=== PATIENT | male | born 1965 | race Caucasian/White ===

== ENCOUNTER → 2017-04-03 14:13 | Outpatient (REF) | payer OTHER, SELFPAY ==
[2017-04-03 21:32] LABS: Amphetamine/Metha Screen,Urine Negative ng/mL (<1000); Barbiturates Screen,Urine Negative ng/mL (<200); Benzodiazepines Screen,Urine Positive ng/mL (200); Cannabinoid Screen,Urine Negative ng/mL (<50); Cocaine Screen,Urine Negative ng/g (<300); Methadone Screen,Urine Negative ng/mL (<300); Opiate Screen,Urine Negative ng/mL (<300); Phencyclidine Screen,Urine Negative ng/mL (<25)
== END ==
LOC: LAB 14:13
PROVIDERS: Visit Provider Emergency Medicine
DX: Z79.899 Other long term (current) drug therapy (principal)
CPT/HCPCS: 80305

== ENCOUNTER → 2017-06-29 14:54 | Outpatient (REF) | payer OTHER, SELFPAY ==
[2017-06-29 19:30] LABS: Amphetamine/Metha Screen,Urine Negative ng/mL (<1000); Barbiturates Screen,Urine Negative ng/mL (<200); Benzodiazepines Screen,Urine Positive ng/mL (200); Cannabinoid Screen,Urine Negative ng/mL (<50); Cocaine Screen,Urine Negative ng/g (<300); Methadone Screen,Urine Negative ng/mL (<300); Opiate Screen,Urine Negative ng/mL (<300); Phencyclidine Screen,Urine Negative ng/mL (<25)
== END ==
LOC: LAB 14:54
PROVIDERS: Visit Provider Emergency Medicine
DX: Z79.899 Other long term (current) drug therapy (principal)
CPT/HCPCS: 80305

== ENCOUNTER → 2017-09-19 13:38 | Outpatient (CLI) | payer OTHER, SELFPAY ==
[2017-09-19 19:20] LABS: Anion Gap 14.8 mEq/L (5-15); Blood Urea Nitrogen 17 mg/dL (7-18); Calcium 8.8 mg/dL (8.5-10.1); Carbon Dioxide 25 mmol/L (21.0-32.0); Chloride 100 mmol/L (98-107); Creatinine,Serum 1.16 mg/dL (0.70-1.30); Estimated Glomerular Filt Rate 66 ml/min (>60); GFR (African American) 80 ML/MIN (>60); Glucose 331 mg/dL (74-106); Potassium 4.8 mmoL/L (3.5-5.1); Sodium 135 mmol/L (136-145)
[2017-09-19 19:21] LABS: Hemoglobin A1C 8.9 % (0.0-7.0)
== END ==
PROVIDERS: Visit Provider Emergency Medicine
DX: E11.9 Type 2 diabetes mellitus without complications (principal); I20.8 Other forms of angina pectoris
CPT/HCPCS: 80048; 83036

== ENCOUNTER → 2017-09-20 10:39 | Outpatient (CLI) | payer OTHER, SELFPAY | PROVIDERS: Visit Provider Emergency Medicine | DX: E11.9 Type 2 diabetes mellitus without complications (principal) ==

== ENCOUNTER → 2017-09-25 07:13 | Outpatient (CLI) | payer OTHER, SELFPAY ==
--- NOTE | 2017-09-25 07:44 | CA_ITS ---
PROCEDURE: 2-D M-mode and color Doppler study INDICATIONS FOR THE TEST: Chest pain + COPD Heart Murmur Tobacco Smoking+ Palpitations Fatigue Syncope Edema Hypertension+Diabetes Mellitus+ Rheumatic Fever SOB+DUVALL Obesity Hyperlipidemia+ Family History HD Additional History STENT, ND PATIENT INFORMATION HEIGHT: 72 WEIGHT:213 GENDER: M B/P:118/78 2-D/M-MODE INTERPRETATION: 2-D MEASUREMENTS OBSERVED VALUES IN CMS Right Ventricular Dimension (RVDd) 2.5 Interventricular Septum (Thickness)(IVsd) 1.4 Left Ventricular Internal Dimensions(LVIDd) 3.4 Left Ventricular Posterior Wall (Thickness)(LVPWd) 1.5 Aortic Root 3.5 Aortic Cusp Separation 2.2 Left Atrial Dimensions (LAD) 3.1 2D 1. Left atrium is mildly enlarged, left ventricle is normal size, mild concentric left ventricular hypertrophy, visually estimated ejection fraction of 55% with no obvious regional wall motion abnormality. 2. The right atrium and right ventricle are normal size and contractility. 3. The aortic, mitral and tricuspid valve are grossly normal. 4. The pulmonic valve is poorly visualized. 5. No significant pericardial effusion noted. DOPPLER INTERROGATION: Doppler interrogation of the aortic, mitral and tricuspid valve reveals presence of mild mitral and tricuspid regurgitation, tricuspid regurgitation jet velocity is insufficient for calculation of the right ventricular systolic pressure, grade 1 diastolic dysfunction seen without tissue Doppler evidence of raised left atrial pressure. CONCLUSION: 1. Mildly enlarged left atrium, normal left ventricular size, mild concentric left ventricular hypertrophy, visually estimated ejection fraction of 55% with no obvious regional wall motion abnormality, grade 1 diastolic dysfunction seen without tissue Doppler evidence of raised left atrial pressure. 2. Mild mitral and tricuspid regurgitation 3. No significant pericardial effusion noted.
--- NOTE | 2017-09-25 09:42 | NM_ITS ---
CARDIOLITE SPECT MYOCARDIAL PERFUSION SCAN, REST AND STRESS: EXERCISE STRESS [facility] REVIEW QGS EF AND WALL MOTION EVALUATION: QPS - PERFUSION EVALUATION HISTORY: Chest pain, SOB, Fatigue, CAD, DM, Tobacco use DOSE: 10.98 mCi technetium 99m mibi intravenously at rest followed by 31.4 mCi technetium 99m mibi following the intravenous ministration of 0.4 mg of Lexiscan. Resting blood pressure is 116/71. Stress blood pressure 116/68. FINDINGS: Ejection fraction is calculated to be 70 Uniform myocardial activity at both stress and rest gated images calculated ejection fraction 70% wall motion. IMPRESSION: No scintigraphic evidence of Lexiscan-induced myocardial ischemia with normal ejection fraction normal wall motion
--- NOTE | 2017-09-25 09:54 | HMH.ITSHM ---
SIMVASTATIN LEXAPRO PLAVIX LISINOPRIL ZANAX NEXIUM METFORMIN INSULIN
[2017-09-25 13:55] LABS: Chol/HDL Ratio 5.4 (1-3.5); Cholesterol 234 mg/dL (140-200); HDL Cholesterol 43 mg/dL (27-67); LDL Cholesterol 157 mg/dL (0-130); Triglycerides 170 mg/dL (30-200); VLDL Cholesterol 34 mg/dL (0-40)
== END ==
PROVIDERS: Family Provider Emergency Medicine; PCP Emergency Medicine; Visit Provider Internal Medicine
DX: R07.9 Chest pain, unspecified (principal); R06.00 Dyspnea, unspecified; I25.10 Atherosclerotic heart disease of native coronary artery without angina pectoris; I11.9 Hypertensive heart disease without heart failure; E11.9 Type 2 diabetes mellitus without complications; F41.9 Anxiety disorder, unspecified; F32.9 Major depressive disorder, single episode, unspecified; F17.200 Nicotine dependence, unspecified, uncomplicated; Z95.5 Presence of coronary angioplasty implant and graft
CPT/HCPCS: 36415; 78452; 80061; 93017; 93306; A9502; J2785

== ENCOUNTER → 2017-11-27 11:30 | Outpatient (REF) | payer OTHER, SELFPAY ==
[2017-11-27 13:46] LABS: Amphetamine/Metha Screen,Urine Negative ng/mL (<1000); Barbiturates Screen,Urine Negative ng/mL (<200); Benzodiazepines Screen,Urine Positive ng/mL (<200); Cannabinoid Screen,Urine Positive ng/mL (<50); Cocaine Screen,Urine Negative ng/mL (<300); Methadone Screen,Urine Negative ng/mL (<300); Opiate Screen,Urine Negative ng/mL (<300); Phencyclidine Screen,Urine Negative ng/mL (<25)
== END ==
LOC: LAB 11:30
PROVIDERS: Visit Provider Emergency Medicine
DX: Z79.899 Other long term (current) drug therapy (principal)
CPT/HCPCS: 80305

== ENCOUNTER → 2018-01-15 08:12 | Outpatient (CLI) | payer OTHER, SELFPAY ==
--- NOTE | 2018-01-15 08:14 | XR_ITS ---
XR hip RT 2-3V w/pelvis HISTORY: Right hip pain ITS.REASON: back pain ORDERING PHYSICIAN: Kvng Quintana MD PATIENT AGE: 52 years COMPARISON: 02/19/2012 FINDINGS: There are mild osteoarthritic changes of the right hip with decrease in the joint space medially and osteophyte formation along the inferior aspect of the acetabulum. No fracture or dislocation. No lytic or blastic change. These findings are similar when compared to 02/19/2012. IMPRESSION: Mild osteoarthritis of the right hip
--- NOTE | 2018-01-15 08:14 | XR_ITS ---
XR hip LT 2-3V w/pelvis HISTORY: Left hip pain ITS.REASON: back pain ORDERING PHYSICIAN: Kvng Quintana MD PATIENT AGE: 52 years COMPARISON: None FINDINGS: Mild osteoarthritic changes are present involving the left hip with slight decrease in the joint space and minimal osteophyte formation along the inferior aspect of the femoral head. No fracture or dislocation. No lytic or blastic change. IMPRESSION: Mild osteoarthritis of left hip
== END ==
PROVIDERS: PCP Emergency Medicine; Visit Provider Emergency Medicine
DX: M54.5 Low back pain (principal)
CPT/HCPCS: 73502

== ENCOUNTER → 2018-02-05 20:02 | Outpatient (CLI) | payer OTHER, SELFPAY | PROVIDERS: PCP Emergency Medicine; Visit Provider Emergency Medicine | DX: G47.33 Obstructive sleep apnea (adult) (pediatric) (principal); I10 Essential (primary) hypertension; R41.3 Other amnesia | CPT/HCPCS: 95810 ==

== ENCOUNTER → 2018-03-01 19:13 | Outpatient (CLI) | payer OTHER, SELFPAY ==
[2018-03-01 21:44] LABS: Amphetamine/Metha Screen,Urine Negative ng/mL (<1000); Barbiturates Screen,Urine Negative ng/mL (<200); Benzodiazepines Screen,Urine Positive ng/mL (<200); Cannabinoid Screen,Urine Positive ng/mL (<50); Cocaine Screen,Urine Negative ng/mL (<300); Methadone Screen,Urine Negative ng/mL (<300); Opiate Screen,Urine Negative ng/mL (<300); Phencyclidine Screen,Urine Negative ng/mL (<25)
== END ==
PROVIDERS: Visit Provider Emergency Medicine
DX: Z79.899 Other long term (current) drug therapy (principal)
CPT/HCPCS: 80305

== ENCOUNTER → 2018-05-28 18:20 | Outpatient (CLI) | payer OTHER, SELFPAY ==
[2018-05-28 19:27] LABS: Basophils % 0.3 % (0.1-2.0); Eosinophils # 0.1 K/mm3 (0.0-0.4); Eosinophils % 1.6 % (0.1-12.0); Hematocrit 45.3 % (42.0-52.0); Hemoglobin 14.7 g/dL (14.1-18.0); Lymphocytes # 2.1 K/mm3 (0.7-4.5); Mean Corpuscular HGB Conc 32.5 g/dL (31.8-35.4); Mean Corpuscular Hemoglobin 29.7 pg (27.0-31.2); Mean Corpuscular Volume 91.3 fl (80-94); Mean Platelet Volume 7.6 fl (7.4-10.4); Monocytes # 0.4 K/mm3 (0.1-1.0); Monocytes % 4.2 % (1.7-9.3); Neutrophils # 5.7 K/mm3 (1.8-7.8); Neutrophils % 68.9 % (37.0-80.0); Platelet Count 324 K/mm3 (142-424); Red Blood Count 4.96 M/mm3 (4.60-6.20); Red Cell Distribution Width 13.9 % (11.5-17.5); White Blood Count 8.2 K/mm3 (4.8-10.8)
[2018-05-28 20:00] LABS: Alanine Aminotransferase 20 U/L (12-78); Albumin Level 3.6 gm/dL (3.4-5.0); Alkaline Phosphatase 73 U/L (46-116); Anion Gap 16.4 mEq/L (5-15); Aspartate Amino Transferase 14 U/L (15-37); Bilirubin,Total 0.4 mg/dL (0.2-1.0); Blood Urea Nitrogen 14 mg/dL (7-18); Calcium 9.2 mg/dL (8.5-10.1); Carbon Dioxide 26 mmol/L (21.0-32.0); Chloride 100 mmol/L (98-107); Chol/HDL Ratio 4.6 (1-3.5); Cholesterol 203 mg/dL (140-200); Creatinine,Serum 1.14 mg/dL (0.70-1.30); Estimated Glomerular Filt Rate 67 ml/min (>60); GFR (African American) 81 ML/MIN (>60); Globulin 3.7 gm/dl (1.3-3.2); Glucose 152 mg/dL (74-106); HDL Cholesterol 44 mg/dL (27-67); LDL Cholesterol 134 mg/dL (0-130); Potassium 4.4 mmoL/L (3.5-5.1); Sodium 138 mmol/L (136-145); T4 (Thyroxine) 6.7 ug/dl (4.7-13.3); Thyroid Stimulating Hormone 1.98 uIU/ml (0.358-3.740); Total Protein,Serum 7.3 gm/dL (6.4-8.2); Triglycerides 123 mg/dL (30-200); VLDL Cholesterol 25 mg/dL (0-40)
[2018-05-28 21:03] LABS: Hemoglobin A1C 8.3 % (0.0-7.0)
[2018-05-30 15:06] LABS: Vitamin D 25 Hydroxy 9.5 ng/mL (30.0-100.0)
== END ==
PROVIDERS: Visit Provider Emergency Medicine
DX: E11.9 Type 2 diabetes mellitus without complications (principal); Z79.4 Long term (current) use of insulin; Z79.84 Long term (current) use of oral hypoglycemic drugs; F31.9 Bipolar disorder, unspecified; K21.9 Gastro-esophageal reflux disease without esophagitis; E78.5 Hyperlipidemia, unspecified; F17.210 Nicotine dependence, cigarettes, uncomplicated
CPT/HCPCS: 80053; 80061; 82652; 83036; 84436; 84443; 85025

== ENCOUNTER → 2018-06-17 17:52 | Outpatient (CLI) | payer OTHER, SELFPAY ==
[2018-06-17 18:21] LABS: Amphetamine/Metha Screen,Urine Negative ng/mL (<1000); Barbiturates Screen,Urine Negative ng/mL (<200); Benzodiazepines Screen,Urine Positive ng/mL (<200); Cannabinoid Screen,Urine Positive ng/mL (<50); Cocaine Screen,Urine Negative ng/mL (<300); Methadone Screen,Urine Negative ng/mL (<300); Opiate Screen,Urine Negative ng/mL (<300); Phencyclidine Screen,Urine Negative ng/mL (<25)
== END ==
PROVIDERS: Visit Provider Emergency Medicine
DX: Z79.899 Other long term (current) drug therapy (principal)
CPT/HCPCS: 80305

== ENCOUNTER → 2018-06-21 11:05 | Outpatient (CLI) | payer OTHER, SELFPAY | PROVIDERS: Visit Provider Specialist | DX: G47.33 Obstructive sleep apnea (adult) (pediatric) (principal) | CPT/HCPCS: 94762 ==

== ENCOUNTER → 2018-09-12 14:54 | Outpatient (CLI) | payer OTHER, SELFPAY ==
[2018-09-12 15:32] LABS: Amphetamine/Metha Screen,Urine Negative ng/mL (<1000); Barbiturates Screen,Urine Negative ng/mL (<200); Benzodiazepines Screen,Urine Positive ng/mL (<200); Cannabinoid Screen,Urine Positive ng/mL (<50); Cocaine Screen,Urine Negative ng/mL (<300); Methadone Screen,Urine Negative ng/mL (<300); Opiate Screen,Urine Negative ng/mL (<300); Phencyclidine Screen,Urine Negative ng/mL (<25)
== END ==
PROVIDERS: Visit Provider Emergency Medicine
DX: Z79.899 Other long term (current) drug therapy (principal)
CPT/HCPCS: 80305

== ENCOUNTER → 2018-12-11 17:44 | Outpatient (CLI) | payer OTHER, SELFPAY ==
[2018-12-11 20:22] LABS: Amphetamine/Metha Screen,Urine Negative ng/mL (<1000); Barbiturates Screen,Urine Negative ng/mL (<200); Benzodiazepines Screen,Urine Negative ng/mL (<200); Cannabinoid Screen,Urine Negative ng/mL (<50); Cocaine Screen,Urine Negative ng/mL (<300); Methadone Screen,Urine Negative ng/mL (<300); Opiate Screen,Urine Negative ng/mL (<300); Phencyclidine Screen,Urine Negative ng/mL (<25)
[2018-12-16 08:30] LABS: Alprazolam Negative (Cutoff=100); Benzodiazepines Negative ng/mL (Cutoff=100); Clonazepam Negative (Cutoff=100); Flurazepam Negative (Cutoff=100); Lorazepam Negative (Cutoff=100); Midazolam Negative (Cutoff=100); Temazepam Negative (Cutoff=100); Triazolam Negative (Cutoff=100)
== END ==
PROVIDERS: Visit Provider Emergency Medicine
DX: Z79.899 Other long term (current) drug therapy (principal); F41.9 Anxiety disorder, unspecified
CPT/HCPCS: 80305; 80346

== ENCOUNTER → 2019-03-11 12:50 | Outpatient (CLI) | payer OTHER, SELFPAY ==
[2019-03-12 22:47] LABS: Amphetamine/Metha Screen,Urine Negative ng/mL (<1000); Barbiturates Screen,Urine Negative ng/mL (<200); Benzodiazepines Screen,Urine Negative ng/mL (<200); Cannabinoid Screen,Urine Negative ng/mL (<50); Cocaine Screen,Urine Negative ng/mL (<300); Methadone Screen,Urine Negative ng/mL (<300); Opiate Screen,Urine Negative ng/mL (<300); Phencyclidine Screen,Urine Negative ng/mL (<25)
[2019-03-22 16:35] LABS: Alprazolam Negative (Cutoff=100); Benzodiazepines Negative ng/mL (Cutoff=100); Clonazepam Negative (Cutoff=100); Flurazepam Negative (Cutoff=100); Lorazepam Negative (Cutoff=100); Midazolam Negative (Cutoff=100); Temazepam Negative (Cutoff=100); Triazolam Negative (Cutoff=100)
== END ==
PROVIDERS: Visit Provider Emergency Medicine
DX: Z79.899 Other long term (current) drug therapy (principal)
CPT/HCPCS: 80305; 80346

== ENCOUNTER → 2019-04-15 16:54 | Outpatient (CLI) | payer OTHER, SELFPAY ==
[2019-04-15 21:16] LABS: Amphetamine/Metha Screen,Urine Negative ng/ml (<1000)
[2019-04-15 21:17] LABS: Barbiturates Screen,Urine Negative ng/ml (<200)
[2019-04-15 21:18] LABS: Benzodiazepines Screen,Urine Positive ng/ml (<200); Cannabinoid Screen,Urine Positive ng/ml (<50)
[2019-04-15 21:19] LABS: Cocaine Screen,Urine Negative ng/ml (<300); Methadone Screen,Urine Negative ng/ml (<300)
[2019-04-15 21:20] LABS: Opiate Screen,Urine Negative ng/ml (<300)
[2019-04-15 21:21] LABS: Phencyclidine Screen,Urine Negative
== END ==
PROVIDERS: Visit Provider Emergency Medicine
DX: Z79.899 Other long term (current) drug therapy (principal)
CPT/HCPCS: 80305

== ENCOUNTER → 2019-08-01 17:25 | Outpatient (CLI) | payer OTHER, SELFPAY ==
[2019-08-01 18:00] LABS: Basophils # 0.1 K/mm3 (0-0.2); Basophils % 0.5 % (0.1-2.0); Eosinophils # 0.2 K/mm3 (0.0-0.4); Eosinophils % 2.2 % (0.1-12.0); Hematocrit 48.1 % (42.0-52.0); Lymphocytes # 2.5 K/mm3 (0.7-4.5); Lymphocytes % 24.9 % (10-50); Mean Corpuscular HGB Conc 33.3 g/dL (31.8-35.4); Mean Corpuscular Hemoglobin 30.3 pg (27.0-31.2); Mean Platelet Volume 7.9 fl (7.4-10.4); Monocytes # 0.5 K/mm3 (0.1-1.0); Neutrophils # 6.7 K/mm3 (1.8-7.8); Neutrophils % 67.4 % (37.0-80.0); Platelet Count 410 K/mm3 (142-424); Red Blood Count 5.28 M/mm3 (4.60-6.20); Red Cell Distribution Width 13.9 % (11.5-17.5)
[2019-08-01 18:33] LABS: Chloride 102 mmol/L (98-107); Potassium 4.8 mmoL/L (3.5-5.1); Sodium 137 mmol/L (136-145)
[2019-08-01 18:35] LABS: Blood Urea Nitrogen 12 mg/dl (9-20); Estimated Glomerular Filt Rate 78 ml/min (>60); GFR (African American) 94 ML/MIN (>60)
[2019-08-01 18:36] LABS: Alanine Aminotransferase 17 U/L (12-78); Albumin Level 4.4 g/dl (3.5-5.0); Albumin/Globulin Ratio 1.3 (1.1-1.8); Alkaline Phosphatase 110 U/L (38-126); Anion Gap 11.8 mEq/L (5-15); Aspartate Amino Transferase 26 U/L (17-59); Bilirubin,Total 0.8 mg/dl (0.2-1.3); Calcium 10.2 mg/dl (8.4-10.2); Carbon Dioxide 28 mmol/L (22.0-30.0); Cholesterol 218 mg/dl (140-200); Globulin 3.5 g/dL (1.3-3.2); Glucose 168 mg/dl (74-100); Total Protein,Serum 7.9 g/dl (6.3-8.2); Triglycerides 272 mg/dl (30-150); VLDL Cholesterol 54 mg/dL (0-40)
[2019-08-01 18:37] LABS: Chol/HDL Ratio 4.4 (1-3.5); HDL Cholesterol 50 mg/dl (40-60)
[2019-08-01 18:48] LABS: Direct LDL Cholesterol 140.38 mg/dL (100-129)
[2019-08-01 18:54] LABS: T4 (Thyroxine) 8.3 ug/dl (5.53-11.0)
[2019-08-01 19:08] LABS: Thyroid Stimulating Hormone 6.31 uIU/mL (0.465-4.68)
[2019-08-01 19:34] LABS: Hemoglobin A1C 9.4 % (4.0-6.0)
[2019-08-03 08:09] LABS: Creatinine, Urine 30.7 mg/dL (Not Estab.); Microalbumin, Urine <3.0 ug/mL (Not Estab.)
[2019-08-04 08:25] LABS: Vitamin D 25 Hydroxy 28.3 ng/mL (30.0-100.0)
== END ==
PROVIDERS: Visit Provider Nurse Practitioner Family
DX: E55.9 Vitamin D deficiency, unspecified (principal); E11.9 Type 2 diabetes mellitus without complications; Z79.4 Long term (current) use of insulin; Z79.899 Other long term (current) drug therapy
CPT/HCPCS: 80053; 80061; 82043; 82570; 82652; 83036; 84436; 84443; 85025

== ENCOUNTER → 2019-08-20 07:47 | Outpatient (CLI) | payer OTHER, SELFPAY ==
--- NOTE | 2019-08-20 07:47 | MR_ITS ---
PROCEDURE: MR LUMBAR SPINE WO CON CLINICAL INDICATION: back pain COMPARISON: No exams were available for comparison TECHNIQUE: Standard multiplanar multiecho sequences are performed without contrast. 3-D MIP and myelographic images are also rendered and reviewed FINDINGS: Degenerate narrowing and Modic changes at L5-S1 is noted. The other disc spaces and the bony structures are unremarkable. The spinal cord and conus medullaris is unremarkable. At the L1-2 disc space there is no significant spinal stenosis. At the L2-3 disc space there is no significant spinal stenosis. At the L3-4 disc space there is a broad-based disc protrusion and mild facet arthropathy producing minimal central canal stenosis. At the L4-5 disc space there is mild facet arthropathy and broad-based disc protrusion producing mild central canal and mild bilateral neural foraminal stenosis. At the L5-S1 disc space there is a broad-based disc osteophyte complex and moderate facet arthropathy producing mild left neural foraminal stenosis. The bilateral paralumbar structures are unremarkable. IMPRESSION: Mild multilevel spinal stenosis as above. Dictated by: Javy Moon 08/20/2019 09:34 Electronically signed by Javy Moon in [place] 08/20/2019 09:34
== END ==
PROVIDERS: PCP Emergency Medicine; Visit Provider Emergency Medicine
DX: M54.9 Dorsalgia, unspecified (principal)
CPT/HCPCS: 72148; 76376

== ENCOUNTER → 2019-09-02 06:58 | Outpatient (CLI) | payer OTHER, SELFPAY ==
--- NOTE | 2019-09-02 06:59 | CA_ITS ---
APPROVED REPORT EXAM: Comprehensive 2D, Doppler, and color-flow Echocardiogram Commercial Account Executive: Dorinda Ge RDCS Ht: 6 ft 0 in Wt: 211lbs BSA: 2.18 BP: 112/84 mmHg Indications: CP,SMOKER,HTN,HLP,CAD,DM,SOA 2D Dimensions LVOT 1.83 cm (M/F) 1.5-2.5 M-Mode Dimensions RVDd 2.46 cm (0.9-2.6) LVDd 4.66 cm (3.5-5.7) LVDs 3.88 cm (3.5-5.7) IVSd 0.99 cm (0.6-1.1) PWd 0.76 cm (0.6-1.1) EF (Teich) 35.10% FS 16.70% EDV (Teich) 100.30 mL ESV (Teich) 65.10 mL LV Diastology E/A Ratio 0.75 Mitral Valve MV A Velocity 69.00 (40-130 cm/s) Left Ventricle Left atrium is mildly enlarged, left ventricle is normal size, mild concentric left ventricular hypertrophy, visually estimated ejection fraction 55% with no regional wall motion abnormality, grade 1 diastolic dysfunction seen without tissue Doppler evidence of raise left atrial pressure. Right Ventricle Right atrium and right ventricular normal size and contractility. Aortic Valve Aortic valve is minimally thickened and fibrosed, there is no aortic stenosis or aortic insufficiency. Mitral Valve Mitral valve is grossly normal, there is mild mitral regurgitation. Tricuspid Valve Tricuspid valve is grossly normal, there is mild tricuspid regurgitation. Pulmonic Valve Pulmonic valve is poorly visualized. Great Vessels Aortic root is normal size. Pericardium No significant pericardial effusion noted. Conclusion 1. Mildly enlarged left atrium, normal left ventricular size, mild concentric left ventricular hypertrophy, visually estimated ejection fraction 55% with no regional wall motion abnormality, grade 1 diastolic dysfunction seen without tissue Doppler evidence of raise left atrial pressure. 2. Mild mitral and tricuspid regurgitation. 3. No significant pericardial effusion noted. Electronically signed by : Brown Klein, 09/02/2019 18:57:05
--- NOTE | 2019-09-02 06:59 | NM_ITS ---
APPROVED REPORT Exam: Nuclear Stress Test Indication: Chest pain, SOB, Fatigue, CAD, Hx of VT, DM, High cholesterol, Tobacco use, Family history Patient Location: Outpatient Stress Tech: Marielle Chavez HI Tech:Gema Oliveira, ARRT, RT (R)(N) Ht: 6 ft 0 in Wt: 211 lbs HR: 69 bpm BP: 120/67 mmHg BSA: 2.18 m2 History: Chest pain, SOB, Fatigue, CAD, Hx of VT, DM, High cholesterol, Tobacco use, Family history Procedure: Patient received a 0.4 mg of intravenous Lexiscan, resting heart rate 69 bpm, resting blood pressure 102/67 mmHg, with Lexiscan maximum heart rate achived was 99 bpm which is Less than 85 % of the maximum predicted heart rate and blood pressure was 104/67 mmHg. With Lexiscan, patient denied any complaint of chest pain. Electrocardiogram Resting electrocardiogram showed sinus rhythm nonspecific ST-T changes, with Lexiscan there is less than 1.[address] segment depression noted from the baseline EKG. The EKG portion of the Lexiscan Myoview is nondiagnostic. Cardiac Stress and Resting SPECT Images: Cardiac Stress and Resting SPECT images were obtained using technetium 99m Myoview 32.6 mCi stress and 10.96 mCi at rest. Gated SPECT for analysis of segmental wall motion and calculation of the ejection fraction also done. Cardiac stress and resting SPECT images show uniform myocardial activity without segmental perfusion abnormality, computer derived ejection fraction is over 65% with no regional wall motion abnormality, right ventricle is normal size and contractility. Conclusion: 1. The EKG portion of the Lexiscan Myoview is nondiagnostic. 2. No scintigraphic evidence of reversible ischemia seen, computer derived ejection fraction is over 65% with no regional wall motion abnormality, right ventricle is normal size and contractility. 3. Normal Lexiscan Myoview study. Electronically signed by : Brown Klein, 09/02/2019 19:39:44
--- NOTE | 2019-09-02 06:59 | CA_ITS ---
APPROVED REPORT Exam: Pharmacologic Technologist: Marielle Chavez Ht: 6 ft 0 in Wt: 211 lbs BSA: 2.18 m2 HR: 69 bpm BP: 102/67 mmHg Indications: Chest pain, Shortness of Breath Medical History Medications: Lisinopril,,,,, Omeprazole,,,,, Alprazolam,,,,, Aspirin,,,,, Metformin,,,,, Gabapentin,,,,, Vitamin D3,,,,, Atorvastatin,,,,, CloPIdogrel,,,,, Diclofenac,,,,, BisOPROLOL,,,,, Cyclobenzaprine,,,,, Stress Test Details Test: LEXISCAN HR Resting HR: 70 bpm Max Heart Rate (APMHR): 165 bpm Max HR Achieved: 91 bpm Target HR (85% APMHR): 140 bpm % of APMHR: 55 Recovery HR: 87 bpm BP Resting BP: 102.0/67.0 mmHg Max BP: 119.0/71.0 mmHg Recovery BP: 119.0/71.0 mmHg ECG Clinical Exercise duration: 04:00 min Highest Stage Achieved: Stress ECG Conclusion Resting ECG: Normal sinus rhythm Symptoms: Mild shortness of air, malaise. No chest pain. Arrhythmias/Ectopy: None ST-T Changes: NS T wave changes Conclusion: Unremarkable Lexiscan stress. Myoview images reported separately. Test Summary REST . . . . . . . Resting REST 03:02 . . 70 . 102/ 67 . . Stage 1 . . . . . . . Myoview Injected Stage 1 01:00 . . 80 . . . . Stage 2 01:00 . . 89 . 103/ 64 . . Stage 3 01:00 . . 90 . 104/ 67 . . Stage 4 01:00 . . 90 . 100/ 66 . Stop exercise at 04:00 RECOVERY 01:00 . . 85 . 109/ 65 . . RECOVERY 02:00 . . 88 . 109/ 65 . . RECOVERY 03:00 . . 87 . 116/ 75 . . RECOVERY 04:00 . . 86 . 119/ 71 . . RECOVERY 04:15 . . 84 . 119/ 71 . . Electronically signed by : Brown Klein, 09/02/2019 19:38:02
--- NOTE | 2019-09-02 07:30 | HMH.ITSHM ---
Current Home Medications as stated by this patient Lee Hwang or administrative representative. []COLOFIDRIL ATORVASTATIN BISOPROLOL GABAPENTIN LORAZEPAM PROPROANOL LEXAPRO INSULIN
== END ==
PROVIDERS: PCP Emergency Medicine; Visit Provider Urology
DX: R07.89 Other chest pain (principal); R06.00 Dyspnea, unspecified; E11.9 Type 2 diabetes mellitus without complications; I11.9 Hypertensive heart disease without heart failure; I25.10 Atherosclerotic heart disease of native coronary artery without angina pectoris; F17.200 Nicotine dependence, unspecified, uncomplicated; Z79.4 Long term (current) use of insulin
CPT/HCPCS: 78452; 93017; 93306; A9502; J2785

== ENCOUNTER 2019-09-25 09:54 | Emergency (ER) | payer OTHER, SELFPAY ==
[2019-09-25 09:57] VITALS: BP 156/90; PULSE 87; RESP 18; TEMP 36.8; O2SAT 95; BMI 28.5
--- NOTE | 2019-09-25 10:09 | ECG_ITS ---
APPROVED REPORT Exam: Resting ECG HR:83 bpm ECG Measurements Heart Rate 83 AXES DC 174 P 35 QRSd 86 QRS 18 QT 380 T 50 QTc 446 <Conclusion> Normal sinus rhythm Normal ECG Electronically signed by : Darius Hooker, 09/28/2019 21:19:47
--- NOTE | 2019-09-25 10:14 | PC.NURSE ---
IN ROOM AT THIS TIME.
--- NOTE | 2019-09-25 10:22 | PC.NURSE ---
ON THE PHONE WITH AT THIS TIME.
[2019-09-25 10:29] LABS: Basophils # 0.1 K/mm3 (0-0.2); Basophils % 0.6 % (0.1-2.0); Eosinophils # 0.1 K/mm3 (0.0-0.4); Eosinophils % 1.7 % (0.1-12.0); Hematocrit 43.6 % (42.0-52.0); Hemoglobin 14.7 g/dL (14.1-18.0); Lymphocytes # 2.4 K/mm3 (0.7-4.5); Lymphocytes % 29.4 % (10-50); Mean Corpuscular HGB Conc 33.6 g/dL (31.8-35.4); Mean Corpuscular Hemoglobin 30.6 pg (27.0-31.2); Mean Corpuscular Volume 90.9 fl (80-94); Mean Platelet Volume 7.3 fl (7.4-10.4); Monocytes # 0.5 K/mm3 (0.1-1.0); Monocytes % 5.9 % (1.7-9.3); Neutrophils # 5.2 K/mm3 (1.8-7.8); Neutrophils % 62.5 % (37.0-80.0); Platelet Count 300 K/mm3 (142-424); Red Cell Distribution Width 13.8 % (11.5-17.5); White Blood Count 8.3 K/mm3 (4.8-10.8)
[2019-09-25 10:30] VITALS: BP 134/88; PULSE 88; RESP 22; O2SAT 94
[2019-09-25 10:33] LABS: Chloride 96 mmol/L (98-107); Potassium 4.4 mmoL/L (3.5-5.1); Sodium 133 mmol/L (136-145)
[2019-09-25 10:36] LABS: Anion Gap 12.4 mEq/L (5-15); Blood Urea Nitrogen 15 mg/dl (9-20); Calcium 9.1 mg/dl (8.4-10.2); Carbon Dioxide 29 mmol/L (22.0-30.0); Creatinine Clearance Estimated 94 mL/min (50-200); Estimated Glomerular Filt Rate 63 ml/min (>60); GFR (African American) 76 ML/MIN (>60); Glucose 393 mg/dl (74-100)
--- NOTE | 2019-09-25 10:41 | HMH.EDGENADL ---
ED Disposition Clinical Impression: Acute anxiety, Benzodiazepine dependence, continuous, Medication management Disposition: Home, Self-Care Condition on Discharge: Good Instructions: DI for Anxiety -- Adult Additional Instructions: You have been evaluated for medication management. Your new prescription has been renewed. Please pick it up with at your pharmacy. Follow-up with your primary care doctor. Return to the emergency department if you have any new or worsening symptoms. Referrals: Kvng Quintana MD [Primary Care Provider] - Time of Disposition: 11:46 - Critical Care Critical Care Time: No Attestation: On 09/25/19, the high probability of a clinically significant, sudden or life threatening deterioration of the following system(s) required my full and direct attention, intervention and personal management. The time I documented below is in addition to time spent performing reported procedures but includes the following listed in this critical care notation. Medical Decision Making - Medical Records Medical records reviewed: Yes: I reviewed the patient's medical records. - Apollo Inquiry Pt receiving controlled substance: Yes Apollo was queried for this patient: Yes Reference #:: [id number] Risks and benefits of using a controlled substance: were discussed with pt by me Comment: last alprazolam script with 08/23/19 Vital Signs: 09/25/19 09:57 09/25/19 10:30 09/25/19 10:58 Temperature 98.2 F Temperature Source Oral Pulse Rate Pulse Rate [Left Radial] 87 88 77 Respiratory Rate 18 22 20 Blood Pressure Blood Pressure [Right Arm] 156/90 H 134/88 127/89 Blood Pressure Mean [Right Arm] 112 103 101 Blood Pressure Source Blood Pressure Source [Right Arm] Automatic Cuff Automatic Cuff Automatic Cuff Blood Pressure Position Blood Pressure Position [Right Arm] Sitting Supine Supine 02 Sat by Pulse Oximetry 95 94 L 95 Oxygen Delivery Method Room Air Room Air Room Air 09/25/19 11:30 09/25/19 12:02 Temperature 98.2 F Temperature Source Oral Pulse Rate 76 Pulse Rate [Left Radial] 76 Respiratory Rate 20 20 Blood Pressure 126/80 Blood Pressure [Right Arm] 126/80 Blood Pressure Mean [Right Arm] 95 Blood Pressure Source Automatic Cuff Blood Pressure Source [Right Arm] Automatic Cuff Blood Pressure Position Sitting Blood Pressure Position [Right Arm] Supine 02 Sat by Pulse Oximetry 96 Oxygen Delivery Method Room Air Room Air - Lab Data Lab Results 09/25/19 10:20: WBC 8.3, RBC 4.80, Hgb 14.7, Hct 43.6, MCV 90.9, MCH 30.6, MCHC 33.6, RDW 13.8, Plt Count 300, MPV 7.3 L, Neut % (Auto) 62.5, Lymph % (Auto) 29.4, Meeker % (Auto) 5.9, Eos % (Auto) 1.7, Baso % (Auto) 0.6, Neut # (Auto) 5.2, Lymph # (Auto) 2.4, Meeker # (Auto) 0.5, Eos # (Auto) 0.1, Baso # (Auto) 0.1 09/25/19 10:20: Sodium 133 L, Potassium 4.4, Chloride 96 L, Carbon Dioxide 29, Anion Gap 12.4, BUN 15, Creatinine 1.20, Estimated Creat Clear 94, Estimated GFR 63, Est GFR ( Amer) 76, Glucose 393 H, Calcium 9.1, TSH 3.24, Thyroxine (T4) 7.5 Result diagrams: 09/25/19 10:20 09/25/19 10:20 Orders (Tests/Meds): ED MEDICATIONS Discontinued Medications Generic Name Dose Route Start Last Admin Trade Name Freq PRN Reason Stop Dose Admin Alprazolam 0.5 mg 09/25/19 10:15 09/25/19 10:24 Xanax 0.5mg Tablet PO 09/25/19 10:16 0.5 mg ONCE ONE Administration - ECG Data Tracing #1 Sinus rhythm with ventricular rate of 83 bpm. QRS 86, QTc 446. No evidence of ischemia or arrhythmia Normal Sinus Rhythm: Yes Medical Decision Narrative: In summary this is a 53-year-old male with history of anxiety presenting to the emergency department with tremors. Patient is overall well-appearing on arrival. Not tachycardic. Does not appear to be in acute withdrawal. He also has a history of hyperthyroidism. Will obtain CBC, CMP, TSH. Patient given one-time dose of 0.5 mg alprazolam. Laboratory
[2019-09-25 10:54] LABS: T4 (Thyroxine) 7.5 ug/dl (5.53-11.0)
[2019-09-25 10:58] VITALS: BP 127/89; PULSE 77; RESP 20; O2SAT 95
[2019-09-25 11:08] LABS: Thyroid Stimulating Hormone 3.24 uIU/mL (0.465-4.68)
[2019-09-25 11:30] VITALS: BP 126/80; PULSE 76; RESP 20; O2SAT 96
--- NOTE | 2019-09-25 11:41 | PC.NURSE ---
PAGING AT THIS TIME.
--- NOTE | 2019-09-25 11:45 | PC.NURSE ---
ON THE PHONE WITH AT THIS TIME.
[2019-09-25 12:02] VITALS: BP 126/80; PULSE 76; RESP 20; TEMP 36.8; O2SAT 96
== END 2019-09-25 12:04 | disposition home or self-care (01) ==
PROVIDERS: Emergency Provider Emergency Medicine; PCP Emergency Medicine
DX: F41.8 Other specified anxiety disorders (principal); F13.20 Sedative, hypnotic or anxiolytic dependence, uncomplicated; E11.65 Type 2 diabetes mellitus with hyperglycemia; Z79.4 Long term (current) use of insulin; E03.9 Hypothyroidism, unspecified; I25.2 Old myocardial infarction; I10 Essential (primary) hypertension; I25.10 Atherosclerotic heart disease of native coronary artery without angina pectoris; E78.5 Hyperlipidemia, unspecified; F17.210 Nicotine dependence, cigarettes, uncomplicated; Z79.899 Other long term (current) drug therapy
CPT/HCPCS: 80048; 84436; 84443; 85025; 93005; 99283

== ENCOUNTER → 2019-09-29 13:14 | Outpatient (POV) | payer OTHER, SELFPAY ==
[2019-09-29 13:53] VITALS: BP 140/88; PULSE 78; RESP 18; TEMP 36.4; O2SAT 98; BMI 29.1
--- NOTE | 2019-10-06 09:09 | HMH.PMCON ---
Assessment and Plan (1) Piriformis syndrome of left side Status: Chronic Category: Medical Code(s): G57.02 - Lesion of sciatic nerve, left lower limb (2) Spinal stenosis of lumbar region Status: Chronic Category: Medical Code(s): M48.061 - Spinal stenosis, lumbar region without neurogenic claudication - Assessment and plan all Dx Assessment and Plan for all problems:: Patient is tried and failed epidural injections along with hip injections. We will schedule him for a piriformis injection to see if this is beneficial for him. I will follow-up with the patient after his injection reassess his symptoms at that time he has been instructed to call the office if he has any issues prior to his next appointment. Dr. Rodriguez has reviewed this note and agrees with this plan of care. This note was dictated using voice recognition software and may contain errors or omissions HPI - Data of Consult Consult date: 09/29/19 Requesting Physician: Ashely Machuca APRN Primary Care Provider: Kvng Quintana MD - Consult Narrative Reason for consult: Back and left hip pain. History of present illness: Mr. Hwang is a 53 year old male who presents today for consultation in regards to his left hip pain. Patient has had multiple left hip injections by his orthopedic surgeon. Patient is currently on blood thinner. Patient rates her pain a 7 out of 10 today. Mostly in his low back and left hip. Patient is extremely tender over his left piriformis. Any kind of bending pulling stooping increases pain. Patient states heat ice and rest decreases pain. Patient has had this pain for several years. He is tried and failed epidural injections. Physical therapy made his pain worse. Patient currently on gabapentin from his primary care physician. CC: Ashely Machuca APRN [facility] History I have reviewed the patient's past medical history: Yes Medical History: Reports:: Anxiety, Coronary Artery Disease, Depression, Diabetes Mellitus Type 2, Gastroesophageal Reflux Disease(GERD), Hyperlipidemia, Hypertension, Myocardial Infarction Denies:: Cancer, Diabetes Mellitus Type 1, Internal Pacemaker, Lung Disease, MRSA, Seizures *Have you ever received a pneumonia vaccine?: Yes *Have you received a flu vaccine this season?: Yes Other Medical History: Reports: Arthritis, Thyroid Disease. Denies: Blood Transfusion Reaction Other Surgeries: Yes: Cardiac Catheterization, Colonoscopy, Coronary Stent. No: Pacemaker Amputation: No Fractures: No - *Social History Smoking Status: Current every day smoker Tobacco Type: cigarettes # Packs/Day (cigarettes): 1 #Yrs smoked (if former smoker): 20 Alcohol Intake: never Substance Use Type: marijuana Last Used Substance: days (ago) *Occupational Status:: other Housing: house Household Members: other *Travel in the last 8 weeks: None - Psychiatric History Pschychiatric History:: Reports:: Anxiety, Depression Family Hx:: Unable to obtain Review of Systems - Review of Systems ROS General: no recent weight change, no fever, no sleep disturbances Respiratory: no cough, no shortness of air, no recurring pulmonary infections Cardiovascular/Peripheral Vascular: No chest pain, No palpitations, no edema, no shortness of breath. Gastrointestinal: no new onset incontinence, normal bowel movements reported Genitourinary: no new onset incontinence Musculoskeletal: Left hip pain the left piriformis pain Psychiatric: normal mood/ affect Neurological: [denies new onset weakness in extremities], [denies new onset balance issues] Meds Home Medications Medication Instructions Recorded Confirmed Type aspirin 81 mg tablet,delayed 81 mg PO DAILY 10/23/18 09/25/19 History release bisoprolol fumarate 5 mg tablet 5 mg PO DAILY #90 tab 05/16/19 09/25/19 Rx gabapentin 800 mg tablet 800 mg PO TID #90 tab 08/11/19 09/25/19 Rx cyclobenzaprine 10 mg tablet 10 mg PO TID PRN tab 08/25/19 09/25/19 History
== END ==
PROVIDERS: PCP Emergency Medicine; Visit Provider Clinical Nurse Specialist Family Health
DX: G57.02 Lesion of sciatic nerve, left lower limb (principal); M48.061 Spinal stenosis, lumbar region without neurogenic claudication
CPT/HCPCS: 99202

== ENCOUNTER 2019-10-13 13:38 | Day surgery (SDC) | payer OTHER, SELFPAY ==
[2019-10-13 13:49] VITALS: BP 138/75; PULSE 96; RESP 18; TEMP 36.4; O2SAT 93; BMI 28.7
[2019-10-13 14:08] LABS: POC Glucose,Bedside 261 (70-110)
[2019-10-13 14:11] VITALS: BP 142/74; PULSE 74; RESP 18
[2019-10-13 14:14] VITALS: BP 142/77; PULSE 93; RESP 18; O2SAT 98
--- NOTE | 2019-10-13 14:14 | HMH.PMPROC ---
- Procedure Date: 10/13/19 Time: 14:14 Anesthesiologist:: Ashely Machuca APRN Complications:: None Pre-procedure Diagnosis:: Myofascial pain syndrome, piriformis syndrome left side Post-procedure Diagnosis:: Same Indications for Procedure:: Mr. Hwang is a 53 year old male who presents today for left piriformis injection. Patient has had multiple left hip injections by his orthopedic surgeon. Patient is currently on blood thinner. Patient rates her pain a 7 out of 10 today. Mostly in his low back and left hip. Patient is extremely tender over his left piriformis. Any kind of bending pulling stooping increases pain. Patient states heat ice and rest decreases pain. Patient has had this pain for several years. He has tried and failed epidural injections. Physical therapy made his pain worse. Patient currently on gabapentin from his primary care physician. Physical Exam General: Alert and oriented x3, no acute distress, pleasant and cooperative, [on room air] Lungs: Resps E/U, Symmetrical chest expansion, Eyes: PERRL Musculoskeletal: Flexion and extension of lumbar spine somewhat guarded secondary to pain, deep tendon reflexes normal, strength in upper and lower extremities [5/5], lightly antalgic gait noted Neurological: speech clear, director counseling bureau equal, no gross sensory deficits Procedure Details:: Procedure: Informed consent was obtained and the risk and benefits of the procedure were explained to the patient. Patient was taken to the procedure room. Left buttock and piriformis region was prepped using ChloraPrep as a cleansing solution. Trigger points were palpated and marked. Each of these trigger points were injected with 3 mL's of bupivacaine 0.25 and Depo-Medrol 10 mg. A total of 80 milligrams of Depo-Medrol was used for 3 trigger points. Bandages were placed over the injection sites. Patient tolerated the procedure well with no complications. Plan and Disposition:: Follow-up with the patient several weeks reassess his symptoms at that time he has been instructed to call the office if he has any issues prior to his next appointment. Dr. Rodriguez has reviewed this note and agrees with this plan of care. This note was dictated using voice recognition software and may contain errors or omissions
[2019-10-13 14:33] VITALS: BP 125/79; PULSE 89; RESP 16; O2SAT 93
== END 2019-10-13 14:34 | disposition home or self-care (01) ==
LOC: SC.PAINP 13:39
PROVIDERS: PCP Emergency Medicine; Visit Provider Clinical Nurse Specialist Family Health
DX: M79.18 Myalgia, other site (principal); G57.02 Lesion of sciatic nerve, left lower limb; Z72.0 Tobacco use; I11.9 Hypertensive heart disease without heart failure; E78.5 Hyperlipidemia, unspecified; E03.9 Hypothyroidism, unspecified; Z95.5 Presence of coronary angioplasty implant and graft; Z79.82 Long term (current) use of aspirin; Z79.899 Other long term (current) drug therapy; Z79.4 Long term (current) use of insulin
CPT/HCPCS: 20552; 82962; J1040

== ENCOUNTER → 2019-11-27 13:04 | Outpatient (POV) | payer OTHER, SELFPAY ==
[2019-11-27 13:19] VITALS: BP 122/62; PULSE 74; RESP 18; O2SAT 98; BMI 29.2
--- NOTE | 2019-11-27 13:28 | HMH.PAINSOAP ---
[facility] Pain Management SOAP Note Subjective:: Patient is a 54-year-old white male who presents today for follow-up after left piriformis injection. Patient is complaining of low back pain that is worse with leaning forward. He also says that sitting causes him to have severe pain. Patient says standing and walking does improve the pain somewhat. 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 He thinks this has contributed to much of his pain in his low back area. 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 He does rate his pain a 5 out of 10 today. Patient says that he did not get much relief from the piriformis injection. He says that he continues have the low back pain as well as left leg pain. Has tried physical therapy in the past along with a continued home stretching program. He is on Plavix that is prescribed per Dr. Stewart. He does try using ice and heat therapies. Patient is unable to take anti-inflammatories due to his anticoagulation therapy. Review of Systems General: No recent weight changes, no fever, no sleep disturbances Respiratory: No cough, no shortness of air, no recurring pulmonary infections Cardiovascular/peripheral vascular: No chest pain, no palpitations, no edema, no shortness of breath Gastrointestinal: No new onset incontinence, normal bowel movements reported Genitourinary: No new onset incontinence Musculoskeletal: Low back pain worse with bending forward Psychiatric: Normal mood/affect Neurological: [Denies weakness in extremities], [denies balance issues] Objective:: Physical exam General: Alert and oriented x3, no acute distress, pleasant and cooperative, [on room air] Lungs: Respirations even and unlabored, symmetrical chest expansion Eyes: PERRL Musculoskeletal: Flexion and extension of lumbar spine somewhat guarded secondary to pain, deep tendon reflexes normal, strength in upper and lower extremities [5/5], [abnormal gait noted] Neurological: Speech clear, air duct mechanic equal, no gross sensory deficit Assessment:: 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 Patient does have worsening pain when leaning forward or turning side to side. He is on Plavix therapy. This is prescribed by Dr. Stewart. He has been able to hold the medication in the past. We will seek approval to hold his anticoagulation therapy for the injection. Patient does have report of facet arthropathy to his MRI lumbar spine. We will see the patient back in the clinic after his injection to reassess his symptoms. The patient has been instructed to contact the clinic if he has any concerns before his next appointment. The patient and I specifically discussed risk factors for COVID19. These risks include, but are not limited to age greater than 60, heart or lung disease, diabetes, immunosuppression, and travel. We also discussed NSAIDs may worsen COVID19 infection or symptoms. Patient should not use NSAIDs to treat COVID19 signs or symptoms. Patient was also informed that any type of corticosteroid of any form (oral or injection) will decrease the patient's immune system response and may increase the likelihood of COVID19 infection and symptoms[address] Dr. Rodriguez has reviewed this note and agrees with this plan of care. This note was dictated using voice recognition software and make contain errors or omissions. [facility] History I have reviewed the patient's past medical history: Yes Medical History: Reports:: Anxiety, Coronary Artery Disease, Depression, Diabetes Mellitus Type 2, Gastroesophageal Reflux Disease(GERD), Hyperlipidemia, Hypertension, Myocardial Infarction Denies:: Cancer, Diabetes Mellitus Type 1, Internal Pacemaker, Lung Disease, MRSA, Seizures *Have
== END ==
PROVIDERS: PCP Physician Assistant; Visit Provider Clinical Nurse Specialist Family Health
DX: M51.36 Other intervertebral disc degeneration, lumbar region (principal); M12.88 Other specific arthropathies, not elsewhere classified, other specified site
CPT/HCPCS: 99212

== ENCOUNTER 2019-12-26 13:28 | Day surgery (SDC) | payer OTHER, SELFPAY ==
[2019-12-26 13:39] VITALS: BP 137/71; PULSE 84; RESP 18; TEMP 36.4; O2SAT 98; BMI 28.6
[2019-12-26 13:57] LABS: POC Glucose,Bedside 395 (70-110)
[2019-12-26 14:05] VITALS: BP 122/74; PULSE 85; RESP 18
[2019-12-26 14:06] VITALS: BP 128/78; PULSE 85; RESP 18; O2SAT 98
--- NOTE | 2019-12-26 14:08 | HMH.PMPROC ---
- Procedure Date: 12/26/19 Time: 14:08 Anesthesiologist:: Paresh Rodriguez MD Complications:: None Pre-procedure Diagnosis:: Degenerative disease of lumbar spine with lumbar spondylosis and lumbar facet arthropathy Post-procedure Diagnosis:: Same Indications for Procedure:: This patient is a pleasant 54-year-old white male who we are treating for low back pain with lumbar spondylosis and lumbar facet arthropathy. He does have some increasing pain in his lower lumbar spine tender over the facet joints of L4-5 and L5-S1. Most of his pain is in the low back area. We will do bilateral lumbar medial branch block/facet joint injections of L4-5 and L5-S1 today. He has been off of his Plavix for 7 days. Procedure Details:: Lumbar medial branch block Informed consent was obtained and the risks and benefits of the procedure was explained to the patient. The back was prepped using ChloraPrep. The skin and subcutaneous tissues were anesthetized using lidocaine. I placed 22-gauge spinal needles into the facet joint/medial branches of L4-L5 and L5-S1 bilaterally. Needle placement was confirmed with dye. After this we injected 3 mL bupivacaine 0.25% and Depo-Medrol 20 mg into each facet joint/medial branch of L4-L5 and L5-S1 bilaterally. We used a total of 80 mg Depo-Medrol for both levels bilaterally. The patient tolerated the procedure well with no complications. Plan and Disposition:: We will follow-up with him in 2 weeks. Will reevaluate symptoms at that time. Successful we will plan on RF ablation to these facet joint/medial branches of L4-5 and L5-S1 bilaterally.
[2019-12-26 14:18] VITALS: BP 147/85; PULSE 78; RESP 20; O2SAT 98
== END 2019-12-26 14:19 | disposition home or self-care (01) ==
LOC: SC.PAINP 13:30
PROVIDERS: PCP Emergency Medicine; Visit Provider Anesthesiology
DX: M51.36 Other intervertebral disc degeneration, lumbar region (principal); M12.88 Other specific arthropathies, not elsewhere classified, other specified site; M47.816 Spondylosis without myelopathy or radiculopathy, lumbar region; E11.9 Type 2 diabetes mellitus without complications; I10 Essential (primary) hypertension; F32.9 Major depressive disorder, single episode, unspecified; Z83.3 Family history of diabetes mellitus; Z82.49 Family history of ischemic heart disease and other diseases of the circulatory system; Z79.82 Long term (current) use of aspirin; Z79.899 Other long term (current) drug therapy
CPT/HCPCS: 64493; 64494; 82962; Q9966

== ENCOUNTER → 2020-04-06 14:02 | Outpatient (CLI) | payer OTHER, SELFPAY ==
[2020-04-06 14:21] LABS: Alanine Aminotransferase 17 U/L (12-78); Albumin Level 3.9 g/dl (3.5-5.0); Albumin/Globulin Ratio 1.2 (1.1-1.8); Alkaline Phosphatase 105 U/L (38-126); Anion Gap 11.3 mEq/L (5-15); Aspartate Amino Transferase 23 U/L (17-59); Bilirubin,Total 0.4 mg/dl (0.2-1.3); Blood Urea Nitrogen 10 mg/dl (9-20); Calcium 9.7 mg/dl (8.4-10.2); Carbon Dioxide 28 mmol/L (22.0-30.0); Chloride 101 mmol/L (98-107); Chol/HDL Ratio 4.6 (1-3.5); Cholesterol 221 mg/dl (140-200); Estimated Glomerular Filt Rate 77 ml/min (>60); GFR (African American) 94 ML/MIN (>60); Globulin 3.3 g/dL (1.3-3.2); Glucose 139 mg/dl (74-100); HDL Cholesterol 48 mg/dl (40-60); Potassium 4.3 mmoL/L (3.5-5.1); Sodium 136 mmol/L (136-145); Total Protein,Serum 7.2 g/dl (6.3-8.2); Triglycerides 330 mg/dl (30-150); VLDL Cholesterol 66 mg/dL (0-40)
[2020-04-06 14:27] LABS: Basophils # 0.1 K/mm3 (0-0.2); Basophils % 0.6 % (0.1-2.0); Eosinophils # 0.2 K/mm3 (0.0-0.4); Eosinophils % 1.9 % (0.1-12.0); Hematocrit 43.6 % (42.0-52.0); Hemoglobin 14.2 g/dL (14.1-18.0); Lymphocytes # 2.8 K/mm3 (0.7-4.5); Lymphocytes % 31.4 % (10-50); Mean Corpuscular HGB Conc 32.4 g/dL (31.8-35.4); Mean Corpuscular Hemoglobin 29.1 pg (27.0-31.2); Mean Corpuscular Volume 89.7 fl (80-94); Mean Platelet Volume 7.4 fl (7.4-10.4); Monocytes # 0.6 K/mm3 (0.1-1.0); Monocytes % 6.5 % (1.7-9.3); Neutrophils # 5.2 K/mm3 (1.8-7.8); Neutrophils % 59.5 % (37.0-80.0); Platelet Count 374 K/mm3 (142-424); Red Blood Count 4.87 M/mm3 (4.60-6.20); White Blood Count 8.7 K/mm3 (4.8-10.8)
[2020-04-06 14:32] LABS: Direct LDL Cholesterol 130.32 mg/dL (100-129)
[2020-04-06 14:36] LABS: Free T4 (Free Thyroxine) 1.26 ng/dl (0.78-2.19)
[2020-04-06 14:53] LABS: Prostate Specific Ag Screen 0.5 ng/ml (0.0-4.0); Thyroid Stimulating Hormone 6.14 uIU/mL (0.465-4.68)
[2020-04-06 16:01] LABS: Hemoglobin A1C 8.4 % (4.0-6.0)
== END ==
PROVIDERS: Visit Provider Emergency Medicine
DX: E11.9 Type 2 diabetes mellitus without complications (principal); Z79.4 Long term (current) use of insulin; Z79.899 Other long term (current) drug therapy; Z12.5 Encounter for screening for malignant neoplasm of prostate
CPT/HCPCS: 80053; 80061; 83036; 84439; 84443; 85025; G0103

== ENCOUNTER → 2020-05-04 14:00 | Outpatient (CLI) | payer OTHER, SELFPAY ==
[2020-05-06 14:28] LABS: Creatinine,Urine Random 140 mg/dL (Not Estab.); Microalbumin < 6.000 mg/L (0-16.7)
== END ==
PROVIDERS: Visit Provider Emergency Medicine
DX: E11.9 Type 2 diabetes mellitus without complications (principal); Z79.4 Long term (current) use of insulin
CPT/HCPCS: 82043; 82570

== ENCOUNTER 2020-05-11 08:38 | Day surgery (SDC) | payer MEDICARE, OTHER, SELFPAY ==
[2020-05-11] VITALS (15 sets, daily range): BP systolic 103–141; BP diastolic 65–92; PULSE 60–71; RESP 12–20; TEMP 36.9; O2SAT 90–100; BMI 31.1
--- NOTE | 2020-05-11 07:07 | IR_ITS ---
APPROVED REPORT Patient Location: [facility] Guide: COURTNEY Ram RT (R) PROCEDURES Left heart catheterization Left ventriculogram Selective coronary angiogram Drug-eluting stent deployment to the first obtuse marginal artery off a large dominant circumflex artery INDICATION Angina pectoris accelerated class IV, Coronary artery disease, Informed consent was obtained prior to the procedure. COMPLICATIONS None Estimated Blood Loss: less than 10ml TECHNIQUE One percent lidocaine used to anesthetize the right anterior aspect of the wrist. The right radial artery was accessed via the Seldinger technique. A 6 Romanian sheath was placed in the right radial artery. 2.5 mg of verapamil, 800 mcg of nitroglycerin, 1mg Lidocaine and 5000 U Heparin were given through the arterial sheath. The trap catheter was also used to perform left heart catheterization, left ventriculogram and selective coronary angiogram. At the end the diagnostic procedure therapeutic heparin was administered giving a therapeutic ACT and and I Ryann left guide catheter was placed in the left main artery. A Choice PT extra-support wire was placed into the circumflex artery and a 2.25 x 22 mm resolute Yoan stent was deployed at 20 alida reducing the critical stenosis to 0%. ELMER-3 flow was present before and after the procedure. After achieving excellent angiographic results the apparatus was removed the sheath was removed and hemostasis was achieved using TR banding patient was transferred to the postop holding area in stable condition ANGIOGRAPHIC RESULTS The left main artery Normal The left anterior descending artery Has proximal 10 to 20% atheromatous plaque with a mid vessel 30 to 40% stenosis followed by a myocardial bridge compressing 30% with systole. The distal LAD is small caliber and has mild atheromatous 10% stenosis. The first diagonal artery has an ostial 40 to 50% stenosis and is 2.0 mm in diameter. A stent in the midportion of the first diagonal artery is widely patent with minimal in-stent restenosis and excellent proximal distal transitioning The circumflex artery Is a large dominant vessel which has proximal 10 to 20% stenosis and a focal 80 to 90% stenosis and a large proximal first obtuse marginal artery. The second obtuse marginal artery has stents throughout the proximal and mid segment which are widely patent with minimal in-stent restenosis and excellent proximal distal transitioning The right coronary artery Is a codominant vessel and has proximal 10 to 20% stenosis of mid vessel 40 to 50% stenosis distal 30% stenosis in the posterior descending artery. A small to moderate posterior lateral branch has mid vessel 70% stenosis but is less than 2 mm in diameter The BOURGEOIS ventriculogram reveals Preserved ejection fraction estimated at 50% with plus for mitral regurgitation The left ventricular end-diastolic pressure 30 mmHg IMPRESSION Coronary disease as described above Successful stenting of a large first obtuse marginal artery severe disease reduced to 0% with 1 drug-eluting stent Persistent disease as described which at this time is best managed medically Severe mitral regurgitation by LV gram Moderate to severely elevated LVEDP PLAN 1. Dual antiplatelet therapy 2. Echocardiogram this admission to evaluate the severity of the mitral regurgitation. By angiography mitral regurgitation appears severe. This could be ischemic MR which may improve following stenting of the circumflex artery 3. Standard therapy for ischemic heart disease 4. LDL less than 55 5. Cardiac rehabilitation 6. Avoidance of tobacco products Electronically signed by : Ronny Stewart, 05/11/2020 10:20:22
[2020-05-11 09:16] LABS: Basophils % 0.5 % (0.1-2.0); Eosinophils # 0.2 K/mm3 (0.0-0.4); Eosinophils % 1.9 % (0.1-12.0); Hematocrit 42.8 % (42.0-52.0); Hemoglobin 13.9 g/dL (14.1-18.0); Lymphocytes # 2.6 K/mm3 (0.7-4.5); Lymphocytes % 28.4 % (10-50); Mean Corpuscular HGB Conc 32.4 g/dL (31.8-35.4); Mean Corpuscular Hemoglobin 29.4 pg (27.0-31.2); Mean Corpuscular Volume 90.7 fl (80-94); Mean Platelet Volume 7.2 fl (7.4-10.4); Monocytes # 0.5 K/mm3 (0.1-1.0); Monocytes % 5.9 % (1.7-9.3); Neutrophils # 5.7 K/mm3 (1.8-7.8); Neutrophils % 63.3 % (37.0-80.0); Platelet Count 349 K/mm3 (142-424); Red Blood Count 4.72 M/mm3 (4.60-6.20); Red Cell Distribution Width 14.4 % (11.5-17.5)
[2020-05-11 09:18] LABS: Chloride 104 mmol/L (98-107); Potassium 3.9 mmoL/L (3.5-5.1); Sodium 138 mmol/L (136-145)
[2020-05-11 09:20] LABS: Blood Urea Nitrogen 13 mg/dl (9-20); Creatinine Clearance Estimated 122 mL/min (50-200); Estimated Glomerular Filt Rate 77 ml/min (>60); GFR (African American) 94 ML/MIN (>60)
[2020-05-11 09:21] LABS: Anion Gap 10.9 mEq/L (5-15); Calcium 8.9 mg/dl (8.4-10.2); Carbon Dioxide 27 mmol/L (22.0-30.0); Glucose 193 mg/dl (74-100)
[2020-05-11 09:42] LABS: Coronavirus 19 IgG Antibody Negative (Negative); Coronavirus 19 IgM Antibody Negative (Negative)
--- NOTE | 2020-05-11 10:46 | CA_ITS ---
APPROVED REPORT EXAM: Comprehensive 2D, Doppler, and color-flow Echocardiogram Dielectric Machine Operator: Mansi Dumont RVT Ht: 6 ft 0 in Wt: 229lbs BSA: 2.26 BP: 120/80 mmHg Indications: SEVERE MR ? ON CATH,CAD,GERD,SMOKER,HTN,DM 2D Dimensions LVOT 1.84 cm (M/F) 1.5-2.5 LA Volume 30.60 mL LA Volume Index 13.60 mL/m2 (M/F) 16-34 M-Mode Dimensions RVDd 1.97 cm (0.9-2.6) LA Diam 3.29 cm (1.9-4.0) LVDd 5.40 cm (3.5-5.7) Ao Diam 2.54 cm (2.0-3.7) LVDs 3.99 cm (3.5-5.7) IVSd 0.60 cm (0.6-1.1) PWd 0.97 cm (0.6-1.1) EF (Teich) 50.70% FS 26.10% EDV (Teich) 141.30 mL ESV (Teich) 69.60 mL LV Diastology E Decel Time 157.00 (160-240 msec) E/A Ratio 1.3 MED E' 5.00 (< 7 cm/sec) E'/MED E' Ratio 15.36 (>14) LAT E' 7.60 (<10 cm/sec) E/LAT E' Ratio 10.11 (>14) Mitral Valve MV E Max Monico. 77.00 (40-130 cm/s) MV A Velocity 61.00 (40-130 cm/s) E/A Ratio 1.25 MV Decel. Time 157.00 (160-240 ms) MV PHT 46.00 ms Pulmonary Valve PV Peak Velocity 71.00 (50-150 cm/s) Tricuspid Valve TR P. Velocity 238.00 cm/s RAP Estimate 10.00 mmHg RVSP 32.70 mmHg Left Ventricle Left atrium is mildly enlarged, left ventricle is normal size, mild concentric left ventricular hypertrophy, visually estimated ejection fraction 50% with no obvious regional wall motion abnormality, endocardial surfaces are poorly visualized, diastolic parameters are inconclusive. Right Ventricle Right atrium and right ventricle are normal size and contractility. Aortic Valve Aortic valve is minimally thickened and fibrosed, there is no aortic stenosis or aortic insufficiency. Mitral Valve Mitral valve leaflets are minimally thickened, there is mild mitral regurgitation. Tricuspid Valve Tricuspid grossly normal, there is mild tricuspid regurgitation, tricuspid regurgitation jet velocity is inadequate for calculation of the right ventricular systolic pressure. Pulmonic Valve Pulmonic valve is poorly visualized. Great Vessels Aortic root is normal size. Pericardium No significant pericardial effusion noted. Conclusion 1. Mildly enlarged left atrium, normal left ventricular size, mild concentric left ventricular hypertrophy, visually estimated ejection fraction 50% with no regional wall motion abnormality, diastolic parameters are inconclusive. 2. Mild mitral and tricuspid regurgitation. 3. No significant pericardial effusion noted. Electronically signed by : Brown Klein, 05/11/2020 22:18:24
--- NOTE | 2020-05-11 11:57 | HMH.PHACLD ---
Lee Hwang has received discharge medication counseling on the following medications: CONTINUED MEDICATIONS: PLAVIX, ASPIRIN, ATORVASTATIN, BISOPROLOL PATIENT WILL NOT BE STARTED ON CASA OR ARB DUE TO LOW BLOOD PRESSURE.
[2020-05-11 15:01] LABS: CATHL Activated Clotting Time 398 SEC (74-125)
== END 2020-05-11 14:06 | disposition home or self-care (01) ==
PROVIDERS: PCP Emergency Medicine; Visit Provider Internal Medicine
DX: I25.118 Atherosclerotic heart disease of native coronary artery with other forms of angina pectoris (principal); E11.9 Type 2 diabetes mellitus without complications; I11.9 Hypertensive heart disease without heart failure; R06.09 Other forms of dyspnea; Z95.5 Presence of coronary angioplasty implant and graft; Z79.4 Long term (current) use of insulin; Z79.899 Other long term (current) drug therapy; Z72.0 Tobacco use
CPT/HCPCS: 80048; 85025; 85347; 86328; 92928; 93306; 93458; 99152; C1725; C1769; C1876; C9600; J1644; Q9967

== ENCOUNTER → 2020-05-18 14:02 | Outpatient (CLI) | payer MEDICARE, OTHER, SELFPAY ==
[2020-05-18 14:29] LABS: Basophils % 0.3 % (0.1-2.0); Eosinophils # 0.2 K/mm3 (0.0-0.4); Hematocrit 42.3 % (42.0-52.0); Hemoglobin 14.1 g/dL (14.1-18.0); Lymphocytes # 2.3 K/mm3 (0.7-4.5); Lymphocytes % 28.6 % (10-50); Mean Corpuscular HGB Conc 33.3 g/dL (31.8-35.4); Mean Corpuscular Hemoglobin 29.5 pg (27.0-31.2); Mean Corpuscular Volume 88.6 fl (80-94); Mean Platelet Volume 7.4 fl (7.4-10.4); Monocytes # 0.6 K/mm3 (0.1-1.0); Monocytes % 6.7 % (1.7-9.3); Neutrophils # 5.1 K/mm3 (1.8-7.8); Neutrophils % 62.4 % (37.0-80.0); Platelet Count 315 K/mm3 (142-424); Red Blood Count 4.77 M/mm3 (4.60-6.20); Red Cell Distribution Width 14.1 % (11.5-17.5); White Blood Count 8.2 K/mm3 (4.8-10.8)
[2020-05-18 14:48] LABS: Chloride 106 mmol/L (98-107)
[2020-05-18 14:49] LABS: Potassium 4.8 mmoL/L (3.5-5.1); Sodium 137 mmol/L (136-145)
[2020-05-18 14:52] LABS: Anion Gap 11.8 mEq/L (5-15); Blood Urea Nitrogen 16 mg/dl (9-20); Calcium 9.1 mg/dl (8.4-10.2); Carbon Dioxide 24 mmol/L (22.0-30.0); Estimated Glomerular Filt Rate 77 ml/min (>60); GFR (African American) 94 ML/MIN (>60); Glucose 175 mg/dl (74-100)
[2020-05-18 15:13] LABS: Coronavirus 19 IgG Antibody Positive (Negative); Coronavirus 19 IgM Antibody Negative (Negative)
== END ==
PROVIDERS: Visit Provider Urology
DX: R06.09 Other forms of dyspnea (principal); I20.8 Other forms of angina pectoris; I11.9 Hypertensive heart disease without heart failure; E11.9 Type 2 diabetes mellitus without complications; F17.200 Nicotine dependence, unspecified, uncomplicated; Z95.5 Presence of coronary angioplasty implant and graft; Z79.4 Long term (current) use of insulin
CPT/HCPCS: 36415; 80048; 85025; 86328

== ENCOUNTER 2020-06-08 19:47 | Inpatient (IN) | payer MEDICARE, OTHER, SELFPAY ==
[2020-06-08 19:55] VITALS: BP 151/77; PULSE 95; RESP 16; TEMP 37.1; O2SAT 95; BMI 30.9
[2020-06-08 20:18] LABS: Adenovirus,PCR Not Detected (NotDetected); Bordetella Pertussis Not Detected (NotDetected); Chlamydophila Pneumoniae, PCR Not Detected (NotDetected); Coronavirus 19, PCR Not Detected (NotDetected); Coronavirus 229E Not Detected (NotDetected); Coronavirus NL63 Not Detected (NotDetected); Coronavirus OC43 Not Detected (NotDetected); Coronovirus HKU1,PCR Not Detected (NotDetected); Human Metapneumovirus Not Detected (NotDetected); Influenza A, PCR Not Detected (NotDetected); Influenza AH1, 2009 Not Detected (NotDetected); Influenza AH1, PCR Not Detected (NotDetected); Influenza AH3,PCR Not Detected (NotDetected); Influenza B, PCR Not Detected (NotDetected); Mycoplasma Pneumoniae, PCR Not Detected (NotDetected); Parainfluenza 1, PCR Not Detected (NotDetected); Parainfluenza 2, PCR Not Detected (NotDetected); Parainfluenza 3, PCR Not Detected (NotDetected); Parainfluenza 4, PCR Not Detected (NotDetected); Respiratory Syncytial Virus Not Detected (NotDetected); Rhinovirus/Enterovirus Not Detected (NotDetected)
--- NOTE | 2020-06-08 20:19 | HMH.EDGENADL ---
ED Disposition Clinical Impression: Diabetic foot infection, Foot abscess Disposition: Admitted as Observation Condition on Discharge: Fair Referrals: Kvng Quintana MD [Primary Care Provider] - - Critical Care Critical Care Time: No Attestation: On 06/08/20, the high probability of a clinically significant, sudden or life threatening deterioration of the following system(s) required my full and direct attention, intervention and personal management. The time I documented below is in addition to time spent performing reported procedures but includes the following listed in this critical care notation. Medical Decision Making - Apollo Inquiry Pt receiving controlled substance: No Vital Signs: 06/08/20 19:55 Temperature 98.8 F Temperature Source Oral Pulse Rate [Right Brachial] 95 H Respiratory Rate 16 Blood Pressure [Right Arm] 151/77 H Blood Pressure Mean [Right Arm] 101 Blood Pressure Source [Right Arm] Automatic Cuff Blood Pressure Position [Right Arm] Sitting 02 Sat by Pulse Oximetry 95 Oxygen Delivery Method Room Air - Lab Data Lab Results 06/08/20 20:00: WBC 11.7 H, RBC 4.73, Hgb 13.7 L, Hct 42.5, MCV 89.8, MCH 29.0, MCHC 32.3, RDW 14.6, Plt Count 290, MPV 7.2 L, Neut % (Auto) 81.1 H, Lymph % (Auto) 11.9, [place] % (Auto) 5.5, Eos % (Auto) 1.0, Baso % (Auto) 0.5, Neut # (Auto) 9.5 H, Lymph # (Auto) 1.4, [place] # (Auto) 0.6, Eos # (Auto) 0.1, Baso # (Auto) 0.1 06/08/20 20:00: Sodium 133 L, Potassium 4.6, Chloride 99, Carbon Dioxide 26, Anion Gap 12.6, BUN 15, Creatinine 1.20, Estimated Creat Clear 101, Estimated GFR 63, Est GFR ( Amer) 76, Glucose 360 H, Calcium 9.5, Total Bilirubin 1.4 H, Direct Bilirubin 0.0, Conjugated Bilirubin 0.0, Indirect Bilirubin 1.4 H, Unconjugated Bilirubin 1.4 H, AST 24, ALT 18, Alkaline Phosphatase 115, Total Protein 7.7, Albumin 4.2 06/08/20 20:00: Lactate 1.6 06/08/20 20:00: ESR 96 H 06/08/20 20:00: C-Reactive Protein 90.8 H Result diagrams: 06/08/20 20:00 06/08/20 20:00 Orders (Tests/Meds): ED MEDICATIONS Generic Name Dose Route Start Last Admin Trade Name Juanq PRN Reason Stop Dose Admin Piperacillin Sod/Tazobactam 100 mls @ 200 mls/hr 06/08/20 20:30 06/08/20 21:23 Sod 4.5 gm/ Sodium Chloride IV 06/22/20 20:29 200 mls/hr Q8H FARNAZ Administration Protocol Miscellaneous 1 each 06/08/20 20:30 Vancomycin Consult Request * 07/08/20 20:29 CONSULT PHARMACY [facility] ORDERS Category Date Time Status Foot XR right minimum 3 views [XR foot RT min 3V] Stat Exams 06/08/20 20:25 Taken Full Resp Panel w/COVID ([facility]) Routine Lab 06/08/20 20:01 Received Blood Culture Stat Micro 06/08/20 20:00 Received Wound Culture and Gram Stain Stat Micro 06/08/20 20:03 Ordered - Radiology Data #1 Image(s): Foot/Toes Image Reviewed: Yes I reviewed the patient's radiology image soft tissue swelling/air over 5th MT head, no signs of osteomyelitis - Physician Consults Physician Consulted: Tonia Time: 22:04 Reason -: Admission Comment/Response: Agrees to admit the patient to the hospital. We discussed the patient's clinical information, including history, exam, laboratory and radiology results and ED course. Per hospital procedure, I will write temporary bridge inpatient orders on the patient. Specific orders requested by the admitting physician: States Dr. Vargas is out of town, consult Ortho. Continue antibiotics. General Adult HPI - General Chief complaint: Skin/Abscess/Foreign Body Stated complaint: Right foot red and swollen,has diabetes Time Seen by Provider: 06/08/20 20:19 Mode of Arrival: Family Vehicle Limitations: No Limitations Description of Symptoms (Recalled from ER Triage Doc. by RN): pt reports drainage to right foot, lateral side callus that was originally formed from a toothpick incident back a year or so ago. pt states he noticed the drainage on his sock tday, and then noticed his foot was red and swollen in that same
[2020-06-08 20:23] LABS: Basophils # 0.1 K/mm3 (0-0.2); Basophils % 0.5 % (0.1-2.0); Eosinophils # 0.1 K/mm3 (0.0-0.4); Hematocrit 42.5 % (42.0-52.0); Hemoglobin 13.7 g/dL (14.1-18.0); Lymphocytes # 1.4 K/mm3 (0.7-4.5); Lymphocytes % 11.9 % (10-50); Mean Corpuscular HGB Conc 32.3 g/dL (31.8-35.4); Mean Corpuscular Volume 89.8 fl (80-94); Mean Platelet Volume 7.2 fl (7.4-10.4); Monocytes # 0.6 K/mm3 (0.1-1.0); Monocytes % 5.5 % (1.7-9.3); Neutrophils # 9.5 K/mm3 (1.8-7.8); Neutrophils % 81.1 % (37.0-80.0); Platelet Count 290 K/mm3 (142-424); Red Blood Count 4.73 M/mm3 (4.60-6.20); Red Cell Distribution Width 14.6 % (11.5-17.5); White Blood Count 11.7 K/mm3 (4.8-10.8)
[2020-06-08 20:25] LABS: Chloride 99 mmol/L (98-107); Potassium 4.6 mmoL/L (3.5-5.1); Sodium 133 mmol/L (136-145)
--- NOTE | 2020-06-08 20:25 | XR_ITS ---
PROCEDURE: XR FOOT RT MIN 3V CLINICAL INDICATION: infection over 5th MT head Pain and swelling COMPARISON: No exams were available for comparison FINDINGS: No fracture or dislocation. No lytic or blastic change. There is normal mineralization. The joint spaces are well-preserved. No significant degenerative/arthritic changes. No erosive changes evident. Other findings:There is soft tissue swelling along the lateral aspect of the 5th metatarsophalangeal junction. There is a small focal area of gas in this region which could be due to gas-forming infection, open wound, or recent incision and drainage. No evidence of underlying bony destruction that would indicate osteomyelitis IMPRESSION: There is soft tissue swelling along the lateral aspect of the 5th metatarsophalangeal junction. There is a small focal area of gas in this region which could be due to gas-forming infection, open wound, or recent incision and drainage. No evidence of underlying bony destruction that would indicate osteomyelitis Dictated by: Be Sosa MD 06/09/2020 06:03 Be Sosa MD in [place] 06/09/2020 06:03
[2020-06-08 20:28] LABS: Alanine Aminotransferase 18 U/L (12-78); Albumin Level 4.2 g/dl (3.5-5.0); Alkaline Phosphatase 115 U/L (38-126); Anion Gap 12.6 mEq/L (5-15); Aspartate Amino Transferase 24 U/L (17-59); Bilirubin,Indirect 1.4 mg/dL (0.0-0.9); Bilirubin,Total 1.4 mg/dl (0.2-1.3); Bilirubin,Unconjugated 1.4 mg/dL (0.0-1.1); Blood Urea Nitrogen 15 mg/dl (9-20); Calcium 9.5 mg/dl (8.4-10.2); Carbon Dioxide 26 mmol/L (22.0-30.0); Creatinine Clearance Estimated 101 mL/min (50-200); Estimated Glomerular Filt Rate 63 ml/min (>60); GFR (African American) 76 ML/MIN (>60); Glucose 360 mg/dl (74-100); Lactic Acid 1.6 mmol/L (0.7-2.1); Total Protein,Serum 7.7 g/dl (6.3-8.2)
[2020-06-08 20:41] LABS: C-Reactive Protein 90.8 mg/L (0-4)
[2020-06-08 21:37] LABS: Erythrocyte Sedimentation Rate 96 mm/hr (0-20)
--- NOTE | 2020-06-08 21:50 | PC.NURSE ---
call out to dr. campos at this time
--- NOTE | 2020-06-08 22:01 | PC.NURSE ---
This RN spoke with Nahid,Pharmacist for Vanc IV dosing. He states loading dose of 2gn IV once then 1.5gm IV Q12H
[2020-06-08 23:50] VITALS: BP 125/82; PULSE 66; RESP 18; TEMP 37; O2SAT 99
--- NOTE | 2020-06-09 | MR_ITS ---
PROCEDURE: MR FOOT RT WO/W CON CLINICAL INDICATION: INFECTION 5TH MT Pain and swelling metatarsal COMPARISON: CR XR FOOT RT MIN 3V from 06/08/2020 TECHNIQUE: Routine multiplanar multi echo sequences are performed without and with gadolinium enhancement. FINDINGS: Marker is placed along the head the 5th metatarsal laterally to denote the area of clinical concern. There is soft tissue swelling at this region with mild enhancement of the subcutaneous soft tissues. No abnormal bone marrow signal intensity. No localized fluid collection that would indicate an abscess. No ligamentous abnormalities. There is focal increased T2 signal involving the deep and distal surface of the Achilles tendon suggesting a partial tear. There is a small area of increased T2 signal involving the lateral aspect of the talar dome measuring 6 mm as well as the lateral aspect of the medial malleolus measuring 5 mm suspicious for small areas of osteochondrosis dissecans. Small some chondral cyst involves the posterior distal aspect of the lateral malleolus at 4 mm.. IMPRESSION: 1. No evidence of osteomyelitis. 2. Cellulitis suspected at the lateral and distal aspect of the 5th metatarsal. No evidence of abscess. 3. 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
--- NOTE | 2020-06-09 | US_ITS ---
APPROVED REPORT Passenger Car Conductor: Swathi Dias RCS, RVS Indications CAD Risk Factors Hypertension Hyperlipidemia Cardiac Disease Diabetes Current Smoker Pressures/Indices Right Indices Left Indices Brachial 124.00 mmHg Brachial 125.00 mmHg Low Thigh 133.00 mmHg 1.06 Low Thigh 134.00 mmHg 1.07 Calf 136.00 mmHg 1.09 Calf 141.00 mmHg 1.13 Ankle(PT) 157.00 mmHg 1.26 Ankle(PT) 155.00 mmHg 1.24 Ankle(DP) 151.00 mmHg 1.21 Ankle(DP) 145.00 mmHg 1.16 Digit 175.00 mmHg 1.40 Digit 153.00 mmHg 1.22 Findings RT DULCE=1.26 LT DULCE=1.24 RT TPI=1.4 LT TPI=1.22 Conclusion RT DULCE=1.26 LT DULCE=1.24 RT TPI=1.4 LT TPI=1.22 No evidence significant arterial disease throughout the right and left lower extremities as evidenced by normal resting PVR waveforms and normal resting indices. Electronically signed by : Be Sosa MD 06/09/2020 17:35:16
[2020-06-09 00:03] VITALS: BP 148/86; PULSE 80; RESP 17; TEMP 36.9; O2SAT 98; BMI 29.4
--- NOTE | 2020-06-09 00:03 | PC.NURSE ---
patient up to floor via wheelchair.
[2020-06-09 02:48] VITALS: O2SAT 98
[2020-06-09 04:00] VITALS: BP 115/62; PULSE 77; RESP 16; TEMP 36.9; O2SAT 96
[2020-06-09 05:04] VITALS: BMI 29.5
[2020-06-09 05:44] LABS: POC Glucose,Bedside 84 (70-110)
--- NOTE | 2020-06-09 07:26 | HMH.PHAVTE ---
[facility] Pharmacy VTE Monitoring - Patient Demographics Admission date: 06/09/20 Report Date: 06/09/20 Time: 07:26 Allergies/Adverse Reactions: Patient Allergies No Known Allergies Allergy (Verified 05/18/20 14:40) Height: 1.83 m Weight: 98.883 kg Patient Problems: Current Active Problems Diabetic foot infection (Acute) Foot abscess (Acute) - VTE Risk Labs: VTE Related Lab Results Hgb 13.7 g/dL (14.1-18.0) L 06/08/20 20:00 Hct 42.5 % (42.0-52.0) 06/08/20 20:00 Plt Count 290 K/mm3 (142-424) 06/08/20 20:00 BUN 15 mg/dl (9-20) 06/08/20 20:00 Creatinine 1.20 mg/dl (0.66-1.25) 06/08/20 20:00 Estimated Creat Clear 101 mL/min (50-200) 06/08/20 20:00 VTE Score: 3 VTE Risk Level: Moderate Risk - Prophylaxis VTE Prophylaxis Ordered?: Yes Types of VTE Prophylaxis: TEDS Knee High Location of Applied Device: Bilateral Lower Extremeties
--- NOTE | 2020-06-09 07:50 | HMH.PHAINT ---
MEDICATION RECONCILIATION COMPLETED USING EXTERNAL FILL HISTORY AND PHYSICIAN OFFICE NOTE
[2020-06-09 08:00] VITALS: BP 124/69; PULSE 78; RESP 16; TEMP 37; O2SAT 96
--- NOTE | 2020-06-09 08:37 | HMH.PHACONS ---
- Pharmacy Consult Date: 06/09/20 Time: 08:38 Referring provider: DR. LEBLANC Reason for Consult:: VANCOMYCIN DOSING Allergies and ADEs:: Allergies Allergy/AdvReac Type Severity Reaction Status Date / Time No Known Allergies Allergy Verified 05/18/20 14:40 Home Medications:: Home Medications Medication Instructions Recorded Confirmed Type aspirin 81 mg tablet,delayed 81 mg PO DAILY 10/23/18 06/09/20 History release Cholecalciferol (Vitamin D3) 1,000 unit PO DAILY 09/25/19 06/09/20 History [Vitamin D3 1,000 Unit Cap] bisoprolol fumarate 5 mg tablet 5 mg PO DAILY #90 tab 02/06/20 06/08/20 Rx clopidogrel 75 mg tablet 75 mg PO DAILY #90 tab 02/06/20 06/08/20 Rx insulin human U-100 NPH-regulr 59 unit SQ BID #4 vial 04/14/20 06/08/20 Rx 70-30 mix 100 unit/mL subcutaneous susp alprazolam 0.5 mg tablet 0.5 mg PO QID #120 tab 05/04/20 06/08/20 Rx gabapentin 800 mg tablet 800 mg PO TID #90 tab 05/04/20 06/08/20 Rx Levothyroxine Sodium 50 mcg PO DAILY 05/11/20 06/08/20 History [Levothyroxine] Pantoprazole Sodium 40 mg PO DAILY 05/11/20 06/08/20 History Atorvastatin Calcium [Lipitor 40mg 40 mg PO HS 06/09/20 06/09/20 History Tab] Cyclobenzaprine HCl 10 mg PO TID PRN 06/09/20 06/09/20 History [Cyclobenzaprine 10mg Tab*] Ergocalciferol (Vitamin D2) 1 cap PO WEEKLY 06/09/20 06/09/20 History [Vitamin D2] Height: 1.83 m Weight: 98.883 kg Laboratory Results:: Laboratory Results - last 24 hr 06/08/20 20:00: WBC 11.7 H, RBC 4.73, Hgb 13.7 L, Hct 42.5, MCV 89.8, MCH 29.0, MCHC 32.3, RDW 14.6, Plt Count 290, MPV 7.2 L, Neut % (Auto) 81.1 H, Lymph % (Auto) 11.9, [place] % (Auto) 5.5, Eos % (Auto) 1.0, Baso % (Auto) 0.5, Neut # (Auto) 9.5 H, Lymph # (Auto) 1.4, [place] # (Auto) 0.6, Eos # (Auto) 0.1, Baso # (Auto) 0.1 06/08/20 20:00: Sodium 133 L, Potassium 4.6, Chloride 99, Carbon Dioxide 26, Anion Gap 12.6, BUN 15, Creatinine 1.20, Estimated Creat Clear 101, Estimated GFR 63, Est GFR ( Amer) 76, Glucose 360 H, Calcium 9.5, Total Bilirubin 1.4 H, Direct Bilirubin 0.0, Conjugated Bilirubin 0.0, Indirect Bilirubin 1.4 H, Unconjugated Bilirubin 1.4 H, AST 24, ALT 18, Alkaline Phosphatase 115, Total Protein 7.7, Albumin 4.2 06/08/20 20:00: Lactate 1.6 06/08/20 20:00: ESR 96 H 06/08/20 20:00: C-Reactive Protein 90.8 H 06/08/20 20:01: Chlamy pneumoniae PCR Not detected, Adenovirus (PCR) Not detected, B. pertussis DNA (PCR) Not detected, Coronavirus OC43 (PCR) Not detected, Coronavirus HKU1 (PCR) Not detected, Coronavirus 229E (PCR) Not detected, SARS-CoV-2 (PCR) Not detected, Coronavirus NL63 (PCR) Not detected, Human Metapneumovir PCR Not detected, Influenza A (H1) PCR Not detected, Influ A (H1N1/09) PCR Not detected, Influenza A (H3) PCR Not detected, Influenza Type A (PCR) Not detected, Influenza Type B (PCR) Not detected, M. pneumoniae (PCR) Not detected, Parainfluenza 1 (PCR) Not detected, Parainfluenza 2 (PCR) Not detected, Parainfluenza 3 (PCR) Not detected, Parainfluenza 4 (PCR) Not detected, RSV (PCR) Not detected, Entero/Rhino (PCR) Not detected 06/09/20 05:36: POC Glucose 84 Medical History: Reports:: Anxiety, Congenital Heart Disease, Coronary Artery Disease, Depression, Diabetes Mellitus Type 1, Gastroesophageal Reflux Disease(GERD), Hyperlipidemia, Hypertension, Myocardial Infarction Denies:: Cancer, Diabetes Mellitus Type 2, Internal Pacemaker, Lung Disease, MRSA, Seizures Assessment and Plan - Assessment and plan all Dx Assessment and Plan for all problems:: BASED ON PATIENT FACTORS, RECOMMEND VANCOMYCIN 2 GM IV Q18H. PHARMACY WILL MONITOR DAILY AND ADJUST APPROPRIATE.
[2020-06-09 10:24] LABS: Basophils % 0.4 % (0.1-2.0); Eosinophils # 0.3 K/mm3 (0.0-0.4); Eosinophils % 3.3 % (0.1-12.0); Hematocrit 37.6 % (42.0-52.0); Lymphocytes % 25.3 % (10-50); Mean Corpuscular HGB Conc 32.2 g/dL (31.8-35.4); Mean Corpuscular Hemoglobin 28.4 pg (27.0-31.2); Mean Corpuscular Volume 88.2 fl (80-94); Mean Platelet Volume 7.4 fl (7.4-10.4); Monocytes # 0.5 K/mm3 (0.1-1.0); Monocytes % 6.4 % (1.7-9.3); Neutrophils # 5.1 K/mm3 (1.8-7.8); Neutrophils % 64.8 % (37.0-80.0); Platelet Count 252 K/mm3 (142-424); Red Blood Count 4.26 M/mm3 (4.60-6.20); Red Cell Distribution Width 14.6 % (11.5-17.5); White Blood Count 7.8 K/mm3 (4.8-10.8)
[2020-06-09 10:40] LABS: Chloride 105 mmol/L (98-107); Potassium 3.9 mmoL/L (3.5-5.1); Sodium 137 mmol/L (136-145)
[2020-06-09 10:43] LABS: Anion Gap 10.9 mEq/L (5-15); Blood Urea Nitrogen 15 mg/dl (9-20); Calcium 8.9 mg/dl (8.4-10.2); Carbon Dioxide 25 mmol/L (22.0-30.0); Creatinine Clearance Estimated 105 mL/min (50-200); Estimated Glomerular Filt Rate 69 ml/min (>60); GFR (African American) 84 ML/MIN (>60); Glucose 114 mg/dl (74-100)
[2020-06-09 11:09] LABS: Hemoglobin 12.1 g/dL (14.1-18.0)
[2020-06-09 11:33] LABS: POC Glucose,Bedside 129 (70-110)
--- NOTE | 2020-06-09 13:08 | HMH.ORTHOCON ---
*Admission Date: 06/09/20 *Reason for consult:: Diabetic foot infection, right *History of present illness: 54-year-old male patient admitted to hospital overnight from the emergency room for management of right foot infection. He reports the problem started about a month ago after stepping on a toothpick. He says he was able to get the toothpick out, but has had an ulcer/eschar there since. He states that he continued to have some swelling around this area which has gotten worse about 3 days ago. He says it has become more painful, swollen with redness and some discharge about 3 days ago. He denies systemic symptoms like fever/chills/body aches. He reports having had some problems with the foot about a year ago and says he was seen by upper shaper. He is a diabetic and last A1c was 7.2. He reports having diabetic peripheral neuropathy with decreased sensation in both feet at baseline. He is also a chronic smoker. I was consulted today for management of his right foot infection as Dr. Vargas is out of town. [facility] History I have reviewed the patient's past medical history: Yes Medical History: Reports:: Anxiety, Congenital Heart Disease, Coronary Artery Disease, Depression, Diabetes Mellitus Type 1, Gastroesophageal Reflux Disease(GERD), Hyperlipidemia, Hypertension, Myocardial Infarction Denies:: Cancer, Diabetes Mellitus Type 2, Internal Pacemaker, Lung Disease, MRSA, Seizures *Have you ever received a pneumonia vaccine?: No *Have you received a flu vaccine this season?: No Other Medical History: Reports: Arthritis, Hypothyroidism, Thyroid Disease. Denies: Blood Transfusion Reaction Other Surgeries: Yes: Cardiac Catheterization, Colonoscopy, Coronary Stent. No: Pacemaker Amputation: No Fractures: No - *Social History Last grade of school completed: GED Smoking Status: Current every day smoker Tobacco Type: cigarettes # Packs/Day (cigarettes): 25 #Yrs smoked (if former smoker): 20 Alcohol Intake: current Alcohol Intake Frequency:: holidays/special occasions only Substance Use Type: marijuana *Occupational Status:: disabled Housing: house Household Members: none *Travel in the last 8 weeks: None - Psychiatric History Pschychiatric History:: Reports:: Anxiety, Depression Family Hx:: Other, Diabetes, Cancer, Heart Attack Review of Systems - Review of Systems Review of systems:: pertinent systems reviewed and negative unless documented below - Constitutional Denies body ache(s), Denies chills, Denies fever(s) - Eyes Denies change in vision, Denies double vision - ENT Denies abnormal hearing - *Cardiovascular Denies chest pain, Denies shortness of breath - *Respiratory Denies chest congestion, Denies cough - *Gastrointestinal Denies abdominal pain, Denies change in bowel habits - *Musculoskeletal Reports abnormal walking - Integumentary/Breasts Reports non-healing lesions, Reports skin ulcer - *Neurologic Reports abnormal walking - Endocrine Denies cold intolerance, Denies heat intolerance - Hematologic/Lymphatic Denies easy bleeding, Denies easy bruising Meds Home Medications Medication Instructions Recorded Confirmed Type aspirin 81 mg tablet,delayed 81 mg PO DAILY 10/23/18 06/09/20 History release Cholecalciferol (Vitamin D3) 1,000 unit PO DAILY 09/25/19 06/09/20 History [Vitamin D3 1,000 Unit Cap] bisoprolol fumarate 5 mg tablet 5 mg PO DAILY #90 tab 02/06/20 06/08/20 Rx clopidogrel 75 mg tablet 75 mg PO DAILY #90 tab 02/06/20 06/08/20 Rx insulin human U-100 NPH-regulr 59 unit SQ BID #4 vial 04/14/20 06/08/20 Rx 70-30 mix 100 unit/mL subcutaneous susp alprazolam 0.5 mg tablet 0.5 mg PO QID #120 tab 05/04/20 06/08/20 Rx gabapentin 800 mg tablet 800 mg PO TID #90 tab 05/04/20 06/08/20 Rx Levothyroxine Sodium 50 mcg PO DAILY 05/11/20 06/08/20 History [Levothyroxine] Pantoprazole Sodium 40 mg PO DAILY 05/11/20 06/08/20 History Atorvastatin Calcium [Lipitor 40mg 40 mg PO HS 06/09/20 04
[2020-06-09 13:35] VITALS: BMI 29.5
[2020-06-09 16:00] VITALS: BP 130/80; PULSE 78; TEMP 36.7; O2SAT 92
--- NOTE | 2020-06-09 16:44 | HMH.HP ---
*Admission Date: 06/09/20 *Chief complaint: Pain R Foot *History of present illness: 54-year-old male patient presented to [facility] emergency room with reports of not healing ulcer to right lateral foot. He reports stepping on a toothpick approximately 1 month ago and removed object. He states the last 3 days, the area is more swollen and more painful. He also reports the redness in his foot was spreading up to his ankle. He denies fever/chills/body aches. He also reports stepping on another toothpick in roughly the same area a year ago and after removing it reports area stayed a little swollen and not really painful until stepping on second toothpick last month. Reports he is a diabetic and last A1c was 7.2, he states he does take all medication per instruction, but has not been keeping up with his PCP appointment. Discussed importance of keeping up with appointments and diabetic regimen The emergency room white blood cell count was 11.7, Chemistries unremarkable, CRP was 90.8 and elevated, blood glucose was also elevated at 360 Wound culture and blood cultures x2 obtained Orthopedics consulted as Dr. Vargas is out of town 06/08/20 R Foot XR: FINDINGS: No fracture or dislocation. No lytic or blastic change. There is normal mineralization. The joint spaces are well-preserved. No significant degenerative/arthritic changes. No erosive changes evident. Other findings:There is soft tissue swelling along the lateral aspect of the 5th metatarsophalangeal junction. There is a small focal area of gas in this region which could be due to gas-forming infection, open wound, or recent incision and drainage. No evidence of underlying bony destruction that would indicate osteomyelitis IMPRESSION: There is soft tissue swelling along the lateral aspect of the 5th metatarsophalangeal junction. There is a small focal area of gas in this region which could be due to gas-forming infection, open wound, or recent incision and drainage. No evidence of underlying bony destruction that would indicate osteomyelitis Dictated by: Ian, 54-year-old male patient sitting up in bed resting quietly with eyes closed, he awakens to verbal stimuli. Denies any shortness of breath or chest pain during night. Reports pain is at a tolerable level. Awaiting Ortho recommendations [facility] History I have reviewed the patient's past medical history: Yes Medical History: Reports:: Anxiety, Congenital Heart Disease, Coronary Artery Disease, Depression, Diabetes Mellitus Type 1, Gastroesophageal Reflux Disease(GERD), Hyperlipidemia, Hypertension, Myocardial Infarction Denies:: Cancer, Diabetes Mellitus Type 2, Internal Pacemaker, Lung Disease, MRSA, Seizures *Have you ever received a pneumonia vaccine?: No *Have you received a flu vaccine this season?: No Other Medical History: Reports: Arthritis, Hypothyroidism, Thyroid Disease. Denies: Blood Transfusion Reaction Other Surgeries: Yes: Cardiac Catheterization, Colonoscopy, Coronary Stent. No: Pacemaker Amputation: No Fractures: No - *Social History Last grade of school completed: GED Smoking Status: Current every day smoker Tobacco Type: cigarettes # Packs/Day (cigarettes): 25 #Yrs smoked (if former smoker): 20 Alcohol Intake: current Alcohol Intake Frequency:: holidays/special occasions only Substance Use Type: marijuana *Occupational Status:: disabled Housing: house Household Members: none *Travel in the last 8 weeks: None - Psychiatric History Pschychiatric History:: Reports:: Anxiety, Depression Family Hx:: Other, Diabetes, Cancer, Heart Attack Review of Systems - Review of Systems Review of systems:: pertinent systems reviewed and negative unless documented below - Constitutional Denies body ache(s), Denies fever(s) - Eyes Denies blurry vision, Denies double vision - ENT Denies bleeding gums, Denies dizziness, Denies facial pain - *Cardiovascular
[2020-06-09 18:24] LABS: POC Glucose,Bedside 370 (70-110)
--- NOTE | 2020-06-09 18:31 | PC.NURSE ---
PT IS RESTING IN BED. NO COMPLAINTS OF DISCOMFORT. ULCER TO THE LEFT FOOT WITH ODOROUS DRAINAGE NOTED. REDNESS AND SWELLING NOTED. PALPABLE PULSES. ALERT AND ORIENTED X4. PT STATES THE REDNESS AND SWELLING TO THE RLE JUST STARTED A COUPLE OF DAYS AGO BUT THE ULCER HAS BEEN THERE FOR A FEW WEEKS. PT HAS BEEN ABLE TO AMBULATE BUT STATES HE WALKS ON THE HEEL OF THE RT FOOT. ORDERED FOR PT TO HAVE A MRI WITH AND WITHOUT CONTRAST AND AN ULTRASOUND OF BLE. DR FIGUEROA STATED PT COULD EAT TODAY BUT MIGHT POSSIBLY HAVE A PROCEDURE TOMORROW. LUNG SOUNDS CLEAR. ABDOMEN SOFT/NON TENDER WITH ACTIVE BOWEL SOUNDS. EATING AND DRINKING WELL. VSS. WILL CONTINUE TO MONITOR.
[2020-06-09 20:00] VITALS: BP 116/73; PULSE 74; RESP 16; TEMP 36.8; O2SAT 97
[2020-06-09 21:28] LABS: POC Glucose,Bedside 370 (70-110)
[2020-06-10] VITALS (21 sets, daily range): BP systolic 112–163; BP diastolic 71–96; PULSE 65–78; RESP 12–20; TEMP 36.6–43; O2SAT 90–96; BMI 29.7
--- NOTE | 2020-06-10 05:22 | PC.NURSE ---
pt has had no acute changes. iv patent and infusing per order. no pain reported. slept most of shift. will prepare patient for possible surgery today. vss. call light in reach. will continue to monitor
[2020-06-10 06:32] LABS: POC Glucose,Bedside 324 (70-110)
[2020-06-10 06:49] LABS: Basophils % 0.4 % (0.1-2.0); Eosinophils # 0.2 K/mm3 (0.0-0.4); Eosinophils % 3.1 % (0.1-12.0); Hematocrit 38.8 % (42.0-52.0); Hemoglobin 12.6 g/dL (14.1-18.0); Lymphocytes # 1.8 K/mm3 (0.7-4.5); Lymphocytes % 23.5 % (10-50); Mean Corpuscular HGB Conc 32.5 g/dL (31.8-35.4); Mean Corpuscular Hemoglobin 29.5 pg (27.0-31.2); Mean Corpuscular Volume 90.7 fl (80-94); Mean Platelet Volume 7.3 fl (7.4-10.4); Monocytes # 0.5 K/mm3 (0.1-1.0); Monocytes % 6.5 % (1.7-9.3); Neutrophils % 66.5 % (37.0-80.0); Platelet Count 285 K/mm3 (142-424); Red Blood Count 4.27 M/mm3 (4.60-6.20); Red Cell Distribution Width 14.5 % (11.5-17.5); White Blood Count 7.6 K/mm3 (4.8-10.8)
[2020-06-10 07:00] LABS: Chloride 102 mmol/L (98-107); Potassium 4.8 mmoL/L (3.5-5.1); Sodium 134 mmol/L (136-145)
[2020-06-10 07:03] LABS: Blood Urea Nitrogen 17 mg/dl (9-20); Creatinine Clearance Estimated 105 mL/min (50-200); Estimated Glomerular Filt Rate 69 ml/min (>60); GFR (African American) 84 ML/MIN (>60)
[2020-06-10 07:04] LABS: Anion Gap 14.8 mEq/L (5-15); Calcium 8.9 mg/dl (8.4-10.2); Carbon Dioxide 22 mmol/L (22.0-30.0); Glucose 338 mg/dl (74-100)
--- NOTE | 2020-06-10 09:37 | HMH.ACPN2 ---
Internal Medicine - PN: Subj *Date: 06/10/20 *Time: 09:37 Interval history: pt states he is doing well, plans are to go to or today. xrays discussed with pt Exam Vital signs and Labs for Last 24 Hours: Temp Pulse Resp BP Pulse Ox 98.6 F 67 18 123/73 92 L 06/10/20 07:30 06/10/20 07:30 06/10/20 07:30 06/10/20 07:30 06/10/20 07:30 Laboratory Results - last 24 hr 06/09/20 10:16: WBC 7.8 D, RBC 4.26 L, Hgb 12.1 L D, Hct 37.6 L, MCV 88.2, MCH 28.4, MCHC 32.2, RDW 14.6, Plt Count 252, MPV 7.4, Neut % (Auto) 64.8, Lymph % (Auto) 25.3, [place] % (Auto) 6.4, Eos % (Auto) 3.3, Baso % (Auto) 0.4, Neut # (Auto) 5.1, Lymph # (Auto) 2.0, [place] # (Auto) 0.5, Eos # (Auto) 0.3, Baso # (Auto) 0.0 06/09/20 10:16: Sodium 137, Potassium 3.9, Chloride 105, Carbon Dioxide 25, Anion Gap 10.9, BUN 15, Creatinine 1.10, Estimated Creat Clear 105, Estimated GFR 69, Est GFR ( Amer) 84, Glucose 114 H D, Calcium 8.9 06/09/20 11:26: POC Glucose 129 H 06/09/20 17:59: POC Glucose 370 H* 06/09/20 20:49: POC Glucose 370 H* 06/10/20 05:56: POC Glucose 324 H* 06/10/20 06:10: WBC 7.6, RBC 4.27 L, Hgb 12.6 L, Hct 38.8 L, MCV 90.7, MCH 29.5, MCHC 32.5, RDW 14.5, Plt Count 285, MPV 7.3 L, Neut % (Auto) 66.5, Lymph % (Auto) 23.5, [place] % (Auto) 6.5, Eos % (Auto) 3.1, Baso % (Auto) 0.4, Neut # (Auto) 5.0, Lymph # (Auto) 1.8, [place] # (Auto) 0.5, Eos # (Auto) 0.2, Baso # (Auto) 0.0 06/10/20 06:10: Sodium 134 L, Potassium 4.8 D, Chloride 102, Carbon Dioxide 22, Anion Gap 14.8, BUN 17, Creatinine 1.10, Estimated Creat Clear 105, Estimated GFR 69, Est GFR ( Amer) 84, Glucose 338 H D, Calcium 8.9 I & O for Last 24 hours: Intake & Output 06/07/20 06/08/20 06/09/20 06/10/20 11:59 11:59 11:59 11:59 Intake Total 100 / 100 2068 / 2068 Output Total 800 / 800 1150 / 1150 Balance -700 / -700 918 / 918 Weight 218 lb 219 lb 4 oz Microbiology Reports for the Last 24 Hours: Microbiology 06/08/20 10:10 Foot,Right - Wound Gram Stain - Final 06/08/20 10:10 Foot,Right - Wound Wound Culture - Preliminary - Constitutional no acute distress - *Routine HEENT Exam Head: Present: normocephalic Eye: Present: PERRL ENT: Present: mucous membranes moist - *Routine Neck Exam Present: supple. Absent: lymphadenopathy - *Routine Respiratory Exam Present: CTA bilaterally - *Routine Cardiovascular Exam Present: RRR - *Routine Abdominal Exam Present: soft, normoactive bowel sounds. Absent: tenderness - *Routine Extremities Exam Absent: cyanosis, clubbing, edema Comments: rt proximal phalanx great toe two quarter size areas that touch, one hard and the other is spongy - *Routine Skin Exam Present: warm, wounds. Absent: rash Comments: 2 areas rt proximal phalanx great toe spongy and purple - *Routine Neurological Exam Present: alert, oriented X3 - Routine Psychiatric Exam Present: normal affect Assessment and Plan (1) Diabetic foot infection Status: Acute Category: Medical Code(s): E11.628 - Type 2 diabetes mellitus with other skin complications; L08.9 - Local infection of the skin and subcutaneous tissue, unspecified - Assessment and plan all Dx Assessment and Plan for all problems:: rounded with dr taylor all orders per dr taylor surgery today
--- NOTE | 2020-06-10 09:46 | HMH.ANESCL ---
[facility] Anesthesia Checklist - Patient Identification Patient Identification: Arm Band - Structural Data Admitted From: Home Planned Operative Procedure/s: I&D Right Foot Consent for Planned Operative Procedure(s) Verified: Yes Verified Documents: Surgical Consent, History and Physical - NPO Status Verified Time NPO: 00:00 - Additional verifications Anesthesia Reactions: No Hx Blood Transfusions: No Blood Transfusion Reaction: No - Airway Assessment C-Spine Mobility Assessed: Yes (mp2) TMJ Mobility Assessed: Yes Dentition: Poor Dentition - Neurological Assessment Level of Consciousness: Awake, Alert - Anesthesia Plan Anesthesia Risk discussed: Yes Anesthesia Plan: Verified ASA Class: III Anesthesia Type: General [facility] History I have reviewed the patient's past medical history: Yes Medical History: Reports:: Anxiety, Congenital Heart Disease, Coronary Artery Disease, Depression, Diabetes Mellitus Type 1, Gastroesophageal Reflux Disease(GERD), Hyperlipidemia, Hypertension, Myocardial Infarction Denies:: Cancer, Diabetes Mellitus Type 2, Internal Pacemaker, Lung Disease, MRSA, Seizures *Have you ever received a pneumonia vaccine?: No *Have you received a flu vaccine this season?: No Other Medical History: Reports: Arthritis, Hypothyroidism, Thyroid Disease. Denies: Blood Transfusion Reaction Anesthesia experience/problems:: nac Other Surgeries: Yes: Cardiac Catheterization, Colonoscopy, Coronary Stent. No: Pacemaker Amputation: No Fractures: No - *Social History Last grade of school completed: GED Smoking Status: Current every day smoker Tobacco Type: cigarettes # Packs/Day (cigarettes): 25 #Yrs smoked (if former smoker): 20 Alcohol Intake: current Alcohol Intake Frequency:: holidays/special occasions only Substance Use Type: marijuana *Occupational Status:: disabled Housing: house Household Members: none *Travel in the last 8 weeks: None - Psychiatric History Pschychiatric History:: Reports:: Anxiety, Depression Family Hx:: Other, Diabetes, Cancer, Heart Attack
[2020-06-10 09:52] LABS: POC Glucose,Bedside 237 (70-110)
--- NOTE | 2020-06-10 11:38 | HMH.ANESI ---
[facility] Anesthesia Record Part I Intake, IV Amount: 1,500 Estimated blood loss (mL): 0 Urine output (mL): 0 Blood Pressure: 118/71 SaO2: 95 Pulse Rate: 67 Respiratory Rate: 12 Temperature: 97.8 F Patient is:: Awake, Stable Stable to PACU at:: 11:30
--- NOTE | 2020-06-10 12:06 | PC.NURSE ---
Pt arrived back from surgery.
[2020-06-10 12:24] LABS: POC Glucose,Bedside 238 (70-110)
--- NOTE | 2020-06-10 12:41 | HMH.OPNOTE ---
Date of procedure: 06/10/20 Pre-op Diagnosis:: 1. Abscess, right foot 2. Diabetic infection, right foot Post-op Diagnosis:: Same Procedure performed:: Incision and drainage/debridement right foot Surgeon:: Dougie Gonzalez MD Auto Design Checker(s):: Sanjuanita Sosa DIESEL POWER MECHANIC:: Armando Eason Anesthesia: LMA Estimated blood loss (mL): 2 Clinical Note:: Patient is a 54-year-old nondiabetic with foot problem for over a month. He reports injuring it about a month ago when he stepped on a toothpick. He says he had a callosity over the fifth metatarsophalangeal joint for a long time. This has worsened over the last week or so with increased swelling, redness, pain and some discharge. Patient was admitted to hospital and started on IV antibiotics. On examination of the foot, he has a large callus with central necrosis over the plantar lateral aspect of the fifth MTP joint. Small underlying abscess noted with the discharge. There is also cellulitis extending over the dorsum of the foot. MRI scan did not reveal any involvement of deeper tissue or evidence of osteomyelitis. ABIs were normal bilaterally. Patient is type II diabetic on insulin and is also a chronic smoker. No history of any previous foot ulcers, surgery or nonhealing wounds. Operative findings:: Large callus over the plantar lateral aspect of the fifth MTP joint of the right foot with a small underlying abscess. There is central necrosis of the skin over the callus. The abscess was extending into the subcutaneous tissue with small area of necrotic subcutaneous tissue. No involvement of deeper tissue, muscles, tendons or bone noted. After excising the necrotic skin and underlying tissue, a fairly healthy raw area of about 3 mm x 3 mm is present. Sterile nonadherent dressings were applied over this for healing by secondary intention. Operative note:: On the day of the procedure the patient was met on the floor and I again discussed the diagnosis, natural history and management options in detail including both nonsurgical and surgical. Following admission to hospital, he was started on IV antibiotics. MRI scan of the right foot did not show any evidence of osteomyelitis or involvement of deeper structures. ABIs of bilateral lower extremities were within normal limits. The procedure of incision and drainage under anesthesia was discussed with the patient. The complications discussed including but not limited to- infection, bleeding, injury to nerves, blood vessels, tendons, failure to eradicate the infection, incomplete recovery, persistent pain, CRPS, DVT/PE, likely need for further surgery and anesthetic complications including stroke, heart attack and even . Patient wished to proceed with the surgical intervention. All the questions were answered and he verbalized a good understanding. The limb was appropriately marked. Consent form was reviewed and signed. Patient was brought to the operating room and placed supine on the operating table. The right lower extremity was placed over a foam cushion. All the bony prominences were appropriately padded. A general anesthesia was administered by the talent development coordinator. A well-padded tourniquet cuff was placed over the right thigh. However, the tourniquet was not inflated during the procedure. The right lower extremity was prepped and draped in usual sterile fashion. A preprocedure timeout was performed as per protocol. The skin incision was made directly over the swelling on the plantar volar aspect of the foot at the level of the fifth MTP joint, with drainage of ever pus. About 2 mL of pus was drained. Aerobic and anaerobic culture swabs were obtained. After taking the swabs, overlying necrotic skin and callosity were excised. This left a superficial abscess cavity with small area of subcutaneous necrotic tissue. The slough and unhealthy tissue were excised and a sample of tissue was sent for microbiology. No involvement of the deeper tissue was noted. The
[2020-06-10 13:00] LABS: Vancomycin,Trough 11.2 ug/mL (5.0-10.0)
[2020-06-10 16:34] LABS: POC Glucose,Bedside 316 (70-110)
--- NOTE | 2020-06-10 18:59 | PC.NURSE ---
PT IS RESTING IN BED. ALL POST OP VSS. DRESSING TO THE RT FOOT C/D/I. RT FOOT ELEVATED WITH PILLOWS. DESMOND NOTED TO LLE. STATED HE WOULD LIKE TO FOLLOW UP WITH PT ON SUNDAY FOR DRESSING CHANGE AND THEN HE WOULD LIKE FOR SOME HOME HEALTH TO BE ARRANGED FOR DRESSING CHANGES 2-3 TIMES A WEEK. LUNG SOUNDS CLEAR. ABDOMEN SOFT/NON TENDER WITH ACTIVE BOWEL SOUNDS. EATING AND DRINKING WELL. REPORT HAND OFF TO JOE MCELROY RN
[2020-06-10 20:32] LABS: POC Glucose,Bedside 297 (70-110)
[2020-06-11] VITALS (7 sets, daily range): BP systolic 127–169; BP diastolic 75–92; PULSE 66–81; RESP 16–18; TEMP 36–36.8; O2SAT 93–98; BMI 30.2
--- NOTE | 2020-06-11 04:54 | PC.NURSE ---
Addendum entered by Belinda Maradiaga RN 06/11/20 04:56: dressing in place to right foot, C/D/I Original Note: pt is AxOx4, has rested well t/o shift, no complaints of SOA or chest pain, has complained of pain in right foot one time and was treated per APR, ambulated to independently for a BM, has had 1250 of urine out so far this shift, lungs CTA and remains on room air
[2020-06-11 06:02] LABS: POC Glucose,Bedside 440 (70-110)
[2020-06-11 07:20] LABS: Basophils % 0.3 % (0.1-2.0); Eosinophils # 0.1 K/mm3 (0.0-0.4); Eosinophils % 0.9 % (0.1-12.0); Hematocrit 37.9 % (42.0-52.0); Hemoglobin 12.2 g/dL (14.1-18.0); Lymphocytes # 1.9 K/mm3 (0.7-4.5); Lymphocytes % 19.3 % (10-50); Mean Corpuscular HGB Conc 32.1 g/dL (31.8-35.4); Mean Corpuscular Volume 90.3 fl (80-94); Mean Platelet Volume 7.3 fl (7.4-10.4); Monocytes # 0.4 K/mm3 (0.1-1.0); Monocytes % 3.7 % (1.7-9.3); Neutrophils # 7.6 K/mm3 (1.8-7.8); Neutrophils % 75.8 % (37.0-80.0); Platelet Count 295 K/mm3 (142-424); Red Cell Distribution Width 14.4 % (11.5-17.5)
[2020-06-11 07:30] LABS: Chloride 100 mmol/L (98-107); Potassium 3.9 mmoL/L (3.5-5.1); Sodium 130 mmol/L (136-145)
[2020-06-11 07:33] LABS: Anion Gap 15.9 mEq/L (5-15); Blood Urea Nitrogen 19 mg/dl (9-20); Carbon Dioxide 18 mmol/L (22.0-30.0); Creatinine Clearance Estimated 107 mL/min (50-200); Estimated Glomerular Filt Rate 69 ml/min (>60); GFR (African American) 84 ML/MIN (>60)
[2020-06-11 07:34] LABS: Calcium 8.6 mg/dl (8.4-10.2)
[2020-06-11 07:43] LABS: Glucose 415 mg/dl (74-100)
[2020-06-11 11:30] LABS: POC Glucose,Bedside 382 (70-110)
--- NOTE | 2020-06-11 13:42 | HMH.ANESII ---
[facility] Anesthesia Record Part II Discharge Time: 11:59 Destination: Medical Surgical Department PACU nurse assessment reviewed?: Yes Patient Condition:: Good Anesthesia Complications:: None Swallowing reflex intact?: Yes Cyanosis?: No Blood Pressure: 131/79 Pulse Rate: 66 Temperature: 97.8 F Mental Status: Alert & Oriented Pain level:: 0 Nausea and/or vomitting:: None Intake, IV Amount: 0
[2020-06-11 16:58] LABS: POC Glucose,Bedside 364 (70-110)
--- NOTE | 2020-06-11 16:59 | DIET.NUTRFU ---
PO intakes 100%, BG high- avg. 310. Pt with no nutritional complaints/concerns. He has been provided diet education for DM/carb consistent diet.
--- NOTE | 2020-06-11 17:12 | HMH.ACPN2 ---
Internal Medicine - PN: Subj *Date: 06/11/20 *Time: 08:15 Interval history: pt laying in bed states he is feeling good Exam Vital signs and Labs for Last 24 Hours: Temp Pulse Resp BP Pulse Ox 97.8 F 66 17 131/79 93 L 06/11/20 13:43 06/11/20 13:43 06/11/20 12:00 06/11/20 13:43 06/11/20 12:00 Laboratory Results - last 24 hr 06/10/20 20:14: POC Glucose 297 H 06/11/20 05:44: POC Glucose 440 H* 06/11/20 06:50: WBC 10.0 D, RBC 4.20 L, Hgb 12.2 L, Hct 37.9 L, MCV 90.3, MCH 29.0, MCHC 32.1, RDW 14.4, Plt Count 295, MPV 7.3 L, Neut % (Auto) 75.8, Lymph % (Auto) 19.3, [place] % (Auto) 3.7, Eos % (Auto) 0.9, Baso % (Auto) 0.3, Neut # (Auto) 7.6, Lymph # (Auto) 1.9, [place] # (Auto) 0.4, Eos # (Auto) 0.1, Baso # (Auto) 0.0 06/11/20 06:50: Sodium 130 L, Potassium 3.9, Chloride 100, Carbon Dioxide 18 L, Anion Gap 15.9 H, BUN 19, Creatinine 1.10, Estimated Creat Clear 107, Estimated GFR 69, Est GFR ( Amer) 84, Glucose 415 H*, Calcium 8.6 06/11/20 11:16: POC Glucose 382 H* 06/11/20 16:01: POC Glucose 364 H* I & O for Last 24 hours: Intake & Output 06/09/20 06/10/20 06/11/20 06/12/20 11:59 11:59 11:59 11:59 Intake Total 100 / 100 4178 / 4178 2187 / 2187 240 / 240 Output Total 800 / 800 1150 / 1150 3230 / 3230 Balance -700 / -700 3028 / 3028 -1043 / -1043 240 / 240 Weight 218 lb 219 lb 4 oz 223 lb 1 oz Microbiology Reports for the Last 24 Hours: Microbiology 06/10/20 10:56 Foot,Right - Abscess Gram Stain - Final 06/08/20 10:10 Foot,Right - Wound Gram Stain - Final 06/08/20 10:10 Foot,Right - Wound Wound Culture - Preliminary Gram Negative Rods 06/08/20 20:00 Blood Blood Culture - Preliminary NO GROWTH AFTER 48 HOURS 06/08/20 20:00 Blood Blood Culture - Preliminary NO GROWTH AFTER 48 HOURS - Constitutional no acute distress - *Routine HEENT Exam Head: Present: normocephalic Eye: Present: PERRL ENT: Present: mucous membranes moist - *Routine Neck Exam Present: supple. Absent: lymphadenopathy - *Routine Respiratory Exam Present: CTA bilaterally - *Routine Cardiovascular Exam Present: RRR - *Routine Abdominal Exam Present: soft, normoactive bowel sounds. Absent: tenderness - *Routine Extremities Exam Present: normal capillary refill. Absent: cyanosis, clubbing, edema Comments: dressing to rt foot - *Routine Skin Exam Present: warm, wounds. Absent: rash Comments: dressing to rt foot - *Routine Neurological Exam Present: alert, oriented X3 - Routine Psychiatric Exam Present: normal affect Assessment and Plan (1) Diabetic foot infection Status: Acute Category: Medical Code(s): E11.628 - Type 2 diabetes mellitus with other skin complications; L08.9 - Local infection of the skin and subcutaneous tissue, unspecified (2) Foot abscess Status: Acute Category: Medical Code(s): L02.619 - Cutaneous abscess of unspecified foot (3) Diabetes Status: Chronic Qualifiers: Diabetes mellitus type: type 2 Diabetes mellitus ocean transportation intermediary insulin use: without ocean transportation intermediary use Diabetes mellitus complication status: without complication Qualified Code(s): E11.9 - Type 2 diabetes mellitus without complications Category: Medical Code(s): E11.9 - Type 2 diabetes mellitus without complications (4) Depressive disorder Status: Acute Category: Medical Code(s): F32.9 - Major depressive disorder, single episode, unspecified (5) Tobacco dependence syndrome Status: Chronic Category: Medical Code(s): F17.200 - Nicotine dependence, unspecified, uncomplicated (6) Hypertensive heart disease without heart failure Status: Chronic Category: Medical Code(s): I11.9 - Hypertensive heart disease without heart failure - Assessment and plan all Dx Assessment and Plan for all problems:: rounded with dr taylor all orders per dr taylor wait c&S
--- NOTE | 2020-06-11 17:46 | PC.NURSE ---
Pt has been pleasant and cooperative this shift. A&O X4. No complaints of pain. Pt is on room air with sats. >90%. Lungs CTA. No edema noted. Skin is C/D/I. RLE surgical dressing is C/D/I. Pt uses the urinal to void clear, yellow urine without issue. No BM this shift. Pt ambulates to/from the bathroom and throughout the room with stand-by assistance. FSBS results have been 382 and 364. 20 G peripheral IV in the RT forearm is patent and infusing NS @ 50 ML/HR. VSS. Call light within reach. Will continue to monitor.
[2020-06-11 20:58] LABS: POC Glucose,Bedside 328 (70-110)
--- NOTE | 2020-06-11 23:28 | P.PN_ITS ---
Subjective Date: 06/11/20 Time: 22:30 Principal diagnosis: Abscess right foot Interval history: Patient is status post I&D/debridement for abscess right foot, post op day #1. Patient is lying down in the bed and says he is doing well and reports no problems. Patient has minimal pain and says it's well-controlled with medication. No history of any nausea or vomiting. No history of any cough, chest pain, shortness of breath or palpitations. Patient says he is eating and drinking well. He says he is mobilizing well with heel walking on the right side. PN: Obj Ex Vital signs: Temp Pulse Resp BP Pulse Ox 96.8 F L 73 16 133/75 93 L 06/11/20 19:58 06/11/20 19:58 06/11/20 19:58 06/11/20 19:58 06/11/20 19:58 Narrative: Laboratory Results - last 24 hr 06/11/20 05:44: POC Glucose 440 H* 06/11/20 06:50: WBC 10.0 D, RBC 4.20 L, Hgb 12.2 L, Hct 37.9 L, MCV 90.3, MCH 29.0, MCHC 32.1, RDW 14.4, Plt Count 295, MPV 7.3 L, Neut % (Auto) 75.8, Lymph % (Auto) 19.3, [place] % (Auto) 3.7, Eos % (Auto) 0.9, Baso % (Auto) 0.3, Neut # (Auto) 7.6, Lymph # (Auto) 1.9, [place] # (Auto) 0.4, Eos # (Auto) 0.1, Baso # (Auto) 0.0 06/11/20 06:50: Sodium 130 L, Potassium 3.9, Chloride 100, Carbon Dioxide 18 L, Anion Gap 15.9 H, BUN 19, Creatinine 1.10, Estimated Creat Clear 107, Estimated GFR 69, Est GFR ( Amer) 84, Glucose 415 H*, Calcium 8.6 06/11/20 11:16: POC Glucose 382 H* 06/11/20 16:01: POC Glucose 364 H* 06/11/20 20:29: POC Glucose 328 H* Microbiology 06/10/20 10:56 Foot,Right - Abscess Gram Stain - Final 06/08/20 10:10 Foot,Right - Wound Gram Stain - Final 06/08/20 10:10 Foot,Right - Wound Wound Culture - Preliminary Gram Negative Rods 06/08/20 20:00 Blood Blood Culture - Preliminary NO GROWTH AFTER 48 HOURS 06/08/20 20:00 Blood Blood Culture - Preliminary NO GROWTH AFTER 48 HOURS Exam General appearance: alert, active, awake, no acute distress Cardiovascular: regular rate & rhythm, normal peripheral pulses Respiratory: No respiratory distress noted, speaks in full sentences ABD: soft and non tender Neuro: alert, awake, oriented x 3 On examination of the right foot, the dressings are clean, dry and intact. No soakage or strikethrough noted. Toes are warm, pink and well perfused. Capillary refill is brisk. Decreased sensation at baseline secondary to peripheral neuropathy. He has good range of active toe movements. Progress Note: A&P (1) Diabetic foot infection Status: Acute (2) Foot abscess Status: Acute (3) Diabetes Status: Chronic (4) Depressive disorder Status: Acute (5) Tobacco dependence syndrome Status: Chronic (6) Hypertensive heart disease without heart failure Status: Chronic Assessment and Plan for All Diagnoses:: I have reviewed the clinical findings and progress with the patient. Patient is doing well and reports no problems. Patient is mobilizing well weightbearing on the heel on the right side. Continue IV antibiotics as ordered and change as needed depending on the microbiology results. From an orthopedic standpoint, patient can be discharged as appropriate. Follow-up in my office in 4 days? time for dressing changes/wound inspection. Please feel free to call our office at [phone] for any orthopaedic questions. Continue medical management as per Dr. Fraser.
[2020-06-12 04:00] VITALS: BP 156/93; PULSE 73; RESP 17; TEMP 36.6; O2SAT 96
--- NOTE | 2020-06-12 04:27 | PC.NURSE ---
pt is AxOx4, has been able to ambulate to and from independently without issue, no complaints of pain this shift, no complaints of SOA or chest pain, remains on room air, dressing to R foot C/D/I
[2020-06-12 05:10] VITALS: BMI 29.4
[2020-06-12 06:28] LABS: POC Glucose,Bedside 456 (70-110)
[2020-06-12 06:52] LABS: Basophils # 0.1 K/mm3 (0-0.2); Basophils % 0.5 % (0.1-2.0); Eosinophils # 0.2 K/mm3 (0.0-0.4); Eosinophils % 1.9 % (0.1-12.0); Hematocrit 39.6 % (42.0-52.0); Hemoglobin 12.7 g/dL (14.1-18.0); Lymphocytes # 2.3 K/mm3 (0.7-4.5); Lymphocytes % 26.7 % (10-50); Mean Corpuscular Hemoglobin 28.8 pg (27.0-31.2); Mean Corpuscular Volume 90.2 fl (80-94); Mean Platelet Volume 7.6 fl (7.4-10.4); Monocytes # 0.4 K/mm3 (0.1-1.0); Monocytes % 4.5 % (1.7-9.3); Neutrophils # 5.7 K/mm3 (1.8-7.8); Neutrophils % 66.4 % (37.0-80.0); Platelet Count 288 K/mm3 (142-424); Red Blood Count 4.39 M/mm3 (4.60-6.20); Red Cell Distribution Width 14.2 % (11.5-17.5); White Blood Count 8.5 K/mm3 (4.8-10.8)
[2020-06-12 06:58] LABS: Chloride 98 mmol/L (98-107)
[2020-06-12 06:59] LABS: Potassium 4.5 mmoL/L (3.5-5.1); Sodium 130 mmol/L (136-145)
[2020-06-12 07:01] LABS: Blood Urea Nitrogen 20 mg/dl (9-20); Creatinine Clearance Estimated 105 mL/min (50-200); Estimated Glomerular Filt Rate 69 ml/min (>60); GFR (African American) 84 ML/MIN (>60)
[2020-06-12 07:02] LABS: Anion Gap 14.5 mEq/L (5-15); Calcium 8.7 mg/dl (8.4-10.2); Carbon Dioxide 22 mmol/L (22.0-30.0)
[2020-06-12 07:09] LABS: Glucose 435 mg/dl (74-100)
[2020-06-12 07:51] VITALS: PULSE 86; RESP 16; O2SAT 96
[2020-06-12 08:00] VITALS: BP 111/70; PULSE 86; RESP 16; TEMP 36.6; O2SAT 96
[2020-06-12 12:19] LABS: POC Glucose,Bedside 361 (70-110)
--- NOTE | 2020-06-12 13:36 | HMH.DCSUM ---
General - General Admission date:: 06/09/20 Discharge date: 06/12/20 HPI HPI: 54-year-old male patient presented to [facility] emergency room with reports of not healing ulcer to right lateral foot. He reports stepping on a toothpick approximately 1 month ago and removed object. He states the last 3 days, the area is more swollen and more painful. He also reports the redness in his foot was spreading up to his ankle. He denies fever/chills/body aches. He also reports stepping on another toothpick in roughly the same area a year ago and after removing it reports area stayed a little swollen and not really painful until stepping on second toothpick last month. Reports he is a diabetic and last A1c was 7.2, he states he does take all medication per instruction, but has not been keeping up with his PCP appointment. Discussed importance of keeping up with appointments and diabetic regimen The emergency room white blood cell count was 11.7, Chemistries unremarkable, CRP was 90.8 and elevated, blood glucose was also elevated at 360 Wound culture and blood cultures x2 obtained Orthopedics consulted as Dr. Vargas is out of town 06/08/20 R Foot XR: FINDINGS: No fracture or dislocation. No lytic or blastic change. There is normal mineralization. The joint spaces are well-preserved. No significant degenerative/arthritic changes. No erosive changes evident. Other findings:There is soft tissue swelling along the lateral aspect of the 5th metatarsophalangeal junction. There is a small focal area of gas in this region which could be due to gas-forming infection, open wound, or recent incision and drainage. No evidence of underlying bony destruction that would indicate osteomyelitis IMPRESSION: There is soft tissue swelling along the lateral aspect of the 5th metatarsophalangeal junction. There is a small focal area of gas in this region which could be due to gas-forming infection, open wound, or recent incision and drainage. No evidence of underlying bony destruction that would indicate osteomyelitis Dictated by: Ian, 54-year-old male patient sitting up in bed resting quietly with eyes closed, he awakens to verbal stimuli. Denies any shortness of breath or chest pain during night. Reports pain is at a tolerable level. Awaiting Ortho recommendations Hospital Course Hospital Course: Laboratory Tests 06/08/20 06/08/20 06/08/20 20:00 20:00 20:00 WBC 11.7 H RBC 4.73 Hgb 13.7 L Hct 42.5 MCV 89.8 MCH 29.0 MCHC 32.3 RDW 14.6 Plt Count 290 MPV 7.2 L Neut % (Auto) 81.1 H Lymph % (Auto) 11.9 [place] % (Auto) 5.5 Eos % (Auto) 1.0 Baso % (Auto) 0.5 Neut # (Auto) 9.5 H Lymph # (Auto) 1.4 Luce # (Auto) 0.6 Eos # (Auto) 0.1 Baso # (Auto) 0.1 ESR Sodium 133 L Potassium 4.6 Chloride 99 Carbon Dioxide 26 Anion Gap 12.6 BUN 15 Creatinine 1.20 Estimated Creat Clear 101 Estimated GFR 63 Est GFR ( Amer) 76 Glucose 360 H POC Glucose Lactate 1.6 Calcium 9.5 Total Bilirubin 1.4 H Direct Bilirubin 0.0 Conjugated Bilirubin 0.0 Indirect Bilirubin 1.4 H Unconjugated Bilirubin 1.4 H AST 24 ALT 18 Alkaline Phosphatase 115 C-Reactive Protein Total Protein 7.7 Albumin 4.2 Vancomycin Trough Chlamy pneumoniae PCR Adenovirus (PCR) B. pertussis DNA (PCR) Coronavirus OC43 (PCR) Coronavirus HKU1 (PCR) Coronavirus 229E (PCR) SARS-CoV-2 (PCR) Coronavirus NL63 (PCR) Human Metapneumovir PCR Influenza A (H1) PCR Influ A (H1N1/09) PCR Influenza A (H3) PCR Influenza Type A (PCR) Influenza Type B (PCR) M. pneumoniae (PCR) Parainfluenza 1 (PCR) Parainfluenza 2 (PCR) Parainfluenza 3 (PCR) Parainfluenza 4 (PCR) RSV (PCR) Entero/Rhino (PCR) 06/08/20 06/08/20 06/08/20
== END 2020-06-12 14:56 | disposition home or self-care (01) | DRG 623 ==
LOC: ER 22:05 → 2ND 06-09 12:14
PROVIDERS: Nurse Practitioner Family; Orthopaedic Surgery; Admitting Provider Family Medicine; Emergency Provider Emergency Medicine; PCP Emergency Medicine; Visit Provider Family Medicine
PROC: 0JBQ0ZZ Excision of Right Foot Subcutaneous Tissue and Fascia, Open Approach (ICD-10-PCS; principal; 2020-06-10 10:00)
DX: E10.628 Type 1 diabetes mellitus with other skin complications (principal); L02.611 Cutaneous abscess of right foot; L03.115 Cellulitis of right lower limb; E10.52 Type 1 diabetes mellitus with diabetic peripheral angiopathy with gangrene; I96 Gangrene, not elsewhere classified; F17.210 Nicotine dependence, cigarettes, uncomplicated; Z79.82 Long term (current) use of aspirin; Z79.4 Long term (current) use of insulin; E03.9 Hypothyroidism, unspecified; F41.9 Anxiety disorder, unspecified; I25.10 Atherosclerotic heart disease of native coronary artery without angina pectoris; E10.42 Type 1 diabetes mellitus with diabetic polyneuropathy; K21.9 Gastro-esophageal reflux disease without esophagitis; E78.5 Hyperlipidemia, unspecified; I10 Essential (primary) hypertension; I25.2 Old myocardial infarction; Z95.9 Presence of cardiac and vascular implant and graft, unspecified; M19.90 Unspecified osteoarthritis, unspecified site; E10.621 Type 1 diabetes mellitus with foot ulcer
CPT/HCPCS: 11042; 10060; 36415; 73630; 73720; 80048; 80076; 80202; 82962; 83605; 85025; 85651; 86140; 87040; 87070; 87075; 87077; 87186; 87205; 87581; 87633; 87798; 93923; 96365; 96367; 99284; A9576; J2405; J2543; J3370

== ENCOUNTER → 2020-07-27 13:47 | Outpatient (CLI) | payer MEDICARE, OTHER, SELFPAY ==
[2020-07-27 14:01] LABS: Alanine Aminotransferase 13 U/L (12-78); Albumin Level 4.2 g/dl (3.5-5.0); Albumin/Globulin Ratio 1.3 (1.1-1.8); Alkaline Phosphatase 115 U/L (38-126); Aspartate Amino Transferase 20 U/L (17-59); Bilirubin,Total 0.8 mg/dl (0.2-1.3); Blood Urea Nitrogen 18 mg/dl (9-20); Calcium 9.6 mg/dl (8.4-10.2); Carbon Dioxide 27 mmol/L (22.0-30.0); Chloride 105 mmol/L (98-107); Chol/HDL Ratio 5.2 (1-3.5); Cholesterol 236 mg/dl (140-200); Estimated Glomerular Filt Rate 63 ml/min (>60); GFR (African American) 76 ML/MIN (>60); Globulin 3.3 g/dL (1.3-3.2); Glucose 187 mg/dl (74-100); HDL Cholesterol 45 mg/dl (40-60); Sodium 136 mmol/L (136-145); Total Protein,Serum 7.5 g/dl (6.3-8.2); Triglycerides 243 mg/dl (30-150); VLDL Cholesterol 49 mg/dL (0-40)
[2020-07-27 14:12] LABS: Basophils % 0.5 % (0.1-2.0); Direct LDL Cholesterol 133.16 mg/dL (100-129); Eosinophils # 0.1 K/mm3 (0.0-0.4); Eosinophils % 1.5 % (0.1-12.0); Hematocrit 44.4 % (42.0-52.0); Hemoglobin 14.5 g/dL (14.1-18.0); Lymphocytes # 2.8 K/mm3 (0.7-4.5); Lymphocytes % 34.7 % (10-50); Mean Corpuscular HGB Conc 32.7 g/dL (31.8-35.4); Mean Corpuscular Hemoglobin 29.6 pg (27.0-31.2); Mean Corpuscular Volume 90.6 fl (80-94); Mean Platelet Volume 7.8 fl (7.4-10.4); Monocytes # 0.5 K/mm3 (0.1-1.0); Monocytes % 6.1 % (1.7-9.3); Neutrophils # 4.5 K/mm3 (1.8-7.8); Neutrophils % 57.3 % (37.0-80.0); Platelet Count 343 K/mm3 (142-424); Red Cell Distribution Width 14.7 % (11.5-17.5); White Blood Count 7.9 K/mm3 (4.8-10.8)
[2020-07-27 14:19] LABS: 25-OH Vitamin D, Total 23.7 ng/mL (30-100); T4 (Thyroxine) 8.2 ug/dl (5.53-11.0)
[2020-07-27 14:32] LABS: Thyroid Stimulating Hormone 3.64 uIU/mL (0.465-4.68)
[2020-07-27 14:37] LABS: Amphetamine/Metha Screen,Urine Negative ng/ml (<1000)
[2020-07-27 14:38] LABS: Barbiturates Screen,Urine Negative ng/ml (<200)
[2020-07-27 14:41] LABS: Cannabinoid Screen,Urine Positive ng/ml (<50); Cocaine Screen,Urine Negative ng/ml (<300)
[2020-07-27 14:43] LABS: Opiate Screen,Urine Negative ng/ml (<300)
[2020-07-27 14:44] LABS: Phencyclidine Screen,Urine Negative ng/ml (<25)
[2020-07-27 14:49] LABS: Methadone Screen,Urine Negative ng/ml (<300)
[2020-07-27 16:36] LABS: Hemoglobin A1C 7.5 % (4.0-6.0)
[2020-07-27 16:39] LABS: Benzodiazepines Screen,Urine Positive ng/ml (<200)
== END ==
PROVIDERS: Visit Provider Emergency Medicine
DX: I25.10 Atherosclerotic heart disease of native coronary artery without angina pectoris (principal); I11.9 Hypertensive heart disease without heart failure; M54.9 Dorsalgia, unspecified; E11.9 Type 2 diabetes mellitus without complications; E66.3 Overweight; E55.9 Vitamin D deficiency, unspecified; F17.200 Nicotine dependence, unspecified, uncomplicated; Z79.4 Long term (current) use of insulin; Z68.30 Body mass index [BMI] 30.0-30.9, adult; Z79.899 Other long term (current) drug therapy
CPT/HCPCS: 80053; 80061; 80305; 82306; 83036; 84436; 84443; 85025

== ENCOUNTER → 2020-09-06 08:19 | Outpatient (POV) | payer MEDICARE, OTHER, SELFPAY ==
[2020-09-06 08:27] VITALS: BP 143/87; PULSE 86; RESP 18; O2SAT 95; BMI 30.6
--- NOTE | 2020-09-06 08:42 | HMH.PAINSOAP ---
[facility] Pain Management SOAP Note Subjective:: Patient is a 54-year-old white male who presents today for follow-up. Patient was last seen in the clinic for facet injections at L4-L5 L5-S1 bilaterally. He is treated for degenerative disc disease lumbar spine with lumbar spondylosis and lumbar facet arthropathy. This was his #1 medial branch block injection. Patient says that he got 5 to 6 weeks of relief after his injections. Patient is complaining of pain that is in his low back area worse with leaning forward. Patient says upon standing his pain is a 4 out of 10, however, as he leans forward his pain is an 8 or 9 out of 10. Patient says when he bends forward to tie his shoes, his pain is a 10 out of 10. He says after the injection, his pain went down to a 4 out of 10. He got excellent relief with the injections. He says he got up to 70 to 80% relief until 6 weeks out. He has tried and failed conservative therapies of physical therapy for more than 6 weeks along with continued home stretching. He is unable to take anti-inflammatories due to Plavix therapy that is prescribed by Dr. Quintana. Patient is here today to discuss repeat injective therapy and discuss possible RFA if he does get relief with the second round of injections. Review of Systems General: No recent weight changes, no fever, no sleep disturbances Respiratory: No cough, no shortness of air, no recurring pulmonary infections Cardiovascular/peripheral vascular: No chest pain, no palpitations, no edema, no shortness of breath Gastrointestinal: No new onset incontinence, normal bowel movements reported Genitourinary: No new onset incontinence Musculoskeletal: Low back pain worse with leaning forward Psychiatric: Normal mood/affect Neurological: [Denies weakness in extremities], [denies balance issues] Objective:: Physical exam General: Alert and oriented x3, no acute distress, pleasant and cooperative, [on room air] Lungs: Respirations even and unlabored, symmetrical chest expansion Eyes: PERRL Musculoskeletal: Flexion and extension of lumbar spine somewhat guarded secondary to pain, deep tendon reflexes normal, strength in upper and lower extremities [5/5], [abnormal gait noted], positive Kemps test Neurological: Speech clear, bull rider equal, no gross sensory deficit Assessment:: Degenerative disc disease lumbar spine with lumbar spondylosis and lumbar facet arthropathy Plan:: We will schedule the patient for diagnostic #2 medial branch block at L4-L5 L5-S1 bilaterally. The patient is on Plavix therapy. This is prescribed by Dr. Quintana and he does understand he will need to hold his anticoagulation therapy prior to the injection. Patient got between 70 to 80% relief with his his last round of medial branch block/facet joint injections for 5 to 6 weeks. He has tried and failed conservative therapies of physical therapy for more than 6 weeks along with continued home stretching. He is unable to take anti-inflammatories due to Plavix therapy. He and I did discuss today if he does get relief with his #2 medial branch block/facet joint injections, we will plan for an RFA L4-L5 L5-S1 bilaterally. He is in agreement. We will see him back after his injections to reevaluate his symptoms. Patient is diabetic. He has been advised his blood glucose levels will likely increase short-term after the injections. He does understand this and will modify his medications accordingly. Risks and benefits of the procedure have been explained to the patient. Patient would like to proceed with the procedure. Possible side effects of corticosteroids have been discussed with the patient. Patient has been instructed to contact the clinic with any concerns before the next appointment. Dr. Rodriguez has reviewed this note and agrees with this plan of care. This note was dictated using voice recognition software and make contain errors or omissions. [facility] History I have reviewed the patient's past medical history:
== END ==
PROVIDERS: PCP Emergency Medicine; Visit Provider Clinical Nurse Specialist Family Health
DX: M51.36 Other intervertebral disc degeneration, lumbar region (principal); M47.816 Spondylosis without myelopathy or radiculopathy, lumbar region; M54.06 Panniculitis affecting regions of neck and back, lumbar region
CPT/HCPCS: 99212; G0463

== ENCOUNTER → 2020-09-21 18:20 | Outpatient (CLI) | payer MEDICARE, OTHER, SELFPAY ==
[2020-09-21 19:12] LABS: Amphetamine/Metha Screen,Urine Negative ng/ml (<1000)
[2020-09-21 19:13] LABS: Barbiturates Screen,Urine Negative ng/ml (<200)
[2020-09-21 19:15] LABS: Benzodiazepines Screen,Urine Positive ng/ml (<200); Cannabinoid Screen,Urine Negative ng/ml (<50)
[2020-09-21 19:16] LABS: Cocaine Screen,Urine Negative ng/ml (<300)
[2020-09-21 19:17] LABS: Methadone Screen,Urine Negative ng/ml (<300)
[2020-09-21 19:18] LABS: Phencyclidine Screen,Urine Negative ng/ml (<25)
[2020-09-21 19:24] LABS: Opiate Screen,Urine Negative ng/ml (<300)
== END ==
PROVIDERS: Visit Provider Emergency Medicine
DX: Z79.899 Other long term (current) drug therapy (principal)
CPT/HCPCS: 80305

== ENCOUNTER 2020-09-24 13:35 | Day surgery (SDC) | payer MEDICARE, OTHER, SELFPAY ==
[2020-09-24 13:36] VITALS: BP 158/91; PULSE 86; RESP 18; TEMP 36.4; O2SAT 98; BMI 30.4
[2020-09-24 13:59] VITALS: BP 136/84; PULSE 87; RESP 18; O2SAT 96
[2020-09-24 14:01] VITALS: BP 130/78; PULSE 83; RESP 18; O2SAT 95
--- NOTE | 2020-09-24 14:16 | HMH.PMPROC ---
- Procedure Date: 09/24/20 Time: 14:16 Anesthesiologist:: Laurel Cooper MD Complications:: None Pre-procedure Diagnosis:: Degenerative disc disease of the lumbar spine, lumbar facet arthropathy, lumbar spondylosis Post-procedure Diagnosis:: Same Indications for Procedure:: This patient is a very pleasant 54-year-old white male who presents today with chronic low back pain to the above diagnosis. He has trialed and failed conservative treatment including oral pain medication and home stretching program for greater than 6 weeks. He has previously undergone lumbar medial branch block/facet joint injections in the past and notes about 70 to 80% pain relief for about 5 to 6 weeks after undergoing these injections. The plan for today is for the patient to undergo diagnostic lumbar facet joint/medial branch block injections WITHOUT steroids #2 at L4-L5 and L5-S1 bilaterally. Procedure Details:: Informed consent was obtained and the risks and benefits of the procedure was explained to the patient. The back was prepped using ChloraPrep. The skin and subcutaneous tissues were anesthetized using lidocaine. I placed 22-gauge spinal needles into the facet joint/medial branches of L4-L5 and L5-S1 bilaterally. Needle placement was confirmed with dye. After this we injected 5 mL bupivacaine 0.25% into each facet joint/medial branch of L4-L5 and L5-S1 bilaterally. The patient tolerated the procedure well with no complications. Plan and Disposition:: Follow-up with this patient in 2 weeks. Will reevaluate pain symptoms at that time. I discussed with the patient that we will be evaluating percentage of pain relief over duration with these injections especially since we did not use steroid with these injections today.
[2020-09-24 14:17] VITALS: BP 124/77; PULSE 81; RESP 20; O2SAT 98
== END 2020-09-24 14:18 | disposition home or self-care (01) ==
LOC: SC.PAINP 13:35
PROVIDERS: PCP Emergency Medicine; Visit Provider Anesthesiology Pain Medicine
DX: M51.36 Other intervertebral disc degeneration, lumbar region (principal); M47.816 Spondylosis without myelopathy or radiculopathy, lumbar region; M54.06 Panniculitis affecting regions of neck and back, lumbar region; E07.9 Disorder of thyroid, unspecified; I25.2 Old myocardial infarction; I11.0 Hypertensive heart disease with heart failure; E78.5 Hyperlipidemia, unspecified; I50.9 Heart failure, unspecified; K21.9 Gastro-esophageal reflux disease without esophagitis; E11.9 Type 2 diabetes mellitus without complications; M19.90 Unspecified osteoarthritis, unspecified site; F32.9 Major depressive disorder, single episode, unspecified
CPT/HCPCS: 64493; 64494; Q9966

== ENCOUNTER 2020-10-01 14:51 | Emergency (ER) | payer MEDICARE, OTHER, SELFPAY ==
[2020-10-01 14:52] VITALS: BP 150/106; PULSE 81; RESP 16; TEMP 37.1; O2SAT 98; BMI 30.6
--- NOTE | 2020-10-01 16:02 | HMH.EDGENADL ---
ED Disposition Clinical Impression: Back pain of lumbosacral region with sciatica Disposition: Home, Self-Care Condition on Discharge: Fair Instructions: DI for Chronic Pain -- Adult, DI for Acute Pain -- Adult Additional Instructions: Follow-up appointment with your doctor as scheduled on Sunday. Return to the emergency department if you worsen or develop a fever. Prescriptions: Ketorolac Tromethamine [Toradol 10mg tablet] 10 mg PO Q6HP PRN #12 tab MDD 40mg/day PRN Reason: Pain Transmission Status: Received by [facility] #[id number] Referrals: Kvng Quintana MD [Primary Care Provider] - - Critical Care Critical Care Time: No Attestation: On 10/01/20, the high probability of a clinically significant, sudden or life threatening deterioration of the following system(s) required my full and direct attention, intervention and personal management. The time I documented below is in addition to time spent performing reported procedures but includes the following listed in this critical care notation. Medical Decision Making - Medical Records Medical records reviewed: Yes: I reviewed the patient's medical records. - [facility] Inquiry Pt receiving controlled substance: No Vital Signs: 10/01/20 14:52 10/01/20 17:41 Temperature 98.7 F 98 F Temperature Source Oral Oral Pulse Rate 78 Pulse Rate [Left Radial] 81 Respiratory Rate 16 16 Blood Pressure 123/78 Blood Pressure [Left Arm] 150/106 H Blood Pressure Mean [Left Arm] 120 Blood Pressure Source [Left Arm] Automatic Cuff Blood Pressure Position Sitting Blood Pressure Position [Left Arm] Sitting 02 Sat by Pulse Oximetry 98 Oxygen Delivery Method Room Air Room Air - Lab Data Lab Results 10/01/20 16:23: WBC 9.3, RBC 5.22, Hgb 15.4, Hct 45.9, MCV 87.8, MCH 29.5, MCHC 33.6, RDW 15.1, Plt Count 333, MPV 7.4, Neut % (Auto) 74.5, Lymph % (Auto) 20.1, Price % (Auto) 4.2, Eos % (Auto) 0.8, Baso % (Auto) 0.4, Neut # (Auto) 6.9, Lymph # (Auto) 1.9, Price # (Auto) 0.4, Eos # (Auto) 0.1, Baso # (Auto) 0.0, ESR 12 Result diagrams: 10/01/20 16:23 Orders (Tests/Meds): ED MEDICATIONS Discontinued Medications Generic Name Dose Route Start Last Admin Trade Name Erich PRN Reason Stop Dose Admin Ketorolac Tromethamine 60 mg 10/01/20 16:04 10/01/20 16:21 Ketorolac 60mg/2ml Vial IM 10/01/20 16:05 60 mg ONCE ONE Administration General Adult HPI - General Chief complaint: PAIN Stated complaint: back pain, no accident Time Seen by Provider: 10/01/20 16:02 Mode of Arrival: Ambulatory Limitations: No Limitations Description of Symptoms (Recalled from ER Triage Doc. by RN): pt c/o lower back pain. Pt reports he was seen by dr. leach office last sunday for injections for pain. Pt reports pain has been worse since having injections last week. - History of Present Illness HPI narrative: Presents to the emergency department complaining of worsening low back pain after having received routine injections last Sunday. He denies fever or chills. Onset (ago): day(s) - Related Data Home Medications Medication Instructions Recorded Confirmed aspirin 81 mg tablet,delayed 81 mg PO DAILY 10/23/18 09/24/20 release Levothyroxine Sodium 50 mcg PO DAILY 05/11/20 09/24/20 [Levothyroxine] Cyclobenzaprine HCl 10 mg PO TID PRN 06/09/20 09/24/20 [Cyclobenzaprine 10mg Tab*] atorvastatin 40 mg tablet 80 mg PO HS tab 08/17/20 09/24/20 pantoprazole 40 mg tablet,delayed 40 mg PO DAILY tab 08/17/20 09/24/20 release Insulin NPH Hum/Reg Insulin Hm 59 unit SQ BID 09/24/20 09/24/20 [Humulin 70/30 U-100 Insulin] Previous Rx's Medication Instructions Recorded bisoprolol fumarate 5 mg tablet 5 mg PO DAILY #90 tab 02/06/20 clopidogrel 75 mg tablet 75 mg PO DAILY #90 tab 02/06/20 alprazolam 0.5 mg tablet 0.5 mg PO QID #120 tab 09/21/20 cholecalciferol (vitamin D3) 25 1,000 unit PO DAILY #90 cap 09/21/20 mcg (1,000 unit) capsule e
[2020-10-01 16:27] LABS: Basophils % 0.4 % (0.1-2.0); Eosinophils # 0.1 K/mm3 (0.0-0.4); Eosinophils % 0.8 % (0.1-12.0); Hematocrit 45.9 % (42.0-52.0); Hemoglobin 15.4 g/dL (14.1-18.0); Lymphocytes # 1.9 K/mm3 (0.7-4.5); Lymphocytes % 20.1 % (10-50); Mean Corpuscular HGB Conc 33.6 g/dL (31.8-35.4); Mean Corpuscular Hemoglobin 29.5 pg (27.0-31.2); Mean Corpuscular Volume 87.8 fl (80-94); Mean Platelet Volume 7.4 fl (7.4-10.4); Monocytes # 0.4 K/mm3 (0.1-1.0); Monocytes % 4.2 % (1.7-9.3); Neutrophils # 6.9 K/mm3 (1.8-7.8); Neutrophils % 74.5 % (37.0-80.0); Platelet Count 333 K/mm3 (142-424); Red Blood Count 5.22 M/mm3 (4.60-6.20); Red Cell Distribution Width 15.1 % (11.5-17.5); White Blood Count 9.3 K/mm3 (4.8-10.8)
[2020-10-01 17:09] LABS: Erythrocyte Sedimentation Rate 12 mm/hr (0-20)
[2020-10-01 17:41] VITALS: BP 123/78; PULSE 78; RESP 16; TEMP 36.6; O2SAT 98
== END 2020-10-01 17:43 | disposition home or self-care (01) ==
PROVIDERS: Emergency Provider Emergency Medicine; PCP Emergency Medicine
DX: M54.40 Lumbago with sciatica, unspecified side (principal); Z87.891 Personal history of nicotine dependence
CPT/HCPCS: 85025; 85651; 96372; 99282

== ENCOUNTER → 2020-10-04 08:15 | Outpatient (POV) | payer MEDICARE, OTHER, SELFPAY ==
[2020-10-04 08:21] VITALS: BP 136/80; PULSE 71; RESP 18; TEMP 35.9; O2SAT 97; BMI 30.6
--- NOTE | 2020-10-04 08:35 | HMH.PAINSOAP ---
[facility] Pain Management SOAP Note Subjective:: Patient is a pleasant 54-year-old white male who presents today for follow-up after medial branch block/facet joint injections at L4-L5 L5-S1 bilaterally. This is the patient's #2 medial branch block/facet joint injection. Patient, unfortunately, had to go to the emergency room approximately 1 week after his injections. Patient says that he got between 70 to 80% relief for about 5 to 6 weeks with his initial medial branch block/facet joint injection. Patient did not receive any corticosteroids and his last injection. He says that he did have numbness immediately after the injection at about 80% relief, however, when the numbness wore off his pain returned and was worse than before the injections. He says that, as a result, he had to go to the emergency room. He was given Toradol injection x2. This did not give him much relief. He is here today with 9 out of 10 pain. He has been using a heating pad. He does take gabapentin as well for pain. He takes Xanax as needed. He says that he has tried home exercising with no relief. He is on Plavix therapy and is unable to take anti-inflammatories. He has had physical therapy in the past. Patient says that because he got relief during the initial numbness stage, and he would like to proceed with the RFA to these areas. Review of Systems General: No recent weight changes, no fever, no sleep disturbances Respiratory: No cough, no shortness of air, no recurring pulmonary infections Cardiovascular/peripheral vascular: No chest pain, no palpitations, no edema, no shortness of breath Gastrointestinal: No new onset incontinence, normal bowel movements reported Genitourinary: No new onset incontinence Musculoskeletal: Low back pain worse with bending forward Psychiatric: [Normal mood/affect] Neurological: [Denies weakness in extremities], [denies balance issues] Objective:: Physical exam General: Alert and oriented x3, no acute distress, pleasant and cooperative, [on room air] Lungs: Respirations even and unlabored, symmetrical chest expansion Eyes: PERRL Musculoskeletal: Flexion and extension of [] lumbar [spine] somewhat guarded secondary to pain, strength in upper and lower extremities [5/5], [antalgic gait noted], positive Kemps test Neurological: Speech clear, [architectural draftsman equal], no gross sensory deficit Assessment:: Degenerative disc disease lumbar spine with lumbar facet arthropathy and lumbar spondylosis Plan:: Patient got about 80% relief for a few hours after his last medial branch block/facet joint injection #2. These injections were diagnostic to determine if the patient was a candidate for RFA. His insurance did not approve the patient to have the injections with corticosteroids. He did have pain following the injection and did have to go to the emergency room. Patient got 70 to 80% relief with his initial injection for about 5 to 6 weeks. We will order the patient tramadol 50 mg 1 tablet p.o. 3 times daily for 1 week. We will also order him compounding cream to apply topically to his lumbar spine. Due to significant relief with his initial injection and 80% relief for 2 hours following the second injection, we will schedule him for an RFA. His medial branch block/facet joint injections were performed at L4-L5 L5-S1 bilaterally. We will start with the right side at L4-L5 L5-S1. He is on Plavix. He understands he will need to hold his anticoagulation prior to the injection. He will continue with home stretching. He is unable to take antiinflammatories due to anticoagulation therapy. We will follow-up with him after his injection for reevaluation of symptoms. Possible side effects of corticosteroids have been discussed with the patient. Risks and benefits of the procedure have been explained to the patient. Patient would like to proceed with the procedure. Patient has been instructed to contact the clinic with any concerns bef
== END ==
PROVIDERS: PCP Emergency Medicine; Visit Provider Clinical Nurse Specialist Family Health
DX: M51.36 Other intervertebral disc degeneration, lumbar region (principal); M54.06 Panniculitis affecting regions of neck and back, lumbar region; M47.816 Spondylosis without myelopathy or radiculopathy, lumbar region
CPT/HCPCS: 99212; G0463

== ENCOUNTER 2020-10-15 14:10 | Day surgery (SDC) | payer MEDICARE, OTHER, SELFPAY ==
[2020-10-15 14:22] VITALS: BP 138/70; PULSE 81; RESP 18; TEMP 36.3; O2SAT 97; BMI 30.2
[2020-10-15 15:05] VITALS: BP 101/66; PULSE 84; RESP 18; O2SAT 94
[2020-10-15 15:06] VITALS: BP 98/74; PULSE 83; RESP 18; O2SAT 94
--- NOTE | 2020-10-15 15:16 | HMH.PMPROC ---
- Procedure Date: 10/15/20 Time: 15:16 Anesthesiologist:: Paresh Rodriguez MD Complications:: None Pre-procedure Diagnosis:: Degenerative disc disease of lumbar spine with lumbar spondylosis and lumbar facet arthropathy Post-procedure Diagnosis:: Same Indications for Procedure:: This patient is a pleasant 55-year-old white male who we have been treating for low back pain with lumbar spondylosis and lumbar facet arthropathy. He is done very well with previous medial branch blocks with 80% relief in his pain symptoms for several days. He presents today for radiofrequency ablation to the facet joints of L4-L5 and L5-S1. We will start with the right side today followed by left side and a few weeks. He has been off of his Plavix for 7 days. Procedure Details:: Lumbar RFA informed consent was obtained and the risk and benefits of the procedure was explained to the patient. Patient was placed prone on the procedure table. The patient was prepped and draped in sterile fashion. C-arm fluoroscopy was used to view the lumbar spine. The skin and subcutaneous tissues were anesthetized using lidocaine. I placed 20-gauge RF needles into the facet joints of L4-L5 and L5-S1 levels on the right side. We underwent sensory stimulation. There is good sensory stimulation at 0.8 V. We underwent motor stimulation. There is no motor stimulation at 2 V. We then anesthetized these levels with lidocaine and Depo-Medrol. I used a total of 40 mg Depo-Medrol for both levels. I then burned both levels of facet joint/medial branches on the right side, each one, for 4 minutes at 80 ?C. Patient tolerated the procedure well with no complication. Plan and Disposition:: We will follow-up with them will reevaluate his symptoms at that time we will plan on RF ablation to the facet joints of L4-5 L5-S1 left side.
[2020-10-15 15:30] VITALS: BP 105/75; PULSE 81; RESP 20; O2SAT 97
== END 2020-10-15 15:30 | disposition home or self-care (01) ==
LOC: SC.PAINP 14:10
PROVIDERS: PCP Emergency Medicine; Visit Provider Anesthesiology
DX: M51.36 Other intervertebral disc degeneration, lumbar region (principal); M47.816 Spondylosis without myelopathy or radiculopathy, lumbar region; M54.06 Panniculitis affecting regions of neck and back, lumbar region; I25.2 Old myocardial infarction; I73.9 Peripheral vascular disease, unspecified; Z95.1 Presence of aortocoronary bypass graft; E78.5 Hyperlipidemia, unspecified; I10 Essential (primary) hypertension; K21.9 Gastro-esophageal reflux disease without esophagitis; E11.9 Type 2 diabetes mellitus without complications; E07.9 Disorder of thyroid, unspecified; F41.9 Anxiety disorder, unspecified; F32.9 Major depressive disorder, single episode, unspecified
CPT/HCPCS: 64635; 64636; J1040

== ENCOUNTER 2020-11-05 10:33 | Day surgery (SDC) | payer MEDICARE, OTHER, SELFPAY ==
[2020-11-05 10:55] VITALS: BP 140/81; PULSE 84; RESP 18; TEMP 36.9; O2SAT 97; BMI 30.2
[2020-11-05 11:19] VITALS: BP 129/81; PULSE 82; RESP 18; O2SAT 95
[2020-11-05 11:30] VITALS: BP 133/91; PULSE 80; RESP 18; O2SAT 94
--- NOTE | 2020-11-05 11:32 | HMH.PMPROC ---
- Procedure Date: 11/05/20 Time: 11:32 Anesthesiologist:: Paresh Rodriguez MD Complications:: None Pre-procedure Diagnosis:: Degenerative disc disease of lumbar spine with lumbar spondylosis and lumbar facet arthropathy. Post-procedure Diagnosis:: Same Indications for Procedure:: Patient is a pleasant 55-year-old white male who we have been treating for low back pain with lumbar spondylosis and lumbar facet arthropathy. He did very well with previous medial branch blocks and RFA of the facet joints of L4-5 and L5-S1 on the right side. He has been off of his Plavix for 7 days he presents for RF of the facet joint/medial branches of L4-5 and L5-S1 left side today. Procedure Details:: Lumbar RFA informed consent was obtained and the risk and benefits of the procedure was explained to the patient. Patient was placed prone on the procedure table. The patient was prepped and draped in sterile fashion. C-arm fluoroscopy was used to view the lumbar spine. The skin and subcutaneous tissues were anesthetized using lidocaine. I placed 20-gauge RF needles into the facet joints of L4-5 and L5-S1 levels on the left side. We underwent sensory stimulation. There is good sensory stimulation at 0.8 V. We underwent motor stimulation. There is no motor stimulation at 2 V. We then anesthetized these levels with lidocaine. I then burned both levels of 4 5 and L5-S1 facet joint/medial branches on the left side for 4 minutes at 80 ?C.Patient tolerated the procedure well with no complication. Plan and Disposition:: We will follow-up with him in 2 weeks. Will reevaluate his symptoms at that time.
[2020-11-05 11:43] VITALS: BP 131/68; PULSE 78; RESP 18; O2SAT 97
== END 2020-11-05 11:45 | disposition home or self-care (01) ==
LOC: SC.PAINP 10:34
PROVIDERS: PCP Emergency Medicine; Visit Provider Anesthesiology
DX: M51.36 Other intervertebral disc degeneration, lumbar region (principal); M47.816 Spondylosis without myelopathy or radiculopathy, lumbar region; M54.06 Panniculitis affecting regions of neck and back, lumbar region; I25.2 Old myocardial infarction; I25.10 Atherosclerotic heart disease of native coronary artery without angina pectoris; I73.9 Peripheral vascular disease, unspecified; E78.5 Hyperlipidemia, unspecified; I10 Essential (primary) hypertension; K21.9 Gastro-esophageal reflux disease without esophagitis; E11.9 Type 2 diabetes mellitus without complications; E03.9 Hypothyroidism, unspecified; M19.90 Unspecified osteoarthritis, unspecified site
CPT/HCPCS: 64635; 64636

== ENCOUNTER → 2020-11-23 09:55 | Outpatient (POV) | payer MEDICARE, OTHER, SELFPAY ==
[2020-11-23 10:09] VITALS: BP 129/77; PULSE 74; RESP 18; O2SAT 96; BMI 30.6
--- NOTE | 2020-11-23 10:30 | HMH.PAINSOAP ---
[facility] Pain Management SOAP Note Subjective:: Patient is a pleasant 55-year-old white male who presents today for follow-up. He has been treated for degenerative disc disease lumbar spine with lumbar spondylosis and lumbar facet arthropathy. Patient says that he did undergo the RFA and did not get as much relief as he had hoped. His pain is still a 4 out of 10. He is still having significant pain upon rising from a sitting position as well as when bending forward. He is diabetic. He reports to have only gotten a few days of relief with an epidural lumbar injection in the past as well as the RFA. Sitting, the patient's pain is a 4 out of 10, standing or bending forward or extension at waist causes the patient's pain to be a 7 or an 8 out of 10. He does have pain in bilateral lower extremities with numbness and tingling. Injective therapy has not given the patient any significant relief and has increased his blood glucose levels. He has tried no conservative therapies of physical therapy in the past along with home stretching. He is currently taking Flomax 0.5 mg 1 tablet p.o. 4 times daily and gabapentin 800 mg 1 tablet p.o. 4 times daily prescribed by Dr. Quintana. Patient says he understands he is not a candidate for oral opioids due to his Xanax prescription and his gabapentin. Review of Systems General: No recent weight changes, no fever, no sleep disturbances Respiratory: No cough, no shortness of air, no recurring pulmonary infections Cardiovascular/peripheral vascular: No chest pain, no palpitations, no edema, no shortness of breath Gastrointestinal: No new onset incontinence, normal bowel movements reported Genitourinary: No new onset incontinence Musculoskeletal: Low back pain worse with bending forward and extension at waist, bilateral leg pain with numbness and tingling Psychiatric: [Normal mood/affect] Neurological: [Denies weakness in extremities], [denies balance issues] Objective:: Physical exam General: Alert and oriented x3, no acute distress, pleasant and cooperative, [on room air] Lungs: Respirations even and unlabored, symmetrical chest expansion Eyes: PERRL Musculoskeletal: Flexion and extension of lumbar [spine] somewhat guarded secondary to pain, strength in upper and lower extremities [5/5], [antalgic gait noted] Neurological: Speech clear, [certified optician equal], no gross sensory deficit Assessment:: Degenerative disc disease lumbar spine with lumbar radiculopathy symptoms, lumbar spondylosis with lumbar facet arthropathy Plan:: Patient has tried injective therapy of lumbar epidural steroid injections in medial branch blocks/facet joint injections and RFA. He has not gotten significant relief. He has tried physical therapy for greater than 6 weeks and continues with home stretching. He is unable to take anti-inflammatories due to anticoagulation therapy. He is on Plavix. After further discussion, the patient is interested and possible spinal cord stimulation trial. He is not interested in neurosurgical referral. Given the patient's symptoms, he would likely benefit from spinal cord stimulation. We will schedule him for psychological evaluation to determine if he is an appropriate candidate. We will see the patient back afterwards for reevaluation of symptoms. He has been instructed to contact the clinic if he has any concerns for his next appointment. He was given educational information today regarding the procedure. Patient has been instructed to contact the clinic with any concerns before the next appointment. Dr. Rodriguez has reviewed this note and agrees with this plan of care. This note was dictated using voice recognition software and make contain errors or omissions. [facility] History I have reviewed the patient's past medical history: Yes Medical History: Reports:: Anxiety, Congenital Heart Disease, Coronary Artery Disease, Depression, Diabetes Mellitus Type 2, Gastroesophageal Reflux Disease(GERD), Hy
== END ==
PROVIDERS: PCP Emergency Medicine; Visit Provider Clinical Nurse Specialist Family Health
DX: M51.16 Intervertebral disc disorders with radiculopathy, lumbar region (principal); M54.06 Panniculitis affecting regions of neck and back, lumbar region; M47.816 Spondylosis without myelopathy or radiculopathy, lumbar region
CPT/HCPCS: 99212; G0463

== ENCOUNTER → 2020-12-14 19:32 | Outpatient (CLI) | payer MEDICARE, OTHER, SELFPAY ==
[2020-12-14 20:39] LABS: Amphetamine/Metha Screen,Urine Negative ng/ml (<1000)
[2020-12-14 20:40] LABS: Barbiturates Screen,Urine Negative ng/ml (<200); Benzodiazepines Screen,Urine Positive ng/ml (<200)
[2020-12-14 20:41] LABS: Cannabinoid Screen,Urine Negative ng/ml (<50)
[2020-12-14 20:42] LABS: Cocaine Screen,Urine Negative ng/ml (<300); Methadone Screen,Urine Negative ng/ml (<300)
[2020-12-14 20:43] LABS: Opiate Screen,Urine Negative ng/ml (<300); Phencyclidine Screen,Urine Negative ng/ml (<25)
== END ==
PROVIDERS: Visit Provider Emergency Medicine
DX: Z79.899 Other long term (current) drug therapy (principal); Z09 Encounter for follow-up examination after completed treatment for conditions other than malignant neoplasm
CPT/HCPCS: 80305

== ENCOUNTER → 2021-01-29 16:33 | Outpatient (CLI) | payer MEDICARE, OTHER, SELFPAY | PROVIDERS: PCP Emergency Medicine; Visit Provider Nurse Practitioner Family | DX: Z20.822 Contact with and (suspected) exposure to COVID-19 (principal) | CPT/HCPCS: C9803; U0003; U0005 ==

== ENCOUNTER → 2021-02-15 13:53 | Outpatient (CLI) | payer MEDICARE, OTHER, SELFPAY ==
[2021-02-15 15:04] LABS: Basophils % 0.5 % (0.1-2.0); Eosinophils # 0.1 K/mm3 (0.0-0.4); Eosinophils % 0.9 % (0.1-12.0); Hematocrit 45.7 % (42.0-52.0); Hemoglobin 15.2 g/dL (14.1-18.0); Lymphocytes # 1.8 K/mm3 (0.7-4.5); Lymphocytes % 20.6 % (10-50); Mean Corpuscular HGB Conc 33.3 g/dL (31.8-35.4); Mean Corpuscular Hemoglobin 30.2 pg (27.0-31.2); Mean Corpuscular Volume 90.7 fl (80-94); Mean Platelet Volume 7.2 fl (7.4-10.4); Monocytes # 0.4 K/mm3 (0.1-1.0); Monocytes % 4.6 % (1.7-9.3); Neutrophils # 6.4 K/mm3 (1.8-7.8); Neutrophils % 73.3 % (37.0-80.0); Platelet Count 311 K/mm3 (142-424); Red Blood Count 5.04 M/mm3 (4.60-6.20); Red Cell Distribution Width 13.8 % (11.5-17.5); White Blood Count 8.7 K/mm3 (4.8-10.8)
[2021-02-15 15:33] LABS: Blood Urea Nitrogen 17 mg/dl (9-20); Calcium 9.9 mg/dl (8.4-10.2); Carbon Dioxide 26 mmol/L (22.0-30.0); Chloride 100 mmol/L (98-107); Estimated Glomerular Filt Rate 87 ml/min (>60); GFR (African American) 105 ML/MIN (>60); Glucose 351 mg/dl (74-100); Sodium 133 mmol/L (136-145)
== END ==
PROVIDERS: Visit Provider Urology
DX: E78.5 Hyperlipidemia, unspecified (principal); I11.9 Hypertensive heart disease without heart failure; I20.9 Angina pectoris, unspecified; R06.09 Other forms of dyspnea; Z95.5 Presence of coronary angioplasty implant and graft; Z01.812 Encounter for preprocedural laboratory examination; Z11.52 Encounter for screening for COVID-19
CPT/HCPCS: 36415; 80048; 85025; C9803; U0003; U0005

== ENCOUNTER 2021-02-22 08:16 | Day surgery (SDC) | payer MEDICARE, OTHER, SELFPAY ==
[2021-02-22] VITALS (13 sets, daily range): BP systolic 93–137; BP diastolic 56–90; PULSE 60–70; RESP 16–20; TEMP 36.6; O2SAT 91–97; BMI 30.4
--- NOTE | 2021-02-22 07:00 | IR_ITS ---
APPROVED REPORT [facility] Docent: COURTNEY Espinoza RT (R) PROCEDURES Left heart catheterization Left ventriculogram Selective coronary angiogram Drug-eluting stent deployment to the proximal mid dominant right coronary Informed consent was obtained prior to the procedure. COMPLICATIONS None Estimated Blood Loss: Less than 10 mls TECHNIQUE One percent lidocaine used to anesthetize the right anterior aspect of the wrist. The right radial artery was accessed via the Seldinger technique. A 6 Indian sheath was placed in the right radial artery. 2.5 mg of verapamil, 800 mcg of nitroglycerin, 1mg Lidocaine and 5000 U Heparin were given through the arterial sheath. The Poppa catheter was also used to perform left heart catheterization, left ventriculogram and selective coronary angiogram. At the end of the procedure therapeutic heparin was administered giving a therapeutic ACT and the guide catheter was placed in the right coronary artery followed by a Choice PT extra-support wire. A 3.5 x 38 mm resolute Iota stent was deployed at 20 alida reducing the severe stenosis to 0%. ELMER-3 flow was present before and after the procedure. At the end of the procedure the apparatus was removed the sheath was removed and hemostasis was achieved using TR banding patient was transferred to the postop putting her stable condition ANGIOGRAPHIC RESULTS The left main artery Normal The left anterior descending artery Has proximal 10 to 20% stenosis with a mid vessel 30% concentric stenosis followed by diffuse mid vessel and distal 40% stenoses throughout its entire course. A moderate sized first diagonal artery has ostial proximal 50% stenosis followed by a mid vessel stent which is widely patent with minimal in-stent restenosis excellent proximal distal transitioning The circumflex artery Is a nondominant yet still large vessel with a proximal 30% stenosis followed by a stent in the first obtuse marginal artery which is widely patent with minimal in-stent restenosis and excellent proximal distal transitioning. The second larger obtuse marginal artery has a proximal concentric 40% stenosis followed by a stent which is widely patent The right coronary artery Is a dominant vessel with proximal 30% stenosis in a mid vessel concentric 70% stenosis. Distally the posterior lateral branch has 30% stenoses while the posterior lateral branch has proximal and mid vessel 60 to 70% stenoses in a 1.5 mm caliber vessel The BOURGEOIS ventriculogram reveals Normal 60% The left ventricular end-diastolic pressure 20 mmHg IMPRESSION Coronary artery disease as described above Successful stenting of the proximal to mid dominant right coronary severe disease reduced to 0% with 1 drug-eluting stent with persistent moderate to severe disease in a small caliber posterior lateral branch Normal ejection fraction Mildly elevated LVEDP PLAN 1. Dual antiplatelet therapy 2. Maximize antianginal medications 3. Treatment of diastolic dysfunction 4. Aggressive risk factor modification 5. LDL less than 55 6. Cardiac rehabilitation Electronically signed by : Ronny Stewart MD 02/22/2021 10:40:29
[2021-02-22 10:57] LABS: CATHL Activated Clotting Time 397 SEC (74-125)
--- NOTE | 2021-02-22 14:07 | HMH.PHACLD ---
Lee Hwang has received discharge medication counseling on the following medications: ASPIRIN PLAVIX ATORVASTATIN BISOPROLOL PATIENT DOES NOT NEED CASA/ARB RIGHT NOW PER DR. BULLARD. PATIENT HAD NO QUESTIONS AT THIS TIME. -CHELSEA BROOKS, [place]
== END 2021-02-22 14:54 | disposition home or self-care (01) ==
LOC: CATHLAB 08:18
PROVIDERS: PCP Emergency Medicine; Visit Provider Internal Medicine
DX: E78.5 Hyperlipidemia, unspecified (principal); I11.9 Hypertensive heart disease without heart failure; R06.09 Other forms of dyspnea; Z95.5 Presence of coronary angioplasty implant and graft; I25.118 Atherosclerotic heart disease of native coronary artery with other forms of angina pectoris; E11.9 Type 2 diabetes mellitus without complications; Z79.4 Long term (current) use of insulin
CPT/HCPCS: 85347; 92928; 93458; 99152; C1725; C1760; C1769; C1876; C9600; J1644; Q9967

== ENCOUNTER 2021-03-03 09:51 | Outpatient (RCR) | payer MEDICARE, OTHER, SELFPAY | END 2021-05-24 14:32 | disposition home or self-care (01) | LOC: PT 09:51 | PROVIDERS: Visit Provider Internal Medicine | DX: I25.10 Atherosclerotic heart disease of native coronary artery without angina pectoris (principal); Z95.5 Presence of coronary angioplasty implant and graft | CPT/HCPCS: 93798 ==

== ENCOUNTER → 2021-03-07 13:47 | Outpatient (CLI) | payer MEDICARE, OTHER, SELFPAY | PROVIDERS: PCP Emergency Medicine; Visit Provider Nurse Practitioner | DX: Z20.822 Contact with and (suspected) exposure to COVID-19 (principal) | CPT/HCPCS: C9803; U0003; U0005 ==

== ENCOUNTER → 2021-03-29 14:48 | Outpatient (CLI) | payer MEDICARE, OTHER, SELFPAY ==
[2021-03-29 16:15] LABS: Alanine Aminotransferase 18 U/L (12-78); Aspartate Amino Transferase 24 U/L (17-59); Bilirubin,Unconjugated 0.7 mg/dL (0.0-1.1)
[2021-03-29 16:16] LABS: Albumin Level 4.2 g/dl (3.5-5.0); Alkaline Phosphatase 123 U/L (38-126); Bilirubin,Direct 0.3 mg/dl (0.0-0.4); Bilirubin,Indirect 0.7 mg/dL (0.0-0.9); Cholesterol 174 mg/dl (140-200); HDL Cholesterol 44 mg/dl (40-60); Total Protein,Serum 7.1 g/dl (6.3-8.2); Triglycerides 136 mg/dl (30-150); VLDL Cholesterol 27 mg/dL (0-40)
[2021-03-29 16:27] LABS: Direct LDL Cholesterol 107.55 mg/dL (100-129)
== END ==
PROVIDERS: PCP Emergency Medicine; Visit Provider Physician Assistant
DX: I11.9 Hypertensive heart disease without heart failure (principal); E11.9 Type 2 diabetes mellitus without complications; Z79.4 Long term (current) use of insulin
CPT/HCPCS: 36415; 80061; 80076

== ENCOUNTER → 2021-04-26 14:19 | Outpatient (CLI) | payer MEDICARE, OTHER, SELFPAY ==
[2021-04-26 17:56] LABS: Prostate Specific Ag Screen 1.8 ng/ml (0.0-4.0)
== END ==
PROVIDERS: Visit Provider Urology
DX: Z12.5 Encounter for screening for malignant neoplasm of prostate (principal)
CPT/HCPCS: 36415; G0103

== ENCOUNTER → 2021-06-10 08:27 | Outpatient (CLI) | payer MEDICARE, OTHER, SELFPAY ==
[2021-06-10 18:49] LABS: Amphetamine/Metha Screen,Urine Negative ng/ml (<1000)
[2021-06-10 18:50] LABS: Barbiturates Screen,Urine Negative ng/ml (<200); Benzodiazepines Screen,Urine Positive ng/ml (<200)
[2021-06-10 18:51] LABS: Cannabinoid Screen,Urine Positive ng/ml (<50)
[2021-06-10 18:52] LABS: Cocaine Screen,Urine Negative ng/ml (<300); Methadone Screen,Urine Negative ng/ml (<300)
[2021-06-10 18:53] LABS: Opiate Screen,Urine Negative ng/ml (<300)
[2021-06-10 18:54] LABS: Phencyclidine Screen,Urine Negative ng/ml (<25)
== END ==
PROVIDERS: Visit Provider Emergency Medicine
DX: Z79.899 Other long term (current) drug therapy (principal)
CPT/HCPCS: 80305

== ENCOUNTER → 2021-09-06 10:52 | Outpatient (CLI) | payer MEDICARE, OTHER, SELFPAY ==
--- NOTE | 2021-09-06 10:56 | XR_ITS ---
FINAL REPORT CLINICAL HISTORY: callus, pain FINDINGS: RIGHT FOOT Three views of the right foot demonstrate no acute fracture or dislocation. The visualized joint spaces are normally aligned. There is a minimal plantar spur. The soft tissues are unremarkable. IMPRESSION: No acute bony abnormality. Reviewed, Interpreted and Dictated by Hunter Frost MD Transcribed by Maria Karimi Authenticated and [facility]
[2021-09-06 11:57] LABS: Basophils # 0.2 K/mm3 (0-0.2); Basophils % 2.6 % (0.1-2.0); Eosinophils # 0.1 K/mm3 (0.0-0.4); Eosinophils % 1.3 % (0.1-12.0); Hematocrit 45.6 % (42.0-52.0); Hemoglobin 14.5 g/dL (14.1-18.0); Lymphocytes # 2.1 K/mm3 (0.7-4.5); Lymphocytes % 28.6 % (10-50); Mean Corpuscular HGB Conc 31.7 g/dL (31.8-35.4); Mean Corpuscular Hemoglobin 29.7 pg (27.0-31.2); Mean Corpuscular Volume 93.6 fl (80-94); Monocytes # 0.5 K/mm3 (0.1-1.0); Monocytes % 6.4 % (1.7-9.3); Neutrophils # 4.5 K/mm3 (1.8-7.8); Neutrophils % 61.1 % (37.0-80.0); Platelet Count 372 K/mm3 (142-424); Red Blood Count 4.87 M/mm3 (4.60-6.20); Red Cell Distribution Width 15.2 % (11.5-17.5); White Blood Count 7.3 K/mm3 (4.8-10.8)
[2021-09-06 12:18] LABS: Chloride 98 mmol/L (98-107); Potassium 4.8 mmoL/L (3.5-5.1); Sodium 133 mmol/L (136-145)
[2021-09-06 12:21] LABS: Alanine Aminotransferase 28 U/L (12-78); Albumin Level 4.1 g/dl (3.5-5.0); Albumin/Globulin Ratio 1.3 (1.1-1.8); Alkaline Phosphatase 221 U/L (38-126); Aspartate Amino Transferase 83 U/L (17-59); Bilirubin,Total 1.6 mg/dl (0.2-1.3); Blood Urea Nitrogen 19 mg/dl (9-20); Calcium 9.2 mg/dl (8.4-10.2); Estimated Glomerular Filt Rate 57 ml/min (>60); GFR (African American) 69 ML/MIN (>60); Globulin 3.1 g/dL (1.3-3.2); Total Protein,Serum 7.2 g/dl (6.3-8.2)
[2021-09-06 12:26] LABS: Erythrocyte Sedimentation Rate 28 mm/hr (0-20)
[2021-09-06 12:27] LABS: C-Reactive Protein 13.8 mg/L (0-4)
[2021-09-06 12:40] LABS: Hemoglobin A1C 7.1 % (4.0-6.0)
[2021-09-06 13:47] LABS: Glucose 435 mg/dl (74-100)
[2021-09-06 15:19] LABS: Anion Gap 14.8 mEq/L (5-15); Carbon Dioxide 25 mmol/L (22.0-30.0)
== END ==
PROVIDERS: PCP Emergency Medicine; Visit Provider Nurse Practitioner Family
DX: Z51.89 Encounter for other specified aftercare (principal); E11.40 Type 2 diabetes mellitus with diabetic neuropathy, unspecified; Z79.4 Long term (current) use of insulin; M79.671 Pain in right foot
CPT/HCPCS: 36415; 73630; 80053; 83036; 85025; 85651; 86140

== ENCOUNTER → 2021-09-12 13:12 | Outpatient (CLI) | payer MEDICARE, OTHER, SELFPAY ==
--- NOTE | 2021-09-12 13:28 | US_ITS ---
FINAL REPORT CLINICAL HISTORY: decreased pulses, HTN, smoker, DM, HLD, CAD, MS. wound on right foot. FINDINGS: ANKLE-BRACHIAL PRESSURE INDICES Pressure indices are as follows: RIGHT LOWER EXTREMITY: Ankle-brachial pressure index: 1.1 Comments: Normal LEFT LOWER EXTREMITY: Ankle-brachial pressure index: 1.0 Comments: Normal CONCLUSION: No evidence of significant obstructive peripheral vascular disease of the lower extremities Reviewed, Interpreted and Dictated by Juan M Gilliam III, MD Transcribed by Maria Karimi Authenticated and [facility]
== END ==
PROVIDERS: PCP Emergency Medicine; Visit Provider Podiatrist
DX: E11.628 Type 2 diabetes mellitus with other skin complications (principal); G62.9 Polyneuropathy, unspecified; L08.9 Local infection of the skin and subcutaneous tissue, unspecified; R09.89 Other specified symptoms and signs involving the circulatory and respiratory systems; Z79.4 Long term (current) use of insulin; L02.611 Cutaneous abscess of right foot
CPT/HCPCS: 93923

== ENCOUNTER 2021-09-21 10:00 | Outpatient (RCR) | payer MEDICARE, OTHER, SELFPAY ==
--- NOTE | 2021-09-08 14:34 | HMH.PTOPWND ---
Rehab Outpt Wound Evaluation Rehab OP Wound Evaluation Start: 09/08/21 14:24 Freq: Status: Active Protocol: Document 09/08/21 14:24 PWCHELSEA (Rec: 09/08/21 14:33 PWCHELSEA [id number]) Electronically Signed By Yunior Eid, ARPIT 09/08/21 14:24 Subjective/History History History This is the initial Physical Therapy wound clinic initial evaluation for Lee Hwang. Pt is a 55 y/o male referres to wound care for non-healing diabetic foot ulcer on R plantar surface. Pt reprots wound has only been there for a couple of weeks . Pt reports DPM recently debrided callus over wound with minimal infection being expelled. Pt now reports to wound care for continued care of DFU Subjective Subjective Pt reports he has diabetic neuropathy R>L Wound is Plantar 5th met head Wound Eval Wound Right Distal Dorsal Foot Wound Type Diabetic Foot Ulcer Is This a Chronic Wound Yes Wound Length (cm) 0.6 Wound Width (cm) 0.6 Wound Bed Appearance Beefy Red Percentage Granulated (%) 100 Surrounding Tissue Temperature Warm Drainage Description None Drainage Amount None Primary Dressing Biosynthetic Dressing Comment purocol silver Wound Secondary Dressing Type Absorbant Pad Comment polymem dot Wound Debridement Method Sharps,Forceps Wound Debridement Amount of Tissue Minimal Removed Wound Debridement Result Healthy Tissue Revealed Wound Problems/Impairments Impairments Problems/Impairmments Wound Care Needs Prognosis Rehab Potential Fair Clinical Impression Consistent with Diagnosis Yes Short Term Goals Number of Weeks 4 Decrease Wound Area Yes: 25% Patient to be Ind w/ Home Wound Care/ Yes Dressing Changes Shelter Goals Number of Weeks 8 Decrease Wound Area Yes: 75% Outpatient Therapy Plan of Care Treatment Plan May Include Group Therapy for Medicare Yes Eval/Re-Eval Yes Frequency Times per week 2 Duration Number of Weeks 8 Addendums This patient is a candidate for social No or vocational rehab?
== END 2021-09-21 10:05 | disposition home or self-care (01) ==
LOC: PT 10:00
PROVIDERS: PCP Emergency Medicine; Visit Provider Podiatrist
DX: E11.621 Type 2 diabetes mellitus with foot ulcer (principal); L97.519 Non-pressure chronic ulcer of other part of right foot with unspecified severity
CPT/HCPCS: 97162; 97597

== ENCOUNTER → 2021-09-23 13:55 | Outpatient (CLI) | payer MEDICARE, OTHER, SELFPAY ==
[2021-09-23 15:03] LABS: Basophils # 0.1 K/mm3 (0-0.2); Basophils % 1.3 % (0.1-2.0); Eosinophils # 0.1 K/mm3 (0.0-0.4); Eosinophils % 1.4 % (0.1-12.0); Hematocrit 43.1 % (42.0-52.0); Hemoglobin 13.8 g/dL (14.1-18.0); Lymphocytes # 2.6 K/mm3 (0.7-4.5); Lymphocytes % 30.2 % (10-50); Mean Corpuscular Hemoglobin 29.3 pg (27.0-31.2); Mean Corpuscular Volume 91.8 fl (80-94); Mean Platelet Volume 7.3 fl (7.4-10.4); Monocytes # 0.5 K/mm3 (0.1-1.0); Monocytes % 6.2 % (1.7-9.3); Neutrophils # 5.3 K/mm3 (1.8-7.8); Neutrophils % 60.8 % (37.0-80.0); Platelet Count 417 K/mm3 (142-424); Red Blood Count 4.69 M/mm3 (4.60-6.20); Red Cell Distribution Width 15.4 % (11.5-17.5); White Blood Count 8.7 K/mm3 (4.8-10.8)
[2021-09-23 15:21] LABS: Alanine Aminotransferase 20 U/L (12-78); Albumin Level 3.8 g/dl (3.5-5.0); Albumin/Globulin Ratio 1.4 (1.1-1.8); Alkaline Phosphatase 112 U/L (38-126); Anion Gap 10.9 mEq/L (5-15); Aspartate Amino Transferase 26 U/L (17-59); Bilirubin,Total 0.2 mg/dl (0.2-1.3); Blood Urea Nitrogen 18 mg/dl (9-20); Calcium 9.4 mg/dl (8.4-10.2); Carbon Dioxide 24 mmol/L (22.0-30.0); Chloride 106 mmol/L (98-107); Estimated Glomerular Filt Rate 62 ml/min (>60); GFR (African American) 76 ML/MIN (>60); Globulin 2.8 g/dL (1.3-3.2); Glucose 186 mg/dl (74-100); Potassium 4.9 mmoL/L (3.5-5.1); Sodium 136 mmol/L (136-145); Total Protein,Serum 6.6 g/dl (6.3-8.2)
[2021-09-23 16:38] LABS: Erythrocyte Sedimentation Rate 22 mm/hr (0-20)
== END ==
PROVIDERS: PCP Emergency Medicine; Visit Provider Podiatrist
DX: E11.40 Type 2 diabetes mellitus with diabetic neuropathy, unspecified (principal); Z79.4 Long term (current) use of insulin; Z51.89 Encounter for other specified aftercare
CPT/HCPCS: 36415; 80053; 85025; 85651; 86140

== ENCOUNTER → 2022-01-30 14:00 | Outpatient (CLI) | payer MEDICARE, OTHER, SELFPAY ==
[2022-01-30 19:10] LABS: Creatinine,Urine Random 113 mg/dL (Not Estab.); Microalbumin < 6.000 mg/L (0-16.7)
[2022-01-30 19:11] LABS: Amphetamine/Metha Screen,Urine Negative ng/ml (<1000); Benzodiazepines Screen,Urine Positive ng/ml (<200)
[2022-01-30 19:12] LABS: Barbiturates Screen,Urine Negative ng/ml (<200)
[2022-01-30 19:13] LABS: Cannabinoid Screen,Urine Negative ng/ml (<50); Cocaine Screen,Urine Negative ng/ml (<300)
[2022-01-30 19:14] LABS: Methadone Screen,Urine Negative ng/ml (<300); Opiate Screen,Urine Negative ng/ml (<300)
[2022-01-30 19:15] LABS: Phencyclidine Screen,Urine Negative ng/ml (<25)
== END ==
PROVIDERS: PCP Emergency Medicine; Visit Provider Emergency Medicine
DX: Z79.899 Other long term (current) drug therapy (principal); E11.9 Type 2 diabetes mellitus without complications; Z79.4 Long term (current) use of insulin
CPT/HCPCS: 80305; 82043; 82570

== ENCOUNTER → 2022-01-31 11:07 | Outpatient (CLI) | payer MEDICARE, OTHER, SELFPAY ==
--- NOTE | 2022-01-31 12:29 | HMH.ITSHM ---
Current Home Medications as stated by this patient Lee Hwang or customer care representative. []TRAZODONE PANTOPRAZOLE NITRO LISINOPRIL LEVOTHYROXINE INSULIN GABAPENTIN VITAMIN D2 CLOPIDOGREL VITAMIN D3 BREXPIPRAZOLE BISOPROLOL ATORVASTATIN ASA ALPRAZOLAM
[2022-01-31 15:31] LABS: Alanine Aminotransferase 18 U/L (12-78); Albumin Level 3.9 g/dl (3.5-5.0); Alkaline Phosphatase 147 U/L (38-126); Aspartate Amino Transferase 20 U/L (17-59); Bilirubin,Direct 0.1 mg/dl (0.0-0.4); Bilirubin,Indirect 0.7 mg/dL (0.0-0.9); Bilirubin,Total 0.8 mg/dl (0.2-1.3); Bilirubin,Unconjugated 0.7 mg/dL (0.0-1.1); Chol/HDL Ratio 3.5 (1-3.5); Cholesterol 191 mg/dl (140-200); HDL Cholesterol 54 mg/dl (40-60); Total Protein,Serum 6.7 g/dl (6.3-8.2); Triglycerides 113 mg/dl (30-150); VLDL Cholesterol 23 mg/dL (0-40)
[2022-01-31 15:42] LABS: Direct LDL Cholesterol 109.89 mg/dL (100-129)
== END ==
PROVIDERS: PCP Emergency Medicine; Referring Provider Internal Medicine; Visit Provider Nurse Practitioner Family
DX: E78.2 Mixed hyperlipidemia (principal); I25.10 Atherosclerotic heart disease of native coronary artery without angina pectoris; R06.02 Shortness of breath
CPT/HCPCS: 36415; 78452; 80061; 80076; 93017; 93306; A9502; J2785

== ENCOUNTER 2022-04-12 22:48 | Emergency (ER) | payer MEDICARE, OTHER, SELFPAY ==
[2022-04-12 23:02] VITALS: BP 193/103; PULSE 102; RESP 18; O2SAT 99
[2022-04-12 23:03] VITALS: BP 193/103; PULSE 102; RESP 18; TEMP 37.2; O2SAT 99; BMI 30.5
[2022-04-12 23:09] VITALS: BP 188/106; PULSE 100; RESP 20; O2SAT 98
[2022-04-12 23:30] VITALS: BP 195/114; PULSE 106; O2SAT 97
--- NOTE | 2022-04-12 23:35 | PC.NURSE ---
ER speaking with pt at this time
--- NOTE | 2022-04-12 23:48 | HMH.EDNVD ---
Discharge Plan Disposition Patient Disposition: Home, Self-Care Prescriptions Prescriptions: New ondansetron HCl 4 mg Tablet 4 mg PO Q8H PRN (Reason: Nausea) Qty: 20 0RF No Action nitroglycerin 0.4 mg tablet, sublingual 0.4 mg SUBLINGUAL Q5-15M PRN (Reason: chest pain) Qty: 25 5RF Rx Instructions: do not exceed 3 doses per episode Repatha SureClick 140 mg/mL pen injector 140 mg SQ Q2W Qty: 2 5RF aspirin [Aspir-81] 81 mg tablet,delayed release (DR/EC) 81 mg PO DAILY cholecalciferol (vitamin D3) 25 mcg (1,000 unit) capsule 1,000 unit PO DAILY Qty: 90 0RF ergocalciferol (vitamin D2) 1,250 mcg (50,000 unit) capsule 1,250 mcg PO WEEKLY Qty: 12 0RF alprazolam 0.5 mg tablet 0.5 mg PO QID Qty: 120 2RF gabapentin 800 mg tablet 800 mg PO QID Qty: 120 2RF Rexulti 2 mg tablet 2 mg PO DAILY Qty: 30 1RF trazodone 100 mg tablet 100 mg PO .COMPLEX PRN (Reason: sleep) Qty: 60 1RF Rx Instructions: 100 mg PO take 1-2 tablets at bedtime PRN; Humulin 70/30 U-100 Insulin 100 unit/mL (70-30) suspension See Rx Instructions .ROUTE .COMPLEX Qty: 40 0RF Dose Instruction: ADMINISTER 59 UNITS UNDER THE SKIN TWICE DAILY FOR DIABETES MELLITUS Rx Instructions: ADMINISTER 59 UNITS UNDER THE SKIN TWICE DAILY FOR DIABETES MELLITUS pantoprazole 40 mg tablet,delayed release (DR/EC) 40 mg PO DAILY Qty: 90 3RF levothyroxine 50 mcg tablet See Rx Instructions .ROUTE .COMPLEX Qty: 90 3RF Dose Instruction: TAKE 1 TABLET BY MOUTH DAILY FOR THYROID Rx Instructions: TAKE 1 TABLET BY MOUTH DAILY FOR THYROID atorvastatin 80 mg tablet See Rx Instructions .ROUTE .COMPLEX Qty: 90 0RF Dose Instruction: TAKE 1 TABLET BY MOUTH DAILY FOR CHOLESTEROL Rx Instructions: TAKE 1 TABLET BY MOUTH DAILY FOR CHOLESTEROL clopidogrel 75 mg tablet 75 mg PO DAILY Qty: 90 3RF (DME) insulin syringe-needle U-100 [BD Insulin Syringe Ultra-Fine] 1 mL 30 gauge x 1/2 syringe See Rx Instructions .Route Qty: 100 2RF Rx Instructions: Use twice daily (DME) blood-glucose meter Kit See Rx Instructions .ROUTE .MEDSUPPLY Qty: 1 0RF Rx Instructions: 2 times a day,also needs test strips and lancets to go with it lisinopril 5 mg tablet 5 mg PO DAILY Qty: 30 2RF (DME) pen needle, diabetic 1 EACH needle See Rx Instructions .Route DIRECTED Rx Instructions: As directed Referrals Follow up/Referrals: Kvng Quintana MD [Primary Care Provider] - See instructions Clinical Impressions Clinical Impression: Acute viral syndrome Instructions Patient Instructions: DI for Diarrhea and Traveler's Diarrhea -- Adult, DI for Diarrhea and Traveler's Diarrhea -- Child, DI for Nausea -- Adult, DI for Nausea -- Child Discharge ED Provider: Mariano (ED)Kvng Nausea/Vomiting/Diarrhea HPI General Chief complaint: Nausea/Vomiting/Diarrhea Stated complaint: Abd pain Time Seen by Provider: 04/12/22 23:48 Mode of Arrival: Ambulatory Source of Information: Patient and Medical Record Limitations: No Limitations Description of Symptoms (Recalled from ER Triage Doc. by RN): Pt states that he woke up this afternoon at 1300 with nausea. Denies any fever, vomiting or diarrhea, denies abdominal pain or any body aches. States that his only symptom is nausea. History of Present Illness HPI Narrative: pt with nausea and presented to ed - no other c/o MD complaint: nausea Onset (ago): hour(s) Associated Abdominal Pain: No Associated symptoms: denies other symptoms Related Data Home Medications Medication Instructions Recorded Confirmed aspirin 81 mg tablet,delayed 81 mg PO DAILY heart health 10/23/18 04/12/22 release (Aspir-) pen needle, diabetic 31 gauge x 02/22/21 04/12/22/16 Previous Rx's Medication Instructions Recorded nitroglycerin 0.4 mg sublingual 0.4 mg sublingual Q5-15M PRN chest 06/28/21 tablet p
--- NOTE | 2022-04-12 23:56 | PC.NURSE ---
FSBS 140. reported to PT advised the zofran helped his nausea
[2022-04-13] LABS: POC Glucose,Bedside 140 (70-110)
[2022-04-13 00:01] VITALS: BP 195/110; PULSE 99; RESP 18; TEMP 36.6; O2SAT 98
== END 2022-04-13 00:08 | disposition home or self-care (01) ==
PROVIDERS: Emergency Provider Emergency Medicine; PCP Emergency Medicine
DX: B34.9 Viral infection, unspecified (principal); F31.81 Bipolar II disorder; E11.9 Type 2 diabetes mellitus without complications
CPT/HCPCS: 82962; 99283; 99284

== ENCOUNTER 2022-04-21 08:39 | Day surgery (SDC) | payer MEDICARE, OTHER, SELFPAY ==
[2022-04-21 08:55] VITALS: BP 175/86; PULSE 82; RESP 18; TEMP 36.6; O2SAT 988; BMI 30.5
[2022-04-21 09:06] LABS: POC Glucose,Bedside 252 (70-110)
[2022-04-21 09:15] VITALS: O2SAT 98
--- NOTE | 2022-04-21 09:23 | P.PN_ITS ---
[facility] Disclaimer: The information contained in this section may have been updated after the patient was seen, as this information can be updated by other users. Medical History Atypical angina Bipolar II disorder Diabetes Fatigue Insomnia Pre-op evaluation SOB (shortness of breath) on exertion Surgical History History of heart artery stent Family History Other Family history of cancer Family history of diabetes mellitus type II Social History Smoking Status: Current some day smoker tobacco type: cigarettes packs per day: 1 second hand exposure: No alcohol intake: current substance use type: marijuana current occupational status: disabled Travel in the last 8 weeks: None household members: none housing: house marital status: single number of children: 0 education level: high school service: Yes current occupational exposures/hazards: No caffeine: Yes special nicanor needs: No agree to transfusion: No do you feel safe at home: Yes victim of physical abuse: No victim of emotional abuse: No victim of sexual abuse: No would you like helpful sources: No [facility] Anesthesia Checklist Patient Identification Patient Identification: Arm Band Structural Data Admitted From: Home Planned Operative Procedure/s: colonoscopy Consent for Planned Operative Procedure(s) Verified: Yes Verified Documents: Surgical Consent and History and Physical NPO Status Verified Time NPO: 00:00 Additional verifications Anesthesia Reactions: No Hx Blood Transfusions: No Blood Transfusion Reaction: No Airway Assessment C-Spine Mobility Assessed: Yes TMJ Mobility Assessed: Yes Dentition: Good Dentition Neurological Assessment Level of Consciousness: Awake and Alert Anesthesia Plan Anesthesia Risk discussed: Yes Anesthesia Plan: Verified ASA Class: II Anesthesia Type: MAC
--- NOTE | 2022-04-21 09:44 | P.PCN_ITS ---
Procedure: Date: 04/21/22 Patient Date of :: 1965 Procedure Performed:: Colonoscopy with polypectomy using snare Indications:: Patient is a 56-year-old male with history of coronary artery disease with nu merous stents placed on dual antiplatelet therapy. He states that he has been having stents placed since he was 40 years old. He also has history of tobacco dependence, anxiety, depression, diabetes, reported bipolar. He had undergone colonoscopy with Dr. Farah for rectal bleeding and had polyps removed in 2012 at which time he had 3 tubular adenomas removed. I did colonoscopy in December 2017. Performing Provider:: Juan M Dewitt MD Referring Provider:: Coltno Quintana Sedation:: MAC sedation Procedure:: Patient history was obtained and appropriate physical examination was performed. Patient's medications and allergies were reviewed. Informed consent was obtained after explaining the benefits, alternatives, and risks of the procedure including, but not limited to, bleeding, perforation, missed lesions, and adverse reaction to anesthesia medications. Patient was transported to endoscopy procedure room. Patient was connected to monitoring devices. Throughout the procedure the patient's blood pressure, pulse, and oxygen saturations were monitored continuously. Patient identification and planned procedure were verified by the staff. Patient was positioned in lateral decubitus position. Digital anorectal exam was performed. Variable stiffness Olympus colonoscope was inserted and advanced under direct visualization to the cecum. Adequacy of the colonic preparation was noted. The colonoscope was then slowly withdrawn while carefully examining the color, texture, anatomy, and integrity of the mucosoa circumferentially. Within the rectum retroflexion was performed. Colonoscope was then withdrawn. Findings:: Colonic preparation was extremely poor with poor visualization. Colon was unable to be cleared with high-volume irrigation and suctioning. There were a few small polyps in the rectosigmoid, larger of which were removed with cold snare. There were no obvious obstructing masses or polyps. Impression: Poor prep Rectosigmoid polyps Recommendations:: Repeat colonoscopy with multi day maximum prep Complications:: None immediate Estimated blood obtained (mL): 1
[2022-04-21 09:45] VITALS: BP 96/67; PULSE 76; RESP 18; TEMP 36.4; O2SAT 94
[2022-04-21 09:55] VITALS: BP 94/67; PULSE 72; RESP 18; O2SAT 98
[2022-04-21 10:05] VITALS: BP 118/66; PULSE 77; RESP 18; O2SAT 98
[2022-04-21 10:15] VITALS: BP 127/82; PULSE 79; RESP 18; O2SAT 98
== END 2022-04-21 10:20 | disposition home or self-care (01) ==
PROVIDERS: PCP Emergency Medicine; Visit Provider Surgery
PROC: 0DJD8ZZ Inspection of Lower Intestinal Tract, Via Natural or Artificial Opening Endoscopic (ICD-10-PCS; principal; 2022-04-21 09:30)
DX: Z12.11 Encounter for screening for malignant neoplasm of colon (principal); Z86.010 Personal history of colon polyps; Z91.199 Patient's noncompliance with other medical treatment and regimen due to unspecified reason; K63.5 Polyp of colon; E11.9 Type 2 diabetes mellitus without complications; F17.210 Nicotine dependence, cigarettes, uncomplicated; Z79.899 Other long term (current) drug therapy
CPT/HCPCS: 45385; 82962

== ENCOUNTER → 2022-07-26 15:15 | Outpatient (CLI) | payer MEDICARE, SELFPAY ==
[2022-07-26 20:07] LABS: Barbiturates Screen,Urine Negative ng/ml (<200)
[2022-07-26 20:08] LABS: Amphetamine/Metha Screen,Urine Negative ng/ml (<1000)
[2022-07-26 20:09] LABS: Benzodiazepines Screen,Urine Positive ng/ml (<200); Cannabinoid Screen,Urine Positive ng/ml (<50)
[2022-07-26 20:10] LABS: Cocaine Screen,Urine Negative ng/ml (<300)
[2022-07-26 20:11] LABS: Methadone Screen,Urine Negative ng/ml (<300); Opiate Screen,Urine Negative ng/ml (<300)
[2022-07-26 20:12] LABS: Phencyclidine Screen,Urine Negative ng/ml (<25)
== END ==
PROVIDERS: PCP Emergency Medicine; Visit Provider Emergency Medicine
DX: Z79.899 Other long term (current) drug therapy (principal)
CPT/HCPCS: 80305

== ENCOUNTER → 2022-08-15 09:29 | Outpatient (CLI) | payer MEDICARE, SELFPAY ==
[2022-08-15 10:17] LABS: Basophils % 0.5 % (0.1-2.0); Eosinophils # 0.1 K/mm3 (0.0-0.4); Hematocrit 45.5 % (42.0-52.0); Hemoglobin 14.5 g/dL (14.1-18.0); Lymphocytes # 1.8 K/mm3 (0.7-4.5); Lymphocytes % 27.9 % (10-50); Mean Corpuscular HGB Conc 31.8 g/dL (31.8-35.4); Mean Corpuscular Hemoglobin 29.6 pg (27.0-31.2); Mean Corpuscular Volume 92.8 fl (80-94); Mean Platelet Volume 7.7 fl (7.4-10.4); Monocytes # 0.4 K/mm3 (0.1-1.0); Monocytes % 5.9 % (1.7-9.3); Neutrophils # 4.1 K/mm3 (1.8-7.8); Neutrophils % 63.7 % (37.0-80.0); Platelet Count 293 K/mm3 (142-424); White Blood Count 6.4 K/mm3 (4.8-10.8)
[2022-08-15 10:33] LABS: Alanine Aminotransferase 18 U/L (12-78); Albumin Level 3.7 g/dl (3.5-5.0); Alkaline Phosphatase 105 U/L (38-126); Aspartate Amino Transferase 26 U/L (17-59); Bilirubin,Indirect 0.3 mg/dL (0.0-0.9); Bilirubin,Total 0.3 mg/dl (0.2-1.3); Bilirubin,Unconjugated 0.5 mg/dL (0.0-1.1); Blood Urea Nitrogen 15 mg/dl (9-20); Calcium 9.4 mg/dl (8.4-10.2); Carbon Dioxide 30 mmol/L (22.0-30.0); Chloride 104 mmol/L (98-107); Cholesterol 116 mg/dl (140-200); Estimated Glomerular Filt Rate 69 ml/min (>60); GFR (African American) 83 ML/MIN (>60); Glucose 189 mg/dl (74-100); HDL Cholesterol 57 mg/dl (40-60); Magnesium 1.9 mg/dl (1.6-2.3); Sodium 142 mmol/L (136-145); Total Protein,Serum 6.5 g/dl (6.3-8.2); Triglycerides 217 mg/dl (30-150); VLDL Cholesterol 43 mg/dL (0-40)
[2022-08-15 10:50] LABS: Free T4 (Free Thyroxine) 1.11 ng/dl (0.78-2.19)
[2022-08-15 11:04] LABS: Thyroid Stimulating Hormone 2.71 uIU/mL (0.465-4.68)
== END ==
PROVIDERS: PCP Emergency Medicine; Visit Provider Nurse Practitioner Family
DX: E11.9 Type 2 diabetes mellitus without complications (principal); F17.200 Nicotine dependence, unspecified, uncomplicated; I11.9 Hypertensive heart disease without heart failure; R06.00 Dyspnea, unspecified; R06.02 Shortness of breath; R53.83 Other fatigue; Z95.5 Presence of coronary angioplasty implant and graft; I20.8 Other forms of angina pectoris; Z79.4 Long term (current) use of insulin
CPT/HCPCS: 36415; 80048; 80061; 80076; 83735; 84439; 84443; 85025

== ENCOUNTER → 2022-12-18 06:32 | Outpatient (CLI) | payer MEDICARE, SELFPAY ==
[2022-12-18 20:06] LABS: Amphetamine/Metha Screen,Urine Negative ng/ml (<1000)
[2022-12-18 20:07] LABS: Barbiturates Screen,Urine Negative ng/ml (<200)
[2022-12-18 20:09] LABS: Benzodiazepines Screen,Urine Positive ng/ml (<200)
[2022-12-18 20:10] LABS: Cocaine Screen,Urine Negative ng/ml (<300); Methadone Screen,Urine Negative ng/ml (<300)
[2022-12-18 20:11] LABS: Opiate Screen,Urine Negative ng/ml (<300)
[2022-12-18 20:12] LABS: Phencyclidine Screen,Urine Negative ng/ml (<25)
[2022-12-18 20:14] LABS: Cannabinoid Screen,Urine Positive ng/ml (<50)
== END ==
PROVIDERS: PCP Emergency Medicine; Visit Provider Emergency Medicine
DX: Z79.899 Other long term (current) drug therapy (principal)
CPT/HCPCS: 80305

== ENCOUNTER → 2023-01-10 14:13 | Outpatient (CLI) | payer MEDICARE, SELFPAY ==
[2023-01-10 14:37] LABS: Basophils % 0.4 % (0.1-2.0); Eosinophils # 0.1 K/mm3 (0.0-0.4); Eosinophils % 1.4 % (0.1-12.0); Hematocrit 41.3 % (42.0-52.0); Hemoglobin 14.3 g/dL (14.1-18.0); Lymphocytes # 1.6 K/mm3 (0.7-4.5); Lymphocytes % 24.4 % (10-50); Mean Corpuscular HGB Conc 34.5 g/dL (31.8-35.4); Mean Corpuscular Hemoglobin 32.9 pg (27.0-31.2); Mean Corpuscular Volume 95.5 fl (80-94); Mean Platelet Volume 7.9 fl (7.4-10.4); Monocytes # 0.3 K/mm3 (0.1-1.0); Monocytes % 4.6 % (1.7-9.3); Neutrophils # 4.6 K/mm3 (1.8-7.8); Neutrophils % 69.3 % (37.0-80.0); Platelet Count 251 K/mm3 (142-424); Red Blood Count 4.33 M/mm3 (4.60-6.20); Red Cell Distribution Width 15.7 % (11.5-17.5); White Blood Count 6.6 K/mm3 (4.8-10.8)
[2023-01-10 14:56] LABS: Chloride 107 mmol/L (98-107); Sodium 139 mmol/L (136-145)
[2023-01-10 14:59] LABS: Alanine Aminotransferase 24 U/L (12-78); Albumin Level 3.9 g/dl (3.5-5.0); Alkaline Phosphatase 85 U/L (38-126); Aspartate Amino Transferase 32 U/L (17-59); Bilirubin,Direct 0.3 mg/dl (0.0-0.4); Bilirubin,Indirect 0.2 mg/dL (0.0-0.9); Bilirubin,Total 0.5 mg/dl (0.2-1.3); Bilirubin,Unconjugated 0.2 mg/dL (0.0-1.1); Blood Urea Nitrogen 20 mg/dl (9-20); Carbon Dioxide 28 mmol/L (22.0-30.0); Cholesterol 127 mg/dl (140-200); Estimated Glomerular Filt Rate 69 ml/min (>60); GFR (African American) 83 ML/MIN (>60); Total Protein,Serum 6.7 g/dl (6.3-8.2); Triglycerides 88 mg/dl (30-150); VLDL Cholesterol 18 mg/dL (0-40)
[2023-01-10 15:00] LABS: Calcium 8.6 mg/dl (8.4-10.2); Glucose 257 mg/dl (74-100); HDL Cholesterol 65 mg/dl (40-60)
[2023-01-10 15:10] LABS: Direct LDL Cholesterol 53.22 mg/dL (100-129)
[2023-01-10 15:18] LABS: Free T4 (Free Thyroxine) 1.03 ng/dl (0.78-2.19)
[2023-01-10 15:31] LABS: Thyroid Stimulating Hormone 1.05 uIU/mL (0.465-4.68)
== END ==
PROVIDERS: PCP Emergency Medicine; Visit Provider Nurse Practitioner
DX: E11.9 Type 2 diabetes mellitus without complications (principal); E78.5 Hyperlipidemia, unspecified; I11.9 Hypertensive heart disease without heart failure; I25.119 Atherosclerotic heart disease of native coronary artery with unspecified angina pectoris; Z86.73 Personal history of transient ischemic attack (TIA), and cerebral infarction without residual deficits; R06.00 Dyspnea, unspecified; R53.83 Other fatigue; Z95.5 Presence of coronary angioplasty implant and graft; F17.200 Nicotine dependence, unspecified, uncomplicated; Z79.84 Long term (current) use of oral hypoglycemic drugs
CPT/HCPCS: 36415; 80048; 80061; 80076; 84439; 84443; 85025

== ENCOUNTER → 2023-01-30 06:21 | Outpatient (CLI) | payer MEDICARE, SELFPAY ==
--- NOTE | 2023-01-30 06:22 | CA_ITS ---
APPROVED REPORT EXAM: Comprehensive 2D, Doppler, and color-flow Echocardiogram Field Sales Manager: Sarah Zimmerman CRT Ht: 6 ft 0 in Wt: 238lbs BSA: 2.29 BP: 155/96 mmHg Indications: Chest Pain, Shortness of Breath, CAD, smoker 2D Dimensions Left Atrium 3.66 cm LVEF (Nice's) 46.10 % LVOT 1.93 cm (M/F) 1.5-2.5 LV Volume 96.30 mL LA Volume 30.10 mL LA Volume Index 13.10 mL/m2 (M/F) 16-34 EF AP4 43.70 % EF AP2 47.5 % EF BP 46.1 % GL Strain -13.2 % M-Mode Dimensions RVDd 2.50 cm (0.9-2.6) LVDd 5.01 cm (3.5-5.7) Ao Diam 4.00 cm (2.0-3.7) LVDs 3.43 cm (3.5-5.7) IVSd 1.54 cm (0.6-1.1) PWd 0.57 cm (0.6-1.1) EF (Teich) 59.20% FS 31.50% EDV (Teich) 118.80 mL TAPSE 1.36 (<1.7) ESV (Teich) 48.50 mL LV Diastology E Decel Time 161 (160-240 msec) E/A Ratio 0.76 MED E' 4.3 (>= 7 cm/sec) MED A' 7.60 cm/s E'/MED E' Ratio 10.74 (<= 14) LAT E' 6.2 (>= 10 cm/sec) LAT A' 8.10 cm/s E/LAT E' Ratio 7.45 (<= 14) Aortic Valve AoV Peak Monico. 84.0 (50-130 cm/s) AO Peak GR. 2.80 mmHg Mitral Valve MV E Max Monico. 46.0 (40-130 cm/s) MV A Velocity 60.0 (40-130 cm/s) E/A Ratio 0.76 MV Decel. Time 161 (160-240 ms) Tricuspid Valve TR P. Velocity 172.00 cm/s RAP Estimate 10.00 mmHg RVSP 21.90 mmHg Left Ventricle The left ventricle is normal size. The left ventricular systolic function is normal. The left ventricular ejection fraction is within the normal range. There is increased LV wall thickness. There is normal LV segmental wall motion. The left ventricular diastolic function is normal. LVEF is 60%. Right Ventricle The right ventricle is normal size. The right ventricular systolic function is normal. There is increased RV wall thickness. Atria The left atrium size is normal. The right atrium size is normal. The interatrial septum is not well-visualized. Aortic Valve The aortic valve is normal in structure. The aortic valve is trileaflet. There is no aortic valvular stenosis. No aortic regurgitation is present. Mitral Valve The mitral valve is normal in structure. No evidence of mitral valve stenosis. There is no mitral valve regurgitation noted. Tricuspid Valve The tricuspid valve leaflets are thin and pliable. Trace tricuspid regurgitation. There is insufficient TR jet to estimate RVSP. Pulmonic Valve The pulmonary valve is normal in structure. Trace pulmonic regurgitation. Great Vessels The aortic root is normal in size. The ascending aorta is not well-visualized. IVC is normal in size and collapses >50% with inspiration. Pericardium There is no pericardial effusion. Other Information Study Quality: Fair Conclusion Normal biventricular systolic function. No significant valvular stenosis or regurgitation. Electronically signed by : Inna Cain MD 02/02/2023 23:37:28
--- NOTE | 2023-01-30 06:25 | NM_ITS ---
APPROVED REPORT Exam: Nuclear Stress Test Indication: chest pain..soa..syncope Patient Location: Outpatient Stress Tech: Marielle Chavez NM Tech:COURTNEY Vieira RT (R)(N)(M) Ht: 6 ft 0 in Wt: 236 lbs HR: 72 bpm BP: 136/85 mmHg BSA: 2.29 m2 Rhythm: NSR TID: 1.14 History: chest pain..soa..syncope Procedure: Patient received 0.4 mg of intravenous Lexiscan, resting heart rate 72 bpm, resting blood pressure 136/85 mmHg, with Lexiscan maximum heart rate achieved was 85 bpm which is 85 % of the maximum predicted heart rate and blood pressure was 123/71 mmHg. With Lexiscan, patient denied any complaint of chest pain. Cardiac Stress and Resting SPECT Images: Cardiac Stress and Resting SPECT images were obtained using technetium 99m Myoview 31.5 mCi stress and 10.94 mCi at rest. Raw images demonstrate diaphragmatic overlap with the cardiac borders. This may affect the diagnostic interpretation of the study findings. Resting and stress imaging in supine and prone positions demonstrate medium sized, moderate, reversible perfusion defect in the basal to mid inferior LV wall. While this is no longer visualized in prone stress imaging, this may still reflect a true perfusion defect considering its reversible nature and associated hypokinesis Gated imaging demonstrates low normal LV systolic function. There is mild hypokinesis of the basal inferior LV wall. LVEF is calculated at 51%. Conclusion: Medium sized, moderate, reversible perfusion defect in the basal to mid inferior LV wall. While this is no longer visualized in prone stress imaging, this may still reflect a true perfusion defect considering its reversible nature and associated hypokinesis. Gated imaging demonstrates low normal LV systolic function. There is mild hypokinesis of the basal inferior LV wall. LVEF is calculated at 51%. Electronically signed by : Inna Cain MD 01/31/2023 13:44:52
--- NOTE | 2023-01-30 10:08 | CA_ITS ---
APPROVED REPORT Exam: Pharmacologic Technologist: Marielle Chavez Ht: 6 ft 0 in Wt: 236 lbs BSA: 2.29 m2 HR: 72 bpm BP: 136/85 mmHg Rhythm: NSR Indications: Chest pain, Shortness of Breath Medical History Medications: Lisinopril,,,,, Alprazolam,,,,, Levothyroxine,,,,, Aspirin,,,,, Metoprolol,,,,, Gabapentin,,,,, Pantoprazole,,,,, Atorvastatin,,,,, CloPIdogrel,,,,, Nitroglycerin,,,,, Ranolazine,,,,, Evolocumab,,,,, Stress Test Details Test: LEXISCAN HR Resting HR: 72 bpm Max Heart Rate (APMHR): 161 bpm Max HR Achieved: 86 bpm Target HR (85% APMHR): 137 bpm % of APMHR: 53 Recovery HR: 80 bpm BP Resting BP: 136.0/85.0 mmHg Max BP: 137.0/87.0 mmHg Recovery BP: 135.0/83.0 mmHg ECG Resting ECG: Sinus rhythm Stress ECG: No ST changes Arrhythmia: None Clinical Exercise duration: 04:00 min Highest Stage Achieved: Exercise capacity: 1.0 METs Stress ECG Conclusion Symptoms: Nausea, Chest pain, Dyspnea Arrhythmias/Ectopy: None ST-T Changes: No significant ST changes Conclusion: Unremarkable Lexiscan ECG stress test. Myoview images are reported separately. Test Summary REST . . . . . . . Resting REST 25:55 . . 72 . 136/ 85 . . Stage 1 . . . . . . . Myoview Injected Stage 1 01:00 . . 78 . . . . Stage 2 01:00 . . 86 . . . . Stage 3 . . . . . . . Chest pain Stage 3 01:00 . . 81 . 123/ 71 . . Stage 4 01:00 . . 66 . 136/ 78 . Stop exercise at 04:00 RECOVERY 01:00 . . 83 . 127/ 85 . . RECOVERY 02:00 . . 80 . 135/ 83 . . RECOVERY 03:00 . . 79 . 137/ 83 . . RECOVERY 03:07 . . 78 . 137/ 83 . . Electronically signed by : Inna Cain MD 01/31/2023 13:27:11
== END ==
LOC: RAD 06:22
PROVIDERS: PCP Emergency Medicine; Visit Provider Nurse Practitioner
DX: E11.9 Type 2 diabetes mellitus without complications (principal); E78.5 Hyperlipidemia, unspecified; F17.200 Nicotine dependence, unspecified, uncomplicated; I11.9 Hypertensive heart disease without heart failure; R07.89 Other chest pain; R53.83 Other fatigue; Z95.5 Presence of coronary angioplasty implant and graft; R06.09 Other forms of dyspnea; I20.89 Other forms of angina pectoris; Z79.4 Long term (current) use of insulin
CPT/HCPCS: 78452; 93017; 93018; 93306; A9502; J2785

== ENCOUNTER 2023-02-16 07:21 | Day surgery (SDC) | payer MEDICARE, SELFPAY ==
[2023-02-16] VITALS (12 sets, daily range): BP systolic 107–151; BP diastolic 64–99; PULSE 68–83; RESP 16–20; O2SAT 95–98; BMI 32.1
--- NOTE | 2023-02-16 07:13 | IR_ITS ---
APPROVED REPORT Patient Location: Outpatient PROCEDURES Left heart catheterization Left ventriculogram Selective coronary angiogram Drug-eluting stent deployment in the proximal and mid circumflex artery Drug-eluting stent deployment to the first obtuse marginal artery Drug-eluting stent deployment to the proximal right coronary INDICATION Coronary artery disease, Abnormal Myoview, Angina pectoris Informed consent was obtained prior to the procedure. COMPLICATIONS NONE Estimated Blood Loss: LESS THAN 10 ML TECHNIQUE One percent lidocaine used to anesthetize the right anterior aspect of the wrist. The right radial artery was accessed via the Seldinger technique. A 6 Sami sheath was placed in the right radial artery. 2.5 mg of Verapamil, 800 mcg of nitroglycerin, 1mg Lidocaine and 5000 U Heparin were given through the arterial sheath. The papa catheter was also used to perform left heart catheterization, left ventriculogram and selective coronary angiogram. At the end the diagnostic angiogram therapeutic heparin was administered giving a therapeutic ACT and the guide catheter was placed in the left main artery followed by a Choice PT extra-support wire being placed on the circumflex artery. A 3.5 x 26 mm Yoan frontier stent was placed in the proximal to mid circumflex artery and deployed at 20 alida reducing the stenosis to 0%. There was jailing of the first obtuse marginal artery therefore an additional Choice PT extra-support wire was placed into the first obtuse marginal artery. A 2.5 mm balloon was used to open the struts going into the obtuse marginal artery. A 2.5 x 12 mm Yoan frontier stent was placed in the ostial proximal first obtuse marginal artery and deployed at 20 alida reducing the stenosis. A fresh 3.5 mm balloon was then deployed adjacent to the first obtuse marginal artery and the circumflex artery and deployed at 20 alida to push the obtuse marginal artery struts out of the [place] circumflex artery. An additional 3.5 x 8 mm Yoan frontier stent was then placed proximal to the first 3.5 mm stent and deployed at 22 alida to further reduce the stenosis. The balloon was advanced and deployed at 22 alida in the mid portion of the circumflex artery both proximal and distal to the origin of the obtuse marginal artery. ELMER-3 flow was present before and after the procedure. Following this the apparatus was removed and the guide catheter was placed in the right coronary followed by advancing a Choice PT extra-support wire. A 3.5mm x 12 mm Yoan frontier stent was deployed at 22 alida reducing the stenosis to 0%. ELMER-3 flow was present before and after the procedure. At the end of the procedure the apparatus was removed the sheath was removed and hemostasis was achieved using TR banding patient was transferred to the postop holding area in stable condition ANGIOGRAPHIC RESULTS The left main artery Normal The left anterior descending artery Has proximal 30% stenosis with mid vessel 30% stenoses followed by distal 60 and 70% stenoses in a portion of the LAD where the vessel is just barely 2 mm in diameter. Large first diagonal artery has proximal and mid vessel 30 to 40% diffuse stenoses The circumflex artery Is a codominant vessel and has proximal eccentric 40 to 50% stenosis with 70% stenosis distal to the first obtuse marginal artery. The first obtuse marginal artery had an 80% ostial stenosis following stenting of the circumflex artery. The first obtuse marginal artery is a large vessel and bifurcates. The superior branch of the first obtuse marginal artery is large and widely patent while the inferior branch has an ostial and proximal 50% stenosis and is 2.25 mm in diameter. Distal to the first obtuse marginal artery the second obtuse marginal artery is a large-caliber vessel and widely patent following stenting The right coronary artery Is dominant and has a proximal 40% stenosis with a concentric 70 to 80% stenosis representing in-stent restenosis. There are additional 40% mid vessel and distal stenoses which extend into the posterior descending artery The BOURGEOIS ventriculogram reveals Was not performed The left ventricular end-diastolic pressure Not measured IMPRESSION Severe disease in the circumflex artery and first obtuse marginal artery Successful stenting of the proximal to mid circumflex artery severe disease reduced to 0% with 2 contiguous drug-eluting stents Successful stenting of the first obtuse marginal artery severe disease reduced to 0% with 1 drug-eluting stent which bifurcated off the circumflex artery stents Severe disease in the proximal codominant right coronary artery Successful stenting of the proximal right coronary severe disease reduced to 0% with 1 drug-eluting stent Persistent moderate to severe disease in the mid to distal LAD as described above all involving small caliber vessel PLAN 1. Dual antiplatelet therapy 2. Cardiac rehabilitation 3. Avoidance of tobacco products 4. Risk factor modification 5. LDL less than 55 to be achieved with high intensity statin 6. Recommend medical management for the LAD at this point. Although this vessel could be stented I think medical management would be far advantageous Electronically signed by : Ronny Stewart MD 02/16/2023 12:22:02
[2023-02-16 07:53] LABS: Basophils % 0.5 % (0.1-2.0); Eosinophils # 0.1 K/mm3 (0.0-0.4); Eosinophils % 2.1 % (0.1-12.0); Hematocrit 44.1 % (42.0-52.0); Hemoglobin 14.8 g/dL (14.1-18.0); Lymphocytes # 2.1 K/mm3 (0.7-4.5); Lymphocytes % 30.8 % (10-50); Mean Corpuscular HGB Conc 33.6 g/dL (31.8-35.4); Mean Corpuscular Hemoglobin 32.6 pg (27.0-31.2); Mean Corpuscular Volume 96.8 fl (80-94); Mean Platelet Volume 7.8 fl (7.4-10.4); Monocytes # 0.4 K/mm3 (0.1-1.0); Monocytes % 6.1 % (1.7-9.3); Neutrophils # 4.1 K/mm3 (1.8-7.8); Neutrophils % 60.4 % (37.0-80.0); Platelet Count 275 K/mm3 (142-424); Red Blood Count 4.55 M/mm3 (4.60-6.20); Red Cell Distribution Width 15.7 % (11.5-17.5); White Blood Count 6.7 K/mm3 (4.8-10.8)
[2023-02-16 08:10] LABS: Blood Urea Nitrogen 19 mg/dl (9-20); Calcium 8.6 mg/dl (8.4-10.2); Carbon Dioxide 25 mmol/L (22.0-30.0); Creatinine Clearance Estimated 110 mL/min (50-200); Estimated Glomerular Filt Rate 69 ml/min (>60); GFR (African American) 83 ML/MIN (>60); Glucose 116 mg/dl (74-100)
[2023-02-16] MEDS: diphenhydrAMINE 50MG/ML VIAL 50 MG IV (09:11)
[2023-02-16] MEDS: LIDOCAINE 1% 10ML MDV 20 ML IJ (09:44)
[2023-02-16] MEDS: VERAPAMIL 2.5MG/ML 2ML VIAL 2.5 MG IV (09:44)
[2023-02-16] MEDS: HEPARIN 1,000 UNITS/500ML NS (CATH LAB) 3000 UNIT IV (09:44)
[2023-02-16] MEDS: HEPARIN 1,000 UNITS/ML 10ML VIAL (CATH LAB) 10000 UNIT IV ×2 (09:44→10:17)
[2023-02-16] MEDS: NITROGLYCERIN 800MCG/8ML SYR (CATH LAB) 800 MCG IA (09:44)
[2023-02-16] MEDS: 0.9 % SODIUM CHLORIDE 500 ML 25 ML IV (09:45)
[2023-02-16] MEDS: FENTANYL 100MCG/2ML VIAL 50 MCG IV (10:18)
[2023-02-16] MEDS: MIDAZOLAM HCL 1MG/1ML 5ML VIAL 1 MG IV (10:18)
[2023-02-16 11:19] LABS: Chloride 108 mmol/L (98-107); Sodium 140 mmol/L (136-145)
[2023-02-16 11:20] LABS: Anion Gap 11.9 mEq/L (5-15); Potassium 4.9 mmoL/L (3.5-5.1)
[2023-02-16] MEDS: IOPAMIDOL-370 (76%);100ML BOTTLE 125 ML IV (13:00)
[2023-02-16 14:55] LABS: CATHL Activated Clotting Time > 400 SEC (74-125)
== END 2023-02-16 14:04 | disposition home or self-care (01) ==
PROVIDERS: PCP Nurse Practitioner Family; Visit Provider Internal Medicine
DX: I25.118 Atherosclerotic heart disease of native coronary artery with other forms of angina pectoris (principal); R94.39 Abnormal result of other cardiovascular function study; E11.9 Type 2 diabetes mellitus without complications; Z79.4 Long term (current) use of insulin; Z79.899 Other long term (current) drug therapy; R06.09 Other forms of dyspnea; Z95.5 Presence of coronary angioplasty implant and graft; F17.210 Nicotine dependence, cigarettes, uncomplicated; I11.9 Hypertensive heart disease without heart failure; E78.5 Hyperlipidemia, unspecified
CPT/HCPCS: 80048; 85025; 85347; 92928; 92929; 93458; 99152; 99153; C1725; C1769; C1876; C9600; C9601; J1644; Q9967

== ENCOUNTER 2023-03-16 18:19 | Outpatient (CLI) | payer MEDICARE, SELFPAY ==
[2023-03-16 20:23] LABS: Amphetamine/Metha Screen,Urine Negative ng/ml (<1000)
[2023-03-16 20:25] LABS: Barbiturates Screen,Urine Negative ng/ml (<200); Benzodiazepines Screen,Urine Positive ng/ml (<200)
[2023-03-16 20:26] LABS: Cannabinoid Screen,Urine Negative ng/ml (<50); Cocaine Screen,Urine Negative ng/ml (<300)
[2023-03-16 20:27] LABS: Methadone Screen,Urine Negative ng/ml (<300)
[2023-03-16 20:28] LABS: Opiate Screen,Urine Negative ng/ml (<300); Phencyclidine Screen,Urine Negative ng/ml (<25)
[2023-03-21 11:39] LABS: Alprazolam Positive (.); Benzodiazepines Positive ng/mL (Cutoff=100); Clonazepam Negative (Cutoff=100); Flurazepam Negative (Cutoff=100); Gabapentin,Urine >800.0 ug/mL (.); Lorazepam Negative (Cutoff=100); Midazolam Negative (Cutoff=100); Temazepam Negative (Cutoff=100); Triazolam Negative (Cutoff=100)
== END 2023-03-16 23:59 ==
LOC: LAB.DROPOF 18:20
PROVIDERS: PCP Nurse Practitioner Family; Visit Provider Nurse Practitioner Family
DX: Z79.899 Other long term (current) drug therapy (principal)
CPT/HCPCS: 80307; 80346

== ENCOUNTER 2023-05-02 13:39 | Outpatient (CLI) | payer MEDICARE, SELFPAY ==
--- NOTE | 2023-05-02 13:54 | XR_ITS ---
FINAL REPORT CLINICAL HISTORY: Diabetic foot Ulcer right foot pain COMPARISON: 09/06/2021 FINDINGS: Right foot Three views were obtained. There is no acute fracture or dislocation. Mild degenerative changes are present. There are calcaneal spurs. No definite bony erosion is identified. IMPRESSION: No definite bony erosion. If indicated, MRI is more sensitive to evaluate for possibility of osteomyelitis. Reviewed, Interpreted and Dictated by Juan M Gilliam III, MD Transcribed by Priyanka Pardo Authenticated and [facility]
== END 2023-05-02 23:59 ==
LOC: RAD 13:40
PROVIDERS: PCP Nurse Practitioner Family; Visit Provider Nurse Practitioner
DX: E08.621 Diabetes mellitus due to underlying condition with foot ulcer (principal); L97.502 Non-pressure chronic ulcer of other part of unspecified foot with fat layer exposed; M79.671 Pain in right foot
CPT/HCPCS: 73630

== ENCOUNTER 2023-05-22 09:34 | Outpatient (CLI) | payer MEDICARE, SELFPAY ==
--- NOTE | 2023-05-22 09:38 | XR_ITS ---
FINAL REPORT CLINICAL HISTORY: Pain after fall x 1 week ago COMPARISON: None FINDINGS: SACRUM COCCYX 3 views demonstrate no acute fracture or dislocation. The sacral arches are intact. The sacroiliac joints are unremarkable. No soft tissue abnormality is seen. IMPRESSION: No acute process. Reviewed, Interpreted and Dictated by Hunter Frost MD Transcribed by Lauren Carlson Authenticated and [facility]
[2023-05-22 13:47] LABS: Creatinine,Urine Random 74 mg/dL (Not Estab.)
[2023-05-22 13:52] LABS: Microalbumin/Creatinine Ratio 8.9
== END 2023-05-22 23:59 ==
LOC: RAD 09:36
PROVIDERS: PCP Nurse Practitioner Family; Visit Provider Nurse Practitioner Family
DX: M53.3 Sacrococcygeal disorders, not elsewhere classified (principal); E11.9 Type 2 diabetes mellitus without complications; Z79.4 Long term (current) use of insulin
CPT/HCPCS: 72220; 82043; 82570

== ENCOUNTER 2023-06-13 10:48 | Observation (INO) | payer MEDICARE, SELFPAY ==
[2023-06-13] VITALS (11 sets, daily range): BP systolic 100–156; BP diastolic 56–93; PULSE 67–94; RESP 16–22; TEMP 36.4–36.7; O2SAT 94–98; BMI 33.3; BMI 32.1
--- NOTE | 2023-06-13 11:15 | CT_ITS ---
FINAL REPORT TECHNIQUE: multiple axial CT images were performed from the foramen magnum to the vertex without enhancement This study was performed with techniques to keep radiation doses as low as reasonably achievable (ALARA). Individualized dose reduction techniques using automated exposure control or adjustment of mA and/or kV according to the patient's size were employed. CLINICAL HISTORY: balance disturbance, frequent falls FINDINGS: The ventricles are enlarged. There is diffuse atrophy. There is no evidence of hemorrhage. No masses are identified. No extra-axial fluid is seen. The sinuses are normal. IMPRESSION: Atrophy without acute intracranial process. Reviewed, Interpreted and Dictated by Hunter Frost MD Transcribed by Priyanka Pardo Authenticated and . [facility]
--- NOTE | 2023-06-13 11:15 | CT_ITS ---
FINAL REPORT TECHNIQUE: Pre-and postcontrast images of the abdomen and pelvis were performed by computed tomography. Extensive 3-D reconstruction images were performed. A CTA was performed. This study was performed with techniques to keep radiation doses as low as reasonably achievable (ALARA). Individualized dose reduction techniques using automated exposure control or adjustment of mA and/or kV according to the patient''s size were employed. CLINICAL HISTORY: intractable nausea/vomiting, BRBPR FINDINGS: ABDOMEN: There is mild bibasilar atelectasis. The liver parenchyma is homogeneous. The gallbladder is present. There are calcified granulomas in the spleen. The pancreas and adrenals are unremarkable. There is an exophytic cyst arising from the posterior aspect of the right kidney measuring 2.4 cm. Cyst demonstrates a mean attenuation value of 34 Hounsfield units, probably a complex benign cyst. The urinary bladder is moderately distended. CTA: The abdominal aorta is proper caliber. The SMA, celiac axis, and DIANE are patent. There is no significant stenosis or calcification. The renal arteries are patent bilaterally. The iliacs are widely patent. IMPRESSION: No evidence of renal vascular hypertension or significant renal artery stenosis. Probable complex benign cyst. Follow-up CT could confirm. Reviewed, Interpreted and Dictated by Hunter Frost MD Transcribed by Priyanka Pardo Authenticated and [facility]
--- NOTE | 2023-06-13 11:15 | CT_ITS ---
FINAL REPORT TECHNIQUE: Axial images were obtained of the cervical spine by computed tomography. Coronal and sagittal reconstruction process performed. This study was performed with techniques to keep radiation doses as low as reasonably achievable (ALARA). Individualized dose reduction techniques using automated exposure control or adjustment of mA and/or kV according to the patient''s size were employed. CLINICAL HISTORY: balance disturbance, frequent falls FINDINGS: There are postoperative changes from prior interbody fusion of C5-6 and C6-7. There is prominent anterior osteophyte formation at C6-7, C7-T1, and T1-2. No acute fracture is identified. C2-3: No significant disc bulge or protrusion. C3-4: No significant disc bulge or protrusion. C4-5: No significant disc bulge or protrusion. C5-6: Mild endplate hypertrophy is present. The neural foramina are adequately patent. C6-7: Mild endplate hypertrophy is present. The neural foramina are adequately patent. C7-T1: Endplate hypertrophy is present eccentric to the left with moderate left neural foraminal narrowing. IMPRESSION: Hypertrophic changes of degenerative disc disease, most evident at C7-T1. Reviewed, Interpreted and Dictated by Hunter Frost MD Transcribed by Priyanka Pardo Authenticated and [facility]
--- NOTE | 2023-06-13 11:15 | CT_ITS ---
FINAL REPORT TECHNIQUE: Thin section axial CT with and without IV contrast supplemented with multiplanar 3-D reconstruction of the head. This study was performed with techniques to keep radiation doses as low as reasonably achievable, (ALARA)individualized dose reduction techniques using automated exposure control or adjustment of mA and/or kV according to the patient's size were employed. NASCET technique utilized for stenosis evaluation. CLINICAL HISTORY: balance disturbance, frequent falls FINDINGS: The cranial circulation is unremarkable. There is no significant stenosis, aneurysm or occlusion. IMPRESSION: No significant stenosis, aneurysm, or occlusion. Reviewed, Interpreted and Dictated by Hunter Frost MD Transcribed by Priyanka Pardo Authenticated and [facility]
--- NOTE | 2023-06-13 11:15 | CT_ITS ---
FINAL REPORT TECHNIQUE: NASCET technique utilized for stenosis evaluation. CLINICAL HISTORY: balance disturbance, frequent falls FINDINGS: RIGHT CAROTID: No significant stenosis is seen of the cervical common or internal carotid artery. LEFT CAROTID: No significant stenosis seen of the cervical common or internal carotid artery. VERTEBRALS: The vertebral arteries are symmetric and patent. No significant stenosis is present. IMPRESSION: No significant arterial abnormality. Reviewed, Interpreted and Dictated by Hunter Frost MD Transcribed by Priyanka Pardo Authenticated and [facility]
[2023-06-13] MEDS: ONDANSETRON 4MG/2ML VIAL 4 MG IV ×2 (11:19→19:51)
[2023-06-13] MEDS: LACTATED RINGERS 1000ML 1,000 ML 999 ML IV ×2 (11:19→13:17)
--- NOTE | 2023-06-13 11:22 | HMH.EDGENADL ---
Discharge Plan Disposition Patient Disposition: Admitted Clinical Impressions Clinical Impression: HELENA (acute kidney injury), General weakness Discharge ED Provider: Holli Poe General Adult HPI General Chief complaint: Dizziness Stated complaint: vomiting, blood in stool, dizziness Time Seen by Provider: 06/13/23 10:55 Mode of Arrival: Ambulatory Source of Information: Patient Limitations: No Limitations Description of Symptoms (Recalled from ER Triage Doc. by RN): Patient complaint of dizziness, vomiting, stumbling and blood in his stool x 1 week. History of Present Illness HPI narrative: This patient is a 57-year-old male with a history of hypertension, hyperlipidemia, hypertensive heart disease, CAD status post stenting, diabetes, KRISTIN, bipolar disorder, and anxiety presenting to the emergency department for evaluation with concern for dizziness, stumbling, frequent falls, nausea, vomiting, and blood in stools. Patient reports that he has had the dizziness, gait abnormality, and frequent falls for several weeks now. He cannot further characterize his dizziness, and states that it does not feel truly like lightheadedness but also does not feel like vertigo. The vomiting and diarrhea started today, with bright red blood per rectum. He does note that he has a history of hemorrhoids. He states that his emesis is nonbloody and nonbilious. No melena. He denies any fevers, chills, visual disturbance, numbness, tingling, unilateral weakness, chest pain, shortness of breath, significant abdominal pain, or other concerns. He reports compliance with his home medications. Related Data Home Medications Medication Instructions Recorded Confirmed aspirin 81 mg tablet,delayed 81 mg PO DAILY 10/23/18 06/13/23 release (Aspir-) atorvastatin 80 mg tablet 80 mg PO DAILY 06/13/23 06/13/23 brexpiprazole 2 mg tablet (Rexulti) 2 mg PO DAILY 06/13/23 06/13/23 clopidogrel 75 mg tablet 75 mg PO DAILY 06/13/23 06/13/23 gabapentin 800 mg tablet 800 mg PO TID 06/13/23 06/13/23 insulin human U-100 NPH-regulr 59 unit SQ BID 06/13/23 06/13/23 70-30 mix 100 unit/mL subcutaneous susp (Humulin 70/30 U-100 Insulin) levothyroxine 50 mcg tablet 50 mcg PO DAILY 06/13/23 06/13/23 pantoprazole 40 mg tablet,delayed 40 mg PO DAILY 06/13/23 06/13/23 release ranolazine 500 mg tablet,extended 500 mg PO Q12 06/13/23 06/13/23 release,12 hr Previous Rx's Medication Instructions Recorded nitroglycerin 0.4 mg sublingual 0.4 mg sublingual Q5-15M PRN chest 06/28/21 tablet pain #25 tabs alprazolam 1 mg tablet (Xanax) 1 mg PO TID #60 tabs 05/22/23 hydrochlorothiazide 25 mg tablet 25 mg PO DAILY #90 tabs 06/06/23 losartan 50 mg tablet 50 mg PO BID 90 days #180 tabs 06/06/23 metoprolol succinate 100 mg 100 mg PO BID 90 days #180 tabs 06/06/23 tablet,extended release 24 hr Allergies Allergy/AdvReac Type Severity Reaction Status Date / Time No Known Allergies Allergy Verified 06/06/23 13:16 [facility] Disclaimer: The information contained in this section may have been updated after the patient was seen, as this information can be updated by other users. Medical History Hypertension KRISTIN (obstructive sleep apnea) Dyspnea Typical angina Hypertension Fatigue SOB (shortness of breath) on exertion Insomnia Bipolar II disorder HLD (hyperlipidemia) Atypical angina Pre-op evaluation Diabetes Tobacco dependence syndrome Coronary arteriosclerosis Surgical History History of heart artery stent Stented coronary artery Family History Other Family history of cancer Family history of diabetes mellitus type II Social History (Updated 06/13/23 @ 14:35 by Candis Modi RN) Smoking Status: Current every day smoker tobacco type: cigarettes packs per day: 1 second hand exposure: No alcohol intake: current substance use type: marijuana current occupational status: disabled Travel in the last 8 weeks: None household members: none housing: house marital status: single number of children: 0 education level: high school service: Yes current occupational exposures/hazards: No caffeine: Yes special nicanor needs: No agree to transfusion: No do you feel safe at home: Yes victim of physical abuse: No victim of emotional abuse: No victim of sexual abuse: No would you like helpful sources: No ROS Obtained: Yes All systems reviewed & no additional complaints except as documented Physical Exam General General appearance: alert, in no apparent distress and obese Head Head exam: atraumatic and normocephalic Eye Eye exam: Present normal appearance, PERRL and EOMI ENT ENT exam: Present normal exam, normal oropharynx, mucous membranes moist and normal external ear exam Neck Neck exam: Present normal inspection, full ROM and trachea midline; Absent tenderness Chest Chest inspection: Present normal inspection and symmetric chest wall rise; Absent tenderness Respiratory Respiratory exam: Present normal lung sounds bilaterally; Absent respiratory distress, wheezes, stridor or accessory muscle use Cardiovascular Cardiovascular exam: Present regular rate and normal rhythm Abdominal Exam Abdominal exam: Present soft; Absent distention, tenderness or guarding Extremities Exam Extremities exam: Present normal inspection, full ROM and normal capillary refill; Absent tenderness or edema Back Exam Back exam: Present normal inspection and full ROM; Absent tenderness Neurological Exam Neurological exam: Present alert, oriented X3, CN II-XII intact and normal gait; Absent motor sensory deficit Psychiatric Psychiatric exam: Present normal affect and normal mood Skin Skin exam: Present warm and dry Medical Decision Making Medical Records Medical records reviewed: Yes I reviewed the patient's medical records. [facility] Inquiry Pt receiving controlled substance: No Vital Signs: 06/13/23 10:49 06/13/23 11:22 06/13/23 11:30 Temperature 97.9 F Temperature Source Oral Pulse Rate 84 86 Pulse Rate [Radial] 67 Respiratory Rate 16 Blood Pressure 100/56 L 115/64 Blood Pressure [Right Arm] 103/63 L Blood Pressure Mean [Right Arm] 76 Blood Pressure Source Blood Pressure Source [Right Arm] Automatic Cuff Blood Pressure Position Blood Pressure Position [Right Arm] Sitting 02 Sat by Pulse Oximetry 97 96 94 L Oxygen Delivery Method Room Air 06/13/23 12:31 06/13/23 13:03 06/13/23 13:31 Temperature Temperature Source Pulse Rate 87 85 89 Pulse Rate [Radial] Respiratory Rate Blood Pressure 133/91 H 118/80 156/93 H Blood Pressure [Right Arm] Blood Pressure Mean [Right Arm] Blood Pressure Source Blood Pressure Source [Right Arm] Blood Pressure Position Blood Pressure Position [Right Arm] 02 Sat by Pulse Oximetry 98 97 95 Oxygen Delivery Method Room Air Room Air 06/13/23 14:19 Temperature 98.1 F Temperature Source Oral Pulse Rate 89 Pulse Rate [Radial] Respiratory Rate 16 Blood Pressure 156/93 H Blood Pressure [Right Arm] Blood Pressure Mean [Right Arm] Blood Pressure Source Automatic Cuff Blood Pressure Source [Right Arm] Blood Pressure Position Sitting Blood Pressure Position [Right Arm] 02 Sat by Pulse Oximetry Oxygen Delivery Method Room Air Lab Data Lab results reviewed: Yes I reviewed the patient's lab results. Lab Results 06/13/23 11:05: WBC 9.5, RBC 4.79, Hgb 15.6, Hct 48.2, MCV 100.5 H, MCH 32.6 H, MCHC 32.4, RDW 16.7, Plt Count 414, MPV 7.3 L, Neut % (Auto) 72.5, Lymph % (Auto) 20.8, [place] % (Auto) 5.7, Eos % (Auto) 0.2, Baso % (Auto) 0.7, Neut # (Auto) 6.9, Lymph # (Auto) 2.0, [place] # (Auto) 0.6, Eos # (Auto) 0.0, Baso # (Auto) 0.1, PT 11.2, INR 1.04, APTT 27.4, Sodium 132 L, Potassium 3.7, Chloride 98, Carbon Dioxide 20 L, Anion Gap 17.7 H, BUN 33 H, Creatinine 1.80 H, Estimated Creat Clear 70, Estimated GFR 39 L, Est GFR ( Amer) 47 L, Glucose 155 H, Lactate 4.8 H, Calcium 8.2 L, Total Bilirubin 1.0, AST 69 H, ALT 37, Alkaline Phosphatase 140 H, Troponin I < 0.01, Total Protein 7.0, Albumin 3.8, Globulin 3.2, Albumin/Globulin Ratio 1.2, Lipase 13 L, TSH 2.69, Thyroxine (T4) 5.8 06/13/23 11:25: SARS-CoV-2 (PCR) Not detected, Influenza A Untype (PCR) Not detected, Influenza Type B (PCR) Not detected 06/13/23 12:47: Urine Color Yellow, Urine Appearance Clear, Urine pH 6.0, Ur Specific [place] <= 1.005, Urine Protein Negative, Urine Glucose (UA) Trace, Urine Ketones Negative, Urine Blood Negative, Urine Nitrate Negative, Urine Bilirubin Negative, Urine Urobilinogen 0.2, Ur Leukocyte Esterase Negative, Urine RBC None, Urine WBC Occasional, Ur Squamous Epith Cells Occasional, Urine Bacteria Trace, Hyaline Casts Occasional 06/13/23 11:05 06/13/23 11:05 Orders (Tests/Meds): ED MEDICATIONS Generic Name Dose Route Start Last Admin Trade Name Erich PRN Reason Stop Dose Admin Acetaminophen 650 mg 06/13/23 14:17 Acetaminophen 325mg Tab PO 07/13/23 14:16 Q4HP PRN Fever or Mild Pain (1-3) Heparin Sodium (Porcine) 5,000 unit 06/13/23 15:00 Heparin Sodium 5,000 Unit/Ml Vial SQ 07/13/23 14:59 Q8H FARNAZ Morphine Sulfate 2 mg 06/13/23 14:17 Morphine 2mg/Ml Syringe IV 07/13/23 14:16 Q2HP PRN Severe Pain (7-10) Ondansetron HCl 4 mg 06/13/23 14:17 Ondansetron 4mg/2ml Vial IV 07/13/23 14:16 Q8HP PRN Nausea Sodium Chloride 10 ml 06/13/23 11:04 Sodium Chloride 0.9% 10ml Flush Syringe IV 07/13/23 11:03 NEEDED PRN Maintain IV Site Discontinued Medications Generic Name Dose Route Start Last Admin Trade Name Erich PRN Reason Stop Dose Admin Lactated Ringer's 1,000 mls @ 999 mls/hr 06/13/23 11:15 06/13/23 11:19 Lactated Ringer's 1000 Ml Bag IV 06/13/23 12:15 999 mls/hr .Q1H1M ONE Administration Lactated Ringer's 1,000 mls @ 999 mls/hr 06/13/23 12:08 06/13/23 13:17 Lactated Ringer's 1000 Ml Bag IV 06/13/23 13:08 999 mls/hr .Q1H1M ONE Administration Iopamidol 200 ml 06/13/23 12:13 06/13/23 12:14 Iopamidol-370 (76%);100ml Bottle IV 06/13/23 12:14 200 ml ONCE ONE Administration Ondansetron HCl 4 mg 06/13/23 11:15 06/13/23 11:19 Ondansetron 4mg/2ml Vial IV 06/13/23 11:16 4 mg ONCE ONE Administration Sodium Chloride 50 ml 06/13/23 12:13 06/13/23 12:13 0.9 % Sodium Chloride 50 Ml Vial IV 06/13/23 12:14 50 ml ONCE ONE Administration Sodium Chloride 10 ml 06/13/23 12:13 06/13/23 12:14 Sodium Chloride 0.9% 10ml Syr (Rad Only) IV 06/13/23 12:14 10 ml ONCE ONE Administration ORDERS Category Date Time Status CT angio abdomen pelvis Stat Cat Scan 06/13/23 11:[address] angio head Stat Cat Scan 06/13/23 11:[address] angio neck Stat Cat Scan 06/13/23 11:[address] cervical spine wo con Stat Cat Scan 06/13/23 11:[address] head/brain wo con Stat Cat Scan 06/13/23 11:15 Taken Activated Partial Thrombo Time Stat Lab 06/13/23 11:05 Completed Basic Metabolic Panel AMLAB Lab 06/14/23 06:00 Ordered Basic Metabolic Panel AMLAB Lab 06/15/23 06:00 Ordered Basic Metabolic Panel AMLAB Lab 06/16/23 06:00 Ordered Complete Blood Count Auto Diff AMLAB Lab 06/14/23 06:00 Ordered Complete Blood Count Auto Diff AMLAB Lab 06/15/23 06:00 Ordered Complete Blood Count Auto Diff AMLAB Lab 06/16/23 06:00 Ordered Complete Blood Count Auto Diff Stat Lab 06/13/23 11:05 Completed Comprehensive Metabolic Panel Stat Lab 06/13/23 11:05 Completed Lactic Acid Stat Lab 06/13/23 11:05 Completed Lipase Stat Lab 06/13/23 11:05 Completed Prothrombin Time INR Stat Lab 06/13/23 11:05 Completed Rapid PCR Covid and Flu A/B Stat Lab 06/13/23 11:25 Completed T4 (Thyroxine) Stat Lab 06/13/23 11:05 Completed TSH [Thyroid Stimulating Hormone] Stat Lab 06/13/23 11:05 Completed Troponin I Q3H Lab 06/13/23 14:30 Ordered Troponin I Q3H Lab 06/13/23 17:30 Ordered Troponin I Stat Lab 06/13/23 11:05 Completed UA [Urinalysis and Microscopic] Stat Lab 06/13/23 12:47 Completed ECG Data Tracing #1: Normal sinus rhythm with a ventricular rate of [address] changes concerning for ischemia. Normal intervals. ECG initial impression date: 06/13/23 ECG initial impression time: 11:25 Medical Decision Narrative: In summary, this patient is a 57-year-old male presenting to the Emergency Department for evaluation of 57-year-old male. Differential diagnoses considered include but are not limited to dizziness and gait disturbance for several weeks as well as nausea, vomiting, and bright red blood per rectum that started today. Ruling out the most morbid conditions drove assessment. On exam, the patient is nontoxic-appearing with reassuring vital signs on cardiac telemetry. Abdominal exam is benign. He has a reassuring neurologic exam with no focal neurologic deficits and intact coordination. Workup included CBC, CMP, lipase, lactic acid, troponin, PT, PTT, TSH, T4, viral swab, CT head, CT angiogram of the head and neck, CT C-spine, and CT angiogram of the abdomen and pelvis with IV contrast. EKG obtained is reassuring. He was given a bolus of IV fluids as well as IV Zofran for symptomatic improvement. I independently interpreted CT scans prior to the radiologist read and noted no obvious colonic inflammation, areas of intracranial ischemia, or cranial vessel stenosis. Please see their read for final interpretation. Labs were obtained that demonstrated HELENA with creatinine 1.8 from baseline of 1.1. Patient also appears very hemoconcentrated overall. Urinalysis is not concerning for infection, and I did not appreciate obstructive process on CT scan. He is given 2 L of IV fluids as well as IV Zofran for symptomatic improvement. On reassessment, patient states he still feeling generally unwell and is feeling weak. He states that he does not feel comfortable going home given how weak he still feels. He was noted to be ambulating throughout the emergency department with no falls here. Ultimately since patient does not feel comfortable with discharge, I called and had an interactive discussion with the hospitalist who advised that he admit the patient for fluid resuscitation and continued monitoring. Patient was admitted in stable condition for HELENA and general weakness. Critical Care Critical Care Time Critical Care Time: No
[2023-06-13 11:23] LABS: Basophils # 0.1 K/mm3 (0-0.2); Basophils % 0.7 % (0.1-2.0); Eosinophils % 0.2 % (0.1-12.0); Hematocrit 48.2 % (42.0-52.0); Hemoglobin 15.6 g/dL (14.1-18.0); Lymphocytes % 20.8 % (10-50); Mean Corpuscular HGB Conc 32.4 g/dL (31.8-35.4); Mean Corpuscular Hemoglobin 32.6 pg (27.0-31.2); Mean Corpuscular Volume 100.5 fl (80-94); Mean Platelet Volume 7.3 fl (7.4-10.4); Monocytes # 0.6 K/mm3 (0.1-1.0); Monocytes % 5.7 % (1.7-9.3); Neutrophils # 6.9 K/mm3 (1.8-7.8); Neutrophils % 72.5 % (37.0-80.0); Platelet Count 414 K/mm3 (142-424); Red Blood Count 4.79 M/mm3 (4.60-6.20); Red Cell Distribution Width 16.7 % (11.5-17.5); White Blood Count 9.5 K/mm3 (4.8-10.8)
--- NOTE | 2023-06-13 11:23 | ECG_ITS ---
APPROVED REPORT Exam: Resting ECG HR:83 bpm ECG Measurements Heart Rate 83 AXES [place] 169 P 28 QRSd 87 QRS -12 QT 391 T 37 QTc 431 Conclusion SINUS RHYTHM NORMAL ECG Electronically signed by : MICHAEL PHILLIP, 06/13/2023 14:49:35
[2023-06-13 11:27] LABS: Chloride 98 mmol/L (98-107); Potassium 3.7 mmoL/L (3.5-5.1); Sodium 132 mmol/L (136-145)
[2023-06-13 11:29] LABS: Coronavirus 19, PCR Not Detected (NotDetected); Influenza A, PCR Not Detected (NotDetected); Influenza B, PCR Not Detected (NotDetected)
[2023-06-13 11:29] LABS: Alanine Aminotransferase 37 U/L (12-78); Aspartate Amino Transferase 69 U/L (17-59); Blood Urea Nitrogen 33 mg/dl (9-20); Creatinine Clearance Estimated 70 mL/min (50-200); Estimated Glomerular Filt Rate 39 ml/min (>60); GFR (African American) 47 ML/MIN (>60)
[2023-06-13 11:30] LABS: Albumin Level 3.8 g/dl (3.5-5.0); Albumin/Globulin Ratio 1.2 (1.1-1.8); Alkaline Phosphatase 140 U/L (38-126); Anion Gap 17.7 mEq/L (5-15); Calcium 8.2 mg/dl (8.4-10.2); Carbon Dioxide 20 mmol/L (22.0-30.0); Globulin 3.2 g/dL (1.3-3.2); Glucose 155 mg/dl (74-100)
[2023-06-13 11:34] LABS: Activated Partial Thrombo Time 27.4 seconds (22.8-30.6); INR 1.04 (0.9-1.1); Prothrombin Time 11.2 seconds (10.1-12.5)
[2023-06-13 11:43] LABS: Lipase 13 U/L (23-300)
[2023-06-13 11:48] LABS: T4 (Thyroxine) 5.8 ug/dl (5.53-11.0)
--- NOTE | 2023-06-13 11:54 | PC.NURSE ---
PT TO CT
[2023-06-13 12:01] LABS: Thyroid Stimulating Hormone 2.69 uIU/mL (0.465-4.68)
[2023-06-13 12:12] LABS: Lactic Acid 4.8 mmol/L (0.7-2.1)
--- NOTE | 2023-06-13 12:12 | PC.NURSE ---
CRITICAL LACTIC 4.8 RECEIVED FROM [facility]EXUS IN LAB. PT NAME AND R/V. DR PHILLIP NOTIFIED. NO NEW ORDERS AT THIS TIME
[2023-06-13 12:13] LABS: Troponin I < 0.01 ng/ml (0.00-0.034)
[2023-06-13] MEDS: 0.9 % SODIUM CHLORIDE 50 ML VIAL IV (12:13)
[2023-06-13] MEDS: IOPAMIDOL-370 (76%);100ML BOTTLE 200 ML IV (12:14)
[2023-06-13] MEDS: SODIUM CHLORIDE 0.9% 10ML SYR (RAD ONLY) 10 ML IV (12:14)
--- NOTE | 2023-06-13 12:17 | PC.NURSE ---
PT RETURNED FROM CT
[2023-06-13 12:53] LABS: Microscopic, Urine URINE MICROSCOPIC (MICROSCOPIC)
[2023-06-13 12:55] LABS: Appearance,Urine CLEAR (Clear); Bilirubin,Urine Negative (Negative); Blood, Urine Negative (Negative); Color,Urine YELLOW (Yellow); Glucose,Urine (UA) TRACE (Negative); Ketones,Urine Negative (Negative); Leukocyte Esterase,Urine Negative (Negative); Nitrate,Urine Negative (Negative); Protein,Urine Negative (Negative); Specific Gravity, Urine <= 1.005 (1.005-1.030); Urobilinogen,Urine 0.2 EU/dl (0.2)
[2023-06-13 13:13] LABS: WBC,Urine Occasional #/hpf (0-3)
[2023-06-13 13:14] LABS: Bacteria,Urine Trace /lpf; Hyaline Casts,Urine Occasional #/lpf (0); Squamous Epithelial Cell,Urine Occasional #/hpf (0-5)
--- NOTE | 2023-06-13 13:25 | PC.NURSE ---
DR PHILLIP AT BEDSIDE TO UPDATE PT ON POC DIET PEPSI PROVIDED FOR PO CHALLENGE
--- NOTE | 2023-06-13 13:29 | PC.NURSE ---
DR PHILLIP CONTACTED DR GALLEGO FOR ADMISSION
--- NOTE | 2023-06-13 13:46 | PC.NURSE ---
DR PHILLIP SPEAKING WITH DR GALLEGO
--- NOTE | 2023-06-13 13:47 | PC.NURSE ---
VENUE MANAGER NOTIFIED OF BED REQUEST
--- NOTE | 2023-06-13 14:02 | PC.NURSE ---
Report called to SHARDA Lewis on Med Surg.
--- NOTE | 2023-06-13 14:22 | PC.NURSE ---
arrived by w/c from ED
[2023-06-13 15:18] LABS: Reflex Lactic Add Lactic Reflex
[2023-06-13] MEDS: HEPARIN SODIUM 5,000 UNIT/ML VIAL 5000 UNIT SQ ×2 (15:22→22:02)
[2023-06-13 16:18] LABS: Lactic Acid Follow Up (RFLX 1) 3.1 mmol/L (0.7-2.1)
[2023-06-13 16:29] LABS: Troponin I < 0.01 ng/ml (0.00-0.034)
--- NOTE | 2023-06-13 17:03 | P.HP_ITS ---
History of Present Illness *Admission Date: 06/13/23 *Reason for visit:: Generalized weakness *History of present illness: Patient is a 57-year-old male who presented to hospital due to generalized weakness nausea vomiting and blood in the stools from hemorrhoids. Patient mentions he has been feeling dizzy, he has been having difficulty holding down food, he has not been able to keep up with hydration. Patient denied chest pain shortness of breath abdominal pain. He has past medical history of hyperlipidemia hypertension CAD s/p stenting, diabetes mellitus, obstructive sleep apnea. [facility] Disclaimer: The information contained in this section may have been updated after the patient was seen, as this information can be updated by other users. Medical History Hypertension KRISTIN (obstructive sleep apnea) Dyspnea Typical angina Hypertension Fatigue SOB (shortness of breath) on exertion Insomnia Bipolar II disorder HLD (hyperlipidemia) Atypical angina Pre-op evaluation Diabetes Tobacco dependence syndrome Coronary arteriosclerosis Surgical History History of heart artery stent Stented coronary artery Family History Other Family history of cancer Family history of diabetes mellitus type II Social History (Updated 06/13/23 @ 14:35 by Candis Modi RN) Smoking Status: Current every day smoker tobacco type: cigarettes packs per day: 1 second hand exposure: No alcohol intake: current substance use type: marijuana current occupational status: disabled Travel in the last 8 weeks: None household members: none housing: house marital status: single number of children: 0 education level: high school service: Yes current occupational exposures/hazards: No caffeine: Yes special nicanor needs: No agree to transfusion: No do you feel safe at home: Yes victim of physical abuse: No victim of emotional abuse: No victim of sexual abuse: No would you like helpful sources: No Review of Systems Review of Systems Review of systems:: pertinent systems reviewed and negative unless documented below Meds Home Medications and Allergies Home Medications Medication Instructions Recorded Confirmed Type aspirin 81 mg tablet,delayed 81 mg PO DAILY 10/23/18 06/13/23 History release (Aspir-) nitroglycerin 0.4 mg sublingual 0.4 mg sublingual Q5-15M PRN chest 06/28/21 06/13/23 Rx tablet pain #25 tabs alprazolam 1 mg tablet (Xanax) 1 mg PO TID #60 tabs 05/22/23 06/13/23 Rx hydrochlorothiazide 25 mg tablet 25 mg PO DAILY #90 tabs 06/06/23 06/13/23 Rx losartan 50 mg tablet 50 mg PO BID 90 days #180 tabs 06/06/23 06/13/23 Rx metoprolol succinate 100 mg 100 mg PO BID 90 days #180 tabs 06/06/23 06/13/23 Rx tablet,extended release 24 hr atorvastatin 80 mg tablet 80 mg PO DAILY 06/13/23 06/13/23 History brexpiprazole 2 mg tablet (Rexulti) 2 mg PO DAILY 06/13/23 06/13/23 History clopidogrel 75 mg tablet 75 mg PO DAILY 06/13/23 06/13/23 History gabapentin 800 mg tablet 800 mg PO TID 06/13/23 06/13/23 History insulin human U-100 NPH-regulr 59 unit SQ BID 06/13/23 06/13/23 History 70-30 mix 100 unit/mL subcutaneous susp (Humulin 70/30 U-100 Insulin) levothyroxine 50 mcg tablet 50 mcg PO DAILY 06/13/23 06/13/23 History pantoprazole 40 mg tablet,delayed 40 mg PO DAILY 06/13/23 06/13/23 History release ranolazine 500 mg tablet,extended 500 mg PO Q12 06/13/23 06/13/23 History release,12 hr New Prescriptions to Start Prescriptions: Allergies Allergy/AdvReac Type Severity Reaction Status Date / Time No Known Allergies Allergy Verified 06/06/23 13:16 Exam Data for Last 24 hours Vital signs and Labs for Last 24 Hours: Temp Pulse Resp BP Pulse Ox O2 Del Method 97.8 F 85 22 146/88 H 98 Room Air 06/13/23 16:00 06/13/23 16:00 06/13/23 16:00 06/13/23 16:00 06/13/23 16:00 06/13/23 16:00 Laboratory Results - last 24 hr 06/13/23 11:05: WBC 9.5, RBC 4.79, Hgb 15.6, Hct 48.2, MCV 100.5 H, MCH 32.6 H, MCHC 32.4, RDW 16.7, Plt Count 414, MPV 7.3 L, Neut % (Auto) 72.5, Lymph % (Auto) 20.8, [place] % (Auto) 5.7, Eos % (Auto) 0.2, Baso % (Auto) 0.7, Neut # (Auto) 6.9, Lymph # (Auto) 2.0, [place] # (Auto) 0.6, Eos # (Auto) 0.0, Baso # (Auto) 0.1, PT 11.2, INR 1.04, APTT 27.4, Sodium 132 L, Potassium 3.7, Chloride 98, Carbon Dioxide 20 L, Anion Gap 17.7 H, BUN 33 H, Creatinine 1.80 H, Estimated Creat Clear 70, Estimated GFR 39 L, Est GFR ( Amer) 47 L, Glucose 155 H, Lactate 4.8 H, Calcium 8.2 L, Total Bilirubin 1.0, AST 69 H, ALT 37, Alkaline Phosphatase 140 H, Troponin I < 0.01, Total Protein 7.0, Albumin 3.8, Globulin 3.2, Albumin/Globulin Ratio 1.2, Lipase 13 L, TSH 2.69, Thyroxine (T4) 5.8 06/13/23 11:25: SARS-CoV-2 (PCR) Not detected, Influenza A Untype (PCR) Not detected, Influenza Type B (PCR) Not detected 06/13/23 12:47: Urine Color Yellow, Urine Appearance Clear, Urine pH 6.0, Ur Specific [place] <= 1.005, Urine Protein Negative, Urine Glucose (UA) Trace, Urine Ketones Negative, Urine Blood Negative, Urine Nitrate Negative, Urine Bilirubin Negative, Urine Urobilinogen 0.2, Ur Leukocyte Esterase Negative, Urine RBC None, Urine WBC Occasional, Ur Squamous Epith Cells Occasional, Urine Bacteria Trace, Hyaline Casts Occasional 06/13/23 16:00: Lactate 3.1 H, Troponin I < 0.01 I & O for Last 24 hours: Intake & Output 06/10/23 06/11/23 06/12/23 06/13/23 23:59 23:59 23:59 23:59 Output Total 0 / 0 Balance 0 / 0 Weight 107.615 kg Constitutional Constitutional: no acute distress *Routine HEENT Exam Head: Present normocephalic Eye: Present EOMI and PERRL ENT: Present mucous membranes moist *Routine Neck Exam Neck: Present supple; Absent lymphadenopathy *Routine Respiratory Exam Respiratory: Present CTA bilaterally *Routine Cardiovascular Exam Cardiovascular: Present RRR *Routine Abdominal Exam Abdominal: Present soft and normoactive bowel sounds; Absent tenderness *Routine Rectal Exam Rectal:: deferred *Routine Genitalia Exam Genitalia:: deferred *Routine Extremities Exam Extremities: Absent cyanosis, clubbing or edema *Routine Skin Exam Skin: Present warm; Absent rash *Routine Neurological Exam Neurological: Present alert and oriented X3 Assessment and Plan *Assessment and plan (1) General weakness: Status: Acute Category: Medical Code(s): R53.1 - Weakness (2) HELENA (acute kidney injury): Status: Acute Category: Medical Code(s): N17.9 - Acute kidney failure, unspecified (3) Diabetic ulcer of foot associated with diabetes mellitus due to underlying condition, with fat layer exposed: Problem Comment: Right sub-fifth diabetic foot ulcer. A very large, thick callus was debrided and there was an underlying ulcer. Status: Acute Qualifiers: Diabetic foot ulcer location: other Laterality: right Qualified Code(s): E08.621 - Diabetes mellitus due to underlying condition with foot ulcer; L97.512 - Non-pressure chronic ulcer of other part of right foot with fat layer exposed Category: Medical Code(s): E08.621 - Diabetes mellitus due to underlying condition with foot ulcer; L97.502 - Non-pressure chronic ulcer of other part of unspecified foot with fat layer exposed (4) HLD (hyperlipidemia): Status: Chronic Qualifiers: Hyperlipidemia type: mixed hyperlipidemia Qualified Code(s): E78.2 - Mixed hyperlipidemia Category: Medical Code(s): E78.5 - Hyperlipidemia, unspecified (5) Tobacco dependence syndrome: Status: Chronic Category: Medical Code(s): F17.200 - Nicotine dependence, unspecified, uncomplicated (6) Coronary arteriosclerosis: Problem Comment: JAN 2021-Successful stenting of the proximal to mid dominant right coronary severe disease reduced to 0% with 1 drug-eluting stent with persistent moderate to severe disease in a small caliber posterior lateral branch Normal ejection fraction Mildly elevated LVEDP Status: Chronic Category: Medical Code(s): I25.10 - Atherosclerotic heart disease of [place] coronary artery without angina pectoris (7) Hypertension: Status: Acute Qualifiers: Hypertension type: primary hypertension Qualified Code(s): I10 - Essential (primary) hypertension Category: Medical Code(s): I10 - Essential (primary) hypertension (8) Hypertension: Status: Acute Category: Medical Code(s): I10 - Essential (primary) hypertension Plan Patient is a 57-year-old male who presented to hospital due to generalized weakness nausea vomiting and blood in the stools from hemorrhoids. Patient mentions he has been feeling dizzy, he has been having difficulty holding down food, he has not been able to keep up with hydration. Patient denied chest pain shortness of breath abdominal pain. He has past medical history of hyperlipidemia hypertension CAD s/p stenting, diabetes mellitus, obstructive sleep apnea. Assessment and plan Acute kidney injury in the setting of nausea vomiting likely prerenal Baseline creatinine around 1.1 Anion gap metabolic acidosis likely dehydration Lactic acidosis likely secondary to hypovolemia Start IV fluids Monitor BMP Monitor lactic acid UA checked, not suggestive of UTI Hold nephrotoxic medications Bleeding per rectum from hemorrhoids Monitor hemoglobin Sitz bath's recommended to the patient Diabetes mellitus Insulin sliding scale Hypertension Hyperlipidemia CAD Resume home atorvastatin, Plavix, Insulin sliding scale Levothyroxine DVT prophylaxis-heparin
[2023-06-13] MEDS: 0.9 % SODIUM CHLORIDE 1000ML 1,000 ML 75 ML IV (18:01)
[2023-06-13 18:02] LABS: Reflex Lactic (2 hrs) Add Lactic Reflex
[2023-06-13] MEDS: CLOPIDOGREL 75MG TAB 75 MG PO (18:03)
[2023-06-13] MEDS: PANTOPRAZOLE 40MG TABLET 40 MG PO (18:03)
[2023-06-13] MEDS: ATORVASTATIN 40MG TABLET 80 MG PO (18:06)
[2023-06-13] MEDS: ASPIRIN EC 81MG TABLET 81 MG PO (18:09)
[2023-06-13] MEDS: LEVOTHYROXINE 50MCG (0.05MG) TAB 50 MCG PO (18:10)
[2023-06-13 18:54] LABS: Lactic Acid Follow up (RFLX 2) 2.9 mmol/L (0.7-2.1)
[2023-06-13 19:01] LABS: Troponin I < 0.01 ng/ml (0.00-0.034)
[2023-06-13 20:15] LABS: POC Glucose,Bedside 142 (70-110)
[2023-06-13] MEDS: METOPROLOL SUCCINATE XL 100MG TABLET 100 MG PO (20:59)
[2023-06-13] MEDS: GABAPENTIN 800MG TABLET 800 MG PO (20:59)
[2023-06-13] MEDS: ALPRAZolam 1MG TABLET 1 MG PO (20:59)
[2023-06-13] MEDS: RANOLAZINE 500MG ER TABLET 500 MG PO (21:00)
[2023-06-14] VITALS: BP 144/80; PULSE 95; RESP 17; TEMP 36.6; O2SAT 94
[2023-06-14 04:00] VITALS: BP 142/87; PULSE 91; RESP 16; TEMP 36.6; O2SAT 97; BMI 32.5
--- NOTE | 2023-06-14 04:35 | PC.NURSE ---
RESTING QUIETLY IN BED. NO C/O PAIN. NO FURTHER EPISODES OF NAUSEA. REMAINS ON CLEAR LIQUIDS. VSS/AFEBRILE.
[2023-06-14 05:29] LABS: POC Glucose,Bedside 259 (70-110)
[2023-06-14 06:03] LABS: Basophils % 0.5 % (0.1-2.0); Eosinophils % 0.3 % (0.1-12.0); Hematocrit 42.6 % (42.0-52.0); Lymphocytes # 1.7 K/mm3 (0.7-4.5); Lymphocytes % 26.8 % (10-50); Mean Corpuscular HGB Conc 32.6 g/dL (31.8-35.4); Mean Corpuscular Hemoglobin 32.1 pg (27.0-31.2); Mean Corpuscular Volume 98.5 fl (80-94); Mean Platelet Volume 7.9 fl (7.4-10.4); Monocytes # 0.5 K/mm3 (0.1-1.0); Monocytes % 8.2 % (1.7-9.3); Neutrophils # 4.1 K/mm3 (1.8-7.8); Neutrophils % 64.2 % (37.0-80.0); Platelet Count 283 K/mm3 (142-424); Red Blood Count 4.33 M/mm3 (4.60-6.20); Red Cell Distribution Width 16.8 % (11.5-17.5); White Blood Count 6.3 K/mm3 (4.8-10.8)
[2023-06-14 06:07] LABS: Chloride 102 mmol/L (98-107); Sodium 132 mmol/L (136-145)
[2023-06-14 06:08] LABS: Hemoglobin 13.9 g/dL (14.1-18.0); Potassium 4.3 mmoL/L (3.5-5.1)
[2023-06-14 06:10] LABS: Blood Urea Nitrogen 23 mg/dl (9-20); Creatinine Clearance Estimated 88 mL/min (50-200); Estimated Glomerular Filt Rate 52 ml/min (>60); GFR (African American) 63 ML/MIN (>60)
[2023-06-14 06:11] LABS: Anion Gap 8.3 mEq/L (5-15); Calcium 7.8 mg/dl (8.4-10.2); Carbon Dioxide 26 mmol/L (22.0-30.0); Glucose 268 mg/dl (74-100)
[2023-06-14] MEDS: humaLOG 100 UNITS/ML 3ML VIAL (SSI) SQ (06:13)
[2023-06-14] MEDS: HEPARIN SODIUM 5,000 UNIT/ML VIAL 5000 UNIT SQ (06:14)
[2023-06-14] MEDS: 0.9 % SODIUM CHLORIDE 1000ML 1,000 ML 75 ML IV (06:44)
[2023-06-14 08:00] VITALS: BP 147/86; PULSE 99; RESP 20; TEMP 36.8; O2SAT 97
[2023-06-14] MEDS: ALPRAZolam 1MG TABLET 1 MG PO (08:33)
[2023-06-14] MEDS: GABAPENTIN 800MG TABLET 800 MG PO (08:33)
[2023-06-14] MEDS: CLOPIDOGREL 75MG TAB 75 MG PO (08:34)
[2023-06-14] MEDS: ASPIRIN EC 81MG TABLET 81 MG PO (08:34)
[2023-06-14] MEDS: RANOLAZINE 500MG ER TABLET 500 MG PO (08:34)
[2023-06-14] MEDS: *PAT OWN MED* LEVOTHYROXINE 50MCG (0.05MG) TAB 50 MCG PO (08:35)
[2023-06-14] MEDS: METOPROLOL SUCCINATE XL 100MG TABLET 100 MG PO (08:35)
--- NOTE | 2023-06-14 09:19 | HMH.OTEV ---
OT Inpatient Evaluation Rehab OT IP Evaluation Start: 06/14/23 07:50 Freq: ONCE Status: Active Protocol: Document 06/14/23 09:14 [facility] (Rec: 06/14/23 09:19 [facility] [id number]) Rehab OT IP Assessment Subjective History Pt oriented x 3 on arrival. Pt agreeable to engage in therapy evaluation. Pt admitted on 06/13/23 due to generalized weakness and HELENA. History and Physical: Patient is a 57-year-old male who presented to hospital due to generalized weakness nausea vomiting and blood in the stools from hemorrhoids. Patient mentions he has been feeling dizzy, he has been having difficulty holding down food, he has not been able to keep up with hydration. Patient denied chest pain shortness of breath abdominal pain. He has past medical history of hyperlipidemia hypertension CAD s/p stenting, diabetes mellitus, obstructive sleep apnea. Subjective I am feeling a little better. Prior to being in the hospital , pt lived with his brother. Pt claims normally he is independent with all ADLs ( dressing, bathing, and feeding ). He does use a cane during functional transfers. He also still drives. Pt reports he is normally able to complete IADLs independently as well such as cooking. They do have someone come in and complete cleaning for them. Objective Patient Orientation Person,Place,Birthday Right Upper Extremity Gross ROM WFL Left Upper Extremity Gross ROM WFL Bed Mobility bed mobility-scooting,bed mobility - supine/sit Assist Level Supervision/Stand by Transfer Training Sit/Stand Transfer Assist Level Supervision/Stand by Rehab OT IP prob,goals,plan Problems Date of Evaluation: 06/14/23 Rehab Potential Rehab Potential Innapropriate for Skilled Therapy Discharge Plan OT Discharge Plan Pt appears to be at his baseline with functional transfers and ADL independence . Pt can return home with his brother once he is medically stable per physician. Eval Complexity Eval Charge Codes 38239 - Low Complexity PHYSICIAN CERTIFICATION: I certify the specified therapy services for Lee Hwang are required, authorized, and reviewed every 30 days.
--- NOTE | 2023-06-14 10:19 | EXP.DC.SUM ---
General Admission date:: 06/13/23 Discharge date: 06/14/23 HPI HPI HPI: Patient is a 57-year-old male who presented to hospital due to generalized weakness nausea vomiting and blood in the stools from hemorrhoids. Patient mentions he has been feeling dizzy, he has been having difficulty holding down food, he has not been able to keep up with hydration. Patient denied chest pain shortness of breath abdominal pain. He has past medical history of hyperlipidemia hypertension CAD s/p stenting, diabetes mellitus, obstructive sleep apnea. Hospital Course Hospital Course Hospital Course: Patient was seen and evaluated at the bedside on the day of discharge. Patient wishes to be discharged. All patient questions were answered and patient was given time to ask questions. Patient was discharged in stable condition. Patient understands that she can return to ER in case of any sudden changes in health. Total time spent on DC - 38 mins Patient is a 57-year-old male who presented to hospital due to generalized weakness nausea vomiting and blood in the stools from hemorrhoids. Patient mentions he has been feeling dizzy, he has been having difficulty holding down food, he has not been able to keep up with hydration. Patient denied chest pain shortness of breath abdominal pain. He has past medical history of hyperlipidemia hypertension CAD s/p stenting, diabetes mellitus, obstructive sleep apnea. Assessment and plan Acute kidney injury in the setting of nausea vomiting likely prerenal - improved, continue to hold diuretics for 2 more days, resume on 06/16/2023, patient informed and discussed with patient Bleeding per rectum from hemorrhoids - stable Monitor hemoglobin Sitz bath's recommended to the patient Diabetes mellitus - stable Insulin sliding scale Hypertension Hyperlipidemia CAD Resume home atorvastatin, Plavix Exam Data for Last 24 hours Vital signs and Labs for Last 24 Hours: Temp Pulse Resp BP Pulse Ox O2 Del Method 98.3 F 99 H 20 147/86 H 97 Room Air 06/14/23 08:00 06/14/23 08:00 06/14/23 08:00 06/14/23 08:00 06/14/23 08:00 06/14/23 08:46 Laboratory Results - last 24 hr 06/13/23 11:05: WBC 9.5, RBC 4.79, Hgb 15.6, Hct 48.2, MCV 100.5 H, MCH 32.6 H, MCHC 32.4, RDW 16.7, Plt Count 414, MPV 7.3 L, Neut % (Auto) 72.5, Lymph % (Auto) 20.8, [place] % (Auto) 5.7, Eos % (Auto) 0.2, Baso % (Auto) 0.7, Neut # (Auto) 6.9, Lymph # (Auto) 2.0, [place] # (Auto) 0.6, Eos # (Auto) 0.0, Baso # (Auto) 0.1, PT 11.2, INR 1.04, APTT 27.4, Sodium 132 L, Potassium 3.7, Chloride 98, Carbon Dioxide 20 L, Anion Gap 17.7 H, BUN 33 H, Creatinine 1.80 H, Estimated Creat Clear 70, Estimated GFR 39 L, Est GFR ( Amer) 47 L, Glucose 155 H, Lactate 4.8 H, Calcium 8.2 L, Total Bilirubin 1.0, AST 69 H, ALT 37, Alkaline Phosphatase 140 H, Troponin I < 0.01, Total Protein 7.0, Albumin 3.8, Globulin 3.2, Albumin/Globulin Ratio 1.2, Lipase 13 L, TSH 2.69, Thyroxine (T4) 5.8 06/13/23 11:25: SARS-CoV-2 (PCR) Not detected, Influenza A Untype (PCR) Not detected, Influenza Type B (PCR) Not detected 06/13/23 12:47: Urine Color Yellow, Urine Appearance Clear, Urine pH 6.0, Ur Specific [place] <= 1.005, Urine Protein Negative, Urine Glucose (UA) Trace, Urine Ketones Negative, Urine Blood Negative, Urine Nitrate Negative, Urine Bilirubin Negative, Urine Urobilinogen 0.2, Ur Leukocyte Esterase Negative, Urine RBC None, Urine WBC Occasional, Ur Squamous Epith Cells Occasional, Urine Bacteria Trace, Hyaline Casts Occasional 06/13/23 16:00: Lactate 3.1 H, Troponin I < 0.01 06/13/23 18:22: Lactate 2.9 H, Troponin I < 0.01 06/13/23 20:07: POC Glucose 142 H 06/14/23 05:19: POC Glucose 259 H 06/14/23 05:43: WBC 6.3 D, RBC 4.33 L, Hgb 13.9 L D, Hct 42.6, MCV 98.5 H, MCH 32.1 H, MCHC 32.6, RDW 16.8, Plt Count 283 D, MPV 7.9, Neut % (Auto) 64.2, Lymph % (Auto) 26.8, [place] % (Auto) 8.2, Eos % (Auto) 0.3, Baso % (Auto) 0.5, Neut # (Auto) 4.1, Lymph # (Auto) 1.7, [place] # (Auto) 0.5, Eos # (Auto) 0.0, Baso # (Auto) 0.0, Sodium 132 L, Potassium 4.3, Chloride 102, Carbon Dioxide 26, Anion Gap 8.3, BUN 23 H D, Creatinine 1.40 H D, Estimated Creat Clear 88, Estimated GFR 52 L, Est GFR ( Amer) 63 D, Glucose 268 H D, Calcium 7.8 L I & O for Last 24 hours: Intake & Output 06/11/23 06/12/23 06/13/23 06/14/23 23:59 23:59 23:59 23:59 Intake Total 750 / 1157 951 / 951 Output Total 1100 / 1100 1500 / 1500 Balance -350 / 57 -549 / -549 Weight 107.615 kg 108.9 kg Constitutional Constitutional: no acute distress *Routine HEENT Exam Head: Present normocephalic Eye: Present EOMI and PERRL ENT: Present mucous membranes moist *Routine Neck Exam Neck: Present supple; Absent lymphadenopathy *Routine Respiratory Exam Respiratory: Present CTA bilaterally *Routine Cardiovascular Exam Cardiovascular: Present RRR *Routine Abdominal Exam Abdominal: Present soft and normoactive bowel sounds; Absent tenderness *Routine Extremities Exam Extremities: Absent cyanosis, clubbing or edema *Routine Skin Exam Skin: Present warm; Absent rash *Routine Neurological Exam Neurological: Present alert and oriented X3 Results Data Completed and Pending Labs on day of discharge: Labs from last 24 hours 06/14/23 06/14/23 06/13/23 05:43 05:19 20:07 WBC 6.3 D RBC 4.33 L Hgb 13.9 L D Hct 42.6 MCV 98.5 H MCH 32.1 H MCHC 32.6 RDW 16.8 Plt Count 283 D MPV 7.9 Neut % (Auto) 64.2 Lymph % (Auto) 26.8 [place] % (Auto) 8.2 Eos % (Auto) 0.3 Baso % (Auto) 0.5 Neut # (Auto) 4.1 Lymph # (Auto) 1.7 [place] # (Auto) 0.5 Eos # (Auto) 0.0 Baso # (Auto) 0.0 PT INR APTT Sodium 132 L Potassium 4.3 Chloride 102 Carbon Dioxide 26 Anion Gap 8.3 BUN 23 H D Creatinine 1.40 H D Estimated Creat Clear 88 Estimated GFR 52 L Est GFR ( Amer) 63 D Glucose 268 H D POC Glucose 259 H 142 H Lactate Calcium 7.8 L Total Bilirubin AST ALT Alkaline Phosphatase Troponin I Total Protein Albumin Globulin Albumin/Globulin Ratio Lipase TSH Thyroxine (T4) Urine Color Urine Appearance Urine pH Ur Specific [place] Urine Protein Urine Glucose (UA) Urine Ketones Urine Blood Urine Nitrate Urine Bilirubin Urine Urobilinogen Ur Leukocyte Esterase Urine RBC Urine WBC Ur Squamous Epith Cells Urine Bacteria Hyaline Casts SARS-CoV-2 (PCR) Influenza A Untype (PCR) Influenza Type B (PCR) 06/13/23 06/13/23 06/13/23 18:22 16:00 12:47 WBC RBC Hgb Hct MCV MCH MCHC RDW Plt Count MPV Neut % (Auto) Lymph % (Auto) [place] % (Auto) Eos % (Auto) Baso % (Auto) Neut # (Auto) Lymph # (Auto) [place] # (Auto) Eos # (Auto) Baso # (Auto) PT INR APTT Sodium Potassium Chloride Carbon Dioxide Anion Gap BUN Creatinine Estimated Creat Clear Estimated GFR Est GFR ( Amer) Glucose POC Glucose Lactate 2.9 H 3.1 H Calcium Total Bilirubin AST ALT Alkaline Phosphatase Troponin I < 0.01 < 0.01 Total Protein Albumin Globulin Albumin/Globulin Ratio Lipase TSH Thyroxine (T4) Urine Color Yellow Urine Appearance Clear Urine pH 6.0 Ur Specific [place] <= 1.005 Urine Protein Negative Urine Glucose (UA) Trace Urine Ketones Negative Urine Blood Negative Urine Nitrate Negative Urine Bilirubin Negative Urine Urobilinogen 0.2 Ur Leukocyte Esterase Negative Urine RBC None Urine WBC Occasional Ur Squamous Epith Cells Occasional Urine Bacteria Trace Hyaline Casts Occasional SARS-CoV-2 (PCR) Influenza A Untype (PCR) Influenza Type B (PCR) 06/13/23 06/13/23 11:25 11:05 WBC 9.5 RBC 4.79 Hgb 15.6 Hct 48.2 MCV 100.5 H MCH 32.6 H MCHC 32.4 RDW 16.7 Plt Count 414 MPV 7.3 L Neut % (Auto) 72.5 Lymph % (Auto) 20.8 [place] % (Auto) 5.7 Eos % (Auto) 0.2 Baso % (Auto) 0.7 Neut # (Auto) 6.9 Lymph # (Auto) 2.0 [place] # (Auto) 0.6 Eos # (Auto) 0.0 Baso # (Auto) 0.1 PT 11.2 INR 1.04 APTT 27.4 Sodium 132 L Potassium 3.7 Chloride 98 Carbon Dioxide 20 L Anion Gap 17.7 H BUN 33 H Creatinine 1.80 H Estimated Creat Clear 70 Estimated GFR 39 L Est GFR ( Amer) 47 L Glucose 155 H POC Glucose Lactate 4.8 H Calcium 8.2 L Total Bilirubin 1.0 AST 69 H ALT 37 Alkaline Phosphatase 140 H Troponin I < 0.01 Total Protein 7.0 Albumin 3.8 Globulin 3.2 Albumin/Globulin Ratio 1.2 Lipase 13 L TSH 2.69 Thyroxine (T4) 5.8 Urine Color Urine Appearance Urine pH Ur Specific [place] Urine Protein Urine Glucose (UA) Urine Ketones Urine Blood Urine Nitrate Urine Bilirubin Urine Urobilinogen Ur Leukocyte Esterase Urine RBC Urine WBC Ur Squamous Epith Cells Urine Bacteria Hyaline Casts SARS-CoV-2 (PCR) Not detected Influenza A Untype (PCR) Not detected Influenza Type B (PCR) Not detected DS: Diagnosis Discharge Diagnosis (1) General weakness: Status: Acute Code(s): R53.1 - Weakness (2) HELENA (acute kidney injury): Status: Acute Code(s): N17.9 - Acute kidney failure, unspecified (3) Diabetic ulcer of foot associated with diabetes mellitus due to underlying condition, with fat layer exposed: Status: Acute Code(s): E08.621 - Diabetes mellitus due to underlying condition with foot ulcer; L97.502 - Non-pressure chronic ulcer of other part of unspecified foot with fat layer exposed Qualifiers: Diabetic foot ulcer location: other Laterality: right Qualified Code(s): E08.621 - Diabetes mellitus due to underlying condition with foot ulcer; L97.512 - Non-pressure chronic ulcer of other part of right foot with fat layer exposed Problem details: Right sub-fifth diabetic foot ulcer. A very large, thick callus was debrided and there was an underlying ulcer. (4) HLD (hyperlipidemia): Status: Chronic Code(s): E78.5 - Hyperlipidemia, unspecified Qualifiers: Hyperlipidemia type: mixed hyperlipidemia Qualified Code(s): E78.2 - Mixed hyperlipidemia (5) Tobacco dependence syndrome: Status: Chronic Code(s): F17.200 - Nicotine dependence, unspecified, uncomplicated (6) Coronary arteriosclerosis: Status: Chronic Code(s): I25.10 - Atherosclerotic heart disease of [place] coronary artery without angina pectoris Problem details: JAN 2021-Successful stenting of the proximal to mid dominant right coronary severe disease reduced to 0% with 1 drug-eluting stent with persistent moderate to severe disease in a small caliber posterior lateral branch Normal ejection fraction Mildly elevated LVEDP (7) Hypertension: Status: Acute Code(s): I10 - Essential (primary) hypertension Qualifiers: Hypertension type: primary hypertension Qualified Code(s): I10 - Essential (primary) hypertension Meds Home Medications and Allergies Home Medications Medication Instructions Recorded Confirmed Type aspirin 81 mg tablet,delayed 81 mg PO DAILY 10/23/18 06/13/23 History release (Aspir-) nitroglycerin 0.4 mg sublingual 0.4 mg sublingual Q5-15M PRN chest 06/28/21 06/13/23 Rx tablet pain #25 tabs hydrochlorothiazide 25 mg tablet 25 mg PO DAILY #90 tabs 06/06/23 06/13/23 Rx losartan 50 mg tablet 50 mg PO BID 90 days #180 tabs 06/06/23 06/13/23 Rx metoprolol succinate 100 mg 100 mg PO BID 90 days #180 tabs 06/06/23 06/13/23 Rx tablet,extended release 24 hr atorvastatin 80 mg tablet 80 mg PO DAILY 06/13/23 06/13/23 History brexpiprazole 2 mg tablet (Rexulti) 2 mg PO DAILY 06/13/23 06/13/23 History clopidogrel 75 mg tablet 75 mg PO DAILY 06/13/23 06/13/23 History insulin human U-100 NPH-regulr 59 unit SQ BID 06/13/23 06/13/23 History 70-30 mix 100 unit/mL subcutaneous susp (Humulin 70/30 U-100 Insulin) levothyroxine 50 mcg tablet 50 mcg PO DAILY 06/13/23 06/13/23 History pantoprazole 40 mg tablet,delayed 40 mg PO DAILY 06/13/23 06/13/23 History release ranolazine 500 mg tablet,extended 500 mg PO Q12 06/13/23 06/13/23 History release,12 hr New Prescriptions to Start Prescriptions: Allergies Allergy/AdvReac Type Severity Reaction Status Date / Time No Known Allergies Allergy Verified 06/06/23 13:16 Discharge Plan Disposition Patient Disposition: Home, Self-Care Condition: Good Follow up Plan Follow up with: Adelso Daniel APRN [Primary Care Provider] - 06/26/23 2:30 pm Prescriptions/Medication Reconciliation: Continued nitroglycerin 0.4 mg tablet, sublingual 0.4 mg SUBLINGUAL Q5-15M PRN (Reason: chest pain) Qty: 25 5RF Rx Instructions: do not exceed 3 doses per episode aspirin [Aspir-81] 81 mg tablet,delayed release (DR/EC) 81 mg PO DAILY metoprolol succinate 100 mg tablet extended release 24 hr 100 mg PO BID 90 Days Qty: 180 2RF atorvastatin 80 mg tablet 80 mg PO DAILY Humulin 70/30 U-100 Insulin 100 unit/mL (70-30) suspension 59 unit SQ BID clopidogrel 75 mg tablet 75 mg PO DAILY levothyroxine 50 mcg tablet 50 mcg PO DAILY pantoprazole 40 mg tablet,delayed release (DR/EC) 40 mg PO DAILY Rexulti 2 mg tablet 2 mg PO DAILY ranolazine 500 mg tablet extended release 12 hr 500 mg PO Q12 Held losartan 50 mg tablet 50 mg PO BID 90 Days Qty: 180 2RF Hold Instructions: Resume on 06/16/23. hydrochlorothiazide 25 mg tablet 25 mg PO DAILY Qty: 90 3RF Hold Instructions: Resume on 06/16/23. Problem Reconciliation Problems Reviewed?: Yes Patient Discharge Instructions ACTIVITY: Ambulate as tolerated DIET: advance to your usual diet Patient Instructions: DI for Acute Kidney Injury Providers Primary Care Provider: Adelso Daniel Admit Provider: Thierno Dalton Attending Provider: Thierno Dalton
--- NOTE | 2023-06-14 10:26 | [facility].PTEV ---
Physical Therapy Evaluation Rehab PT IP Evaluation Start: 06/14/23 07:50 Freq: ONCE Status: Active Protocol: Document 06/14/23 10:20 DARYN (Rec: 06/14/23 10:24 DARYN [email or web address]) Subjective/History History History History and Physical: Patient is a 57-year-old male who presented to hospital due to generalized weakness nausea vomiting and blood in the stools from hemorrhoids. Patient mentions he has been feeling dizzy, he has been having difficulty holding down food, he has not been able to keep up with hydration. Patient denied chest pain shortness of breath abdominal pain. He has past medical history of hyperlipidemia hypertension CAD s/p stenting, diabetes mellitus, obstructive sleep apnea. Subjective Subjective PLOF per pt report: Prior to being in the hospital , pt lived with his brother. Pt claims normally he is independent with all ADLs ( dressing, bathing, and feeding ). He does use a cane during functional transfers. He also still drives. Pt reports he is normally able to complete IADLs independently as well such as cooking. They do have someone come in and complete cleaning for them. New diagnosis of cancer in past 12 No months? Rehab PT IP Eval Objective Appearance Patient Behavior Appropriate,Cooperative Patient Orientation Person,Place Difficulty following instructions none Speech Pattern Clear Ambulation Patient Able to Ambulate Yes Ambulation Observation IP General Gait Pattern Observation No Deviations/Normal Ambulation Distance (feet) 80 Ambulation Assistive Device Straight Cane Ambulation Ability Supervision/Stand by,Contact Guard/Hand Hold Balance Ability to Arise Able, w/o using arms Sitting Balance Steady, safe Standing Balance Steady, wide stance Transfers Bed Transfer Ability Supervision/Stand by Sit to Stand Bed Transfer Ability Supervision/Stand by Rehab PT IP prob,goals,plan Problems Date of Evaluation: 06/14/23 Rehab Potential Rehab Potential Innapropriate for Skilled Therapy Discharge Plan PT Discharge Plan Pt safe to d/c home when deemed medically necessary d/t current level of mobility, home set-up, and family support. Pt not appropriate for skilled acute care PT at this time d/t pt?s mobility being at baseline. Eval Complexity Eval Charge Codes 81252 - Moderate Complexity PHYSICIAN CERTIFICATION: I certify the specified therapy services for Lee Hwang are required, authorized, and reviewed every 30 days.
[2023-06-14 10:55] LABS: POC Glucose,Bedside 223 (70-110)
--- NOTE | 2023-06-15 11:07 | CARE MANAGER ---
Contacted patient related to hospital discharge. He states he is doing well. He is holding the 2 medications and will resume those tomorrow as instructed. He is aware of follow up appointment. Denies questions or concerns. SHARDA Dejesus
== END 2023-06-14 11:10 | disposition home or self-care (01) ==
LOC: ER 11:03 → 2ND 14:00
PROVIDERS: Admitting Provider Internal Medicine; Emergency Provider Emergency Medicine; PCP Nurse Practitioner Family; Visit Provider Internal Medicine
DX: R53.1 Weakness (principal); N17.9 Acute kidney failure, unspecified; E11.621 Type 2 diabetes mellitus with foot ulcer; L97.512 Non-pressure chronic ulcer of other part of right foot with fat layer exposed; E78.2 Mixed hyperlipidemia; F17.210 Nicotine dependence, cigarettes, uncomplicated; I25.118 Atherosclerotic heart disease of native coronary artery with other forms of angina pectoris; I10 Essential (primary) hypertension; Z95.5 Presence of coronary angioplasty implant and graft; Z79.4 Long term (current) use of insulin; Z79.899 Other long term (current) drug therapy; R29.6 Repeated falls; K64.9 Unspecified hemorrhoids; F31.81 Bipolar II disorder
CPT/HCPCS: 36415; 70450; 70496; 70498; 72125; 74174; 80048; 80053; 81001; 82962; 83605; 83690; 84436; 84443; 84484; 85025; 85610; 85730; 87636; 93005; 97162; 97165; 99285; G0378; J2405; Q9967

== ENCOUNTER 2023-08-22 09:19 | Emergency (ER) | payer MEDICARE, SELFPAY ==
[2023-08-22 09:20] VITALS: BP 122/75; PULSE 86; RESP 17; TEMP 36.6; O2SAT 96; BMI 30.6
[2023-08-22 09:30] VITALS: BP 136/73; PULSE 84; O2SAT 97
--- NOTE | 2023-08-22 09:39 | HMH.EDGENADL ---
Discharge Plan Disposition Patient Disposition: Home, Self-Care Prescriptions Prescriptions: No Action nitroglycerin 0.4 mg tablet, sublingual 0.4 mg SUBLINGUAL Q5-15M PRN (Reason: chest pain) Qty: 25 5RF Rx Instructions: do not exceed 3 doses per episode (DME) pen needle, diabetic [BD Ultra-Fine Micro Pen Needle] 32 gauge x 1/4 needle See Rx Instructions .Route Qty: 100 2RF Rx Instructions: Twice Daily aspirin [Aspir-81] 81 mg tablet,delayed release (DR/EC) 81 mg PO DAILY metoprolol succinate 100 mg tablet extended release 24 hr 100 mg PO BID 90 Days Qty: 180 2RF losartan 50 mg tablet 50 mg PO BID 90 Days Qty: 180 2RF Hold Instructions: Resume on 06/16/23. hydrochlorothiazide 25 mg tablet 25 mg PO DAILY Qty: 90 3RF Hold Instructions: Resume on 06/16/23. clopidogrel 75 mg tablet See Rx Instructions .ROUTE .COMPLEX Qty: 90 3RF Dose Instruction: TAKE 1 TABLET BY MOUTH DAILY Rx Instructions: TAKE 1 TABLET BY MOUTH DAILY atorvastatin 80 mg tablet See Rx Instructions .ROUTE .COMPLEX Qty: 90 3RF Dose Instruction: TAKE 1 TABLET BY MOUTH DAILY Rx Instructions: TAKE 1 TABLET BY MOUTH DAILY Humulin 70/30 U-100 Insulin 100 unit/mL (70-30) suspension 59 unit SQ BID levothyroxine 50 mcg tablet 50 mcg PO DAILY pantoprazole 40 mg tablet,delayed release (DR/EC) 40 mg PO DAILY Rexulti 2 mg tablet 2 mg PO DAILY ranolazine 500 mg tablet extended release 12 hr 500 mg PO Q12 gabapentin 800 mg tablet 800 mg PO TID Patient Comments: TAKE 1 TABLET BY MOUTH THREE TIMES DAILY buspirone 15 mg tablet 15 mg PO BID Jardiance 10 mg tablet 10 mg PO DAILY Patient Comments: TAKE 1 TABLET BY MOUTH DAILY Referrals Follow up/Referrals: Tc Sandoval [Primary Care Provider] - See instructions Activity Restrictions/Add. Instructions Additional Instructions/Restrictions: Your symptoms are not consistent with a neurologic or medical emergency. The symptoms you are experiencing are most likely secondary to discontinuation of your chronic benzodiazepine that you have been on for 15 years. No evidence of severe withdrawal symptoms at the moment. Please follow-up with primary care doctor to discuss this with them and whether or not they would like to restart you on these medications. Clinical Impressions Clinical Impression: Involuntary trembling, Drug withdrawal syndrome Discharge ED Provider: Hellen Valdez General Adult HPI General Chief complaint: Recheck/Abnormal Lab/Rx Stated complaint: uncontrollable shakes/tremors Time Seen by Provider: 08/22/23 09:29 Mode of Arrival: Family Vehicle Source of Information: Patient Limitations: No Limitations Description of Symptoms (Recalled from ER Triage Doc. by RN): Pt c/o uncontrollable shakes or tremors that start in his abd and go up into his arms, face, and sometimes his legs. Pt states it began 2 days ago and did stop for a few hrs yesterday, however it started back up last night. Pt states he had this occur several years ago but stopped after a few hours. He does have a hx of [place] and has a total of 8 cardiac stents placed. Denies any pacemaker or defibrillator. Denies any fever, chills, or N/V/D. History of Present Illness HPI narrative: Patient is a 57-year-old male who presents today with the shakes. States that this has been ongoing for the last 48 hours and there are no other involuntary shaking episodes. Nothing at rest. Denies any other symptoms such as hallucinations changes in sensorium nausea vomiting diarrhea etc. He does state that he had been on Xanax for 15 years and this was suddenly stopped on him just a few days ago. He has a primary care doctor in [place]. He has not discussed this with his primary care doctor yet. Denies any alcohol intake or any other changes in medications or drugs. Related Data Home Medications Medication Instructions Recorded Confirmed aspirin 81 mg tablet,delayed 81 mg PO DAILY 10/23/18 08/22/23 release (Aspir-) brexpiprazole 2 mg tablet (Rexulti) 2 mg PO DAILY 06/13/23 08/22/23 insulin human U-100 NPH-regulr 59 unit SQ BID 06/13/23 08/22/23 70-30 mix 100 unit/mL subcutaneous susp (Humulin 70/30 U-100 Insulin) levothyroxine 50 mcg tablet 50 mcg PO DAILY 06/13/23 08/22/23 pantoprazole 40 mg tablet,delayed 40 mg PO DAILY 06/13/23 08/22/23 release ranolazine 500 mg tablet,extended 500 mg PO Q12 06/13/23 08/22/23 release,12 hr buspirone 15 mg tablet 15 mg PO BID 08/22/23 08/22/23 empagliflozin 10 mg tablet 10 mg PO DAILY 08/22/23 08/22/23 (Jardiance) gabapentin 800 mg tablet 800 mg PO TID 08/22/23 08/22/23 Previous Rx's Medication Instructions Recorded nitroglycerin 0.4 mg sublingual 0.4 mg sublingual Q5-15M PRN chest 06/28/21 tablet pain #25 tabs hydrochlorothiazide 25 mg tablet 25 mg PO DAILY #90 tabs 06/06/23 losartan 50 mg tablet 50 mg PO BID 90 days #180 tabs 06/06/23 metoprolol succinate 100 mg 100 mg PO BID 90 days #180 tabs 06/06/23 tablet,extended release 24 hr pen needle, diabetic 32 gauge x #100 ea 06/26/2303/01 (BD Ultra-Fine Micro Pen Needle) atorvastatin 80 mg tablet See Rx Instructions .Route 08/20/23 .COMPLEX #90 tabs clopidogrel 75 mg tablet See Rx Instructions .Route 08/20/23 .COMPLEX #90 tabs Allergies Allergy/AdvReac Type Severity Reaction Status Date / Time No Known Allergies Allergy Verified 08/01/23 13:22 [facility] Disclaimer: The information contained in this section may have been updated after the patient was seen, as this information can be updated by other users. Medical History Hypertension KRISTIN (obstructive sleep apnea) Dyspnea Typical angina Hypertension Fatigue SOB (shortness of breath) on exertion Insomnia Bipolar II disorder HLD (hyperlipidemia) Atypical angina Pre-op evaluation Diabetes Tobacco dependence syndrome Coronary arteriosclerosis JAN 2021-Successful stenting of the proximal to mid dominant right coronary severe disease reduced to 0% with 1 drug-eluting stent with persistent moderate to severe disease in a small caliber posterior lateral branch Normal ejection fraction Mildly elevated LVEDP Surgical History History of heart artery stent 8 since age 40 Stented coronary artery Family History Other Family history of cancer Family history of diabetes mellitus type II Social History Smoking Status: Current every day smoker tobacco type: cigarettes packs per day: 1 second hand exposure: No alcohol intake: current alcohol intake frequency: holidays/special occasions only substance use type: marijuana current occupational status: disabled Travel in the last 8 weeks: None household members: none housing: house marital status: single number of children: 0 education level: high school service: Yes current occupational exposures/hazards: No caffeine: Yes special nicanor needs: No agree to transfusion: No do you feel safe at home: Yes victim of physical abuse: No victim of emotional abuse: No victim of sexual abuse: No would you like helpful sources: No ROS Obtained: Yes All systems reviewed & no additional complaints except as documented Physical Exam General General appearance: alert and in no apparent distress Respiratory Respiratory exam: Present normal lung sounds bilaterally Cardiovascular Cardiovascular exam: Present regular rate and normal rhythm Neurological Exam Neurological exam: Present alert, oriented X3, CN II-XII intact, normal gait and other (Occasional involuntary muscle contractions); Absent motor sensory deficit Medical Decision Making Apollo Inquiry Pt receiving controlled substance: No Apollo was queried for this patient: No Vital Signs: 08/22/23 09:20 08/22/23 09:30 Temperature 97.8 F Temperature Source Oral Pulse Rate 84 Pulse Rate [Right] 86 Respiratory Rate 17 Blood Pressure 136/73 Blood Pressure [Right Arm] 122/75 Blood Pressure Mean 81 Blood Pressure Mean [Right Arm] 90 Blood Pressure Source [Right Arm] Automatic Cuff 02 Sat by Pulse Oximetry 96 97 Oxygen Delivery Method Room Air Lab Data Lab results reviewed: Yes I reviewed the patient's lab results. Lab Results 08/22/23 09:45: WBC 8.8, RBC 4.62, Hgb 14.4, Hct 44.0, MCV 95.3 H, MCH 31.3 H, MCHC 32.8, RDW 15.4, Plt Count 374, MPV 8.0, Neut % (Auto) 62.6, Lymph % (Auto) 27.3, Bay % (Auto) 6.1, Eos % (Auto) 2.8, Baso % (Auto) 1.3, Neut # (Auto) 5.5, Lymph # (Auto) 2.4, Bay # (Auto) 0.5, Eos # (Auto) 0.2, Baso # (Auto) 0.1, Sodium 134 L, Potassium 4.7, Chloride 102, Carbon Dioxide 24, Anion Gap 12.7, BUN 17, Creatinine 1.20, Estimated Creat Clear 96, Estimated GFR 62, Est GFR ( Amer) 75, Glucose 181 H, Calcium 9.2, Magnesium 2.1, Total Bilirubin 0.9, AST 33, ALT 22, Alkaline Phosphatase 91, Total Creatine Kinase 75, Total Protein 8.1, Albumin 4.2, Globulin 3.9 H, Albumin/Globulin Ratio 1.1 08/22/23 09:45 08/22/23 09:45 Orders (Tests/Meds): ED MEDICATIONS Generic Name Dose Route Start Last Admin Trade Name Freq PRN Reason Stop Dose Admin Lactated Ringer's 1,000 mls @ 999 mls/hr 08/22/23 09:45 08/22/23 09:48 Lactated Ringer's 1000 Ml Bag IV 08/22/23 10:45 999 mls/hr .Q1H1M FARNAZ Administration ORDERS Category Date Time Status CBC w/Auto Diff [Complete Blood Count Auto Diff] Stat Lab 08/22/23 09:45 Completed CK [Creatine Kinase] Stat Lab 08/22/23 09:45 Completed CMP [Comprehensive Metabolic Panel] Stat Lab 08/22/23 09:45 Completed Magnesium Stat Lab 08/22/23 09:45 Completed Medical Decision Narrative: 57-year-old male presented with above history and physical. Neurologic exam is normal he does however have occasional movements where he flails his arms and this does appear to be involuntary. From a seizure standpoint his score would be 0 at the moment. I suspect that his symptoms are all secondary to sudden discontinuation of his chronic benzodiazepine use. He is not having any severe withdrawal symptoms at the moment. I advised that he follow-up with his primary care doctor. Will get other basic blood work give IV fluids to make sure is not an alternative diagnosis such as dehydration electrolyte abnormalities etc. Reassessment 10:34 AM patient remained stable serial neurologic exams are nonfocal. Labs unremarkable has been advised to follow-up with his primary care doctor regarding discussion of his chronic benzodiazepine use and recent discontinuation which is likely the cause of his symptoms today. No evidence of severe benzo withdrawal. He is outside of any window of emergency concern from that standpoint as he states that it has been almost a week since he had his last dose. Critical Care Critical Care Time Critical Care Time: No
[2023-08-22] MEDS: LACTATED RINGERS 1000ML 1,000 ML 999 ML IV (09:48)
[2023-08-22 09:52] LABS: Basophils # 0.1 K/mm3 (0-0.2); Basophils % 1.3 % (0.1-2.0); Eosinophils # 0.2 K/mm3 (0.0-0.4); Eosinophils % 2.8 % (0.1-12.0); Hemoglobin 14.4 g/dL (14.1-18.0); Lymphocytes # 2.4 K/mm3 (0.7-4.5); Lymphocytes % 27.3 % (10-50); Mean Corpuscular HGB Conc 32.8 g/dL (31.8-35.4); Mean Corpuscular Hemoglobin 31.3 pg (27.0-31.2); Mean Corpuscular Volume 95.3 fl (80-94); Monocytes # 0.5 K/mm3 (0.1-1.0); Monocytes % 6.1 % (1.7-9.3); Neutrophils # 5.5 K/mm3 (1.8-7.8); Neutrophils % 62.6 % (37.0-80.0); Platelet Count 374 K/mm3 (142-424); Red Blood Count 4.62 M/mm3 (4.60-6.20); Red Cell Distribution Width 15.4 % (11.5-17.5); White Blood Count 8.8 K/mm3 (4.8-10.8)
[2023-08-22 10:01] LABS: Chloride 102 mmol/L (98-107); Potassium 4.7 mmoL/L (3.5-5.1); Sodium 134 mmol/L (136-145)
[2023-08-22 10:02] VITALS: BP 97/69; PULSE 89; O2SAT 96
[2023-08-22 10:03] LABS: Alanine Aminotransferase 22 U/L (12-78); Alkaline Phosphatase 91 U/L (38-126); Anion Gap 12.7 mEq/L (5-15); Aspartate Amino Transferase 33 U/L (17-59); Bilirubin,Total 0.9 mg/dl (0.2-1.3); Blood Urea Nitrogen 17 mg/dl (9-20); Carbon Dioxide 24 mmol/L (22.0-30.0); Creatinine Clearance Estimated 96 mL/min (50-200); Estimated Glomerular Filt Rate 62 ml/min (>60); GFR (African American) 75 ML/MIN (>60); Magnesium 2.1 mg/dl (1.6-2.3)
[2023-08-22 10:04] LABS: Albumin Level 4.2 g/dl (3.5-5.0); Albumin/Globulin Ratio 1.1 (1.1-1.8); Calcium 9.2 mg/dl (8.4-10.2); Creatine Kinase 75 U/L (55-170); Globulin 3.9 g/dL (1.3-3.2); Glucose 181 mg/dl (74-100); Total Protein,Serum 8.1 g/dl (6.3-8.2)
[2023-08-22 10:32] VITALS: BP 92/72; PULSE 82; O2SAT 96
[2023-08-22 10:50] VITALS: BP 137/88; PULSE 71; RESP 19; TEMP 36.8; O2SAT 98
== END 2023-08-22 11:00 | disposition home or self-care (01) ==
PROVIDERS: Emergency Provider Student in an Organized Health Care Education/Training Program; PCP Pediatrics
DX: F13.239 Sedative, hypnotic or anxiolytic dependence with withdrawal, unspecified (principal); R25.1 Tremor, unspecified; F17.210 Nicotine dependence, cigarettes, uncomplicated; I10 Essential (primary) hypertension; E78.5 Hyperlipidemia, unspecified; E11.9 Type 2 diabetes mellitus without complications; Z79.4 Long term (current) use of insulin; Z79.84 Long term (current) use of oral hypoglycemic drugs; Z95.5 Presence of coronary angioplasty implant and graft
CPT/HCPCS: 80053; 82550; 83735; 85025; 96360; 99284; J7120

== ENCOUNTER 2024-01-11 08:27 | Day surgery (SDC) | payer MEDICARE, SELFPAY ==
[2024-01-11] MEDS: LACTATED RINGERS 1000ML 1,000 ML 25 ML IV (09:10)
[2024-01-11 09:15] LABS: POC Glucose,Bedside 420 (70-110)
[2024-01-11 09:16] VITALS: BMI 30.6
[2024-01-11 09:21] VITALS: BP 146/85; PULSE 91; RESP 18; TEMP 36.2; O2SAT 98
--- NOTE | 2024-01-11 09:49 | HMH.SCOPE ---
Procedure: Date: 01/11/24 Patient Date of :: 1965 Procedure Performed:: Colonoscopy to terminal ileum with polypectomy Indications:: Patient is a 58-year-old male from [facility] with history of coronary artery disease previous stenting, previous [place] at the age of 40, hyperlipidemia, tobacco dependence, hyperlipidemia, obstructive sleep apnea, hypertension, diabetes, neuropathy. Colonoscopy in [address] Farah and he had 3 tubular adenomas removed. I performed colonoscopy in December 2017 which revealed 3 tubular adenomas, lymphoid aggregate, and hyperplastic polyps. Follow-up colonoscopy was attempted on 04/17/2022. At that time colonic preparation was extremely poor with poor visualization. Colon was unable to be cleared with high-volume irrigation and suctioning. Some distal colon polyps were able to be removed. It was recommended he be rescheduled with multi day bowel prep. That was a year and a half ago. Patient presents for colonoscopy. He has not discontinued Plavix and aspirin. Blood sugar on arrival 420. . Performing Provider:: Juan M Dewitt MD Referring Provider:: Tc Sandoval MD . Sedation:: MAC sedation Procedure:: Patient history was obtained and appropriate physical examination was performed. Patient's medications and allergies were reviewed. Informed consent was obtained after explaining the benefits, alternatives, and risks of the procedure including, but not limited to, bleeding, perforation, missed lesions, and adverse reaction to anesthesia medications. Patient was transported to endoscopy procedure room. Patient was connected to monitoring devices. Throughout the procedure the patient's blood pressure, pulse, and oxygen saturations were monitored continuously. Patient identification and planned procedure were verified by the staff. Patient was positioned in lateral decubitus position. Digital anorectal exam was performed. Variable stiffness Olympus colonoscope was inserted and advanced under direct visualization to the cecum. Adequacy of the colonic preparation was noted. The colonoscope was advanced a short distance into the terminal ileum. The colonoscope was then slowly withdrawn while carefully examining the color, texture, anatomy, and integrity of the mucosoa circumferentially. Within the rectum retroflexion was performed. Colonoscope was then withdrawn. Impression: There was some particulate stool throughout the colon. This was unable to be completely cleared with irrigation and suctioning but visualization was relatively good. He did have some appreciable spasticity of the colon. There was sigmoid diverticulosis. In the transverse colon there was a small polyp removed with biopsy forceps. The descending colon there was a tiny polyp removed with cold snare. The proximal sigmoid colon there is a tiny polyp removed with cold snare. The rectosigmoid region there were several hyperplastic appearing polyps. Sampling was performed with biopsy forceps. . Findings:: Fair prep but decent visualization with irrigation and suctioning Sigmoid diverticulosis Small polyps as noted above . Recommendations:: Repeat colonoscopy pending pathology. Likely 3 years. Recommend aggressive bowel prep. Complications:: None immediately apparent Estimated blood obtained (mL): 2 Colonoscopy Component Colonoscopy Component Was a colonoscopy performed during today's procedure?: Yes Recommended follow up colonoscopy of at least 10 years?: No If no, follow up colonoscopy recommended in ___ years?: See above Reason for not recommending >/= 10 yr follow-up interval?: See above
--- NOTE | 2024-01-11 10:08 | EXP.ANES.CKL ---
[facility] Disclaimer: The information contained in this section may have been updated after the patient was seen, as this information can be updated by other users. Medical History Hypertension KRISTIN (obstructive sleep apnea) Dyspnea Typical angina Hypertension Fatigue SOB (shortness of breath) on exertion Insomnia Bipolar II disorder HLD (hyperlipidemia) Atypical angina Pre-op evaluation Diabetes Tobacco dependence syndrome Coronary arteriosclerosis JAN 2021-Successful stenting of the proximal to mid dominant right coronary severe disease reduced to 0% with 1 drug-eluting stent with persistent moderate to severe disease in a small caliber posterior lateral branch Normal ejection fraction Mildly elevated LVEDP Surgical History History of heart artery stent 8 since age 40 Stented coronary artery Family History Other Family history of cancer Family history of diabetes mellitus type II Social History (Updated 01/11/24 @ 09:14 by Gricelda Watson RN) Smoking Status: Current every day smoker tobacco type: cigarettes packs per day: 1 second hand exposure: No alcohol intake: current alcohol intake frequency: holidays/special occasions only substance use type: marijuana current occupational status: disabled Travel in the last 8 weeks: None household members: none housing: house marital status: single number of children: 0 education level: high school service: Yes current occupational exposures/hazards: No caffeine: Yes special nicanor needs: No agree to transfusion: No do you feel safe at home: Yes victim of physical abuse: No victim of emotional abuse: No victim of sexual abuse: No would you like helpful sources: No [facility] Anesthesia Checklist Patient Identification Patient Identification: Arm Band and Verbal (Name & ) Structural Data Admitted From: Home Planned Operative Procedure/s: Colonoscopy Consent for Planned Operative Procedure(s) Verified: Yes Verified Documents: Surgical Consent and History and Physical NPO Status Verified Time NPO: 00:00 Chart Verification Results Verified: CBC, BMP and ECG Additional verifications Fingerstick Blood Glucose: 420 Patient : No Anesthesia Reactions: No Hx Blood Transfusions: No Blood Transfusion Reaction: No Previous Colonoscopy: Yes Cardiovascular Assessment Heart Sounds: S1 & S2 Pulse Rhythm: Irregular Peripheral Edema: No Airway Assessment Mallampati Score:: Class II C-Spine Mobility Assessed: Yes (FROM demonstrated) TMJ Mobility Assessed: Yes Dentition: Poor Dentition (Many missing. Nothing loose per pt.) Neurological Assessment Level of Consciousness: Awake, Alert, Appropriate and Follows Commands Hx Seizures: No Numbness or tingling in extremities: No Anesthesia Plan Anesthesia Risk discussed: Yes Anesthesia Plan: Verified ASA Class: III Anesthesia Type: MAC
[2024-01-11 10:14] VITALS: O2SAT 100
[2024-01-11 11:00] VITALS: BP 90/55; PULSE 79; RESP 16; TEMP 36.2; O2SAT 94
[2024-01-11 11:10] VITALS: BP 102/77; PULSE 84; RESP 16; O2SAT 98
[2024-01-11 11:13] LABS: POC Glucose,Bedside 414 (70-110)
[2024-01-11] MEDS: INSULIN HUMAN REGULAR 100 UNITS/ML 10ML VIAL 10 UNIT SUBCUT (11:17)
[2024-01-11 11:20] VITALS: BP 155/84; PULSE 82; RESP 16; O2SAT 99
[2024-01-11 11:41] VITALS: BP 160/89; PULSE 85; RESP 16; O2SAT 98
== END 2024-01-11 11:45 | disposition home or self-care (01) ==
PROVIDERS: PCP Pediatrics; Visit Provider Surgery
PROC: 0DJD8ZZ Inspection of Lower Intestinal Tract, Via Natural or Artificial Opening Endoscopic (ICD-10-PCS; CPT 45378; principal; 2024-01-11 09:30)
DX: Z09 Encounter for follow-up examination after completed treatment for conditions other than malignant neoplasm (principal); Z86.0102 Personal history of hyperplastic colon polyps; Z86.0101 Personal history of adenomatous and serrated colon polyps; Z86.0109 Personal history of other colon polyps; K57.30 Diverticulosis of large intestine without perforation or abscess without bleeding; K63.5 Polyp of colon; E11.8 Type 2 diabetes mellitus with unspecified complications; Z79.4 Long term (current) use of insulin; F17.210 Nicotine dependence, cigarettes, uncomplicated
CPT/HCPCS: 45380; 45385; 82962; 88305; J2704; J7120

== ENCOUNTER 2024-07-15 13:38 | Emergency (ER) | payer MEDICARE, SELFPAY ==
--- NOTE | 2024-07-15 13:46 | ECG_ITS ---
APPROVED REPORT Exam: Resting ECG HR:68 bpm ECG Measurements Heart Rate 68 AXES IN 164 P 50 QRSd 89 QRS 17 QT 412 T 65 QTc 428 Conclusion SINUS RHYTHM NORMAL ECG Electronically signed by : JEROME BAKER, 07/16/2024 02:59:04
[2024-07-15 13:53] VITALS: BP 94/59; PULSE 71; RESP 19; TEMP 36.9; O2SAT 98; BMI 30.7
--- NOTE | 2024-07-15 14:02 | XR_ITS ---
FINAL REPORT CLINICAL HISTORY: Shortness of breath, left-sided chest pain after fall FINDINGS: A single view of the chest was obtained. No acute pulmonary opacity is present. There is no evidence of effusion or pneumothorax. Mediastinum is unremarkable. Heart size is normal. IMPRESSION: No acute abnormality. Reviewed, Interpreted and Dictated by Aubrey Alexandre MD Transcribed by Ny Stoner Authenticated and . [facility]
--- NOTE | 2024-07-15 14:03 | CT_ITS ---
FINAL REPORT TECHNIQUE: Axial imaging of the head was obtained without contrast. This study was performed with techniques to keep radiation doses as low as reasonably achievable, (ALARA). Individualized dose reduction techniques using automated exposure control or adjustment of mA and/or kV according to the patient's size were employed. CLINICAL HISTORY: Fall, head trauma COMPARISON: 06/13/2023 FINDINGS: There is mild generalized atrophy. The ventricles are normal in size. There is no evidence of hemorrhage. No masses are identified. No extra-axial fluid is seen. There is right maxillary and ethmoid sinusitis. IMPRESSION: No acute intracranial abnormality. Right sided sinusitis. Reviewed, Interpreted and Dictated by Aubrey Alexandre MD Transcribed by Ny Stoner Authenticated and '[facility]
--- NOTE | 2024-07-15 14:03 | CT_ITS ---
FINAL REPORT TECHNIQUE: Axial images were obtained from skull base to the thoracic inlet by computed tomography. Coronal and sagittal reconstruction process performed. This study was performed with techniques to keep radiation doses as low as reasonably achievable (ALARA). Individualized dose reduction techniques using automated exposure control or adjustment of mA and/or kV according to the patient''s size were employed. CLINICAL HISTORY: Trauma COMPARISON: 06/13/2023 FINDINGS: There is no acute fracture or subluxation. There are diffuse degenerative changes. Fusion is seen from C5-C7. The facets are normally aligned. The soft tissues are unremarkable. Limited images of the lung apices are unremarkable. IMPRESSION: No acute fracture. Reviewed, Interpreted and Dictated by Aubrey Alexandre MD Transcribed by Leanne Joe Authenticated and [facility]
--- NOTE | 2024-07-15 14:04 | CT_ITS ---
FINAL REPORT TECHNIQUE: Thin section axial CT with contrast with multiplanar reconstruction This study was performed with techniques to keep radiation doses as low as reasonably achievable, (ALARA). Individualized dose reduction techniques using automated exposure control or adjustment of mA and/or kV according to the patient''s size were employed. CLINICAL HISTORY: Syncope, fall, eval PE, eval left rib fracture FINDINGS: Thoracic aorta shows no dissection or aneurysm. The lungs are clear without pneumothorax. There is no significant pleural effusion. There is no significant pericardial effusion. No mediastinal or hilar adenopathy is present. No rib fracture is identified. IMPRESSION: No acute process. Reviewed, Interpreted and Dictated by Aubrey Alexandre MD Transcribed by Priyanka Pardo Authenticated and [facility]
[2024-07-15 14:11] VITALS: BP 106/69; BP 142/85; BP 147/89; PULSE 58; PULSE 65; PULSE 72
--- NOTE | 2024-07-15 14:12 | ED_ITS ---
<Statement entered by Holli Poe DO - 07/16/24 15:56> I was consulted by the DARREN, and we discussed the complexity of the problems being addressed. I approved the treatment and management plan for this patient's care in the emergency department, thus performing a substantive portion of the medical decision making. Holli Poe DO Discharge Plan Disposition Patient Disposition: Home, Self-Care Condition: Good Chief Complaint: Dizziness Prescriptions Prescriptions: No Action nitroglycerin 0.4 mg tablet, sublingual 0.4 mg SUBLINGUAL Q5-15M PRN (Reason: chest pain) Qty: 25 5RF Rx Instructions: do not exceed 3 doses per episode (DME) pen needle, diabetic [BD Ultra-Fine Micro Pen Needle] 32 gauge x 1/4 needle See Rx Instructions .Route Qty: 100 2RF Rx Instructions: Twice Daily aspirin [Aspir-81] 81 mg tablet,delayed release (DR/EC) 81 mg PO DAILY metoprolol succinate 100 mg tablet extended release 24 hr 100 mg PO BID 90 Days Qty: 180 2RF hydrochlorothiazide 25 mg tablet 25 mg PO DAILY Qty: 90 3RF ammonium lactate 12 % cream 1 applic topical BID Qty: 385 1RF Lybalvi 5-10 mg tablet 1 tab PO QHS Qty: 90 0RF losartan 50 mg tablet 50 mg PO BID 90 Days Qty: 180 2RF Humulin 70/30 U-100 Insulin 100 unit/mL (70-30) suspension 59 unit SQ BID levothyroxine 50 mcg tablet 50 mcg PO DAILY pantoprazole 40 mg tablet,delayed release (DR/EC) 40 mg PO DAILY ranolazine 500 mg tablet extended release 12 hr 500 mg PO Q12 clopidogrel [Plavix] 75 mg tablet See Rx Instructions .ROUTE .COMPLEX Rx Instructions: TAKE 1 TABLET BY MOUTH DAILY atorvastatin 80 mg tablet 80 mg PO DAILY Rx Instructions: TAKE 1 TABLET BY MOUTH DAILY gabapentin 800 mg tablet 800 mg PO TID Patient Comments: TAKE 1 TABLET BY MOUTH THREE TIMES DAILY buspirone 15 mg tablet 15 mg PO BID Jardiance 10 mg tablet 10 mg PO DAILY Patient Comments: TAKE 1 TABLET BY MOUTH DAILY Referrals Follow up/Referrals: Tc Sandoval MD [Primary Care Provider] - See instructions Activity Restrictions/Add. Instructions Additional Instructions/Restrictions: Please return to the emergency department with any worsening signs or symptoms, any chest pain shortness of breath further lightheaded or dizziness, any other episodes of passing out. Please follow-up with your ad taker and primary care doctor in the upcoming days. Clinical Impressions Clinical Impression: Orthostasis, Syncope and collapse Instructions Patient Instructions: Fainting, DI for Orthostatic Hypotension Print Language Print Language: Uzbek Discharge ED Provider: Holli Poe General Adult HPI <KRYSTA Iglesias - Last Filed: 07/15/24 16:21> General Chief complaint: Dizziness Stated complaint: AO 07/15/24, Dizzy, Hit head,Hurt arm,Pain in side Time Seen by Provider: 07/15/24 13:52 Mode of Arrival: Ambulatory Source of Information: Patient Description of Symptoms (Recalled from ER Triage Doc. by RN): pt presents to ED with c/o syncope, fall. pt reports he was using the bathroom and walked out then woke up on the floor. pt reports pain in left arm and left flank. History of Present Illness HPI narrative: 58-year-old male presents to the emergency department with a syncope and a fall that occurred prior to arrival, patient states that he was going from the bathroom , when he lost consciousness, this was a witnessed fall by his niece , who states that he was out for approximately 3 minutes , complains of left-sided chest wall pain, with some ecchymosis/bruising to the area, as well as skin tear on the left forearm, he is unsure if he struck the head, denies any neck pain, denies any headache, admits to lightheadedness, denies any fever, chills, no nausea no vomiting no abdominal pain, no shortness of breath, no urinary type symptomatology, no constipation no diarrhea, other past medical history consistent bipolar 2 disorder, type 2 diabetes, hyperlipidemia, hypothyroidism, hypertension, GERD, coronary artery disease status post multiple stent placements, KRISTIN, he is a current everyday smoker, denies any alcohol or drug use, depression, patient is on dual antiplatelet therapy with Plavix and aspirin. Initial triage vitals notable for soft blood pressure, but no overt hypotension at this time. Onset (ago): hour(s) Related Data Home Medications ?Medication ?Instructions ?Recorded ?Confirmed aspirin 81 mg tablet,delayed 81 mg PO DAILY 10/23/18 06/10/24 release (Aspir-) insulin human U-100 NPH-regulr 59 unit SQ BID 06/13/23 06/10/24 70-30 mix 100 unit/mL subcutaneous susp (Humulin 70/30 U-100 Insulin) levothyroxine 50 mcg tablet 50 mcg PO DAILY 06/13/23 06/10/24 pantoprazole 40 mg tablet,delayed 40 mg PO DAILY 06/13/23 06/10/24 release ranolazine 500 mg tablet,extended 500 mg PO Q12 06/13/23 06/10/24 release,12 hr buspirone 15 mg tablet 15 mg PO BID 08/22/23 06/10/24 empagliflozin 10 mg tablet 10 mg PO DAILY 08/22/23 06/10/24 (Jardiance) gabapentin 800 mg tablet 800 mg PO TID 08/22/23 06/10/24 clopidogrel 75 mg tablet (Plavix) See Rx Instructions .Route .COMPLEX 01/09/24 06/10/24 atorvastatin 80 mg tablet 80 mg PO DAILY 01/11/24 06/10/24 Previous Rx's ?Medication ?Instructions ?Recorded nitroglycerin 0.4 mg sublingual 0.4 mg sublingual Q5-15M PRN chest 06/28/21 tablet pain #25 tabs hydrochlorothiazide 25 mg tablet 25 mg PO DAILY #90 tabs 06/06/23 metoprolol succinate 100 mg 100 mg PO BID 90 days #180 tabs 06/06/23 tablet,extended release 24 hr pen needle, diabetic 32 gauge x #100 ea 06/26/2303/01 (BD Ultra-Fine Micro Pen Needle) ammonium lactate 12 % topical cream 1 applic topical BID dry skin, 11/27/23 callus care #385 grams olanzapine 5 mg-samidorphan 10 mg 1 tab PO QHS #90 tabs 03/19/24 tablet (Lybalvi) losartan 50 mg tablet 50 mg PO BID 90 days #180 tabs 06/19/24 Allergies Allergy/AdvReac Type Severity Reaction Status Date / Time No Known Allergies Allergy Verified 06/10/24 15:09 [facility] <KRYSTA Iglesias - Last Filed: 07/15/24 16:21> [facility] Disclaimer: The information contained in this section may have been updated after the patient was seen, as this information can be updated by other users. Medical History Hypertension KRISTIN (obstructive sleep apnea) Dyspnea Typical angina Hypertension Fatigue SOB (shortness of breath) on exertion Insomnia Bipolar II disorder HLD (hyperlipidemia) Atypical angina Pre-op evaluation Diabetes Tobacco dependence syndrome Coronary arteriosclerosis JAN 2021-Successful stenting of the proximal to mid dominant right coronary severe disease reduced to 0% with 1 drug-eluting stent with persistent moderate to severe disease in a small caliber posterior lateral branch Normal ejection fraction Mildly elevated LVEDP Surgical History History of heart artery stent 8 since age 40 Stented coronary artery Family History Other Family history of cancer Family history of diabetes mellitus type II Social History Smoking Status: Never smoker second hand exposure: No alcohol intake: current alcohol intake frequency: holidays/special occasions only substance use type: marijuana current occupational status: disabled Travel in the last 8 weeks?: None household members: none housing: house marital status: single number of children: 0 education level: high school service: Yes current occupational exposures/hazards: No caffeine: Yes special nicanor needs: No agree to transfusion: No do you feel safe at home: Yes victim of physical abuse: No victim of emotional abuse: No victim of sexual abuse: No would you like helpful sources: No Have you lived/traveled outside [place] in past 30 days?: No Contact w/someone who lives/traveled outside [place] past 30 days?: No Exposure to someone with infectious disease in past 14 days?: No Do you have a fever (greater than 100.4 F or 38 C)?: No Have you tested positive for COVID-19?: No Exposed to someone with COVID-19 in past 14 days?: No Do you have a sore throat?: No Do you have a cough?: No Do you have any weakness?: Yes Do you have any diarrhea?: No Are you experiencing any unusual bleeding?: No Do you have any muscle aches/pain?: No Do you have any abdominal pain?: No Are you experiencing loss of taste or smell?: No Other Medical History Have you received the Flu Vaccine for this season: No Have you received the Pneumonia Vaccine: Yes <KRYSTA Iglesias - Last Filed: 07/15/24 16:21> ROS Obtained: Yes All systems reviewed & no additional complaints except as documented Physical Exam <KRYSTA Iglesias - Last Filed: 07/15/24 16:21> General General appearance: alert and in no apparent distress Head Head exam: atraumatic and normocephalic Eye Eye exam: Present PERRL and EOMI ENT ENT exam: Present mucous membranes moist Neck Neck exam: Present normal inspection Chest Chest inspection: Present symmetric chest wall rise, tenderness and other (There are areas of ecchymosis/bruising over the left chest wall, with tenderness palpation to the area) Expanded Chest Exam Trauma: Present ecchymosis and other Breast: left: tenderness Respiratory Respiratory exam: Present normal lung sounds bilaterally; Absent respiratory distress Cardiovascular Cardiovascular exam: Present regular rate and normal rhythm Abdominal Exam Abdominal exam: Present soft; Absent tenderness, guarding, rebound or rigidity Extremities Exam Extremities exam: Present normal inspection Neurological Exam Neurological exam: Present alert and oriented X3 Psychiatric Psychiatric exam: Present normal affect Skin Skin exam: Present warm, dry and other (Skin tear that is around 2 cm to 3 cm on the left forearm, with a mild abrasion on the right wrist as well) Medical Decision Making <KRYSTA Iglesias - Last Filed: 07/15/24 16:21> Medical Records Medical records reviewed: Yes I reviewed the patient's medical records. Screening: Per USPSTF and CDC recommendations, given the prevalence of disease in our region, it is our hospital?s policy to screen for HIV and viral Hepatitis for all patients aged 18 and over and those with ongoing risk factors. Apollo Inquiry Pt receiving controlled substance: No Apollo was queried for this patient: No Vital Signs: 07/15/24 13:53 07/15/24 14:11 07/15/24 15:00 Temperature 98.4 F Temperature Source Oral Pulse Rate 80 Pulse Rate [Left Radial] 71 Pulse Rate [Orthostatic Lying Right] 58 L Pulse Rate [Orthostatic Sitting Right] 65 Pulse Rate [Orthostatic Standing] 72 Respiratory Rate 19 16 Blood Pressure 114/67 Blood Pressure [Orthostatic Lying] 142/85 H Blood Pressure [Orthostatic Sitting Right Arm] 147/89 H Blood Pressure [Orthostatic Standing] 106/69 L Blood Pressure [Right Arm] 94/59 L Blood Pressure Mean 80 Blood Pressure Mean [Right Arm] 70 02 Sat by Pulse Oximetry 98 98 Oxygen Delivery Method 07/15/24 15:30 Temperature Temperature Source Pulse Rate 80 Pulse Rate [Left Radial] Pulse Rate [Orthostatic Lying Right] Pulse Rate [Orthostatic Sitting Right] Pulse Rate [Orthostatic Standing] Respiratory Rate 17 Blood Pressure 114/67 Blood Pressure [Orthostatic Lying] Blood Pressure [Orthostatic Sitting Right Arm] Blood Pressure [Orthostatic Standing] Blood Pressure [Right Arm] Blood Pressure Mean Blood Pressure Mean [Right Arm] 02 Sat by Pulse Oximetry 97 Oxygen Delivery Method Room Air Lab Data Lab results reviewed: Yes I reviewed the patient's lab results. Lab Results 07/15/24 14:20: WBC 12.1 H, RBC 4.96, Hgb 15.1, Hct 44.3, MCV 89.3, MCH 30.4, MCHC 34.1, RDW 13.8, Plt Count 290, MPV 9.1, Neut % (Auto) 78.6, Lymph % (Auto) 14.2, Lares % (Auto) 5.3, Eos % (Auto) 0.7, Baso % (Auto) 0.4, Neut # (Auto) 9.5 H, Lymph # (Auto) 1.7, Lares # (Auto) 0.6, Eos # (Auto) 0.1, Baso # (Auto) 0.1, PT 10.9, INR 0.98, Sodium 131 L, Potassium 4.3, Chloride 99, Carbon Dioxide 25, Anion Gap 11.3, BUN 16, Creatinine 1.00, Estimated Creat Clear 114, Estimated GFR 76, Est GFR ( Amer) 92, Glucose 276 H, Calcium 9.6, Magnesium 1.7, Total Bilirubin 1.0, AST 30, ALT 17, Alkaline Phosphatase 147 H, Troponin I < 0.01, NT-Pro-B Natriuret Pep 73.4, Total Protein 7.5, Albumin 4.3, Globulin 3.2, Albumin/Globulin Ratio 1.3, Lipase 18 L 07/15/24 14:20 07/15/24 14:20 Orders (Tests/Meds): ED MEDICATIONS Discontinued Medications Generic Name Dose Route Start Last Admin Trade Name Freq PRN Reason Stop Dose Admin Iopamidol 80 ml 07/15/24 15:21 07/15/24 15:22 Iopamidol-370 (76%);100ml Bottle IV 07/15/24 15:22 80 ml ONCE ONE Administration Sodium Chloride 10 ml 07/15/24 15:21 07/15/24 15:22 Sodium Chloride 0.9% 10ml Syr (Rad Only) IV 07/15/24 15:22 10 ml ONCE ONE Administration Sodium Chloride 50 ml 07/15/24 15:21 07/15/24 15:22 0.9 % Sodium Chloride 50 Ml Vial IV 07/15/24 15:22 50 ml ONCE ONE Administration ORDERS Category Date Time Status CT angio chest PE protocol Stat Cat Scan 07/15/24 14:[address] cervical spine wo con Stat Cat Scan 07/15/24 14:[address] head/brain wo con Stat Cat Scan 07/15/24 14:03 Completed XR chest portable Stat Exams 07/15/24 14:02 Completed Complete Blood Count Auto Diff Stat Lab 07/15/24 14:20 Completed Comprehensive Metabolic Panel Stat Lab 07/15/24 14:20 Completed HIV Combo Stat Lab 07/15/24 14:20 Received Hepatitis C Ab Qual. W/ RFX Stat Lab 07/15/24 14:20 Received Lipase Stat Lab 07/15/24 14:20 Completed Magnesium Stat Lab 07/15/24 14:20 Completed NT Pro Brain Natriuretic Pep. Stat Lab 07/15/24 14:20 Completed PT INR [Prothrombin Time INR] Stat Lab 07/15/24 14:20 Completed Troponin I Q3H Lab 07/15/24 17:15 Ordered Troponin I Q3H Lab 07/15/24 20:15 Ordered Troponin I Stat Lab 07/15/24 14:20 Completed Medical Decision Narrative: 58-year-old male presents emergency department with a syncopal episode, fall, left-sided chest wall pain, multiple abrasions, and skin tears, differential diagnose include not limited to soft tissue injury, rib fracture, pneumothorax, costochondritis, pulmonary contusion, acute SDH, traumatic SAH, closed head injury, cervicalgia, cardiac arrhythmia, electrolyte disturbance, ACS, cardiogenic syncope, vasovagal syncope, orthostatic hypotension, situational syncope, PE among others. I discussed patient case with attending physician Dr. Poe and the attending physician Will obtain EKG orthostatic blood pressures, CT angiogram of the chest PE protocol, CT cervical spine, CT head, chest x-ray, basic laboratory studies lipase magnesium level proBNP PT/INR, troponin, will obtain orthostatic vital signs. Patient had a positive orthostatic vital sign with a drop in systolic blood pressure, from 140s to 106 upon going from sitting to standing position. CBC is noted for mild leukocytosis 12.1, could be reactive in the setting of trauma. CMP is notable for mild hyponatremia at 131, proBNP within normal limits Troponin within normal limits at less than 0.01 Coags within normal limits I reviewed the patient's CT head without contrast on the corresponding radiologic report, no acute intracranial abnormality, right-sided sinusitis. I reviewed the patient's CTA chest without contrast PE protocol, along the corresponding radiological report no acute process. I reviewed the patient's CT cervical spine without contrast, the corresponding radiologic report, no acute fracture. I reviewed the patient's chest x-ray along the corresponding radiologic report, no acute abnormality. Reexamination the patient approximately 4 PM, patient states that he is feeling better, Leon syncope score is -1, low risk for any cardiogenic type syncope. Will road test patient, patient was able to ambulate with nursing staff unassisted, no lightheadedness no further dizziness, patient is feeling better, patient is cleared to be discharged home to self-care, patient will return to the emergency department any worsening signs or symptoms. Patient will follow- up PCP and ad taker as directed. Patient voiced understanding. <Holli Poe, DO - Last Filed: 07/15/24 14:57> Vital Signs: 07/15/24 13:53 07/15/24 14:11 07/15/24 15:00 Temperature 98.4 F Temperature Source Oral Pulse Rate 80 Pulse Rate [Left Radial] 71 Pulse Rate [Orthostatic Lying Right] 58 L Pulse Rate [Orthostatic Sitting Right] 65 Pulse Rate [Orthostatic Standing] 72 Respiratory Rate 19 16 Blood Pressure 114/67 Blood Pressure [Orthostatic Lying] 142/85 H Blood Pressure [Orthostatic Sitting Right Arm] 147/89 H Blood Pressure [Orthostatic Standing] 106/69 L Blood Pressure [Right Arm] 94/59 L Blood Pressure Mean 80 Blood Pressure Mean [Right Arm] 70 02 Sat by Pulse Oximetry 98 98 Oxygen Delivery Method 07/15/24 15:30 Temperature Temperature Source Pulse Rate 80 Pulse Rate [Left Radial] Pulse Rate [Orthostatic Lying Right] Pulse Rate [Orthostatic Sitting Right] Pulse Rate [Orthostatic Standing] Respiratory Rate 17 Blood Pressure 114/67 Blood Pressure [Orthostatic Lying] Blood Pressure [Orthostatic Sitting Right Arm] Blood Pressure [Orthostatic Standing] Blood Pressure [Right Arm] Blood Pressure Mean Blood Pressure Mean [Right Arm] 02 Sat by Pulse Oximetry 97 Oxygen Delivery Method Room Air Lab Data Lab Results 07/15/24 14:20: WBC 12.1 H, RBC 4.96, Hgb 15.1, Hct 44.3, MCV 89.3, MCH 30.4, MCHC 34.1, RDW 13.8, Plt Count 290, MPV 9.1, Neut % (Auto) 78.6, Lymph % (Auto) 14.2, Lares % (Auto) 5.3, Eos % (Auto) 0.7, Baso % (Auto) 0.4, Neut # (Auto) 9.5 H, Lymph # (Auto) 1.7, Lares # (Auto) 0.6, Eos # (Auto) 0.1, Baso # (Auto) 0.1, PT 10.9, INR 0.98, Sodium 131 L, Potassium 4.3, Chloride 99, Carbon Dioxide 25, Anion Gap 11.3, BUN 16, Creatinine 1.00, Estimated Creat Clear 114, Estimated GFR 76, Est GFR ( Amer) 92, Glucose 276 H, Calcium 9.6, Magnesium 1.7, Total Bilirubin 1.0, AST 30, ALT 17, Alkaline Phosphatase 147 H, Troponin I < 0.01, NT-Pro-B Natriuret Pep 73.4, Total Protein 7.5, Albumin 4.3, Globulin 3.2, Albumin/Globulin Ratio 1.3, Lipase 18 L Orders (Tests/Meds): ED MEDICATIONS Discontinued Medications Generic Name Dose Route Start Last Admin Trade Name Freq PRN Reason Stop Dose Admin Iopamidol 80 ml 07/15/24 15:21 07/15/24 15:22 Iopamidol-370 (76%);100ml Bottle IV 07/15/24 15:22 80 ml ONCE ONE Administration Sodium Chloride 10 ml 07/15/24 15:21 07/15/24 15:22 Sodium Chloride 0.9% 10ml Syr (Rad Only) IV 07/15/24 15:22 10 ml ONCE ONE Administration Sodium Chloride 50 ml 07/15/24 15:21 07/15/24 15:22 0.9 % Sodium Chloride 50 Ml Vial IV 07/15/24 15:22 50 ml ONCE ONE Administration ORDERS Category Date Time Status CT angio chest PE protocol Stat Cat Scan 07/15/24 14:[address] cervical spine wo con Stat Cat Scan 07/15/24 14:[address] head/brain wo con Stat Cat Scan 07/15/24 14:03 Completed XR chest portable Stat Exams 07/15/24 14:02 Completed Complete Blood Count Auto Diff Stat Lab 07/15/24 14:20 Completed Comprehensive Metabolic Panel Stat Lab 07/15/24 14:20 Completed HIV Combo Stat Lab 07/15/24 14:20 Received Hepatitis C Ab Qual. W/ RFX Stat Lab 07/15/24 14:20 Received Lipase Stat Lab 07/15/24 14:20 Completed Magnesium Stat Lab 07/15/24 14:20 Completed NT Pro Brain Natriuretic Pep. Stat Lab 07/15/24 14:20 Completed PT INR [Prothrombin Time INR] Stat Lab 07/15/24 14:20 Completed Troponin I Q3H Lab 07/15/24 17:15 Ordered Troponin I Q3H Lab 07/15/24 20:15 Ordered Troponin I Stat Lab 07/15/24 14:20 Completed ECG Data Tracing #1: I reviewed this ECG and interpreted as documented below: Normal sinus rhythm with ventricular rate of [address] changes concerning for ischemia. Normal ECG initial impression date: 07/15/24 ECG initial impression time: 13:47 Critical Care <KRYSTA Iglesias - Last Filed: 07/15/24 16:21> Critical Care Time Critical Care Time: No
[2024-07-15 14:34] LABS: Basophils # 0.1 K/mm3 (0-0.2); Basophils % 0.4 % (0.1-2.0); Eosinophils # 0.1 Kmm3 (0.0-0.4); Eosinophils % 0.7 % (0.1-12.0); Hematocrit 44.3 % (42.0-52.0); Hemoglobin 15.1 g/dL (14.1-18.0); Immature Granulocytes % 0.8 %; Lymphocytes # 1.7 K/mm3 (0.7-4.5); Lymphocytes % 14.2 % (10-50); Mean Corpuscular HGB Conc 34.1 g/dL (31.8-35.4); Mean Corpuscular Hemoglobin 30.4 pg (27.0-31.2); Mean Corpuscular Volume 89.3 fl (80-94); Mean Platelet Volume 9.1 fl (7.4-10.4); Monocytes # 0.6 K/mm3 (0.1-1.0); Monocytes % 5.3 % (1.7-9.3); Neutrophils # 9.5 K/mm3 (1.8-7.8); Neutrophils % 78.6 % (37.0-80.0); Nucleated Red Blood Cells # 0 10^3/uL; Nucleated Red Blood Cells % 0 %; Platelet Count 290 K/mm3 (142-424); Red Blood Count 4.96 M/mm3 (4.60-6.20); Red Cell Distribution Width 13.8 % (11.5-17.5); Red Cell Distribution Width-SD 44.2 fL; White Blood Count 12.1 K/mm3 (4.8-10.8)
[2024-07-15 14:50] LABS: Albumin Level 4.3 g/dl (3.5-5.0); Chloride 99 mmol/L (98-107); Sodium 131 mmol/L (136-145)
[2024-07-15 14:51] LABS: Potassium 4.3 mmoL/L (3.5-5.1)
[2024-07-15 14:53] LABS: Alanine Aminotransferase 17 U/L (12-78); Alkaline Phosphatase 147 U/L (38-126); Anion Gap 11.3 mEq/L (5-15); Aspartate Amino Transferase 30 U/L (17-59); Blood Urea Nitrogen 16 mg/dl (9-20); Carbon Dioxide 25 mmol/L (22.0-30.0); Creatinine Clearance Estimated 114 mL/min (50-200); Estimated Glomerular Filt Rate 76 ml/min (>60); GFR (African American) 92 ML/MIN (>60)
[2024-07-15 14:54] LABS: Albumin/Globulin Ratio 1.3 (1.1-1.8); Calcium 9.6 mg/dl (8.4-10.2); Globulin 3.2 g/dL (1.3-3.2); Glucose 276 mg/dl (74-100); Lipase 18 U/L (23-300); Magnesium 1.7 mg/dl (1.6-2.3); Total Protein,Serum 7.5 g/dl (6.3-8.2)
[2024-07-15 15:00] VITALS: BP 114/67; PULSE 80; RESP 16; O2SAT 98
[2024-07-15 15:02] LABS: INR 0.98 (0.9-1.1); Prothrombin Time 10.9 seconds (10.1-12.5)
[2024-07-15 15:03] LABS: NT Pro Brain Natriuretic Pep. 73.4 pg/mL (0-125)
[2024-07-15 15:12] LABS: Troponin I < 0.01 ng/ml (0.00-0.034)
[2024-07-15] MEDS: IOPAMIDOL-370 (76%);100ML BOTTLE 80 ML IV (15:22)
[2024-07-15] MEDS: SODIUM CHLORIDE 0.9% 10ML SYR (RAD ONLY) 10 ML IV (15:22)
[2024-07-15] MEDS: 0.9 % SODIUM CHLORIDE 50 ML VIAL IV (15:22)
[2024-07-15 15:30] VITALS: BP 114/67; PULSE 80; RESP 17; O2SAT 97
[2024-07-15 16:13] LABS: HIV Combo NEGATIVE (Negative)
[2024-07-15 16:21] VITALS: BP 114/88; PULSE 68; RESP 15; TEMP 36.7; O2SAT 99
[2024-07-15 16:21] LABS: Hepatitis C Ab Qual. W/ RFX NEGATIVE (Negative)
== END 2024-07-15 16:30 | disposition home or self-care (01) ==
PROVIDERS: Physician Assistant; Emergency Provider Emergency Medicine; PCP Pediatrics
DX: R55 Syncope and collapse (principal); R42 Dizziness and giddiness; E87.1 Hypo-osmolality and hyponatremia; F17.210 Nicotine dependence, cigarettes, uncomplicated; I10 Essential (primary) hypertension; E78.5 Hyperlipidemia, unspecified; E11.65 Type 2 diabetes mellitus with hyperglycemia; Z11.59 Encounter for screening for other viral diseases; Z11.4 Encounter for screening for human immunodeficiency virus [HIV]
CPT/HCPCS: 70450; 71045; 71275; 72125; 80053; 83690; 83735; 83880; 84484; 85025; 85610; 86803; 87389; 93005; 99285; Q9967

== ENCOUNTER 2025-02-10 12:17 | Outpatient (CLI) | payer MEDICARE, SELFPAY ==
--- OUTSIDE RECORDS SUMMARY | 2025-01-30 11:00 | XMS_ITS | Encounter Summary ---
Author Organization [facility] Address [address] [place] [address] Care Team Providers Care Embedded Systems Software Engineer Name Role Phone Tc Sandoval MD Primary Care Provider [phone] Reason for Visit * Reason Comments Med Refill Encounter Details Date Type Department Care Team (Late st Contact Info) Description 01/30/2025 11:00 AM EST Office Visit [facility] [address] [place] [address] [place] [phone] Tc Sandoval MD [address] [place] [address] [place] [address] Type 2 diabetes mellitus with diabetic polyneuropathy, with long-term current use of insulin (Primary Dx); Cigarette smoker; Mixed hyperlipidemia; Essential hypertension; Need for vaccination Social History Tobacco Use Types Packs/Day Years Used Date Smoking Tobacco: Every Day Cigarettes 1.5 22 Started: 2003 Smokeless Tobacco: Never Tobacco Cessation:Ready to Q uit: No; Counseling Given: No Alcohol Use Standard Drinks/Week Comments Not Currently 0 (1 standard drink = 0.6 oz pur e alcohol) social PHQ-2 Answer Date Recorded Patient Health Questionnaire-9 Score 5 07/31/2024 Sex and Gender Information Value Date Recorded Sex Assigned at Not on file Legal Sex Male 11:35 AM EDT Gender Identity Not on file Sexual Orientation Not on file documented as of this encounter Last Filed Vital Signs Vital Sign Reading Time Taken Comments Blood Pressure 126/66 01/30/2025 11:37 AM EST Pulse 85 01/30/2025 11:26 AM EST Temperature 37.1 C (98.7 F) 01/30/2025 11:26 AM EST Respiratory Rate - - Oxygen Saturation 95% 01/30/2025 11:26 AM EST Inhaled Oxygen Concentration - - Weight 107 kg (236 lb) 01/30/2025 11:26 AM EST Height 177.8 cm (5' 10 ) 01/30/2025 11:26 AM EST Body Mass Index 33.86 01/30/2025 11:26 AM EST documented in this encounter Progress Notes * Tc Sandoval MD - 01/30/2025 12:17 PM ESTAssociated Problem(s): Type 2 diabetes mellitus with diabetic polyneuropathy, with long-term current use of insulin Longstanding diagnosis, patient cannot remember how long. Associated diabetic neuropathy on gabapentin 800 mg 3 times daily of which he tolerates without sedation, continue unchanged. Hemoglobin A1c mildly worsened to 8.4% on 01/30/2025 with some slackened diet, previous 7.7% on 10/31/2024, previous 07/31/2024 at 8.5%, compared to previous 8.6% 8.4%, 9.6%, with some worsening in diet, prior to that 8.0 on 06/28/2023, a few months prior to that due to that at 7.1. Current regimen of Humulin 70/30 insulin 75 units twice daily, Jardiance 25 mg daily. Potentially previous Ozempic 0.5 mg causing diarrhea, resumed with additional fiber and probiotic as of 05/01/2024 at 0.25 mg dosing 80s tolerated, and weincreased on 07/31/2024 to 0.5 mg weekly and again 1 mg on 10/31/2024 with good toleration. As such we will adjust upwards to 2 mg weekly Ozempic on 01/30/2025. Continue portance of improving dietary intake that has been recently slackened. Monitor glucose regularly, recommend feet checked daily, eye check at least yearly. Reassess at 3-month follow-up visit. * Tc Sandoval MD - 01/30/2025 12:15 PM ESTAssociated Problem(s): Mixed hyperlipidemia Comorbid wiyh coronary artery disease on appropriate high-dose atorvastatin 80 mg daily as manage additionally through Dr. Stewart, his record filing clerk. Cholesterol profile 10/31/2024 after addition of Zetia with total cholesterol 140, triglycerides 119, HDL 38 and LDL 80. Improved compared to 07/31/2024with total cholesterol 214, triglycerides 123, HDL 51 and LDL 141, 08/02/2023 with total cholesterol 291, triglycerides 241, HDL 39, LDL 120. Current atorvastatin 80 mg daily, with Zetia 10 mg daily added 07/31/2024, continue unchanged. Previous use of Repatha did benefit well, but he had cost issues, as such we could consider similar or comparable cholesterol medicine in the future, if persist elevation based on his coronary artery disease history. Continue healthy diet, exercise, benefits of weight loss. Recheck cholesterol with yearly blood work * Tc Sandoval MD - 01/30/2025 12:15 PM ESTAssociated Problem(s): Essential hypertension Comorbid with coronary artery disease, with EKG 08/02/[address]-T wave changes but no acute process, overall nonconcerning with none to compare. Patient on regimen of HCTZ 25 mg daily, losartan 50 mg daily, metoprolol XL 100 mg daily with good control of blood pressure. Continue healthy diet, exercise, benefits of weight loss. Monitor blood pressure regularly. Patient is advised to check blood pressure more often at home, but he does not have a cuff. No new concerns as of 01/30/2025 * Tc Sandoval MD - 01/30/2025 12:15 PM ESTAssociated Problem(s): Cigarette smoker Smoker at about 1.5 packs/day for 20 years, currently at about 1/3 packs/day, patient not ready to quit but discussed again consideration of nicotine patches or Chantix potentially help with cessation. Previous attempted Chantix caused him to feel funny. He understands longstanding risk of ongoing smoking, not interested in medicine at this time. Low-dose CT of the chest from 08/07/2023 reassuringwith yearly repeat on 08/07/2024 at [facility] stable at lung RADS category 2 with 1year follow-up recommended. * Tc Sandoval MD - 01/30/2025 11:00 AM EST Images from the original note were not included. Follow Up Office Visit Date: 01/30/2025 Patient Name: Lee Hwang : 1965 Chief Complaint: Chief Complaint Patient presents with Med Refill History of Present Illness: Lee Hwang is a 59 y.o. male who is here today to follow up with medical problems. History of Present Illness The patient is a 59-year-old male who presents for a follow-up visit. He has been monitoring his blood glucose levels twice daily, which typically range between 140 and 170, with occasional spikes above 200. He experienced a hypoglycemic episode the previous night, characterized by profuse sweating. His insulin dosage was increased from 70 to 75 units, and Ozempic was adjusted from 0.5 to 1 mg. He reports no gastrointestinal disturbances associated with his currentmedication regimen. He does not monitor his blood pressure at home. During a recent cardiology appointment, his blood pressure was recorded as 129/70. He is scheduled for an echocardiogram and stress test as part of hisannual cardiac evaluation. No changes were made to his medication regimen during this visit. He continues to smoke approximately one-third of a pack of cigarettes daily. Tobacco: The patient smokes cigarettes, approximately one-third of a pack daily. Subjective Review of Systems: Review of Systems I have reviewed the patients family history, social history, past medical history, past surgical history and have updated it as appropriate. Medications: Current Outpatient Medications: aspirin 81 MG EC tablet, Take 1 tablet by mouth Daily., Disp: , Rfl: atorvastatin (LIPITOR) 80 MG tablet, Take 1 tablet by mouth Daily., Disp: 90 tablet, Rfl: 1 BD Pen Needle Amada 2nd Gen 32G X 4 MM misc, , Disp: , Rfl: Brexpiprazole 2 MG tablet, Take 1 tablet by mouth Daily., Disp: , Rfl: busPIRone (BUSPAR) 15 MG tablet, Take 1 tablet by mouth 2 (Two) Times a Day., Disp: 180 tablet, Rfl: 1 cetirizine (zyrTEC) 10 MG tablet, Take 1 tablet by mouth Daily., Disp: 30 tablet, Rfl: 3 clopidogrel (PLAVIX) 75 MG tablet, TAKE 1 TABLET BY MOUTH DAILY, Disp: 90 tablet, Rfl: 1 Continuous Glucose Division Controller (Dexcom G7 Division Controller) device, 1 Device by Other route Every 14 (Fourteen) Days., Disp: , Rfl: Continuous Glucose Sensor (Dexcom G7 Sensor) misc, USE DIRECTED CHANGING EVERY 10 DAYS, Disp: 3 each, Rfl: 3 ezetimibe (Zetia) 10 MG tablet, Take 1 tablet by mouth Daily., Disp: 90 tablet, Rfl: 1 fluticasone (FLONASE) 50 MCG/ACT nasal spray, Administer 2 sprays into the nostril(s) as directed by provider Daily., Disp: 15.8 g, Rfl: 3 gabapentin (NEURONTIN) 800 MG tablet, TAKE 1 TABLET BY MOUTH THREE TIMES DAILY, Disp: 90 tablet, Rfl: 1 HumuLIN 70/30 (70-30) 100 UNIT/ML injection, Inject 75 Units under the skin into the appropriate area as directed 2 (Two) Times a Day With Meals., Disp: 50 mL, Rfl: 2 hydroCHLOROthiazide 25 MG tablet, Take 1 tablet by mouth Daily., Disp: , Rfl: Insulin Syringe 31G X 5/16 1 ML [facility], USE TO INJECT TWICE DAILY DIRECTED, Disp: 100 each, Rfl: 3 Jardiance 25 MG tablet tablet, TAKE 1 TABLET BY MOUTH DAILY, Disp: 90 tablet, Rfl: 1 levothyroxine (SYNTHROID, LEVOTHROID) 50 MCG tablet, TAKE 1 TABLET BY MOUTH DAILY, Disp: 90 tablet,Rfl: 1 losartan (COZAAR) 50 MG tablet, Take 1 tablet by mouth 2 (Two) Times a Day., Disp: , Rfl: Lybalvi 5-10 MG tablet, Take 1 tablet by mouth every night at bedtime., Disp: , Rfl: metoprolol succinate XL (TOPROL-XL) 100 MG 24 hr tablet, TAKE 1 TABLET BY MOUTH TWICE DAILY, Disp: 90 tablet, Rfl: 1 naproxen (NAPROSYN) 375 MG tablet, TAKE 1 TABLET BY MOUTH TWICE DAILY NEEDED FOR MILD PAIN OR MODERATE PAIN, Disp: 60 tablet, Rfl: 2 nicotine (Nicoderm CQ) 14 MG/24HR patch, Place 1 patch on the skin as directed by provider Daily. 14 mcg dosing follows the 21 mcg dosing, Disp: 30 patch, Rfl: 0 nicotine (Nicoderm CQ) 21 MG/24HR patch, Place 1 patch on the skin as directed by provider Daily. Start with 21 mcg dosing, Disp: 30 patch, Rfl: 0 nicotine (Nicoderm CQ) 7 MG/24HR patch, Place 1 patch on the skin as directed by provider Daily. 7 mcg dosing follows the 14 mcg dosing, Disp: 30 patch, Rfl: 4 pantoprazole (PROTONIX) 40 MG EC tablet, TAKE 1 TABLET BY MOUTH DAILY, Disp: 90 tablet, Rfl: 1 Semaglutide, 2 MG/DOSE, (Ozempic, 2 MG/DOSE,) 8 MG/3ML solution pen-injector, Inject 2 mg under theskin into the appropriate area as directed 1 (One) Time Per Week., Disp: 3 mL, Rfl: 3 Allergies: No Known Allergies Objective Physical Exam: Please see above Vital Signs: Vitals: 01/30/25 1126 01/30/25 1137 BP: 152/90 126/66 BP Location: Left arm Patient Position: Sitting Cuff Size: Adult Pulse: 85 Temp: 98.7 ??F (37.1 ??C) TempSrc: Temporal SpO2: 95% Weight: 107 kg (236 lb) Height: 177.8 cm (70 ) Facility age limit for growth %ken is 20 years. Body mass index is 33.86 kg/m??. Physical Exam Constitutional: General: He is not in acute distress. Appearance: Normal appearance. He is not ill-appearing, toxic-appearing or diaphoretic. HENT: Head: Normocephalic and atraumatic. Right Ear: Tympanic membrane, ear canal and external ear normal. Left Ear: Tympanic membrane, ear canal and external ear normal. Nose: Nose normal. No rhinorrhea. Mouth/Throat: Mouth: Mucous membranes are moist. Pharynx: Oropharynx is clear. No oropharyngeal exudate or posterior oropharyngeal erythema. Cardiovascular: Rate and Rhythm: Normal rate and regular rhythm. Pulses: Normal pulses. Heart sounds: Normal heart sounds. No murmur heard. No friction rub. No gallop. Pulmonary: Effort: Pulmonary effort is normal. No respiratory distress. Breath sounds: Normal breath sounds. No stridor. No wheezing. Abdominal: General: Abdomen is flat. Bowel sounds are normal. There is no distension. Palpations: Abdomen is soft. Tenderness: There is no abdominal tenderness. There is no guarding or rebound. Musculoskeletal: Cervical back: Neck supple. No tenderness. Right lower leg: No edema. Left lower leg: No edema. Lymphadenopathy: Cervical: No cervical adenopathy. Skin: General: Skin is warm and dry. Capillary Refill: Capillary refill takes less than 2 seconds. Neurological: General: No focal deficit present. Mental Status: He is alert and oriented to person, place, and time. Mental status is at baseline. Psychiatric: Mood and Affect: Mood normal. Behavior: Behavior normal. Thought Content: Thought content normal. Procedures Results: Labs: Hemoglobin A1C Date Value Ref Range Status 01/30/2025 8.4 (A) 4.5 - 5.7 % Final TSH Date Value Ref Range Status 07/31/2024 1.670 0.450 - 4.500 uIU/mL Final Imaging: No valid procedures specified. Smoking Cessation: 3-10 mintues spent counseling Will try to cut down Vaccine Counseling: ???Discussed risks/benefits to vaccination, reviewed components of the vaccine, discussed VIS, discussed informed consent, informed consent obtained. Patient/Parent was allowed to accept or refuse vaccine. Questions answered to satisfactory state of patient/Parent. We reviewed typical age appropriate and seasonally appropriate vaccinations. Reviewed immunization history and updated state vaccination form as needed. Patient was counseled on Influenza Assessment / Plan Assessment/Plan: Diagnoses and all orders for this visit: 1. Type 2 diabetes mellitus with diabetic polyneuropathy, with long-term current use of insulin (Primary) Assessment & Plan: Longstanding diagnosis, patient cannot remember how long. Associated diabetic neuropathy on gabapentin 800 mg 3 times daily of which he tolerates without sedation, continue unchanged. Hemoglobin A1c mildly worsened to 8.4% on 01/30/2025 with some slackened diet, previous 7.7% on 10/31/2024, previous 07/31/2024 at 8.5%, compared to previous 8.6% 8.4%, 9.6%, with some worsening in diet, prior to that 8.0 on 06/28/2023, a few months prior to that due to that at 7.1. Current regimen of Humulin 70/30 insulin 75 units twice daily, Jardiance 25 mg daily. Potentially previous Ozempic 0.5 mg causing diarrhea, resumed with additional fiber and probiotic as of 05/01/2024 at 0.25 mg dosing 80s tolerated, and weincreased on 07/31/2024 to 0.5 mg weekly and again 1 mg on 10/31/2024 with good toleration. As such we will adjust upwards to 2 mg weekly Ozempic on 01/30/2025. Continue portance of improving dietary intake that has been recently slackened. Monitor glucose regularly, recommend feet checked daily, eye check at least yearly. Reassess at 3-month follow-up visit. Orders: - POC Glycosylated Hemoglobin (Hb A1C) - POC Glucose, Blood - Semaglutide, 2 MG/DOSE, (Ozempic, 2 MG/DOSE,) 8 MG/3ML solution pen-injector; Inject 2 mg under the skin into the appropriate area as directed 1 (One) Time Per Week. Dispense: 3 mL; Refill: 3 2. Cigarette smoker Assessment & Plan: Smoker at about 1.5 packs/day for 20 years, currently at about 1/3 packs/day, patient not ready to quit but discussed again consideration of nicotine patches or Chantix potentially help with cessation. Previous attempted Chantix caused him to feel funny. He understands longstanding risk of ongoing smoking, not interested in medicine at this time. Low-dose CT of the chest from 08/07/2023 reassuringwith yearly repeat on 08/07/2024 at [facility] stable at lung RADS category 2 with 1year follow-up recommended. 3. Mixed hyperlipidemia Assessment & Plan: Comorbid wiyh coronary artery disease on appropriate high-dose atorvastatin 80 mg daily as manage additionally through Dr. Stewart, his record filing clerk. Cholesterol profile 10/31/2024 after addition of Zetia with total cholesterol 140, triglycerides 119, HDL 38 and LDL 80. Improved compared to 07/31/2024with total cholesterol 214, triglycerides 123, HDL 51 and LDL 141, 08/02/2023 with total cholesterol 291, triglycerides 241, HDL 39, LDL 120. Current atorvastatin 80 mg daily, with Zetia 10 mg daily added 07/31/2024, continue unchanged. Previous use of Repatha did benefit well, but he had cost issues, as such we could consider similar or comparable cholesterol medicine in the future, if persist elevation based on his coronary artery disease history. Continue healthy diet, exercise, benefits of weight loss. Recheck cholesterol with yearly blood work 4. Essential hypertension Assessment & Plan: Comorbid with coronary artery disease, with EKG 08/02/[address]-T wave changes but no acute process, overall nonconcerning with none to compare. Patient on regimen of HCTZ 25 mg daily, losartan 50 mg daily, metoprolol XL 100 mg daily with good control of blood pressure. Continue healthy diet, exercise, benefits of weight loss. Monitor blood pressure regularly. Patient is advised to check blood pressure more often at home, but he does not have a cuff. No new concerns as of 01/30/2025 5. Need for vaccination - Fluzone >6mos Assessment & Plan 1. Diabetes Mellitus: Blood glucose levels are generally in the 140-170 range, with occasional spikes above 200 and a recent hypoglycemic episode. The dosage of Ozempic will be increased from 1 mg to 2 mg. He is advised to continue his current insulin regimen of 75 units twice daily and maintain adherence to his other antidiabetic medications. Dietary modifications, including reduced portion sizes and snacking, are recommended. If significant gastrointestinal side effects occur from the increased Ozempic dosage, he should inform the clinic. 2. Hyperlipidemia: Cholesterol levels have improved significantly since the addition of Zetia. He is advised to continue his current medication regimen without any changes. 3. Hypertension: Blood pressure readings are within the normal range, with a recent measurement of 126/68 mmHg. He is advised to continue his current antihypertensive medications without any changes. 4. Tobacco Use Disorder: He continues to smoke about a third of a pack daily. Smoking cessation aids such as patches or Chantix are available if he decides to quit smoking. 5. Health Maintenance: He will receive his influenza vaccine during this visit. Follow-up: The patient will follow up in 3 months. Follow Up: Return in about 3 months (around 04/30/2025) for Next scheduled follow up. Patient or patient sales service representative verbalized consent for the use of Ambient Listening during the visit with Tc Sandoval MD for chart documentation. 01/30/2025 12:17 EST Tc Sandoval MD [facility] documented in this encounter Plan of Treatment Upcoming Encounters Date Type Department Care Team (Late st Contact Info) Description 04/30/2025 11:00 AM EST Office Visit [facility] [address] [place] [phone] Tc Sandoval MD [address] [place] [id number] documented as of this encounter Procedures Procedure Name Priority Date/Time Associated Diagnosis Comments POCT GLUCOSE, BLD (NON STRIP) Routine 01/30/2025 12:23 PM EST Type 2 diabetes mellitus with diabetic polyneuropathy, with long-term current use of insulin POCT GLYCOSYLATED HEMOGLOBIN (HGB A1C) Routine 01/30/2025 12:22 PM EST Type 2 diabetes mellitus with diabetic polyneuropathy, with long-term current use of insulin documented in this encounter Results * (ABNORMAL) POC Glucose, Blood (01/30/2025 12:23 PM EST) Glucose 307(A) 70 - 130 mg/dL Lot Number [id number] Expiration Date 02/12/2026 Blood 01/30/2025 12:2 3 PM EST Tc Sandoval MD POINT OF CARE TEST ORDERABLES Fi nal Result * (ABNORMAL) POC Glycosylated Hemoglobin (Hb A1C) (01/30/2025 12:22 PM EST) Hemoglobin A1C 8.4(A) 4.5 - 5.7 % [facility] Lot Number [id number] [facility] Expiration Date 08/11/2026 [facility] Blood 01/30/2025 12:2 2 PM EST Tc Sandoval MD POINT OF CARE TEST ORDERABLES Fi nal Result [facility]
[address] [place] [address], documented in this encounter Visit Diagnoses Diagnosis Type 2 diabetes mellitus with diabetic polyneuropathy, with long-term current use of insulin- Primary Cigarette smoker Tobacco use disorder Mixed hyperlipidemia Essential hypertension Unspecified essential hypertension Need for vaccination Need for prophylactic vaccination and inoculation against unspecified single disease documented in this encounter Additional Health Concerns Assessment Noted Time PHQ-2 Depression Total Score: 2 08/02/19 24 1:51 PM EDT documented as of this encounter Care Teams Embedded Systems Software Engineer Relationship Specialty Start Date End Date Tc Sandoval MD [address] [place] [address] PCP - General Internal Medicine 06/28/23 documented as of this encounter
--- NOTE | 2025-02-10 | CA_ITS ---
APPROVED REPORT Exam: Pharmacologic Technologist: Aida Delacruz Stress Nurse: Pau Garduno Ht: 6 ft 0 in Wt: 236 lbs BSA: 2.29 m2 Indications: Chest pain and pressure. Medical History Medications: Ammonium Lactate, Aspirin, Atorvastatin, Buspirone, Plavix, Jardiance, Lybalvi, Zetia, Flonase, Pantoprazole, gabapentin, HCTZ, Humulin, Levothyroxine, Losartan, Metoprolol Succinate ER, Naproxen, Nitroglycerin, Ozempic. Allergies: NKA Stress Test Details Test: Lexiscan Reason for pharmacologic stress test: physical limitation. HR Resting HR: 76 bpm Max Heart Rate (APMHR): 159.267480 bpm Max HR Achieved: 87 bpm Target HR (85% APMHR): 135.142950 bpm % of APMHR: 54.72 Recovery HR: 87 bpm BP Resting BP: 113.0/67.0 mmHg Max BP: 115.0/65.0 mmHg Recovery BP: 98.0/68.0 mmHg ECG Stress ECG Conclusion EKG nondiagnostic-Haydee. Electronically signed by : Inna Cain MD 02/13/2025 13:35:54
--- OUTSIDE RECORDS SUMMARY | 2025-02-10 12:21 | XMS_ITS | Clinical Summary ---
Author Organization Healthcare Address [address] [place] [address] Care Team Providers Care Jacker Name Role Phone Kvng Quintana MD Primary Care Provider [phone] Family History Medical History Relation Name Comments Throat cancer Brother Brain cancer Father Stroke Father Throat cancer Father Stomach cancer Mother Arthritis Other 1 Cardiac disorder Other 2 Diabetes Other 3 Hypertension Other 4 Hyperlipidemia Other 5 Breast cancer Sister Relation Name Status Comments Brother Father Mother Other 1 Other 2 Other 3 Other 4 Other 5 Sister Social History Tobacco Use Types Packs/Day Years Used Date Smoking Tobacco: Every Day Alcohol Use Standard Drinks/Week Comments Yes 0 (1 standard drink = 0.6 oz pur e alcohol) Sex and Gender Information Value Date Recorded Sex Assigned at Not on file Legal Sex Male 8:27 PM EDT Gender Identity Not on file Sexual Orientation Not on file Last Filed Vital Signs Vital Sign Reading Time Taken Comments Blood Pressure - - Pulse - - Temperature - - Respiratory Rate - - Oxygen Saturation - - Inhaled Oxygen Concentration - - Weight 92.5 kg (203 lb 14.8 oz) 01/11/2017 3:46 PM EST Height 182.9 cm (6') 11/24/2016 10:27 AM EDT Body Mass Index 27.66 11/24/2016 10:27 AM EDT Plan of Treatment Health Maintenance Due Date Last Done Comments [facility]-Depression Screening 1965 [facility]-/Child/Adol SDOH Screenings 1965 [facility]- SDOH Screenings 10/15/1981 [facility]-Adult SDOH Screenings 10/15/1981 [facility]-DTaP,Tdap,and Td Vaccine s (1 - Tdap) 05/04/1996 05/03/1996 CT Colonography 10/15/2008 Colonoscopy 10/15/2008 FIT-DNA 10/15/2008 FIT 10/15/2008 FOBT 10/15/2008 Sigmoidoscopy 10/15/2008 [facility]-Colorectal Cancer Screening 10/15/2008 [facility]-Pneumococcal Vaccine: 50 + Years (1 of 1 - PCV) 10/15/2013 [facility]-Zoster Vaccines (1 of 2) 10/15/2013 [id number] Vaccine (4 - season) 2024 01/31/2021, 06/05/2020, 05/08/2020 [facility]-Influenza Vaccine (#1) 10/27/202401/30, 01/31/2021 [facility]-RSV Vaccine: 60+ Years o r (1 - 1-dose 75+ series) 10/15/2038 HPV Vaccines (No Doses Required) Completed [facility]-HIB Vaccines Aged Out No longer e ligible based on patient's age to complete this topic [facility]-Hepatitis A Vaccines Aged Out No longer eligible based on patient's age to complete this topic [facility]-IPV Vaccines Aged Out No longer e ligible based on patient's age to complete this topic [facility]-Rotavirus Vaccines Aged Out No lo nger eligible based on patient's age to complete this topic Insurance MEDICAID [place] MEDICARE Care Teams Jacker Relationship Specialty Start Date End Date Kvng Quintana MD [address] [place] [address] PCP - General 07/09/20
--- OUTSIDE RECORDS SUMMARY | 2025-02-10 12:21 | XMS_ITS | Encounter Summary ---
[facility] Address [address] [place] [address] Care Team Providers Care Tower Cleaner Name Role Phone Tc Sandoval MD Primary Care Provider Reason for Visit * Reason Comments Med Refill Encounter Details Date Type Department Care Team ([facility] Contact Info) Description 12/24/2024 Refill [facility] [address] [place] [address] [place] [id number] Tc Sandoval MD [address] [place] [address] [place] [address] Gastroesophageal reflux disease without esophagitis Social History Tobacco Use Types Packs/Day Years Used Date Smoking Tobacco: Every Day Cigarettes 1.5 22 Started: 2003 Smokeless Tobacco: Never Alcohol Use Standard Drinks/Week Comments Not Currently 0 (1 standard drink = 0.6 oz pur e alcohol) social PHQ-2 Answer Date Recorded Patient Health Questionnaire-9 Score 5 07/31/2024 Sex and Gender Information Value Date Recorded Sex Assigned at Not on file Legal Sex Male 11:35 AM EDT Gender Identity Not on file Sexual Orientation Not on file documented as of this encounter Plan of Treatment Upcoming Encounters Date Type Department Care Team ([facility] Contact Info) Description 04/30/2025 11:00 AM EST Office Visit [facility] [address] [place] [address] [place] [phone] Tc Sandoval MD [address] [place] [address] [place] [address] documented as of this encounter Visit Diagnoses Diagnosis Gastroesophageal reflux disease without esophagitis Esophageal reflux documented in this encounter Additional Health Concerns Assessment Noted Time PHQ-2 Depression Total Score: 2 08/02/19 1:51 PM EDT documented as of this encounter Care Teams Tower Cleaner Relationship Specialty Start Date End Date Tc Sandoval MD [address] [place] [address] PCP - General Internal Medicine 06/28/23 documented as of this encounter
--- OUTSIDE RECORDS SUMMARY | 2025-02-10 12:21 | XMS_ITS | Encounter Summary ---
[facility] [address] [place] [address] Care Team Providers Care Lunch Wagon Operator Name Role Phone Tc Sandoval MD Primary Care Provider [phone] Encounter Details Date Type Department Care Team (Late Contact Info) Description 01/29/2025 Telephone [facility] [address] [place] [address] [place] [address] Tc Sandoval MD [address] [place] [address] [place] [address] Social History Tobacco Use Types Packs/Day Years [...] on file documented as of this encounter Miscellaneous Notes * Telephone Encounter - Minerva Montemayor RegSched Rep - 01/29/2025 1:57 PM EST HUB CAN READ & CONFIRM APPT. LEFT VM FOR PT TO CONFIRM APPT. documented in this encounter Plan of Treatment Upcoming Encounters Date Type Department Care Team (Late Contact Info) Description 04/30/2025 11:00 AM EST Office Visit [facility] [address] [place] [phone] Tc Sandoval MD [address] [place] [address] documented as of this encounter Visit Diagnoses Not on filedocumented in this encounter Additional Health Concerns Assessment Noted Time PHQ-2 Depression Total Score: 2 08/02/19 24 1:51 PM EDT documented as of this encounter Care Teams Lunch Wagon Operator Relationship Specialty Start Date End Date Tc Sandoval MD [address] [place] [address] PCP - General Internal Medicine 06/28/23 documented as of this encounter
--- OUTSIDE RECORDS SUMMARY | 2025-02-10 12:21 | XMS_ITS | Encounter Summary ---
Author Organization [facility] Address [address] [place] [address] Care Team Providers Care Evaluation Assistant Name Role Phone Tc Sandoval MD Primary Care Provider [phone] Encounter Details Date Type Department Care Team (Latest Contact Info) Description 01/30/2025 Travel Social History Tobacco Use Types Packs/Day Years [...] Description 04/30/2025 11:00 AM EST Office Visit [facility] [address] [place] [address] Tc Sandoval MD [address] [place] [address] documented as of this encounter Visit Diagnoses Not on filedocumented in this encounter Additional Health Concerns Assessment Noted Time PHQ-2 Depression Total Score: 2 08/02/19 24 1:51 PM EDT documented as of this encounter Care Teams Evaluation Assistant Relationship Specialty Start Date End Date Tc Sandoval MD [address] [place] [address] PCP - General Internal Medicine 5/2/24 documented as of this encounter
--- OUTSIDE RECORDS SUMMARY | 2025-02-10 12:21 | XMS_ITS | Clinical Summary ---
[facility] Address [address] [place] [address] Care Team Providers Care Fish Hatchery Assistant Name Role Phone Tc Sandoval MD Primary Care Provider [phone] Allergies No known active allergies Medications Brexpiprazole 2 MG tablet Take 1 tablet by mouth Daily. Active Continuous Glucose Senior Firmware Engineer (Dexcom G7 Senior Firmware Engineer) device 1 Device by Other route Every 14 (Fourteen) Days. Active hydroCHLOROthiazi de 25 MG tablet Take 1 tablet by mouth Daily. Active BD Pen Needle Amada 2nd Gen 32G X 4 MM misc Active losartan (COZAAR) 50 MG tablet Take 1 tablet by mouth 2 (Two) Times a Day. Active aspirin 81 MG EC tablet Take 1 tablet by mouth Daily. Active Lybalvi 5-10 MG tablet Take 1 tablet by mouth every night at bedtime. Active Insulin Syringe 31G X 5/16 1 ML misc USE TO INJECT TWICE DAILY DIRECTED 100 each 3 Active nicotine (Nicoderm CQ) 21 MG/24HR patchIndications: Cigarette smoker Place 1 patch on the skin as directed by provider Daily. Start with 21 mcg dosing 30 patch Active nicotine (Nicoderm CQ) 14 MG/24HR patchIndications: Cigarette smoker Place 1 patch on the skin as directed by provider Daily. 14 mcg dosing follows the 21 mcg dosing 30 patch Active nicotine (Nicoderm CQ) 7 MG/24HR patchIndications: Cigarette smoker Place 1 patch on the skin as directed by provider Daily. 7 mcg dosing follows the 14 mcg dosing 30 patch 4 024 Active busPIRone (BUSPAR) 15 MG tabletIndications :Anxiety and depression Take 1 tablet by mouth 2 (Two) Times a Day. 180 tablet 1 Active Continuous Glucose Sensor (Dexcom G7 Sensor) misc USE DIRECTED CHANGING EVERY 10 DAYS 3 each 3 025 Active cetirizine (zyrTEC) 10 MG tabletIndications :Seasonal allergic rhinitis due to pollen Take 1 tablet by mouth Daily. 30 tablet 3 025 Active fluticasone (FLONASE) 50 MCG/ACT nasal sprayIndications: Seasonal allergic rhinitis due to pollen Administer 2 sprays into the nostril(s) as directed by provider Daily. 15.8 g 3 025 Active ezetimibe (Zetia) 10 MG tabletIndications :Mixed hyperlipidemia Take 1 tablet by mouth Daily. 90 tablet 1 025 Active HumuLIN 70/30 (70-30) 100 UNIT/ML injectionIndicati ons:Type 2 diabetes mellitus with diabetic polyneuropathy, with long-term current use of insulin Inject 75 Units under the skin into the appropriate area as directed 2 (Two) Times a Day With Meals. 50 mL 2 025 Active Jardiance 25 MG tablet tabletIndications :Type 2 diabetes mellitus with diabetic polyneuropathy, with long-term current use of insulin TAKE 1 TABLET BY MOUTH DAILY 90 tablet 1 025 Active clopidogrel (PLAVIX) 75 MG tablet TAKE 1 TABLET BY MOUTH DAILY 90 tablet 1 025 Active naproxen (NAPROSYN) 375 MG tabletIndications :Chronic bilateral low back pain with left-sided sciatica TAKE 1 TABLET BY MOUTH TWICE DAILY NEEDED FOR MILD PAIN OR MODERATE PAIN 60 tablet 2 025 Active metoprolol succinate XL (TOPROL-XL) 100 MG 24 hr tabletIndications :Essential hypertension TAKE 1 TABLET BY MOUTH TWICE DAILY 90 tablet 1 025 Active pantoprazole (PROTONIX) 40 MG EC tabletIndications :Gastroesophageal reflux disease without esophagitis TAKE 1 TABLET BY MOUTH DAILY 90 tablet 1 025 Active gabapentin (NEURONTIN) 800 MG tabletIndications :Type 2 diabetes mellitus with diabetic polyneuropathy, with long-term current use of insulin TAKE 1 TABLET BY MOUTH THREE TIMES DAILY 90 tablet 1 025 Active Semaglutide, 2 MG/DOSE, (Ozempic, 2 MG/DOSE,) 8 MG/3ML solution pen-injectorIndic ations:Type 2 diabetes mellitus with diabetic polyneuropathy, with long-term current use of insulin Inject 2 mg under the skin into the appropriate area as directed 1 (One) Time Per Week. 3 mL 3 025 Active atorvastatin (LIPITOR) 80 MG tabletIndications :Mixed hyperlipidemia TAKE 1 TABLET BY MOUTH DAILY 90 tablet 1 Active levothyroxine (SYNTHROID, LEVOTHROID) 50 MCG tabletIndications :Acquired hypothyroidism TAKE 1 TABLET BY MOUTH DAILY 90 tablet 1 025 Active atorvastatin (LIPITOR) 80 MG tabletIndications :Mixed hyperlipidemia Take 1 tablet by mouth Daily. 90 tablet 1 025 2024 Discontinued levothyroxine (SYNTHROID, LEVOTHROID) 50 MCG tabletIndications :Acquired hypothyroidism TAKE 1 TABLET BY MOUTH DAILY 90 tablet 1 025 2024 Discontinued Semaglutide, 1 MG/DOSE, (Ozempic, 1 MG/DOSE,) 4 MG/3ML solution pen-injectorIndic ations:Type 2 diabetes mellitus with diabetic polyneuropathy, with long-term current use of insulin Inject 1 mg under the skin into the appropriate area as directed 1 (One) Time Per Week. 3 mL 025 2024 Discontinued Active Problems Problem Noted Date Diagnosed Date Seasonal allergic rhinitis due to pollen Assessment & Plan (07/31/2024 3:33 PM EDT): Diagnosed 07/31/2024, pattern of seasonal allergies more spring and fall flaring up fairly notably at this time. Initiate cetirizine 10 mg daily, Flonase 2 sprays per nostril daily to use both daily for the next few weeks, then as needed. We could consider adding montelukast in the future for any breakthrough symptoms. Additional benefit of saline spray, nasal flushing. Advised if not improving. Orders: cetirizine (zyrTEC) 10 MG tablet; Take 1 tablet by mouth Daily. fluticasone (FLONASE) 50 MCG/ACT nasal spray; Administer 2 sprays into the nostril(s) as directed by provider Daily. Chronic bilateral low back pain with left-sided sciatica 05/01/2024 Assessment & Plan (07/31/2024 3:33 PM EDT): Discussed 05/01/2024, describes a longstanding pattern of back pain over 10 years after he injured it while trying to lift something. He describes in the past having multiple investigations including imaging, something probably MRI investigations but never required surgery. He was referred to [facility] pain clinic. Multiple injection therapies that was reported as not significant beneficial. Has been a couple years as best he knows. It started to flareup a bit more with pain in the lower back, sometimes he gets a little bit of shooting pain down his left leg, never weakness, never bowel or bladder incontinence. X-ray imaging at [facility] April 2024 negative for acute process was just some chronic [id number] pattern, recommended therapy which she has declined. As such advised if he wants to pursue the future, and if he were to then fail physical therapy we would consider MRI imaging of the lumbar spine and/or possibly specialist referral. Additionally has naproxen 375 mg twice daily as needed to be used for anti-inflammatory benefit. Additional benefit heating pad, light stretching. Advise concerns Assessment & Plan (05/01/2024 1:35 PM EST): Newly discussed 05/01/2024, describes a longstanding pattern of back pain over 10 years after he injured it while trying to lift something. He describes in the past having multiple investigations including imaging, something probably MRI investigations but never required surgery. He has most recently referred to [facility] pain clinic. Multiple injection therapies that was reported as not significant beneficial. Has been a couple years as best he knows. It started to flareup a bit more with pain in the lower back, sometimes he gets a little bit of shooting pain down his left leg, never weakness, never bowel or bladder incontinence. Initiate x-ray imaging of the lumbar spine through [facility] and if no acute process would then plan to pursue physical therapy to evaluate and treat this is for many years. Reassess at follow-up if persisting at that time we could consider MRI imaging of the lumbar spine and/or possibly specialist referral. I have also added naproxen 375 mg twice daily as needed to be used for anti-inflammatory benefit. Additional benefit heating pad, light stretching. Advise concerns Type 2 diabetes mellitus wit h diabetic polyneuropathy, with long-term current use of insulin 06/28/2023 Assessment & Plan (01/30/2025 12:17 PM EST): Longstanding diagnosis, patient cannot remember how long. [...] at 0.25 mg dosing 80s tolerated, and we increased on 07/31/2024 to 0.5 mg weekly and again 1 mg on 10/31/2024 with good toleration. As such we will adjust upwards to 2 mg weekly Ozempic on 01/30/2025. Continue portance of improving dietary intake that has been recently slackened. Monitor glucose regularly, recommend feet checked daily, eye check at least yearly. Reassess at 3-month follow-up visit. Assessment & Plan (10/31/2024 3:10 PM EDT): Longstanding diagnosis, patient cannot remember how long. Associated diabetic neuropathy on gabapentin 800 mg 3 times daily of which he tolerates without sedation, continue unchanged. Hemoglobin A1c slightly improved today to 7.7% on 10/31/2024, previous 07/31/2024 at 8.5%, compared to previous 8.6% 8.4%, 9.6%, with some worsening in diet, prior to that 8.0 on 06/28/2023, a few months prior to that due to that at 7.1. Current regimen of Humulin 70/30 insulin 70 units twice daily, increase to 75 units twice daily on 11/01/2019. Potentially previous Ozempic 0.5 mg causing diarrhea, resumed with additional fiber and probiotic as of 05/01/2024 at 0.25 mg dosing 80s tolerated, and we increased on 07/31/2024 to 0.5 mg weekly as tolerated, as such is agreeable to trying back at Ozempic 1 mg weekly, caution diarrhea. Continue Jardiance 25 mg daily. Monitor glucose regularly, recommend feet checked daily, eye check at least yearly. Reassess at 3-month follow-up visit. Assessment & Plan (07/31/2024 3:33 PM EDT): Longstanding diagnosis, patient cannot remember how long. Associated diabetic neuropathy on gabapentin 800 mg 3 times daily of which he tolerates without sedation, continue unchanged. Hemoglobin A1c slightly improved today 07/31/2024 at 8.5%, compared to previous 8.6% 8.4%, 9.6%, with some worsening in diet, prior to that 8.0 on 06/28/2023, a few months prior to that due to that at 7.1. Current regimen of Humulin 70/30 insulin 65 units twice daily, increase to 70 units twice daily on 05/01/2024, some persisting elevations increase to 75 units twice daily today on 07/31/2024. Also as the Ozempic 0.5 mg causing diarrhea, resumed with additional fiber and probiotic as of 05/01/2024 at 0.25 mg dosing 80s tolerated, we will increase now to 0.5 mg weekly of Ozempic on 07/31/2024 and titrate further as tolerated in the future. Continue Jardiance 25 mg daily. Monitor glucose regularly, recommend feet checked daily, eye check at least yearly. Reassess at 3-month follow-up visit. Orders: POC Glycosylated Hemoglobin (Hb A1C) POC Glucose, Blood Microalbumin / Creatinine Urine Ratio - Urine, Clean Catch; Future Semaglutide,0.25 or 0.5MG/DOS, (Ozempic, 0.25 or 0.5 MG/DOSE,) 2 MG/1.5ML solution pen-injector; Inject 0.5 mg under the skin into the appropriate area as directed 1 (One) Time Per Week. HumuLIN 70/30 (70-30) 100 UNIT/ML injection; Inject 75 Units under the skin into the appropriate area as directed 2 (Two) Times a Day With Meals. Assessment & Plan (05/01/2024 1:44 PM EST): Longstanding diagnosis, patient cannot remember how long. Associated diabetic neuropathy on gabapentin 800 mg 3 times daily of which he tolerates without sedation, continue unchanged. Hemoglobin A1c slightly increased 8.6% compared to previous 8.4%, 9.6%, with some worsening in diet, prior to that 8.0 on 06/28/2023, a few months prior to that due to that at 7.1. Since last visit he tried Ozempic but it caused some diarrhea that he stopped. At 0.5 mg weekly current regimen of Humulin 70/30 insulin 65 units twice daily, increase to 70 units twice daily on 05/01/2024. Also as the Ozempic 0.5 mg causing diarrhea I would like to have him try adding fiber probiotic for couple weeks before resuming at 0.25 mg dosing to see if he can tolerate even the low level as this could notably benefits his sugars. He is willing to try. Additionally continue Jardiance 25 mg daily. Monitor glucose regularly, recommend feet checked daily, eye check at least yearly. Reassess at 3-month follow-up visit. Assessment & Plan (02/01/2024 1:47 PM EST): Longstanding diagnosis, patient cannot remember how long. Associated diabetic neuropathy on gabapentin 800 mg 3 times daily of which he tolerates without sedation, continue unchanged. Hemoglobin A1c 0.4% compared to previous 9.6%, with some worsening in diet, prior to that 8.0 on 06/28/2023, a few months prior to that due to that at 7.1. Current regimen of Humulin 70/30 insulin 60 units twice daily, increase to 65 units twice daily on 08/02/2023. Ozempic 0.25 mg weekly was tolerated but he stopped after the month, we will resume at 0.5 mg dosing as he tolerated well. Titrate further in the future as tolerated. Additionally continue Jardiance 25 mg daily. Monitor glucose regularly, recommend feet checked daily, eye check at least yearly. Reassess at 3-month follow-up visit. Assessment & Plan (11/02/2023 1:38 PM EDT): Longstanding diagnosis, patient cannot remember how long. Associated diabetic neuropathy on gabapentin 800 mg 3 times daily of which he tolerates without sedation, continue unchanged. Hemoglobin A1c modestly worsened 9.6%, with some worsening in diet, although taking his other medicine as prescribed. Previously mildly elevated 8.0 on 06/28/2023, a few months prior to that due to that at 7.1. Current regimen of Humulin 70/30 insulin 59 units twice daily, increase to 60 units twice daily on 08/02/2023. With this adjustment we will add Ozempic 0.25 mg weekly, titrate up monthly as tolerated. For now we will continue the insulin unchanged at 60 units twice daily and Jardiance 25 mg daily. Monitor glucose regularly, recommend feet checked daily, eye check at least yearly. Reassess at 3-month follow-up visit. Assessment & Plan (08/24/2023 2:35 PM EDT): In context of shakes that he was having at the ER, consideration could have been hypoglycemia, but his glucose and CMP was good and his sugars have generally been in good range on his regimen of medicine. Continue Humulin 70/30 insulin 59 units twice daily, and continue Jardiance 25 mg daily. Continue monitoring glucose, advise concerns. Assessment & Plan (08/02/2023 2:35 PM EDT): Longstanding diagnosis, patient cannot remember how long. Associated diabetic neuropathy on gabapentin 800 mg 3 times daily of which he tolerates without sedation, continue unchanged. Hemoglobin A1c 06/28/2023. Mildly elevated 8.0, although he reports when checked a few months ago it was better at 7.1. Current regimen of Humulin 70/30 insulin 59 units twice daily, increase to 60 units twice daily on 08/02/2023. He has reported previous attempt at Ozempic but cost limited his ability to use, we might retry in the future. On the last month 06/28/2023 we added Jardiance 10 mg daily for comorbid renal and cardiovascular benefit, and he is tolerated we will titrate up to 25 mg dosing today on 08/02/2023. Monitor glucose regularly, recommend feet checked daily, eye check at least yearly. Advise concerns. Assessment & Plan (06/28/2023 5:10 PM EDT): Longstanding diagnosis, patient cannot remember how long. Associated diabetic neuropathy on gabapentin 800 mg 3 times daily of which he tolerates without sedation. Hemoglobin A1c today mildly elevated 8.0, although he reports when checked a few months ago it was better at 7.1. Current regimen of Humulin 70/30 insulin 59 units twice daily. He has reported previous attempt at Ozempic but cost limited his ability to use, we might retry in the future for now we will pursue Jardiance 10 mg daily for comorbid renal and cardiovascular benefit in a patient with multiple medical comorbidities. Monitor glucose regularly, recommend feet checked daily, eye check at least yearly. Advise concerns. Need for vaccination 06/28/2023 Assessment & Plan (06/28/2023 5:10 PM EDT): No recent Tdap and pneumococcal 20 valent vaccine, provided today 06/28/2023, ABN completed. Patient notably benefits pneumococcal 20 valent vaccine with multiple diagnoses including diabetes, coronary artery disease, smoking history. Anxiety and depression 06/28/2023 Assessment & Plan (07/31/2024 3:33 PM EDT): Longstanding diagnosis of anxiety and depressive symptoms, for which he has been on Xanax for about 15 years through previous provider, although it sounds like he was never attempted on other maintenance medications such as SSRIs, SNRIs, etc. In the last couple years he has been seen by psychiatry, Solange Eid at [facility] who has tried a few different medicines, he does not remove the details but she recently has placed him on brexpiprazole 2 mg daily as of spring 2023 with what he believes to be benefit. At initial visit I described I do not prescribe benzodiazepines chronically and he was agreeable to weaning and has completed as of approximately mid July 2023. We added buspirone 7.5 mg twice daily with modest benefit and increase to buspirone 15 mg twice daily as a visit 08/02/2023 with ongoing benefit. As a visit August 2023 with Solange Eid, transition to Lybalvi 5-10 daily which he has seen benefit, but has seen some modest breakthrough symptoms with some stressors in life including the health of his brother, he has a pending appoint with her in July 2024 will discuss potential medication adjustment. Keep regular follow-up with psychiatry. Assessment & Plan (02/01/2024 1:42 PM EST): Longstanding diagnosis of anxiety and depressive symptoms, for which he has been on Xanax for about 15 years through previous provider, although it sounds like he was never attempted on other maintenance medications such as SSRIs, SNRIs, etc. In the last couple years he has been seen by psychiatry, Solange Eid at [facility] who has tried a few different medicines, he does not remove the details but she recently has placed him on brexpiprazole 2 mg daily as of spring 2023 with what he believes to be benefit. At initial visit I described I do not prescribe benzodiazepines chronically and he was agreeable to weaning and has completed as of approximately mid July 2023. We added buspirone 7.5 mg twice daily with modest benefit and increase to buspirone 15 mg twice daily as a visit 08/02/2023 with ongoing benefit. As a visit August 2023 with Solange Eid, transition to Lybalvi 5-10 daily which he has seen benefit. Keep regular follow-up with psychiatry. Assessment & Plan (11/02/2023 1:34 PM EDT): Longstanding diagnosis of anxiety and depressive symptoms, for which he has been on Xanax for about 15 years through previous provider, although it sounds like he was never attempted on other maintenance medications such as SSRIs, SNRIs, etc. In the last couple years he has been seen by psychiatry, Solange Eid at [facility] who has tried a few different medicines, he does not remove the details but she recently has placed him on brexpiprazole 2 mg daily as of spring 2023 with what he believes to be benefit. At initial visit I described I do not prescribe benzodiazepines chronically and he was agreeable to weaning and has completed as of approximately mid July 2023. We added buspirone 7.5 mg twice daily with modest benefit and increase to buspirone 15 mg twice daily as a visit 08/02/2023 with ongoing benefit. As a visit August 2023 with Solange Eid, transition to Lybalvi 5-10 daily which he has seen benefit. Keep regular follow-up with psychiatry. Assessment & Plan (08/24/2023 2:34 PM EDT): Longstanding diagnosis of anxiety and depressive symptoms, for which he has been on Xanax for about 15 years through previous provider, although it sounds like he was never attempted on other maintenance medications such as SSRIs, SNRIs, etc. In the last couple years he has been seen by psychiatry, Solange Eid at [facility] who has tried a few different medicines, he does not remove the details but she recently has placed him on brexpiprazole 2 mg daily as of spring 2023 with what he believes to be benefit. At initial visit I described I do not prescribe benzodiazepines chronically and he was agreeable to weaning and has completed as of approximately mid July 2023. We added buspirone 7.5 mg twice daily with modest benefit and increase to buspirone 15 mg twice daily as a visit 08/02/2023 with ongoing benefit. Despite discontinue Xanax he still feels he is stable with his mood medication. He has an upcoming psychiatry appointment in August 2023 with Solange Eid. Of note if he decided he wanted to pursue alprazolam again, that would need to be done through psychiatry. No SI/HI. Continue lifestyle modifications benefit mood. Of note, patient seen 08/24/2023 as ER follow-up for he had shakes and some jitteriness , what appears to be 2 to 3 days after having fully discontinue the Xanax at 0.5 mg dose and was only doing once daily, which has resolved now few days later. It is possible he is having a little residual anxiety from weaning off the medicine, but this was not have been consistent with withdrawal. He is doing well at this time and no further treatment necessary. Assessment & Plan (08/02/2023 2:24 PM EDT): Longstanding diagnosis of anxiety and depressive symptoms, for which he has been on Xanax for about 15 years through previous provider, although it sounds like he was never attempted on other maintenance medications such as SSRIs, SNRIs, etc. In the last couple years he has been seen by psychiatry, Solange Eid at [facility] who has tried a few different medicines, he does not remove the details but she recently has placed him on brexpiprazole 2 mg daily as of spring 2023 with what he believes to be benefit. At initial visit I described I do not prescribe benzodiazepines chronically and he is agreeable to weaning and has done so, he is now not taking any regularity and seems to be doing still similarly with addition of buspirone 7.5 mg twice daily. He would be interested in increasing dosing, such we will increase to buspirone 15 mg twice daily in anticipation of his upcoming psychiatry appointment in August 2023 with Solange Eid. Of note if he decided he wanted to pursue alprazolam again, that would need to be done through psychiatry. No SI/HI. Continue lifestyle modifications benefit mood. Assessment & Plan (06/28/2023 5:05 PM EDT): Longstanding diagnosis of anxiety and depressive symptoms, for which he has been on Xanax for about 15 years through previous provider, although it sounds like he was never attempted on other maintenance medications such as SSRIs, SNRIs, etc. In the last couple years he has been seen by psychiatry, Solange Eid at [facility] who has tried a few different medicines, he does not remove the details but she recently has placed him on brexpiprazole 2 mg daily. I did discuss that I do not prescribe benzodiazepines chronically but he is agreeable to weaning off these as he is discussed this preference previous with his prior provider. I will add buspirone 7.5 mg twice daily to help benefit some angiolytic effect that would be lost with discontinuation of the alprazolam, although ultimately further management of the buspirone could be through Solange Eid. Plan is for current Xanax 1 mg twice daily to decrease to half tablet twice daily for 10 days, then half tablet at nighttime for 10 days, then to as needed use. If he is having some trouble fully discontinuing, he can continue to half tablet at nighttime until I follow-up in 1 month's time we might have to consider decreasing to lower dosing such as alprazolam 0.25 mg for a longer duration. I discussed if he ultimately wants to continue staying on this medicine this would be managed through his psychiatrist, but it sounds as though she appropriately has a preference not to use benzodiazepines long-term either. No SI/HI. Continue lifestyle modifications benefit mood. Coronary artery disease invo lving [place] coronary artery of [place] heart without angina pectoris 06/28/2023 Assessment & Plan (07/31/2024 3:33 PM EDT): Patient managed since about 2017 by world geography teacher, Dr. Stewart at [facility]. History of previous myocardial infarctions, and multiple stents placed over the years, every few years he seems to have a new stent placed. Currently no chest pain or exertional limitations, with regular follow-up with Dr. Stewart with pending appointment for 08/04/2024. Continue on appropriate risk reducing medications including atorvastatin 80 mg daily, losartan 50 mg daily, metoprolol XL 100 mg daily. Additionally I I added Jardiance and titrated to 25 mg dose as of 08/02/2023 which provides further cardiovascular benefit. Additionally continue aspirin 81 mg daily and Plavix 75 mg daily. I did obtain EKG 08/02/[address] and T wave changes but no acute process, none to compare previous. No new concerns with chest pain palpitations shortness of breath as of 07/31/2024. Keep follow-up visit with cardiology Assessment & Plan (05/01/2024 1:38 PM EST): Patient managed since about 2017 by world geography teacher, Dr. Stewart at [facility]. 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 Currently no chest pain or exertional limitations, with regular follow-up with Dr. Stewart with pending appointment for July 2023. I have requested that when he goes to Dr. Stewart his next appointment to have him transition to sending records to my office. Continue on appropriate risk reducing medications including atorvastatin 80 mg daily, losartan 50 mg daily, metoprolol XL 100 mg daily. Additionally I I have added Jardiance and titrated to 25 mg dose as of 08/02/2023 which provides further cardiovascular benefit. Additionally continue aspirin 81 mg daily and Plavix 75 mg daily. I did obtain EKG 08/02/[address] and T wave changes but no acute process, none to compare previous. Keep follow-up with cardiology, with reported pending appointment for June 2024, do request him to have them send his records. No new concerns as of 05/01/2024. Assessment & Plan (02/01/2024 1:44 PM EST): Patient managed since about 2017 by world geography teacher, Dr. Stewart at [facility]. 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 Currently no chest pain or exertional limitations, with regular follow-up with Dr. Stewart with pending appointment for July 2023. I have requested that when he goes to Dr. Stewart his next appointment to have him transition to sending records to my office. Continue on appropriate risk reducing medications including atorvastatin 80 mg daily, losartan 50 mg daily, metoprolol XL 100 mg daily. Additionally I I have added Jardiance and titrated to 25 mg dose as of 08/02/2023 which provides further cardiovascular benefit. Additionally continue aspirin 81 mg daily and Plavix 75 mg daily. I did obtain EKG 08/02/[address] and T wave changes but no acute process, none to compare previous. Keep follow-up with cardiology. No new concerns as of 02/01/2024. Assessment & Plan (08/02/2023 2:27 PM EDT): Patient has been manage since about 2017 by world geography teacher, Dr. Stewart at [facility]. 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 Currently no chest pain or exertional limitations, with regular follow-up with Dr. Stewart with pending appointment for July 2023. I have requested that when he goes to Dr. Stewart his next appointment to have him transition to sending records to my office. Continue on appropriate risk reducing medications including atorvastatin 80 mg daily, losartan 50 mg daily, metoprolol XL 100 mg daily. Additionally I I have added Jardiance and titrated to 25 mg dose as of 08/02/2023 which provides further cardiovascular benefit. Additionally continue aspirin 81 mg daily and Plavix 75 mg daily. I did obtain EKG 08/02/[address] and T wave changes but no acute process, none to compare previous. Keep follow-up with cardiology. Assessment & Plan (06/28/2023 5:08 PM EDT): I do not have specific details but he has been managed since about 2018 by world geography teacher, Dr. Stewart at [facility]. 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 Currently no chest pain or exertional limitations, with regular follow-up with Dr. Stewart with pending appointment for July 2023. I would request that when he goes to Dr. Stewart his next appointment to have him transition to sending records to my office. Continue on appropriate risk reducing medications including atorvastatin 80 mg daily, losartan 50 mg daily, metoprolol XL 100 mg daily. Additionally I am going to add Jardiance which has cardiovascular benefit. Additionally continue aspirin 81 mg daily and Plavix 75 mg daily. Keep follow-up with cardiology. Essential hypertension 06/28/2023 Assessment & Plan (01/30/2025 12:15 PM EST): Comorbid with coronary artery disease, with EKG [...] cuff. No new concerns as of 01/30/2025 Assessment & Plan (10/31/2024 3:10 PM EDT): Comorbid with coronary artery disease, with EKG [...] a cuff. No new concerns as of 10/31/2024. Assessment & Plan (07/31/2024 3:33 PM EDT): Comorbid with coronary artery disease, with EKG [...] a cuff. No new concerns as of 07/31/2024. Assessment & Plan (05/01/2024 1:43 PM EST): Comorbid with coronary artery disease, with EKG [...] a cuff. No new concerns as of 05/01/2024. Assessment & Plan (02/01/2024 1:44 PM EST): Comorbid with coronary artery disease, with EKG 08/02/[address]-T wave changes but no acute process, overall nonconcerning with none to compare. Patient on regimen of HCTZ 25 mg daily, losartan 50 mg daily, metoprolol XL 100 mg daily with good control of blood pressure. Continue healthy diet, exercise, benefits of weight loss. Monitor blood pressure regularly. Patient is to check blood pressure more often at home, but he does not have a cuff. Assessment & Plan (11/02/2023 1:35 PM EDT): Comorbid with coronary artery disease, with EKG 08/02/[address]-T wave changes but no acute process, overall nonconcerning with none to compare. Patient on regimen of HCTZ 25 mg daily, losartan 50 mg daily, metoprolol XL 100 mg daily with good control of blood pressure. Continue healthy diet, exercise, benefits of weight loss. Monitor blood pressure regularly. Assessment & Plan (08/02/2023 2:34 PM EDT): Comorbid with coronary artery disease, with EKG 08/02/[address]-T wave changes but no acute process, overall nonconcerning with none to compare. Patient on regimen of HCTZ 25 mg daily, losartan 50 mg daily, metoprolol XL 100 mg daily with good control of blood pressure. Continue healthy diet, exercise, benefits of weight loss. Monitor blood pressure regularly. Assessment & Plan (06/28/2023 5:08 PM EDT): Comorbid with coronary artery disease, on regimen of HCTZ 25 mg daily, losartan 50 mg daily, metoprolol XL 100 mg daily with good control of blood pressure. Continue healthy diet, exercise, benefits of weight loss. Monitor blood pressure regularly. Mixed hyperlipidemia 06/28/2023 Assessment & Plan (01/30/2025 12:15 PM EST): Comorbid wiyh coronary artery disease on appropriate high-dose atorvastatin 80 mg daily as manage additionally through Dr. Stewart, his world geography teacher. Cholesterol profile 10/31/2024 after addition of Zetia with total cholesterol 140, triglycerides 119, HDL 38 and LDL 80. Improved compared to 07/31/2024 with total cholesterol 214, triglycerides 123, HDL 51 [...] loss. Recheck cholesterol with yearly blood work Assessment & Plan (10/31/2024 3:11 PM EDT): Comorbid benigno coronary artery disease on appropriate high-dose atorvastatin 80 mg daily as manage additionally through Dr. Stewart, his world geography teacher. Cholesterol profile 07/31/2024 with total cholesterol 214, triglycerides 123, HDL 51 and LDL 141. Comparison 08/02/2023 with total cholesterol 291, triglycerides 241, HDL 39, LDL 120. Current atorvastatin 80 mg daily, may be added Zetia 10 mg daily on 07/31/2024 and will recheck CMP and lipid panel today. Previous use of Repatha did benefit well, but he had cost issues, as such we could consider similar or comparable cholesterol medicine in the future, if persist elevation based on his coronary artery disease history. Continue healthy diet, exercise, benefits of weight loss. Reassess at follow-up visit, sooner as needed Assessment & Plan (07/31/2024 3:33 PM EDT): Comorbid benigno coronary artery disease on appropriate high-dose atorvastatin 80 mg daily as manage additionally through Dr. Stewart, his world geography teacher. Cholesterol profile 08/02/2023 with total cholesterol 291, triglycerides 241, HDL 39, LDL 120. Continue atorvastatin 80 mg daily. Continue healthy diet, exercise, benefits of weight loss. Recheck cholesterol panel with blood work 07/31/2024, management per results. Orders: Comprehensive Metabolic Panel; Future Lipid Panel; Future Assessment & Plan (05/01/2024 1:43 PM EST): Comorbid coronary artery disease on appropriate high-dose atorvastatin 80 mg daily as manage additionally through Dr. Stewart, his world geography teacher. Cholesterol profile 07/2023 with total cholesterol 291, triglycerides 241, HDL 39, LDL 120. Continue atorvastatin 80 mg daily. Continue healthy diet, exercise, benefits of weight loss. No new concerns as of 05/01/2024. Assessment & Plan (02/01/2024 1:45 PM EST): Comorbid coronary artery disease on appropriate high-dose atorvastatin 80 mg daily as manage additionally through Dr. Stewart, his world geography teacher. Cholesterol profile 07/2023 with total cholesterol 291, triglycerides 241, HDL 39, LDL 120. Continue atorvastatin 80 mg daily. Continue healthy diet, exercise, benefits of weight loss. No new concerns as of 02/01/2024. Assessment & Plan (11/02/2023 1:36 PM EDT): Comorbid coronary artery disease on appropriate high-dose atorvastatin 80 mg daily as manage additionally through Dr. Stewart, his world geography teacher. Cholesterol profile 07/2023 with total cholesterol 291, triglycerides 241, HDL 39, LDL 120. Continue atorvastatin 80 mg daily. Continue healthy diet, exercise, benefits of weight loss. Assessment & Plan (08/02/2023 2:34 PM EDT): Comorbid coronary artery disease on appropriate high-dose atorvastatin 80 mg daily as manage additionally through Dr. Stewart, his world geography teacher. I do not have recent cholesterol profile but I will obtain with blood work obtained 08/02/2023, management per results. Continue healthy diet, exercise, benefits of weight loss. Assessment & Plan (06/28/2023 5:09 PM EDT): Comorbid coronary artery disease on appropriate high-dose atorvastatin 80 mg daily as manage additionally through Dr. Stewart, his world geography teacher. I do not have recent cholesterol profile but I will plan to obtain at follow-up visit in 1 month's time. Continue healthy diet, exercise, benefits of weight loss. Acquired hypothyroidism 06/28/2023 Assessment & Plan (10/31/2024 3:06 PM EDT): Longstanding diagnosis as per the patient although I do not have previous records to verify details. Currently on levothyroxine 50 mcg daily. Patient feels euthyroid with no hyperthyroidism or hypothyroidism type symptoms. 08/02/2023 blood work reassuring with TSH normal at 1.060 and free T4 normal at 1.48. Continue levothyroxine 50 mcg daily unchanged. Recheck TSH and free T4 with blood work 07/31/2024 in good range with TSH 1.670 and free T41.31. Continue unchanged Assessment & Plan (07/31/2024 3:33 PM EDT): Longstanding diagnosis as per the patient although I do not have previous records to verify details. Currently on levothyroxine 50 mcg daily. Patient feels euthyroid with no hyperthyroidism or hypothyroidism type symptoms. 08/02/2023 blood work reassuring with TSH normal at 1.060 and free T4 normal at 1.48. Continue levothyroxine 50 mcg daily unchanged. Recheck TSH and free T4 with blood work 07/31/2024, management per results. Orders: TSH; Future T4, Free; Future Assessment & Plan (02/01/2024 1:42 PM EST): Longstanding diagnosis as per the patient although I do not have previous records to verify details. Currently on levothyroxine 50 mcg daily. Patient feels euthyroid with no hyperthyroidism or hypothyroidism type symptoms. 08/02/2023 blood work reassuring with TSH normal at 1.060 and free T4 normal at 1.48. Continue levothyroxine 50 mcg daily unchanged, monitor at minimum yearly. Assessment & Plan (11/02/2023 1:33 PM EDT): Longstanding diagnosis as per the patient although I do not have previous records to verify details. Currently on levothyroxine 50 mcg daily. Patient feels euthyroid with no hyperthyroidism or hypothyroidism type symptoms. Continue dose unchanged currently. 08/02/2023 blood work reassuring with TSH normal at 1.060 and free T4 normal at 1.48. Continue levothyroxine 50 mcg daily unchanged, monitor at minimum yearly. Assessment & Plan (08/24/2023 2:31 PM EDT): Longstanding diagnosis as per the patient although I do not have previous records to verify details. Currently on levothyroxine 50 mcg daily. Patient feels euthyroid with no hyperthyroidism or hypothyroidism type symptoms. Continue dose unchanged currently. 08/02/2023 blood work reassuring with TSH normal at 1.060 and free T4 normal at 1.48. Continue levothyroxine 50 mcg daily unchanged, monitor at minimum yearly. Assessment & Plan (08/02/2023 2:22 PM EDT): Longstanding diagnosis as per the patient although I do not have previous records to verify details. Currently on levothyroxine 50 mcg daily. Patient feels euthyroid with no hyperthyroidism or hypothyroidism type symptoms. Continue dose unchanged currently. Recheck TSH and free T4 with blood work today 08/02/2023. Management per results. Assessment & Plan (06/28/2023 5:03 PM EDT): Longstanding diagnosis as per the patient although I do not have previous records to verify details. Currently on levothyroxine 50 mcg daily. Patient feels euthyroid with no hyperthyroidism or hypothyroidism type symptoms. Continue dose unchanged currently. Plan to check TSH and free T4 when he has blood work done at his follow-up visit in 1 month time with complete physical. Cigarette smoker 06/28/2023 Assessment & Plan (01/30/2025 12:15 PM EST): Smoker at about 1.5 packs/day for 20 years, currently at about 1/3 packs/day, patient not ready to quit but discussed again consideration of nicotine patches or Chantix potentially help with cessation. Previous attempted Chantix caused him to feel funny. He understands longstanding risk of ongoing smoking, not interested in medicine at this time. Low-dose CT of the chest from 08/07/2023 reassuring with yearly repeat on 08/07/2024 at [facility] stable at lung RADS category 2 with 1 year follow-up recommended. Assessment & Plan (10/31/2024 3:07 PM EDT): Smoker at about 1.5 packs/day for 20 years, currently at about 1/3 packs/day, patient not ready to quit but discussed again consideration of nicotine patches or Chantix potentially help with cessation. Previous attempted Chantix caused him to feel funny. He understands longstanding risk of ongoing smoking. Low-dose CT of the chest from 08/07/2023 reassuring with yearly repeat on 08/07/2024 at [facility] stable at lung RADS category 2 with 1 year follow-up recommended Assessment & Plan (07/31/2024 3:33 PM EDT): Smoker at about 1.5 packs/day for 20 years, currently at just a bit under 1/2 packs/day, continue the same as of 07/31/2024 discussion of consideration of nicotine patches or Chantix potentially help with cessation. Previous attempted Chantix caused him to feel funny, and as of 07/31/2024 visit declines other treatment such as with nicotine patch. He understands longstanding risk of ongoing smoking. Low-dose CT of the chest from 08/07/2023 reassuring with yearly follow-up recommended.. Patient is agreeable. Low-dose CT of the chest as recommended today 07/31/2024 based on smoking history and potential lung cancer risk, and I will set that up at [facility]. Management per results. Orders: CT Chest Low Dose Cancer Screening WO; Future Assessment & Plan (05/01/2024 1:37 PM EST): Smoker at about 1.5 packs/day for 20 years, currently at just under half a pack a day. Discussion of consideration of nicotine patches or Chantix potentially help with cessation. Previous attempted Chantix caused him to feel funny. Plan is to proceed nicotine patches as of 02/01/2024 but he never used it and declines desire to pursue at this time but will advise if he changes mind. He understands longstanding risk of ongoing smoking. Low-dose CT of the chest from 08/07/2023 reassuring with yearly follow-up recommended.. Plan was to try nicotine patches 02/01/2024 but he never completed it and not quite ready to pursue at this time. Assessment & Plan (02/01/2024 1:43 PM EST): Smoker at about 1.5 packs/day for 20 years, currently at just under half a pack a day. Discussion of consideration of nicotine patches or Chantix potentially help with cessation. Previous attempted Chantix caused him to feel funny but he is agreeable to extricating nicotine patches today as of 02/01/2024, prescription sent reinforced benefits of pursuit of cessation. He understands longstanding risk of ongoing smoking. Low-dose CT of the chest from 08/07/2023 reassuring with yearly follow- up recommended. Assessment & Plan (11/02/2023 1:34 PM EDT): Smoker at about 1.5 packs/day for 20 years, currently at just under half a pack a day. Discussion of consideration of nicotine patches or Chantix potentially help with cessation, declines desire now but will reconsider at follow-up visits. He understands longstanding risk of ongoing smoking. Low-dose CT of the chest from 08/07/2023 reassuring with yearly follow-up recommended. Assessment & Plan (08/24/2023 2:32 PM EDT): Smoker at about 1.5 packs/day for 20 years, currently at just under half a pack a day, with plan to decrease further. Discussion of consideration of nicotine patches or Chantix potentially help with cessation, declines desire now but will reconsider at follow-up visits. He understands longstanding risk of ongoing smoking. Recommend low-dose CT of the chest to screen for smoking history. Assessment & Plan (08/02/2023 2:25 PM EDT): Smoker at about 1.5 packs/day for 20 years, currently at just under half a pack a day, with plan to decrease further. Discussion of consideration of nicotine patches or Chantix potentially help with cessation, declines desire now but will reconsider at follow-up visits. He understands longstanding risk of ongoing smoking. Recommend low-dose CT of the chest to screen for smoking history. Assessment & Plan (06/28/2023 5:06 PM EDT): Smoker at about 1.5 packs/day for 20 years, currently at just under half a pack a day, with plan to decrease further. Discussion of consideration of nicotine patches or Chantix potentially help with cessation, declines desire now but will reconsider at follow-up visits. He understands longstanding risk of ongoing smoking. Encounter for general adult medical examination with abnormal findings 06/28/2023 Assessment & Plan (07/31/2024 3:33 PM EDT): Last screening blood work 08/02/2023 including negative HIV and hepatitis C virus screening. Repeat blood work ordered 07/31/2024 with management per results. Tdap and pneumococcal 20 valent vaccine given 06/28/2023. Low-dose CT of the chest - 08/07/2023, repeat ordered 07/31/2024 for yearly screening. Colonoscopy attempted by Dr. Vigil in 04/21/2022 but poor prep that required a repeat, referred back to Dr. Dewitt, ultimately having 01/11/2020 for colonoscopy showing multiple polyps but only 1 hyperplastic polyp and based on these results recommend repeat colonoscopy 3 years. He will as such we do December 2026. Assessment & Plan (08/02/2023 2:32 PM EDT): Patient unsure when last full screening blood work performed last provider, ordered 08/02/2023 with management results. Tdap and pneumococcal 20 valent vaccine given 06/28/2023. Patient never had low-dose CT scan of the chest per smoking history, ordered 08/02/2023. Colonoscopy attempted by Dr. Vigil in 04/21/2022 but poor prep that required a repeat, as obtained at [facility], scheduled for 11/22/2023 at [facility]. Gastroesophageal reflux disease without esophagi tis 06/28/2023 Assessment & Plan (07/31/2024 3:33 PM EDT): Longstanding pattern with regular flare of heartburn on pantoprazole 40 mg daily with benefit. Refill provided. Continue reflux precautions, with no sticking sensation in the throat noted. Now that he is generally doing well recommend transitioning the pantoprazole or as needed use to use only as often as necessary. Advise any worsening. Assessment & Plan (08/24/2023 2:32 PM EDT): Longstanding pattern with regular flare of heartburn on pantoprazole 40 mg daily with benefit. Refill provided. Continue reflux precautions, with no sticking sensation in the throat noted. I have discussed benefits of trial off the pantoprazole regularity to see if he requires longstanding. Advise concerns. Assessment & Plan (08/02/2023 2:34 PM EDT): Longstanding pattern with regular flare of heartburn on pantoprazole 40 mg daily with benefit. Continue reflux precautions, with no sticking sensation in the throat noted. I have discussed benefits of trial off the pantoprazole regularity to see if he requires longstanding. Advise concerns. Assessment & Plan (06/28/2023 5:09 PM EDT): Longstanding pattern with regular flare of heartburn on pantoprazole 40 mg daily with benefit. Continue reflux precautions, with no sticking sensation in the throat noted. I have discussed benefits of trial off the pantoprazole regularity to see if he requires longstanding. Advise any worsening. Class 1 obesity due to exces s calories with serious comorbidity and body mass index (BMI) of 32.0 to 32.9 in adult 06/28/2023 Assessment & Plan (07/31/2024 3:33 PM EDT): BMI in the 32 range, generally stable weight pattern for many years, with multiple comorbidities associated. Reinforced importance of healthy diet, exercise and weight loss. Assessment & Plan (05/01/2024 1:37 PM EST): BMI in the 32 range, generally stable weight pattern for many years, with multiple comorbidities associated. Reinforced importance of healthy diet, exercise and weight loss. Assessment & Plan (02/01/2024 1:43 PM EST): BMI in the 34 range, generally stable weight pattern for many years, with multiple comorbidities associated. Reinforced importance of healthy diet, exercise and weight loss. Assessment & Plan (11/02/2023 1:35 PM EDT): BMI in the 33 range, generally stable weight pattern for many years, with multiple comorbidities associated. Reinforced importance of healthy diet, exercise and weight loss. Assessment & Plan (08/02/2023 2:25 PM EDT): BMI in the 34 range, generally stable weight pattern for many years, with multiple comorbidities associated. Reinforced importance of healthy diet, exercise and weight loss. Assessment & Plan (06/28/2023 5:06 PM EDT): BMI in the 34 range, generally stable weight pattern for many years, with multiple comorbidities associated. Reinforced importance of healthy diet, exercise and weight loss. Colon cancer screening 06/28/2023 Assessment & Plan (07/31/2024 3:33 PM EDT): Retrieval of colonoscopy records from [facility] from 04/21/[address] Dewitt with poor prep, and recommendation to repeat with multi day preparation. He has been referred back to Dr. Dewitt, ultimately having 01/11/2020 for colonoscopy showing multiple polyps but only 1 hyperplastic polyp and based on these results recommend repeat colonoscopy 3 years. He will as such we do December 2026. Assessment & Plan (08/02/2023 2:26 PM EDT): Retrieval of colonoscopy records from [facility] from 04/21/[address] Dewitt with poor prep, and recommendation to repeat with multi day preparation. He has been referred back to Dr. Vigil and with planned repeat colonoscopy 11/22/2023. Assessment & Plan (06/28/2023 3:43 PM EDT): Retrieval of colonoscopy records from [facility] [facility] Dewitt with poor prep, and recommendation to repeat with multi day preparation. That appears to not been done, as such I will go ahead and refer again to [facility] with Dr. Vigil in 2 repeat as appropriate. Dental caries 06/28/2023 Assessment & Plan (07/31/2024 3:33 PM EDT): Diffuse dental caries again noted, recommend dental evaluation for treatment and repair. Patient will consider pursuing, understanding the medical benefit of treating his teeth. Assessment & Plan (08/02/2023 2:31 PM EDT): Diffuse dental caries noted, recommend dental evaluation for treatment and repair. Patient will plan to pursue. Assessment & Plan (06/28/2023 5:15 PM EDT): Diffuse dental caries noted, recommend dental evaluation for treatment and repair. Encounters Date Type Department Care Team Description [facility] [address] [place] [address] [place] [phone] Tc Sandoval MD Mixed hyperlipidemia; Acquired hypothyroidism 01/30/2025 11:00 AM EST Office Visit [facility] PRIMARY [address] [place] [address] Tc Sandoval MD Type 2 diabetes mellitus with diabetic polyneuropathy, with long-term current use of insulin (Primary Dx); Cigarette smoker; Mixed hyperlipidemia; Essential hypertension; Need for vaccination 01/30/2025 Travel 01/29/2025 Telephone [facility] PRIMARY CARE [address] [place] [address] [place] [phone] Tc Sandoval MD 01/05/2025 [facility] PRIMARY CARE [address] [place] [address] [place] [phone] Tc Sandoval MD Type 2 diabetes mellitus with diabetic polyneuropathy, with long-term current use of insulin 12/24/2024 [facility] PRIMARY CARE [address] [place] [address] [place] [phone] Tc Sandoval MD Gastroesophageal reflux disease without esophagitis 12/11/2024 [facility] PRIMARY CARE [address] [place] [address] [place] [phone] Tc Sandoval MD Essential hypertension 12/01/2024 [facility] PRIMARY CARE [address] [place] [address] [place] [address] Tc Sandoval MD Chronic bilateral low back pain with left-sided sciatica 11/26/2024 [facility] PRIMARY CARE [address] [place] [address] [place] [phone] Tc Sandoval MD 11/12/2024 [facility] PRIMARY CARE [address] [place] [address] [place] [phone] Tc Sandoval MD Type 2 diabetes mellitus with diabetic polyneuropathy, with long-term current use of insulin from Last 3 Months Immunizations Immunization Administration Dates Next Due Fluzone >6mos 01/30/2025,02/01/2024 Fluzone (or Fluarix & Flulaval for VFC) >6mos ,01/31/2021 Pneumococcal Conjugate 20-Valent (PCV20) 024 Td (TDVAX) 05/03/1996 Tdap 06/28/2023 Family History Medical History Relation Name Comments Cancer Brother Cancer Father Cancer Mother Relation Name Status Comments Brother Father Mother Social History Tobacco Use Types Packs/Day Years [...] F) 01/30/2025 11:26 AM EST Respiratory Rate 18 10/31/2024 2:30 PM EDT Oxygen Saturation 95% 01/30/2025 11:26 AM EST Inhaled Oxygen Concentration - - Weight 107 kg (236 lb) 01/30/2025 11:26 AM EST Height 177.8 cm (5' 10 ) 01/30/2025 11:26 AM EST Body Mass Index 33.86 01/30/2025 11:26 AM EST Plan of Treatment Upcoming Encounters Date Type Department Care Team (Late st Contact Info) Description 04/30/2025 11:00 AM EST Office Visit [facility] PRIMARY CARE [address] [place] [address] [place] [phone] Tc [facility] [address] Health Maintenance Due Date Last Done Comments COLOGUARD 10/15/2008 COLON CANCER SCREENING 5 YEA R SIGMOIDOSCOPY 10/15/2008 CT COLONOGRAPHY 10/15/2008 FECAL OCCULT BLOOD TEST 10/15/2008 FIT Testing (1 year) 10/15/2008 ZOSTER VACCINE (1 of 2) 10/15/2013 ANNUAL WELLNESS VISIT 07/31/2025 07/31/2024, 024 DIABETIC FOOT EXAM 07/31/2025 07/31/2024, 0 07/31/2024, 07/31/2024, Additional history exists HEMOGLOBIN A1C 07/31/2025 01/30/2025, 0 06/2024, 07/31/2024, Additional history exists URINE MICROALBUMIN-CREATININ E RATIO (uACR) 07/31/2025 07/31/2024 DIABETIC EYE EXAM 09/30/2025 09/30/2024 LIPID PANEL 10/31/2025 10/31/2024, 0 06/2024, 08/02/2023 LUNG CANCER SCREENING 10/31/2025 10/31/2024, 024 COLONOSCOPY 01/10/2027 01/11/2024, 12/27, 01/10/2024, Additional history exists COLORECTAL CANCER SCREENING 01/10/2027 TDAP/TD VACCINES (2 - Td or Tdap) 06/27/2033 024, 05/03/1996 Pneumococcal Vaccine 50+ Completed 06/28/2023 HEPATITIS C SCREENING Completed 08/02/2023 INFLUENZA VACCINE Completed 01/30/2025, , 01/30/2022, Additional history exists Procedures Procedure Name Priority Date/Time Associated Diagnosis Comments POCT GLUCOSE, BLD (NON STRIP) Routine 01/30/2025 12:23 PM EST Type 2 diabetes mellitus with diabetic polyneuropathy, with long-term current use of insulin POCT GLYCOSYLATED HEMOGLOBIN (HGB A1C) Routine 01/30/2025 12:22 PM EST Type 2 diabetes mellitus with diabetic polyneuropathy, with long-term current use of insulin LIPID PANEL Routine 10/31/2024 2:49 PM EDT Mixed hyperlipidemia CT CHEST LOW DOSE WO CANCER SCREENING Routine 10/31/2024 11:30 AM EDT Cigarette smoker SCANNED - EYE EXAM 09/30/2024 MICROALBUMIN / CREATININE URINE RATIO Routine 07/31/2024 2:38 PM EDT Type 2 diabetes mellitus with diabetic polyneuropathy, with long-term current use of insulin SCANNED - COLONOSCOPY 01/11/2024 HEPATITIS C ANTIBODY Routine 08/02/2023 2:29 PM EDT Encounter for general adult medical examination with abnormal findings from Last 3 Months or Most Recently Relevant to Health Maintenance Results * (ABNORMAL) POC Glucose, Blood (01/30/2025 12:23 PM EST) Glucose 307(A) 70 - 130 mg/dL Lot Number [id number] Expiration Date 02/12/2026 Blood 01/30/2025 12:2 3 PM EST us Tc Sandoval MD POINT OF CARE TEST ORDERABLES Fi nal Result * (ABNORMAL) POC Glycosylated Hemoglobin (Hb A1C) (01/30/2025 12:22 PM EST) Hemoglobin A1C 8.4(A) 4.5 - 5.7 % [facility] Lot Number [id number] [facility] Expiration Date 08/11/2026 [facility] Blood 01/30/2025 12:2 2 PM EST us Tc Sandoval MD POINT OF CARE TEST ORDERABLES Fi nal Result [facility]
[address] [place] [address], * (ABNORMAL) Lipid Panel (10/31/2024 2:49 PM EDT) Total Cholesterol 140 100 - 199 mg/dL [facility] Triglycerides 119 0 - 149 mg/dL [facility] HDL Cholesterol 38(L) >39 mg/dL [facility] VLDL Cholesterol Mello 22 5 - 40 mg/dL [facility] LDL Chol Calc (NIH) 80 0 - 99 mg/dL [facility] Blood Structure of right upper limb / Unknown 10/31/2024 2:49 PM EDT 11/01/2024 Comment:Blood Release to pat i Narrative [facility] (AMBULATORY) - 11/01/2024 7:06 AM EDT Performed at: 01 - [facility] [address] [place], [place] [id number] Skin Grader: Alberto Haynes PhD, Phone: [phone] us Tc Sandoval MD LAB BLOOD ORDERABLES Final Resul t [facility] ([facility] [address] [place] [address], [facility] [address] [place] [address], [place] [phone] * CT Chest Low Dose Cancer Screening WO (10/31/2024 11:30 AM EDT) Anatomical Region Laterality Modality Chest Computed Tomogra phy us Tc Sandoval MD IMG CT ORDERABLES Final Result * EYE EXAM SCANNED (09/30/2024) Anatomical Region Laterality Modality Other us Tc Sandoval MD CHART REVIEW TABS Final Resul t * Microalbumin / Creatinine Urine Ratio - Urine, Clean Catch (07/31/2024 2:38 PM EDT) Creatinine, Urine 155.6 Not Estab. mg/dL [facility] Microalbumin, Urine 6.5 Not Estab. ug/mL [facility] Microalbumin/Cre atinine Ratio 4 0 - 29 mg/g creat [facility] Comment: Normal: 0 - 29 Moderately increased: 30 - 300 Severely increased: >300 Urine Urine specimen obtained by clean catch procedure / Unknown 07/31/2024 2:38 PM EDT 07/31/2024 Comment:Urine Release to pat i Narrative [facility] (AMBULATORY) - 08/01/2024 1:07 PM EDT Performed at: 01 - [facility] [address] [place], [place] [id number] Skin Grader: Alberto Haynes PhD, Phone: [phone] us Tc Sandoval MD URINE ORDERABLES Final Result Performing Organization Address City/[facility]/ZIP Co de Phone Number [facility] [address] [place] [address], [place] [phone] [facility] [address] [place] [address], [place] [phone] * Colonoscopy, Scan (01/11/2024) us Tc Sandoval MD CHART REVIEW TABS Final Resul t * Hepatitis C Antibody (08/02/2023 2:29 PM EDT) Hep C Virus Ab Non Reactive Non Reactive [facility] Comment: HCV antibody alone does not differentiate between previously resolved infection and active infection. Equivocal and Reactive HCV antibody results should be followed up with an HCV RNA test to support the diagnosis of active HCV infection. Blood Structure of right upper limb / Unknown 08/02/2023 2:29 PM EDT 08/02/2023 Comment:Blood Release to [facility] michael [facility] (AMBULATORY) - 08/03/2023 10:07 AM EDT Performed at: 01 - [facility] [address] [place] [id number] Skin Grader: Alberto Haynes PhD, Phone: [phone] us Tc Sandoval MD LAB BLOOD ORDERABLES Final Resul t Performing Organization Address City/[facility]/ZIP Co de Phone Number [facility] [address] [place] [address], [place] [phone] [facility] [address] [place] [address], from Last 3 Months or Most Recently Relevant to Health Maintenance Insurance MEDICARE ADVANTAGE HMO Care Teams Fish Hatchery Assistant Relationship Specialty Start Date End Date Tc Sandoval MD [address] [place] [address] [place] [address] PCP - General Internal Medicine 06/28/23
--- OUTSIDE RECORDS SUMMARY | 2025-02-10 12:21 | XMS_ITS | Encounter Summary ---
[facility] Address [address] [place] [address] Care Team Providers Care Office Worker Name Role Phone Tc Sandoval MD Primary Care Provider [phone] Reason for Visit * Reason Comments Med Refill Encounter Details Date Type Department Care Team (Late Contact Info) Description 02/10/2025 Refill [facility] PRIMARY CARE [address] [place] [address] [place] [phone] Tc Sandoval MD [address] [place] [address] [place] [address] Mixed hyperlipidemia; Acquired hypothyroidism Social History Tobacco Use Types Packs/Day Years [...] Description 04/30/2025 11:00 AM EST Office Visit [facility] PRIMARY CARE [address] [place] [address] [place] [phone] Tc Sandoval MD [address] [place] [address] [place] [address] documented as of this encounter Visit Diagnoses Diagnosis Mixed hyperlipidemia Acquired hypothyroidism Unspecified hypothyroidism documented in this encounter Additional Health Concerns Assessment Noted Time PHQ-2 Depression Total Score: 2 08/02/19 24 1:51 PM EDT documented as of this encounter Care Teams Office Worker Relationship Specialty Start Date End Date Tc Sandoval MD [address] [place] [address] PCP - General Internal Medicine 06/28/23 documented as of this encounter
--- OUTSIDE RECORDS SUMMARY | 2025-02-10 12:21 | XMS_ITS | Encounter Summary ---
[facility] [address] [place] [address] Care Team Providers Care Air Pollution Compliance Inspector Name Role Phone Tc Sandoval MD Primary Care Provider Reason for Visit * Reason Comments Med Refill Encounter Details Date Type Department Care Team (Late Contact Info) Description 12/11/2024 Refill [facility] PRIMARY CARE [address] [place] [address] [place] [phone] Tc Sandoval MD [address] [place] [address] [place] [address] Essential hypertension Social History Tobacco Use Types Packs/Day Years [...] Upcoming Encounters Date Type Department Care Team ([facility] Contact Info) Description 04/30/2025 11:00 AM EST Office Visit [facility] PRIMARY CARE [address] [place] [address] [place] [phone] Tc Sandoval MD [address] [place] [address] [place] [address] documented as of this encounter Visit Diagnoses Diagnosis Essential hypertension Unspecified essential hypertension documented in this encounter Additional Health Concerns Assessment Noted Time PHQ-2 Depression Total Score: 2 08/02/19 1:51 PM EDT documented as of this encounter Care Teams Air Pollution Compliance Inspector Relationship Specialty Start Date End Date Tc Sandoval MD [address] [place] [address] PCP - General Internal Medicine 06/28/23 documented as of this encounter
--- OUTSIDE RECORDS SUMMARY | 2025-02-10 12:21 | XMS_ITS | Encounter Summary ---
Author Organization [facility] Address [address] [place] [address] Care Team Providers Care Drawer In Dobby Loom Name Role Phone Tc Sandoval MD Primary Care Provider [phone] Reason for Visit * Reason Comments Med Refill Encounter Details Date Type Department Care Team (Late Contact Info) Description 01/05/2025 Refill [facility] PRIMARY CARE [address] [place] [address] [place] [address] cT Sandoval MD [address] [place] [address] Type 2 diabetes mellitus with diabetic polyneuropathy, with long-term current use of insulin Social History Tobacco Use Types Packs/Day Years [...] encounter Miscellaneous Notes * Telephone Encounter - Edel Rose MA - 01/05/2025 4:24 PM EST Rx ready follow up scheduled. documented in this encounter Plan of Treatment Upcoming Encounters Date Type Department Care Team (Late Contact Info) Description 04/30/2025 11:00 AM EST Office Visit [facility] PRIMARY CARE [address] [place] [address] Tc Sandoval MD [address] [place] [address] documented as of this encounter Visit Diagnoses Diagnosis Type 2 diabetes mellitus with diabetic polyneuropathy, with long-term current use of insulin documented in this encounter Additional Health Concerns Assessment Noted Time PHQ-2 Depression Total Score: 2 08/02/19 24 1:51 PM EDT documented as of this encounter Care Teams Drawer In Dobby Loom Relationship Specialty Start Date End Date Tc Sandoval MD [address] [place] [address] PCP - General Internal Medicine 06/28/23 documented as of this encounter
--- NOTE | 2025-02-10 12:30 | NM_ITS ---
APPROVED REPORT Exam: Nuclear Stress Test Indication: cp..soa..syncope..fatigue Patient Location: Outpatient Stress Tech: Aida Bro [place] Tech:Gema Oliveira, ARRT, RT (R)(N) Ht: 6 ft 0 in Wt: 237 lbs HR: 76 bpm BP: 113/67 mmHg BSA: 2.29 m2 TID: 1.18 History: cp..soa..syncope..fatigue Procedure: Patient received 0.4 mg of intravenous Lexiscan, resting heart rate 76 bpm, resting blood pressure 113/67 mmHg, with Lexiscan maximum heart rate achieved was 88 bpm which is 85 % of the maximum predicted heart rate and blood pressure was 115/65 mmHg. With Lexiscan, patient denied any complaint of chest pain. Cardiac Stress and Resting SPECT Images: Cardiac Stress and Resting SPECT images were obtained using technetium 99m Myoview 31.3 mCi stress and 10.53 mCi at rest. Raw images demonstrate significant soft tissue overlap with the cardiac borders. This may affect the diagnostic interpretation of the study findings. Resting and stress imaging in supine positions demonstrate a medium-sized, moderate, fixed perfusion defect in the basal to mid inferior LV wall. This is no longer visualized in prone stress imaging. Findings are suggestive of diaphragmatic attenuation. Gated imaging demonstrates normal global LV systolic function. LVEF is calculated at 67%. Conclusion: Diaphragmatic attenuation is present. No evidence of fixed or reversible perfusion defects. Gated imaging demonstrates normal global LV systolic function. LVEF is calculated at 67%. Electronically signed by : Inna Cain MD 02/13/2025 13:25:12
[2025-02-10] MEDS: ISOTOPE MYOVIEW (PER STUDY) 1 DOSE IV (14:05)
[2025-02-10] MEDS: SODIUM CHLORIDE 0.9% 10ML SYR (RAD ONLY) 10 ML IV ×2 (14:05)
--- NOTE | 2025-02-10 15:15 | CA_ITS ---
APPROVED REPORT EXAM: Comprehensive 2D, Doppler, and color-flow Echocardiogram President And Ceo: Swathi Dias, ANNEMARIE, RVS Ht: 6 ft 0 in Wt: 236lbs BSA: 2.29 BP: 129/85 mmHg Indications: SOA, Smoker, CP 2D Dimensions IVSd 1.05 cm M: 0.6-1.2 LVEF (Visual) 62.30 % PWd 1.23 cm M: 0.6 - 1.2 LA Volume 33.90 mL LVDd 4.76 cm M: 4.2 - 5.9 LA Volume Index 14.80 mL/m2 (M/F) 16-34 LVDs 3.16 cm M: 2.5 - 4.0 Left Atrium 3.37 cm M: 3.0 - 4.0 M-Mode Dimensions RVDd 2.21 cm (0.9-2.6) LA Diam 3.93 cm (1.9-4.0) LVDd 5.53 cm (3.5-5.7) LVDs 3.66 cm (3.5-5.7) IVSd 1.07 cm (0.6-1.1) PWd 1.33 cm (0.6-1.1) EF (Teich) 62.10% EPSs 0.65 cm FS 33.80% EDV (Teich) 149.30 mL TAPSE 1.70 (<1.7) ESV (Teich) 56.60 mL LV Diastology E Decel Time 287 (160-240 msec) E/A Ratio 0.84 MED A' 10.60 cm/s LAT A' 9.40 cm/s Aortic Valve JOSIAS Index 1.21 cm2/m2 AoV Peak Monico. 132.0 (50-130 cm/s) AO Peak GR. 7.00 mmHg AO Mean GR. 3.60 (<5 mmHg) AO VTI 26.9 (18-25 cm) JOSIAS (VTI) 2.83 (2.5-4.5 cm2) Mitral Valve MV A Velocity 78.0 (40-130 cm/s) E/A Ratio 0.84 Pulmonary Valve PV Peak Velocity 81.0 (50-150 cm/s) Left Ventricle The left ventricle is normal size. Left ventricular systolic function is normal. The left ventricular ejection fraction is within the normal range. There is increased left ventricular wall thickness. There is normal LV segmental wall motion. Transmitral Doppler flow pattern suggests impaired LV relaxation. LVEF is 55% Right Ventricle The right ventricle is normal size. The right ventricular systolic function is normal. Atria The left atrium size is normal. The right atrium size is normal. There is no color Doppler evidence of interatrial shunt. Aortic Valve The aortic valve opens well. There is no hemodynamically significant aortic valvular stenosis. Trace aortic regurgitation is present. Mitral Valve The mitral valve is normal in structure. No evidence of mitral valve stenosis. Trace mitral regurgitation is present. Tricuspid Valve The tricuspid valve leaflets are thin and pliable. Trace tricuspid regurgitation. There is insufficient TR jet to estimate RVSP. Pulmonic Valve The pulmonary valve is grossly normal in structure. Trace pulmonic valve regurgitation is present. Great Vessels The aortic root is normal in size. IVC is normal in size and collapses >50% with inspiration. Pericardium There is no pericardial effusion. Other Information Study Quality: Technically Difficult Conclusion Normal biventricular systolic function. No significant valvular stenosis or regurgitation. Electronically signed by : Inna Cain MD 02/20/2025 07:23:28
== END 2025-02-10 23:59 | disposition home or self-care (01) ==
LOC: RAD 12:18
PROVIDERS: PCP Pediatrics; Visit Provider Nurse Practitioner Family
DX: I20.9 Angina pectoris, unspecified (principal); R06.02 Shortness of breath; R55 Syncope and collapse; R53.83 Other fatigue; F17.200 Nicotine dependence, unspecified, uncomplicated
CPT/HCPCS: 78452; 93017; 93018; 93306; A9502; J2785